=== PATIENT | female | born 1945 | race Caucasian/White ===

== ENCOUNTER → 2017-12-25 | Outpatient (CLI) | payer OTHER ==
[2017-12-25 17:26] LABS: BASO # 0.1 10^3/uL (0.0-0.2); BASO % 0.5 % (0.0-1.0); EOS # 0.2 10^3/uL (0.0-0.50); EOS % 1.9 % (0.0-3.0); HEMATOCRIT 44.6 % (36.0-47.0); HEMOGLOBIN 14.7 g/dl (12.0-15.5); IMMATURE GRANULOCYTE % 0.4 % (0-3.0); LYMPH # 2.7 10^3/uL (1.5-4.5); LYMPH % 24.9 % (24.0-44.0); MEAN CORPUSCULAR HEMOGLOBIN 30.4 pg (27.0-33.0); MEAN CORPUSCULAR VOLUME 92.1 fl (80.0-96.0); MONO # 0.5 10^3/uL (0.0-0.8); MONO % 4.6 % (0.0-5.0); NEUTROPHILS # 7.2 10^3/uL (1.8-7.7); NEUTROPHILS % 67.7 % (36.0-66.0); PLATELET COUNT, AUTOMATED 272 10^3/uL (150-450); RED BLOOD COUNT 4.84 10^6/uL (4.00-5.40); RED CELL DISTRIBUTION WIDTH 13.8 % (11.5-14.5); WHITE BLOOD COUNT 10.6 10^3/uL (4.0-10.0)
[2017-12-25 17:51] LABS: ESTIMATED AVERAGE GLUCOSE 203 MG/DL (60-110); HEMOGLOBIN A1c 8.7 %
[2017-12-25 18:04] LABS: ALBUMIN 3.4 GM/DL (3.2-5.2); ALBUMIN/GLOBULIN RATIO 0.87 (1.00-1.93); ALKALINE PHOSPHATASE 130 U/L (45-117); ALT/SGPT 35 U/L (12-78); ANION GAP 8 MEQ/L (8-16); AST/SGOT 18 U/L (7-37); BILIRUBIN,TOTAL 0.4 MG/DL (0.2-1.0); BLOOD UREA NITROGEN 11 MG/DL (7-18); CALCIUM LEVEL 9.4 MG/DL (8.8-10.2); CARBON DIOXIDE LEVEL 30 MEQ/L (21-32); CHLORIDE LEVEL 103 MEQ/L (98-107); CHOLESTEROL LEVEL 156 MG/DL (<200); CHOLESTEROL RISK RATIO 4.457 (<5); CREATININE FOR GFR 0.85 MG/DL (0.55-1.30); FREE T4 1.08 NG/DL (0.76-1.46); GLOMERULAR FILTRATION RATE > 60.0 (>39); GLUCOSE, FASTING 207 MG/DL (70-100); HDL CHOLESTEROL 35 MG/DL (>40); LDL CHOLESTEROL 81.6 MG/DL (<100); NON-HDL-C 121 MG/DL; SODIUM LEVEL 141 MEQ/L (136-145); THYROID STIMULATING HORMONE 0.975 uIU/ML (0.358-3.740); TOTAL PROTEIN 7.3 GM/DL (6.4-8.2); TRIGLYCERIDES LEVEL 197 MG/DL (<150)
== END ==
LOC: M SMT 13:50
DX: E11.9 Type 2 diabetes mellitus without complications (principal)

== ENCOUNTER 2019-12-28 17:35 | Inpatient (IN) | payer OTHER ==
[~2019-12-28 17:35] MED LIST: ACET65TA OR; ADVIL; ADVIL PO; AMLO10TAB OR; ASPI325T OR; BISO5TAB5 PO; BUPROPION PO; CATA0.1T OR; CEPALOZ2 PO; CLON-412 OR; COUM1TAB17 OR; COUM1TAB18 PO; COZA100T OR; FURO40TA2 OR; GLIM2TAB PO; IRBE300T10 PO; MS C15TA5 OR; MULTIVIT PO; MULTTAB33 PO; PERC7.5T12 PO; PERC7.5T8 OR; RITA10TA OR; SENNSYP PO; TYLENOL PO; WELL100T OR; WELL100T PO; [UNRECOGNIZED DRUG - CODE] OR; [UNRECOGNIZED DRUG - CODE] PO; [UNRECOGNIZED DRUG - CODE] XX; [UNRECOGNIZED DRUG - OTHER] PO; advil OR; aleve OR; excedrin
[2019-12-28] MEDS ORDERED: MORPHINE 2 MG/ML 1ML VIAL (J2270) ONE (19:22)
[2019-12-28] MEDS ORDERED: ZOSYN 3.375GM VIAL (J2543) ONE (19:22)
[2019-12-28] MEDS ORDERED: ISOVUE-370 76% 100ML VIAL ONE (20:17)
[2019-12-28] MEDS ORDERED: ENOXAPARIN 100MG/1ML SYRINGE (J1650 PER 10MG) ONE (22:55)
[2019-12-28] MEDS ORDERED: FUROSEMIDE 40MG/4ML VIAL (J1940) ONE (22:55)
[2019-12-28] MEDS ORDERED: NITROGLYCERIN IN D5W 25MG/250ML (100MCG/ML) ONE (22:55)
[2019-12-28] MEDS ORDERED: LISINOPRIL *2.5 MG* TAB ONE (22:55)
[2019-12-28] MEDS ORDERED: MORPHINE 4 MG/ML 1ML VIAL/SYRINGE (J2270) ONE (22:55)
[2019-12-28] MEDS ORDERED: ENOXAPARIN 30MG/0.3ML SYRINGE (J1650 PER 10MG) ONE (22:55)
[2019-12-29] MEDS ORDERED: ASPIRIN 81 MG CHEW TABLET As Ordered ONE ×2 (00:54→19:47)
[2019-12-29] MEDS ORDERED: RAMELTEON 8 MG TAB (ROZEREM) As Ordered ONE (00:54)
[2019-12-29] MEDS ORDERED: KETOROLAC 30 MG/ML 1ML VIAL As Ordered ONE (00:54)
[2019-12-29] MEDS ORDERED: HumaLOG INSULIN (NovoLOG) PER UNIT As Ordered ONE ×4 (00:57→16:47)
[2019-12-29] MEDS ORDERED: ONDANSETRON 4 MG TAB As Ordered ONE (06:17)
[2019-12-29] MEDS ORDERED: IPRATROPIUM 0.5MG/ALBUTEROL 2.5MG INH SOL UD 3ML (DUONEB) ONE (10:00)
[2019-12-29] MEDS ORDERED: METOPROLOL TART 12.5 MG PER 1/2 TAB As Ordered ONE (10:34)
[2019-12-29] MEDS ORDERED: lisinopriL 10 MG TAB As Ordered ONE ×2 (10:34→19:47)
[2019-12-29] MEDS ORDERED: LACTOBACILLUS ACIDOPHILUS CAP (BACID) As Ordered ONE ×2 (10:35→19:47)
[2019-12-29] MEDS ORDERED: CLINDAMYCIN 600 MG/50 ML PREMIX BAG As Ordered ONE ×2 (12:16→19:46)
[2019-12-29] MEDS ORDERED: FUROSEMIDE 40MG/4ML VIAL (J1940) As Ordered ONE (12:17)
[2019-12-29] MEDS ORDERED: ENOXAPARIN 150MG/ML SYRINGE (J1650 PER 10MG) ONE (13:00)
[2019-12-29] MEDS ORDERED: LISINOPRIL *2.5 MG* TAB ONE (13:00)
[2019-12-29] MEDS ORDERED: CLINDAMYCIN 150MG CAPSULE ONE ×2 (13:00→21:00)
[2019-12-29] MEDS ORDERED: TORSEMIDE 20 MG TAB As Ordered ONE (19:47)
[2019-12-29] MEDS ORDERED: SENNA 8.6 MG TAB (SENOKOT) As Ordered ONE (19:47)
[2019-12-29] MEDS ORDERED: CARVedilol 12.5 MG TAB As Ordered ONE (19:50)
[2019-12-30] MEDS ORDERED: TORSEMIDE 20 MG TAB As Ordered ONE (08:02)
[2019-12-30] MEDS ORDERED: lisinopriL 10 MG TAB As Ordered ONE (08:02)
[2019-12-30] MEDS ORDERED: SENOKOT S TAB As Ordered ONE (08:02)
[2019-12-30] MEDS ORDERED: LACTOBACILLUS ACIDOPHILUS CAP (BACID) As Ordered ONE (08:02)
[2019-12-30] MEDS ORDERED: CARVedilol 12.5 MG TAB As Ordered ONE (08:02)
[2019-12-30] MEDS ORDERED: HumaLOG INSULIN (NovoLOG) PER UNIT As Ordered ONE ×3 (08:04→17:04)
[2019-12-30] MEDS ORDERED: IPRATROPIUM 0.5MG/ALBUTEROL 2.5MG INH SOL UD 3ML (DUONEB) ONE (10:00)
[2019-12-30] MEDS ORDERED: MAGNESIUM SULFATE 1GM/100ML D5W BAG (10MG/ML) As Ordered ONE ×2 (10:49→12:43)
[2019-12-30] MEDS ORDERED: CLINDAMYCIN 600 MG/50 ML PREMIX BAG As Ordered ONE (12:00)
[2019-12-30] MEDS: TORSEMIDE 10 MG TABLET PO SCH (17:00)
[2019-12-30] MEDS ORDERED: ONDANSETRON 4 MG TAB PO PRN (18:15)
[2019-12-30] MEDS ORDERED: ALBUTEROL SULFATE 2.5 MG/0.5 ML INH NEB SOLN INH PRN (18:15)
[2019-12-30] MEDS ORDERED: BISACODYL 5 MG TAB PO PRN (18:15)
[2019-12-30] MEDS ORDERED: ACETAMINOPHEN TAB 650MG DOSE (2X325MG) PO PRN (18:15)
[2019-12-30] MEDS ORDERED: PERCOCET 5MG/325MG TAB PO PRN (18:15)
[2019-12-30] MEDS ORDERED: DEXTROSE 50% 50 ML SYRINGE IV PRN (18:15)
[2019-12-30] MEDS ORDERED: GLUCOSE 4GM CHEW TABLET PO PRN (18:15)
[2019-12-30] MEDS ORDERED: GLUCAGON INJ 1MG VIAL SC PRN (18:15)
[2019-12-30] MEDS ORDERED: NITROGLYCERIN 0.4 MG SUBL TABLET SL PRN (18:15)
[2019-12-30 20:00] VITALS: BP 146/74
[2019-12-30] MEDS: IPRATROPIUM 0.5MG/ALBUTEROL 2.5MG INH SOL UD 3ML (DUONEB) INH SCH (20:00)
[2019-12-30] MEDS: APIXABAN 5 MG TAB (ELIQUIS) PO SCH (20:02)
[2019-12-30] MEDS: CLINDAMYCIN 600 MG in IV 1 EA IV SCH (20:02)
[2019-12-30] MEDS: CARVedilol 12.5 MG TAB PO SCH (20:03)
[2019-12-30] MEDS: LACTOBACILLUS ACIDOPHILUS CAP (BACID) PO SCH (20:03)
[2019-12-30] MEDS: SENOKOT S TAB PO SCH (20:04)
[2019-12-30] MEDS: lisinopriL 10 MG TAB PO SCH (20:04)
[2019-12-30] MEDS ORDERED: ENOXAPARIN 150MG/ML SYRINGE (J1650 PER 10MG) SC SCH (21:00)
[2019-12-30] MEDS ORDERED: HumaLOG INSULIN (NovoLOG) PER UNIT SC SCH (21:00)
[2019-12-30] MEDS ORDERED: ASPIRIN 81 MG CHEW TABLET PO SCH (21:00)
[2019-12-30 21:36] LABS: BASO # 0.1 10^3/uL (0.0-0.2); BASO % 0.7 % (0.0-1.0); EOS # 0.3 10^3/uL (0.0-0.5); EOS % 3.1 % (0.0-3.0); HEMATOCRIT 40.4 % (36.0-47.0); HEMOGLOBIN 12.9 g/dl (12.0-15.5); LYMPH % 31.9 % (24.0-44.0); MEAN CORPUSCULAR HEMOGLOBIN 29.9 pg (27.0-33.0); MEAN CORPUSCULAR HGB CONC 31.9 g/dl (32.0-36.5); MEAN CORPUSCULAR VOLUME 93.5 fl (80.0-96.0); MONO # 0.7 10^3/uL (0.0-0.8); MONO % 7.4 % (0.0-5.0); NEUTROPHILS # 5.3 10^3/uL (1.5-8.5); NEUTROPHILS % 56.6 % (36.0-66.0); PLATELET COUNT, AUTOMATED 227 10^3/uL (150-450); RED BLOOD COUNT 4.32 10^6/uL (4.00-5.40); WHITE BLOOD COUNT 9.4 10^3/uL (4.0-10.0)
[2019-12-31] VITALS: BP 121/65
[2019-12-31 04:00] VITALS: BP 154/85
[2019-12-31] MEDS: CLINDAMYCIN 600 MG in IV 1 EA IV SCH ×2 (04:00→11:53)
[2019-12-31 05:52] LABS: BASO # 0.1 10^3/uL (0.0-0.2); BASO % 0.7 % (0.0-1.0); EOS # 0.4 10^3/uL (0.0-0.5); EOS % 4.1 % (0.0-3.0); HEMATOCRIT 39.5 % (36.0-47.0); HEMOGLOBIN 12.5 g/dl (12.0-15.5); LYMPH # 2.9 10^3/uL (1.5-5.0); MEAN CORPUSCULAR HGB CONC 31.6 g/dl (32.0-36.5); MEAN CORPUSCULAR VOLUME 94.7 fl (80.0-96.0); MONO # 0.7 10^3/uL (0.0-0.8); MONO % 7.8 % (0.0-5.0); NEUTROPHILS # 4.6 10^3/uL (1.5-8.5); NEUTROPHILS % 53.3 % (36.0-66.0); PLATELET COUNT, AUTOMATED 196 10^3/uL (150-450); RED BLOOD COUNT 4.17 10^6/uL (4.00-5.40); WHITE BLOOD COUNT 8.6 10^3/uL (4.0-10.0)
[2019-12-31 06:02] LABS: INR 1.33; PROTHROMBIN TIME 16.8 SECONDS (11.8-14.0)
[2019-12-31 06:49] LABS: ALBUMIN 2.9 GM/DL (3.2-5.2); BILIRUBIN,TOTAL 0.6 MG/DL (0.2-1.0); CALCIUM LEVEL 8.3 MG/DL (8.8-10.2); CREATININE FOR GFR 1.05 MG/DL (0.55-1.30); GLOMERULAR FILTRATION RATE 54.5 (>39); MAGNESIUM LEVEL 2.1 MG/DL (1.8-2.4); PHOSPHORUS LEVEL 3.8 MG/DL (2.5-4.9); POTASSIUM SERUM 3.6 MEQ/L (3.5-5.1); TOTAL PROTEIN 5.9 GM/DL (6.4-8.2)
[2019-12-31] MEDS: HumaLOG INSULIN (NovoLOG) PER UNIT SC SCH ×2 (07:25→11:53)
[2019-12-31 07:58] VITALS: BP 148/71
[2019-12-31] MEDS: LACTOBACILLUS ACIDOPHILUS CAP (BACID) PO SCH (07:58)
[2019-12-31] MEDS: SENOKOT S TAB PO SCH (07:58)
[2019-12-31] MEDS: CARVedilol 12.5 MG TAB PO SCH (07:58)
[2019-12-31] MEDS: lisinopriL 10 MG TAB PO SCH (07:59)
[2019-12-31] MEDS: APIXABAN 5 MG TAB (ELIQUIS) PO SCH (07:59)
[2019-12-31 08:00] VITALS: BP 148/71
[2019-12-31] MEDS: TORSEMIDE 10 MG TABLET PO SCH (08:05)
[2019-12-31] MEDS: IPRATROPIUM 0.5MG/ALBUTEROL 2.5MG INH SOL UD 3ML (DUONEB) INH SCH ×3 (08:33→16:14)
[2019-12-31] MEDS ORDERED: ELIQ5TAB PO (10:01)
[2019-12-31] MEDS ORDERED: TORS10TA3 PO (10:05)
[2019-12-31] MEDS ORDERED: CARV12.5 PO (10:05)
[2019-12-31] MEDS ORDERED: LISI10TA4 PO (10:05)
[2019-12-31] MEDS ORDERED: METF-817 PO (10:29)
--- NOTE | 2019-12-31 11:02 | IPNPDOC ---
Date Seen The patient was seen on 12/31/19. Progress Note SUBJECTIVE: doing well, no acute events overnight. No CP, subjective fevers. No n/v/d. SOB resolved. OBJECTIVE PHYSICAL EXAMINATION: VITAL SIGNS: Please see below. GENERAL: NAD, comfortable in bed HEENT: PERRLA, EOMI CARDIOVASCULAR: RRR, normal S1, S2. RESPIRATORY: lungs CTAB, bilateral basal air entry improved, no crackles. ABDOMINAL: non tender, obese EXTREMITIES: 1+ edema, improved. Cellulitis improving, erythema diminies. Stage 1 ulcers dressed, clean NEUROLOGICAL: no focal neuro deficits PSYCHOLOGICAL: wnl LABORATORY DATA, IMAGING STUDIES, MICROBIOLOGY: Please see below. Echocardiogram ( 12/1819): - mild LV dysfunction - EF ~50%, Grade 2 diastolic dysfunction - mild AV scleroris - no pericardial effusion DVT prophylaxis ordered?: Eliquis. ASSESSMENT AND PLAN: This is a 74 yo F with hx of uncontrolled HTN, CHF, uncontrolled DM2. Presented to [facility] ED with dyspnea, worse on activity and PND. Admitted to PCU for hypertensive emergency and acute on chronic CHS exacerbation. CTA/PE cannot r/o PE. PROBLEMS: 1. Hypertensive Emergency: BP normalized. Cardio consulted. Off nitro ggt. Lisinopril 10 mg daily. Carvedilol 12.5 mg BID. Torsemide 10 mg BID. 2D echo showing LV dysfunction, EF ~50%. Cleared for DC by Dr. Davis, to f/u 3-4 weeks. Low salt diet. 2. Acute CHF Exacerbation: diuresed w torsemide 10 mg bid. Coreg 12.5 mg bid. 2L fluid restriction. CXR (12/30/19) improved pleural effusion size. Cardio f/u 3-[address] Davis. 3. Elevated Trop: trended down. Likely from demand. No CP. 4. BL LE cellulitis: superimposed on stage 1 ulcers. Completed 2 days IV clindamycin. DC on PO Bactrim DS BID for 7 days. Improving. Outpatient wound care. 5. DM2 (uncontrolled): takes no meds. A1c 8.7. ISS, accuchecks. BGs 180s. Needs PCP, diabetic education. 6. Possible PE on CTA: cannot rule out. Negative BLE duplex. Switched lovenox to eliquis. Completed VQ scan. Low probability of PE. Given lack of strong indication for PE based on imaging, decision to DC anticoagulation on discharge. Eliquis stopped. 7. 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 8. L breast mass: incidental, seen on CTA chest. 2.2 cm, small calcification. Needs bilateral diagnostic mammogram with US. Has not had mammogram in 20 years. Needs PCP coordination. Patient informed and verbalized understanding. 9. DVT ppx: eliquis. DC on discharge. Dispo: DC home with PCP follow up. VS, I&O, 24H, Fishbone Vital Signs/I&O Vital Signs Date Time Temp Pulse Resp B/P (MAP) Pulse Ox O2 Delivery O2 Flow Rate FiO2 12/31/19 08:34 73 12/31/19 07:58 148/71 12/31/19 04:00 98.3 20 95 Room Air l I&O- Last 24 Hours up to 6 AM 12/31/19 06:00 Intake Total 430 ml Output Total 350 ml Balance 80 ml Laboratory Data 24H LABS Laboratory Tests 2 12/31/19 05:33: Immature Granulocyte % (Auto) 0.1, Neutrophils (%) (Auto) 53.3, Lymphocytes (%) (Auto) 34.0, Monocytes (%) (Auto) 7.8H, Eosinophils (%) (Auto) 4.1H, Basophils (%) (Auto) 0.7, Neutrophils # (Auto) 4.6, Lymphocytes # (Auto) 2.9, Monocytes # (Auto) 0.7, Eosinophils # (Auto) 0.4, Basophils # (Auto) 0.1, Nucleated Red Blood Cells % (auto) 0.0, Prothrombin Time 16.8H, Prothromb Time International Ratio 1.33, Anion Gap 5L, Glomerular Filtration Rate 54.5, Calcium Level 8.3L, Phosphorus Level 3.8, Magnesium Level 2.1, Total Bilirubin 0.6, Aspartate Amino Transf (AST/SGOT) 43H, Alanine Aminotransferase (ALT/SGPT) 64, Alkaline Phosphatase 130H, Total Protein 5.9L, Albumin 2.9L, Albumin/Globulin Ratio 1.0L CBC/BMP Laboratory Tests 12/31/19 05:33 FELIPE CHUNG MD Dec 31, 2019 10:33
[2019-12-31] MEDS ORDERED: BACT800T5 PO (11:04)
[2019-12-31 12:00] VITALS: BP 135/70
--- NOTE | 2019-12-31 20:17 | DS.PDOC ---
Discharge Summary General Date of Admission Dec 28, 2019 at 23:48 Date of Discharge 12/31/19 Primary Care Physician: A Attending Physician: FELIPE CHUNG MD Specialist/Consultants Involve: Gilbert Davis Discharge Summary PROCEDURES PERFORMED DURING STAY: [None]. ADMITTING DIAGNOSES: 1. Hypertensive emergency 2. CHF exacerbation 3. BLE cellulitis 4. elevated troponin 5. morbid obesity 6. DM2 DISCHARGE DIAGNOSES: 1. Hypertensive emergency 2. CHF exacerbation 3. BLE cellulitis 4. elevated troponin 5. morbid obesity 6. DM2 7. L breast mass COMPLICATIONS/CHIEF COMPLAINT: Dyspnea. HISTORY OF PRESENT ILLNESS: 74 yo F with a hx of CHF, HTN, uncontrolled DM2, obesity, presented to [facility] ED with worsening dyspnea on exertion. Improved at rest. C/o PND. Takes no medications at home. Was not established with PCP. Noted tachypnea, on exam, 3+ BLE edema. CXR noted to have bilateral pulmonary effusions. CTA/PE could not r/o PE. Negative BLE venous dupplex of note. (Note: L breast calcified mass, 2.2 cm incidental finding). BNP elevated > 5000. Trop mildly elevated. SBP > 220 mmHG. Admitted to PCU for management of HTN emergency and acute CHF exacerbation. HOSPITAL COURSE: Patient was started on nitro GGT for BP control. Cardiology service was consulted. Nitro ggt drip stopped, transition to PO meds once BP normalized. Continued on lisinopril 10 mg daily. Carvedilol 12.5 mg BID. Torsemide 10 mg BID. PO fluid intake was restricted to 2L per day. Patient was started on AC with lovenox for suspicious CTA/PE findings for PE, transitioned to eliquis. VQ scan performed to further attempt to characterize defect. Low risk of PE noted on VQ scan. Decision to DC AC on discharge. For DM2 (a1c 8.7) management, patient was started on Metformin 500 mg ER. Will require close follow up with PCP given several chronic issues. Dr. Davis would like to f/u as outpatient in 3-4 weeks. L breast mass requires bilateral diagnostic mammogram with ultrasound. Discussed with radiology, suspicion for malignancy. DISCHARGE MEDICATIONS: Please see below. ALLERGIES: Please see below. PHYSICAL EXAMINATION ON DISCHARGE: GENERAL: NAD, comfortable in bed HEENT: PERRLA, EOMI CARDIOVASCULAR: RRR, normal S1, S2. RESPIRATORY: lungs CTAB, bilateral basal air entry improved, no crackles. ABDOMINAL: non tender, obese EXTREMITIES: 1+ edema, improved. Cellulitis improving, erythema diminies. Stage 1 ulcers dressed, clean NEUROLOGICAL: no focal neuro deficits PSYCHOLOGICAL: wnl LABORATORY DATA: Please see below. IMAGING: most of records were recorded on paper chart. Pertinent information listed in the Hospital Course. ACTIVITY: [As tolerated]. DIET: low salt DISCHARGE PLAN: DC home DISPOSITION: HOme DISCHARGE INSTRUCTIONS: 1. mantain low salt diet, vegetarian 2. continue medication regimen for HTN as listed above 3. establish PCP 4. F/u with cardiology Dr. Davis 3-4 weeks ITEMS TO FOLLOWUP ON ON OUTPATIENT: 1. L breast mass (2.2 cm with small calcification) 2. Diabetes management (started on metformin) 3. BP measurement 4. Suspicion of ALANIS DISCHARGE CONDITION: [Stable]. TIME SPENT ON DISCHARGE: Greater than 30 minutes. Vital Signs/I&Os Vital Signs Date Time Temp Pulse Resp B/P (MAP) Pulse Ox O2 Delivery O2 Flow Rate FiO2 12/31/19 08:34 73 12/31/19 07:58 148/71 12/31/19 04:00 98.3 20 95 Room Air I&O- Last 24 Hours up to 6 AM 12/31/19 06:00 Intake Total 430 ml Output Total 350 ml Balance 80 ml Laboratory Data Labs 24H Laboratory Tests 2 12/31/19 05:33: Immature Granulocyte % (Auto) 0.1, Neutrophils (%) (Auto) 53.3, Lymphocytes (%) (Auto) 34.0, Monocytes (%) (Auto) 7.8H, Eosinophils (%) (Auto) 4.1H, Basophils (%) (Auto) 0.7, Neutrophils # (Auto) 4.6, Lymphocytes # (Auto) 2.9, Monocytes # (Auto) 0.7, Eosinophils # (Auto) 0.4, Basophils # (Auto) 0.1, Nucleated Red Blood Cells % (auto) 0.0, Prothrombin Time 16.8H, Prothromb Time International Ratio 1.33, Anion Gap 5L, Glomerular Filtration Rate 54.5, Calcium Level 8.3L, Phosphorus Level 3.8, Magnesium Level 2.1, Total Bilirubin 0.6, Aspartate Amino Transf (AST/SGOT) 43H, Alanine Aminotransferase (ALT/SGPT) 64, Alkaline Phosphatase 130H, Total Protein 5.9L, Albumin 2.9L, Albumin/Globulin Ratio 1.0L CBC/BMP Laboratory Tests 12/31/19 05:33 Discharge Medications Scheduled Carvedilol (Carvedilol) 12.5 Mg Tablet, 12.5 MG PO BID Lisinopril (Lisinopril) 10 Mg Tablet, 10 MG PO BID Metformin HCl (Metformin ER Gastric) 500 Mg [id number], 500 MG PO DAILY for diab etes Sulfamethoxazole/Trimethoprim (Bactrim Ds Tablet) 1 Each Tablet, 1 TAB PO BID Torsemide (Torsemide) 10 Mg Tablet, 10 MG PO BID@,17 Allergies Coded Allergies: atorvastatin (Verified Allergy, Unknown, AFFECTED LEGS, BONES, URINE BROWN, 12/30/19) clonidine (Verified Allergy, Unknown, 12/30/19) codeine (Verified Allergy, Unknown, 12/30/19) FELIPE CHUNG MD Dec 31, 2019 10:33
[2020-01-01 11:49] LABS: BASO % 0.4 % (0.0-1.0); EOS # 0.2 10^3/uL (0.0-0.5); EOS % 1.3 % (0.0-3.0); HEMOGLOBIN 13.2 g/dl (12.0-15.5); LYMPH # 2.4 10^3/uL (1.5-5.0); LYMPH % 21.3 % (24.0-44.0); MEAN CORPUSCULAR HEMOGLOBIN 30.3 pg (27.0-33.0); MONO # 0.8 10^3/uL (0.0-0.8); MONO % 7.1 % (0.0-5.0); NEUTROPHILS # 7.9 10^3/uL (1.5-8.5); NEUTROPHILS % 69.6 % (36.0-66.0); PLATELET COUNT, AUTOMATED 242 10^3/uL (150-450); RED BLOOD COUNT 4.35 10^6/uL (4.00-5.40); WHITE BLOOD COUNT 11.3 10^3/uL (4.0-10.0)
[2020-01-01 12:00] LABS: INR 1.16; PARTIAL THROMBOPLASTIN TIME 33.1 SECONDS (25.0-38.4); PROTHROMBIN TIME 15.1 SECONDS (11.8-14.0)
[2020-01-01 12:28] LABS: D-DIMER QUANT 1630.12 ng/ml (<500); INR 1.05; PARTIAL THROMBOPLASTIN TIME 28.2 SECONDS (25.0-38.4); PROTHROMBIN TIME 13.9 SECONDS (11.8-14.0)
[2020-01-03 23:18] LABS: BILIRUBIN,TOTAL 0.7 MG/DL (0.2-1.0); CALCIUM LEVEL 8.3 MG/DL (8.8-10.2); CHOLESTEROL RISK RATIO 3.414 (<5); CREATININE FOR GFR 1.13 MG/DL (0.55-1.30); GLOMERULAR FILTRATION RATE 50.1 (>39); MAGNESIUM LEVEL 1.8 MG/DL (1.8-2.4); POTASSIUM SERUM 3.8 MEQ/L (3.5-5.1); TOTAL PROTEIN 5.9 GM/DL (6.4-8.2); TROPONIN I 0.03 NG/ML (< 0.10)
[2020-01-06] MEDS ORDERED: APIXABAN 5 MG TAB (ELIQUIS) PO SCH (21:00)
--- NOTE | 2020-01-14 11:58 | CR ---
DATE: 12/29/2019 REFERRING PHYSICIAN: Dr. Chaparrita Mckoy REASON FOR CONSULTATION: Heart failure, unspecified, hypertensive emergency, systemic hypertension, elevated troponin I. HISTORY OF PRESENT ILLNESS: Reji Pendleton is a pleasant morbidly obese woman who is presently 72 years old who reports she has had systemic hypertension dating back to when she was in her 30s. She has not been seen by a physician for many years up until recently. She has obstructive sleep apnea for which she is on CPAP. She was recently diagnosed with Type 2 diabetes. She was hospitalized to [facility] 12/28/2019 with hypertensive emergency and new diagnosis of heart failure. She was noted to have an elevated NT pro-BNP level and also elevated troponin I. She was placed on Nitroglycerin IV and placed in the ICU. So far she has been responding well to medical therapy. The patient reports chronic exertional dyspnea for many years which has worsened in the two weeks prior to admission to a point with dyspnea with any activity. She was having orthopnea during the two weeks prior to admission. No dyspnea at rest and no PND. She reports chronic bilateral edema in both legs for many years and has not noted any real changes recently. No chest pain, pressure, tightness, or heaviness with or without exertion. No palpitations. She reports she passed out about three or four months ago on one occasion. No embolic events. No claudication. ALLERGIES: The patient reports intolerances to Losartan and statins. CURRENT MEDICATIONS IN HOSPITAL: Nitroglycerin IV, DuoNeb q.i.d., Albuterol 2.5 mg nebulizer q. 2 h p.r.n., Metoprolol Tartrate 12.5 mg b.i.d., Clindamycin 600 mg IV q. 8 h, probiotic b.i.d., Tylenol 650 mg q. 6 h p.r.n., Percocet 5-325 mg q. 8 h p.r.n., Lisinopril 10 mg daily, Nitroglycerin 0.4 mg sublingual q. 5 minutes p.r.n., aspirin 81 mg p.o. h.s., Lovenox 130 mg sub q. q. 12 h. SOCIAL HISTORY: Resident of [place], [place]. . Mother of three. No alcohol. No illicit drugs. Nonsmoker. FAMILY HISTORY: One son with systemic hypertension. REVIEW OF SYSTEMS: As per HPI above. No anxiety, panic attacks or depression. All other 10 point review of systems negative. PHYSICAL EXAMINATION: Pleasant morbidly obese woman who appears her chronologic age who is not in any respiratory or psychological distress. BP 139/62, pulse 89 (regular). Respiratory rate 18. Afebrile. No conjunctival pallor or scleral icterus or xanthelasmas. Teeth were in fair condition. Oral mucosa is moist without pallor or cyanosis. Jugular venous pulsations were at 6 cm. Trachea midline. No palpable thyroid. No clubbing of the nail beds, cyanosis, or splinter hemorrhages. No skin lesions, skin pallor, or icterus. Oriented to person, place, and time. Mood and affect normal. Curvature of the spine normal. Gait not appropriate to test at this time as she is on bed rest and has decompensated heart failure. Gross motor strength and tone were normal. Respiratory expansion and effort were good. A few bibasilar crackles were present. No wheezes. No palpable apex beat. No parasternal lifts, heaves, thrills, or palpable heart sounds. First and second heart sounds were normal. No S3 or S4. No murmurs appreciated. Carotids were normal in volume and contour without bruits. No palpable abdominal aorta. No abdominal bruits. Femoral pulses difficult to palpate due to severe obesity. Pedal pulses normal. 5 mm of pitting edema at mid tibial level bilaterally. No varicose veins. Abdomen was obese, soft, nontender with normal bowel sounds. Liver span difficult to assess due to abdominal obesity. Difficult to asses for hepatomegaly, splenomegaly or other organomegaly due to severe abdominal obesity. Stool for occult blood not presently indicated. INVESTIGATIONS: Echocardiogram Doppler has been reported under separate cover. The echocardiogram Doppler 12/29/2019 showed mild dilatation of the left ventricle with normal LV wall thickness and mild reduction of LV systolic function, LVEF 50% by facial estimate. Grade 2 LV diastolic dysfunction (sooner than normal LV filling pattern). Mild left atrial dilatation by left atrial volume index. Normal right ventricle size and systolic function. Suggestive of mild dilatation of estimated right ventricular systolic pressure. No pericardial effusion. Electrocardiogram 12/29/2019 at 0032 hours shows sinus rhythm, 94 BPM, left atrial abnormality, possible left atrial enlargement, moderate nonspecific QRS widening, nonspecific T-wave abnormalities. Duplex ultrasound of the lower extremity veins bilateral on 12/28/2019 reported no evidence of deep vein thrombosis. Chest CTA 12/28/2019 reported suboptimal CTA examination with significant misregistration artifact and inadequate opacification of the pulmonary artery branches. Findings suggestive of possibility of chronic veno-occlusive disease. Focal defect third generation match of the right pulmonary artery serving the right lower lobe may be acute or chronic. Cardiomegaly. Moderate right sided pleural effusion and small left pleural effusion. Subpleural atelectasis at both lung bases, right greater than left. Mass in the left upper breast medial to the nipple, correlate with patients mammogram. Laboratory work on 12/29/2019 showed cardiac troponin I 0.04. Sodium 139, potassium 4.0, chloride 107, CO2 27, glucose 122, BUN 13, creatinine 1.17. Calcium 9.0. Cardiac troponin I < 0.02. Cardiac troponin I on 12/29/2019 at 1915 hours was 0.05. Laboratory work on 12/29/2019 showed WBC 11.34, hemoglobin 13.2, hematocrit 40.0, platelets 242,000. Cardiac troponin I 12/29/2019 at 0109 hours was 0.06. In the patients current paper chart the BNP level 12/28/2019 was 3233. ASSESSMENT AND PLAN: 1. Diastolic heart failure, acute on chronic. Currently, NYHA Functional Class III. She is decompensated on examination and her blood pressure has been uncontrolled but improving. At this point I think we can switch her from furosemide IV to torsemide p.o. I will switch her from metoprolol tartrate to Carvedilol. I will increase Lisinopril to 10 mg b.i.d. 2. Hypertensive emergency. At this point, I think the patient can come off the IV Nitroglycerin. I have placed her oral antihypertensive regimen as follows: Lisinopril 10 mg b.i.d., torsemide 10 mg p.o. b.i.d., Carvedilol 12.5 mg b.i.d. Will follow with you. 3. Systemic hypertension. This patients obstructive sleep apnea and severe obesity contributes to this patients systemic hypertension. Evaluation management of systemic hypertension as per hypertensive emergency category above. 4. Elevated troponin I. The very slight elevation of the troponin I is in the indeterminate range. She is not having any anginal symptoms. ECG does not show any pathologic Q-waves or ischemic T-wave abnormalities. I believe the patients heart failure and severely uncontrolled hypertension account for the indeterminate value of the troponin I. 5. Cardiomegaly. Mild left ventricular dilatation and mild left atrial dilatation as commented on the echocardiogram Doppler. Thank you kindly for asking me to participate in the cardiac care of Reji Pendleton. MAGGIE
--- NOTE | 2020-01-23 12:25 | ECGEPIP ---
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
--- NOTE | 2020-02-03 10:10 | ECGEPIP ---
[facility] Test Date: 2019-12-29 Pat Name: TEODORA RUSSELL Department: Room: [place] [address] Gender: Female Pouncer Machine: JERALD : 1945 Requested By: Chaparrita Rudolph Order Number: [id number] Reading MD: Raudel Joseph Measurements Intervals [place] Rate: 95 P: 47 UT: 181 QRS: 50 QRSD: 122 T: -13 QT: 406 QTc: 512 Interpretive Statements SINUS RHYTHM MODERATE INTRAVENTRICULAR CONDUCTION DELAY NONSPECIFIC T-WAVE ABNORMALITY ABNORMAL ECG NO PRIOR TRACING SEE SCANNED DOWNTIME REPORT
--- NOTE | 2020-02-06 11:45 | REP ---
VENTILATION PERFUSION LUNG SCAN HISTORY: Dyspnea, rule out pulmonary embolus. TECHNIQUE: 1.0 mCi of Technetium-99m DTPA aerosol is utilized for the ventilation study and is followed by a 5.5 mCi intravenous dose of Technetium- 99m MAA for the perfusion exam. A sequence of eight plantar images are acquired for each portion of the study. SCINTIGRAPHIC FINDINGS: There is fairly heavy central bronchial and tracheal deposition of inspired ventilatory tracer. Perfusion study shows homogeneous parenchymal distribution of MAA tracer. There is a matched subsegmental defect in the right parahilar region posteriorly. No mismatch defect is seen. IMPRESSION: Low probability scan for pulmonary embolism. MTDD
[2020-02-09 11:21] LABS: D-DIMER QUANT 1630.12 ng/ml (<500); INR 1.05; PROTHROMBIN TIME 13.9 SECONDS (12.5-14.3)
[2020-02-11 19:52] LABS: BASO # 0.1 10^3/uL (0.0-0.2); BASO % 0.6 % (0.0-1.0); EOS # 0.1 10^3/uL (0.0-0.5); EOS % 1.3 % (0.0-3.0); HEMATOCRIT 44.3 % (36.0-47.0); HEMOGLOBIN 14.5 g/dl (12.0-15.5); LYMPH # 2.1 10^3/uL (1.5-5.0); LYMPH % 19.1 % (24.0-44.0); MEAN CORPUSCULAR HEMOGLOBIN 30.1 pg (27.0-33.0); MEAN CORPUSCULAR HGB CONC 32.7 g/dl (32.0-36.5); MEAN CORPUSCULAR VOLUME 92.1 fl (80.0-96.0); MONO # 0.6 10^3/uL (0.0-0.8); MONO % 5.8 % (0.0-5.0); NEUTROPHILS # 7.8 10^3/uL (1.5-8.5); NEUTROPHILS % 72.9 % (36.0-66.0); PLATELET COUNT, AUTOMATED 251 10^3/uL (150-450); RED BLOOD COUNT 4.81 10^6/uL (4.00-5.40); WHITE BLOOD COUNT 10.7 10^3/uL (4.0-10.0)
[2020-02-11 19:53] LABS: ERYTHROCYTE SEDIMENTATION RATE 18 mm/hr (0-30)
--- NOTE | 2020-02-19 15:41 | ECHO ---
DATE OF PROCEDURE: 12/29/2019 Height: 65 inches. Weight: 294 pounds. REFERRING PHYSICIAN: Dr. Jesi Benavides INDICATION: Dyspnea. MEASUREMENTS: 2D Measurements: Left ventricle diastole 6.0 cm Interventricular septum 1.18 cm Posterior wall 1.02 cm Aortic root 2.9 cm Left atrium 3.3 cm. Left atrium volume index 31 Inferior vena cava 2.2 cm Doppler Measurements: No aortic stenosis No aortic regurgitation Very mild mitral regurgitation No mitral stenosis Very mild tricuspid regurgitation No pulmonic regurgitation Aortic valve velocity 138 cm/s Mitral E velocity 120 cm/s Mitral A velocity 94.8 cm/s Mitral deceleration time 148 cm/s Estimated right ventricular systolic pressure 33-38 mmHg Estimated right atrial pressure 5-10 mmHg MITRAL ANNULAR TISSUE DOPPLER E prime lateral 7.5, E prime septal 4.4 cm/s DESCRIPTION: Rhythm was sinus. This was a moderately technically difficult echocardiogram. No pericardial effusion. This was a 2D, M-mode, color flow Doppler, and pulsed wave Doppler examination including mitral annular tissue Doppler. CONCLUSIONS: Mildly dilated left ventricle at end diastole (6.0 cm). Normal LV wall thickness. Mild global LV hypokinesis. LVEF of 50% by visual estimate. Grade 2 LV diastolic dysfunction (pseudonormal LV diastolic filling pattern). Mild left atrial dilatation by left atrial filing index. Suggestive of mild elevation of estimated right ventricle systolic pressure. Normal right ventricle size and systolic function. Trace tricuspid regurgitation. Mild aortic valve sclerosis of a 3-cuspid aortic valve. No aortic regurgitation or stenosis. Mild mitral annular calcification. Very mild mitral regurgitation. No pericardial effusion. Moderately technically difficult echocardiogram. MTDD
--- NOTE | 2020-02-20 15:13 | IPN ---
DATE: 12/30/2019 AT 0320 PM SUBJECTIVE: Patient reports mild exertional dyspnea with all levels of activity around her room. No orthopnea or paroxysmal nocturnal dyspnea (PND). She is aware she still has leg edema in both legs. No chest pain or chest discomfort. No palpitations. OBJECTIVE: On physical examination, morbidly obese woman who was not in any respiratory or Psychologic distress. BP 123/56, pulse 72 (sinus rhythm), respiratory rate 18. Jugular venous pulsations were at 8 cm. First and second heart sounds were normal. Respiratory expansion was good. No crackles or wheezes. Normal S1, S2. No S3, S4. No murmurs appreciated. Abdomen was soft and nontender with normal bowel sounds. Four mm of pitting edema was tested at mid tibia level bilaterally. LABORATORY DATA: December 30, 2019 at 0641 am showed sodium 140, potassium 3.8, chloride 105, CO2 of 28, glucose 176, creatinine 1.13, BUN 22, calcium 8.3, albumin 3.0, magnesium 1.8. Total cholesterol 140, triglycerides 114, HDL 41, LDL 76. ASSESSMENT AND RECOMMENDATIONS: * Acute on chronic diastolic heart failure. Patient appears to be decompensated on examination. She has been generating good negative urine output. Blood pressure has come under control. We will continue with lisinopril 10 mg twice a day, torsemide 10 mg twice a day, carvedilol 12.5 mg twice a day. * Hypertensive emergency, resolved. See systemic hypertension category below. * Systemic hypertension. Blood pressure controlled. Will continue the present antihypertensive therapy consisting of lisinopril 10 mg b.i.d., carvedilol 12.5 b.i.d., and torsemide 10 mg b.i.d. * Elevated troponin I. Indeterminate range in the setting of heart failure. Most likely secondary to decompensated heart failure. Since she has diabetes, she would be considered for outpatient cardiac nuclear stress testing as an outpatient. For now, continue aspirin. * Cardiomegaly as per echocardiogram Doppler findings. Her lipid values are rather well-controlled even without lipid-lowering medication. At this point, I would not start statin therapy. She apparently has had intolerance to statin in the past. MTDD
[2020-03-14 11:20] LABS: ALBUMIN 3.6 GM/DL (3.2-5.2); ALT/SGPT 78 U/L (12-78); BILIRUBIN,DIRECT 0.2 MG/DL (0.0-0.2); BILIRUBIN,TOTAL 0.5 MG/DL (0.2-1.0); BLOOD UREA NITROGEN 18 MG/DL (7-18); C REACTIVE PROTEIN QUANTITATIV 2.72 MG/DL (0.00-0.30); CALCIUM LEVEL 8.9 MG/DL (8.8-10.2); CARBON DIOXIDE LEVEL 27 MEQ/L (21-32); CHLORIDE LEVEL 104 MEQ/L (98-107); CK-MB VALUE MASS 2.6 NG/ML (<3.6); CPK CREATINE PHOSPHOKINASE 59 U/L (26-192); CREATININE FOR GFR 0.85 MG/DL (0.55-1.30); FREE T4 1.36 NG/DL (0.76-1.46); GLOMERULAR FILTRATION RATE > 60.0 (>39); GLUCOSE, FASTING 256 MG/DL (70-100); HEMOGLOBIN A1c 8.7 %; MAGNESIUM LEVEL 1.8 MG/DL (1.8-2.4); MB/CK RELATIVE INDEX 4.41 (< OR =4); NT-PRO BNP 3233 PG/ML (<125); POTASSIUM SERUM 3.7 MEQ/L (3.5-5.1); SODIUM LEVEL 139 MEQ/L (136-145); TOTAL PROTEIN 6.9 GM/DL (6.4-8.2); TROPONIN I 0.06 NG/ML (< 0.10)
[2020-03-21 12:36] LABS: MAGNESIUM LEVEL 1.9 MG/DL (1.8-2.4); PHOSPHORUS LEVEL 4.2 MG/DL (2.5-4.9); TROPONIN I 0.04 NG/ML (< 0.10)
[2020-03-21 13:02] LABS: BLOOD UREA NITROGEN 18 MG/DL (7-18); CARBON DIOXIDE LEVEL 28 MEQ/L (21-32); CHLORIDE LEVEL 107 MEQ/L (98-107); CREATININE FOR GFR 0.94 MG/DL (0.55-1.30); GLOMERULAR FILTRATION RATE > 60.0 (>39); GLUCOSE, FASTING 210 MG/DL (70-100); POTASSIUM SERUM 3.5 MEQ/L (3.5-5.1); SODIUM LEVEL 141 MEQ/L (136-145); TROPONIN I 0.05 NG/ML (< 0.10)
== END 2019-12-31 16:42 | disposition home health service (06) | DRG 199 ==
LOC: M ED 17:35 → M ICU 23:48
PROVIDERS: ADMIT Internal Medicine; ATTEND Family Medicine
DX: I16.0 Hypertensive urgency (principal); I50.33 Acute on chronic diastolic (congestive) heart failure; L03.116 Cellulitis of left lower limb; E66.01 Morbid (severe) obesity due to excess calories; E11.9 Type 2 diabetes mellitus without complications; N63.0 Unspecified lump in unspecified breast; Z79.899 Other long term (current) drug therapy; Z88.5 Allergy status to narcotic agent; Z88.8 Allergy status to other drugs, medicaments and biological substances; I11.0 Hypertensive heart disease with heart failure

== ENCOUNTER 2020-02-04 18:27 | Inpatient (IN) | payer MEDICARE, OTHER ==
[~2020-02-04] VITALS: Ht 165.1 cm; Wt 122.9 kg
[~2020-02-04 18:27] MED LIST changes: -ALEV220T22 PO; -AMIL5TAB4 PO; -AMLO1TAB25 PO; -CARV3.12 PO; -CLIN150C14 PO; -LEVO750T13 PO; -LISI-542 PO; -NEUR100C PO
[2020-02-04] MEDS ORDERED: AMIL5TAB4 PO (18:37)
[2020-02-04] MEDS ORDERED: LEVO750T13 PO (18:37)
[2020-02-04] MEDS ORDERED: NEUR100C PO (18:37)
[2020-02-04 19:44] LABS: VENOUS BASE EXCESS -3.9 (-2.0-2.0); VENOUS HCO3 22.4 MEQ/L (23.0-27.0); VENOUS O2 SATURATION 56.2 % (60.0-80.0); VENOUS PARTIAL PRESSURE CO2 44.8 mmHg (38.0-50.0); VENOUS PARTIAL PRESSURE O2 31.9 mmHg (30.0-50.0); VENOUS PH 7.316 UNITS (7.330-7.430); VENOUS STANDARD HCO3 20.3 MEQ/L; VENOUS TOTAL CO2 23.7 MEQ/L (24.0-28.0)
[2020-02-04 19:59] LABS: BASO % 0.4 % (0.0-1.0); EOS # 0.2 10^3/uL (0.0-0.5); EOS % 2.2 % (0.0-3.0); HEMATOCRIT 44.9 % (36.0-47.0); HEMOGLOBIN 14.4 g/dl (12.0-15.5); LYMPH # 2.6 10^3/uL (1.5-5.0); LYMPH % 23.7 % (24.0-44.0); MEAN CORPUSCULAR HEMOGLOBIN 29.3 pg (27.0-33.0); MEAN CORPUSCULAR HGB CONC 32.1 g/dl (32.0-36.5); MEAN CORPUSCULAR VOLUME 91.4 fl (80.0-96.0); MONO # 0.8 10^3/uL (0.0-0.8); MONO % 7.4 % (0.0-5.0); NEUTROPHILS # 7.1 10^3/uL (1.5-8.5); PLATELET COUNT, AUTOMATED 229 10^3/uL (150-450); RED BLOOD COUNT 4.91 10^6/uL (4.00-5.40); WHITE BLOOD COUNT 10.8 10^3/uL (4.0-10.0)
[2020-02-04 20:08] LABS: CALCIUM LEVEL 9.2 MG/DL (8.8-10.2); CREATININE FOR GFR 2.22 MG/DL (0.55-1.30); POTASSIUM SERUM 5.6 MEQ/L (3.5-5.1)
[2020-02-04 20:09] LABS: MAGNESIUM LEVEL 2.4 MG/DL (1.8-2.4); PHOSPHORUS LEVEL 4.6 MG/DL (2.5-4.9)
--- NOTE | 2020-02-04 20:40 | REPVR ---
PROCEDURE INFORMATION: Exam: XR Chest, 1 View Exam date and time: 02/04/2020 8:08 PM Age: 74 years old Clinical indication: Other: Arf; Additional info: Acute renal failure TECHNIQUE: Imaging protocol: XR of the chest Views: 1 view. COMPARISON: No relevant prior studies available. FINDINGS: Lungs: Lungs are hyperinflated and clear. Pleural space: No pleural effusions. Heart/Mediastinum: Mild cardiomegaly and atherosclerotic calcification. Bones/joints: Probable scoliosis. IMPRESSION: No acute findings. Electronically signed by: Merlyn Valenzuela On 02/04/2020 20:39:41 PM
[2020-02-04] MEDS: NS 1,000 ML IV SCH (20:43)
[2020-02-04] MEDS ORDERED: MOM 30ML SUSPENSION UDC PO PRN (20:45)
[2020-02-04] MEDS ORDERED: GLUCAGON INJ 1MG VIAL SC PRN (20:45)
[2020-02-04] MEDS ORDERED: DEXTROSE 50% 50 ML SYRINGE IV PRN (20:45)
[2020-02-04] MEDS ORDERED: METF-817 PO (20:45)
[2020-02-04] MEDS ORDERED: ALEV220T22 PO (20:45)
[2020-02-04] MEDS ORDERED: ACETAMINOPHEN TAB 650MG DOSE (2X325MG) PO PRN (20:45)
[2020-02-04] MEDS ORDERED: GLUCOSE 4GM CHEW TABLET PO PRN (20:45)
[2020-02-04] MEDS ORDERED: CARV12.5 PO (20:45)
[2020-02-04] MEDS ORDERED: MAALOX 30 ML SUSP *UDC PO PRN (20:45)
[2020-02-04] MEDS ORDERED: LISI10TA4 PO (20:45)
[2020-02-04] MEDS ORDERED: TORS10TA3 PO (20:45)
[2020-02-04] MEDS: HumaLOG INSULIN (NovoLOG) PER UNIT SC SCH (21:00)
[2020-02-04 21:25] LABS: POTASSIUM RANDOM URINE 72.1 MEQ/L
--- NOTE | 2020-02-04 23:36 | HPEPDOC ---
[facility] Medical History & Physical Date of Admission Feb 04, 2020 Date of Service: Feb 04, 2020 Other Provider Krissy PAREKH History and Physical TIME OF SERVICE: 9:56 PM CHIEF COMPLAINT: Sent by PCP because of abnormal labs HISTORY OF PRESENT ILLNESS: This 74-year-old female was sent from her PCPs office for evaluation because of an elevated potassium as high as 6.2. Per discussion with Dr. Wood the patient was recently started on metformin and Levaquin. Her repeat potassium was 5.6 despite not receiving any medications to lower the potassium, while her Cr was 2.22 and her BUN was 63. Upon review of systems the patient admitted to having a poor appetite, not drinking very much Li, feeling weak, and having difficulties walking/coordinating her feet. She denied having fevers, chills, vomiting, diarrhea, or itchy skin. She was last admitted on Dec 27 for HTN urgency and was found to have a left breast mass that is suspicious for a malignancy; unfortunately her out patient diagnostic mamogram and US are scheduled for tomorrow. 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 HOME MEDICATIONS: Please see below. PHYSICAL EXAMINATION: Vital Signs Date Time Temp Pulse Resp B/P (MAP) Pulse Ox O2 Delivery O2 Flow Rate FiO2 02/04/20 18:28 99.0 68 24 154/70 (98) 98 Room Air GEN: obese/ NAD INTEGUMENT: not flushed/ not jaundice / she both lower legs are red, warm and swollen with open lesions that are wrapped in dressings HEENT: NCAT / lips acyanotic /mucus membranes moist and pink CVS: RRR/NMRG/ radial pedis pulses intact / + BLE edema LUNGS: able to speak full sentences without stopping to take a breath / breath sounds are diminished bilaterally ABDOMEN: Contour ( obese) MSK/EXTREMITIES: NCAT / range of motion intact in all 4 extremities / RLE is more swollen than LLE NEURO: CN 2-12 are grossly intact / speech is not dysarthric PSYCH: alert and oriented to person place and time/ able to understand and follow all commands LABORATORY DATA: 02/04/20 19:37 02/04/20 19:37: Immature Granulocyte % (Auto) 0.3, Neutrophils (%) (Auto) 66.0, Lymphocytes (%) (Auto) 23.7L, Monocytes (%) (Auto) 7.4H, Eosinophils (%) (Auto) 2.2, Basophils (%) (Auto) 0.4, Neutrophils # (Auto) 7.1, Lymphocytes # (Auto) 2.6, Monocytes # (Auto) 0.8, Eosinophils # (Auto) 0.2, Basophils # (Auto) 0.0, Nucleated Red Blood Cells % (auto) 0.0, Blood Gas Bicarbonate Standard 20.3, Venous Blood pH 7.316L, Venous Blood Partial Pressure CO2 44.8, Venous Blood Partial Pressure O2 31.9, Venous Blood Total Carbon Dioxide 23.7L, Venous Blood HCO3 22.4L, Venous Blood Oxygen Saturation 56.2L, Venous Blood Base Excess -3.9L, Anion Gap 7L, Glomerular Filtration Rate 23.0L, Lactic Acid Level 1.1, Calcium Level 9.2, Phosphorus Level 4.6, Magnesium Level 2.4 02/04/20 19:57: Estimated Mean Plasma Glucose 183H, Hemoglobin A1c 8.0 02/04/20 20:01: Urine Random Creatinine 135.0, Urine Random Total Protein 42.0H, Urine Random Sodium 24, Urine Random Potassium 72.1, Urine Random Urea Nitrogen 960 02/04/20 20:02: Urine Color YELLOW, Urine Appearance CLOUDYH, Urine pH 8.0, Urine Specific [place] 1.017, Urine Protein 1+H, Urine Glucose (UA) NEGATIVE, Urine Ketones NEGATIVE, Urine Blood NEGATIVE, Urine Nitrite NEGATIVE, Urine Bilirubin NEGATIVE, Urine Urobilinogen 0.2, Urine Leukocyte Esterase 3+H, Urine WBC (Auto) 59H, Urine RBC (Auto) 0, Urine Hyaline Casts (Auto) 0, Urine Bacteria (Auto) 1+H, Urine Squamous Epithelial Cells 4, Urine Transitional Epithelial Cells <1, Urine Triple Phosphate Cryst (Auto) LARGE, Urine Sperm (Auto) 02/04/20 21:52: Bedside Glucose (Misc Panel) 167H MICROBIOLOGY: 02/04/20 Urine Culture, Received Pending ASSESSMENT: Ms. Pendleton is a 74-year-old with a history of chronic HTN, NIDDM, chronic systolic and diastolic CHF, ALANIS, and obesity who will be admitted for management of CANDICE and hyperkalemia. PLAN: 1 Mulitfactorial CANDICE on CKD 3 CANDICE likely due to a combination of reduced fluid intake and metformin, lisinopril, amiloride, naproxen & torsemide use Her Cr increased from 1.05 on Jan 30 to 2.44 today Her GFR is 23 & her BUN is 63 Her main risk factors for CKD include DM & HTN Plan: admit to med surg w telemetry bc of electrolyte abnormalities / f/u CK, PTH, phosphorus, UA, UPro:Cr, Vitamin D, Ulytes for FEUrea, renal US / will only give IVF overnight bc of hx of CHF / hold metformin, lisinopril, amiloride, naproxen & torsemide / if her work-up confirms she has pre-existing CKD that is likely due to diabetic nephropathy (with albuminuria of >300mg/day) once her GFR increases above 30 ml/min, the day time team may start canagliflozin to help reduce the risk of progression to ESKD, doubling of serum Cr, CV and hospitalization for heart failure 2 Hyperkalemia Likely 2/2 reduced renal clearance, ACEI use and amiloride use EKG showed NSR w a rate of 67 and mild T wave elevations in V3 and V4 Plan: f/u repeat K / hold lisinopril and amiloride 3 BLE cellulitis The RLE is more swollen than left but US was neg for DVT She has mild leukocytosis Factors that predispose her to cellulitis include edema, obesity and venous insufficiency ALT-70 Score to diagnose LE Cellulitis = 4 points = dermatology or ID consult recommended to r/o pseudocellulitis bc of symetrical nature of swelling Plan: elevate legs / IV clindamycin / the day time team may consider ID or Derm consult / will ask RNs to change her dressings 4 NIDDM A1C is 8.0% Plan: diabetic diet / f/u accuchecks / hypoglycemia protocol / sliding scale insulin / hold metformin bc of CANDICE / when she is ready for discharge the day time team may resuming her metformin at a lower dose and start canagliflozin 5 Chronic hypertension Plan: start amlodipine while lisinopril, torsemide, and amiloride are on hold / c/w coreg 6 Chronic systolic /diastolic CHF (EF 50% & G2 DD) Plan: f/u Is and Os, daily weights, salt restriction to <2G/ will not restrict fluids bc of CANDICE / c/w Coreg / once her CANDICE has improved the day time team may consider resuming lisinopril or switching to hydralazine w isosorbide combo and starting canagliflozin to reduce the risk of hospitalization for CHF 7 ALANIS Plan: CPAP 8 Debility /Deconditioning Likely due to reduced mobility due to recent hospitalization Plan: PT consult 9 Morbid Obesity w BMI of 45.5 Complicates care DVT PROPHYLAXIS: Heparin bc of GFR <30 DISPOSITION: likely home after more than 2 midnight's stay / PFS consult has been placed for dc planning Home Medications Scheduled Amiloride HCl (Amiloride HCl) 5 Mg Tablet, 5 MG PO DAILY Carvedilol (Carvedilol) 12.5 Mg Tablet, 12.5 MG PO BID Gabapentin (Neurontin) 100 Mg Capsule, 200 MG PO TID Levofloxacin (Levofloxacin) 750 Mg Tablet, 750 MG PO Q2D STARTED 02/04/20 FOR 14 DAYS Lisinopril (Lisinopril) 10 Mg Tablet, 10 MG PO BID Metformin HCl (Metformin ER Gastric) 500 Mg [id number], 500 MG PO QID Torsemide (Torsemide) 10 Mg Tablet, 10 MG PO BID AM/1700 Scheduled PRN Naproxen Sodium (Aleve) 220 Mg Tablet, 220 MG PO BID PRN for PAIN Allergies Coded Allergies: atorvastatin (Verified Allergy, Unknown, AFFECTED LEGS, BONES, URINE BROWN, 12/30/19) clonidine (Verified Allergy, Unknown, UNKNOWN REACTION, 02/04/20) codeine (Verified Allergy, Unknown, UNKNOWN REACTION, 02/04/20) morphine (Verified Adverse Reaction, Unknown, N/V, 02/04/20) A-FIB/CHADSVASC A-FIB History Current/History of A-Fib/PAF?: No Current PO Anticoag Therapy: No OTIS RAMIREZ MD Feb 04, 2020 23:36
[2020-02-04 23:55] VITALS: BP 148/62
[2020-02-05] MEDS: NS 1,000 ML IV SCH (00:47)
[2020-02-05] MEDS: CARVedilol 12.5 MG TAB PO SCH ×3 (00:48→21:32)
[2020-02-05] MEDS: GABAPENTIN 100 MG CAP PO SCH ×4 (00:49→21:32)
--- NOTE | 2020-02-05 00:56 | REPVR ---
PROCEDURE INFORMATION: Exam: US Duplex Right Lower Extremity Veins, Limited Exam date and time: 02/05/2020 12:30 AM Age: 74 years old Clinical indication: Swelling (edema) of limb; Lower extremity, right; Additional info: Right leg swelling / reduced mobility R/O dvt TECHNIQUE: Imaging protocol: Real-time Duplex ultrasound of the Right Lower Extremity with 2-D lay scale, color Doppler flow and spectral waveform analysis with image documentation. Limited exam was focused on the right lower extremity veins. COMPARISON: No relevant prior studies available. FINDINGS: Right deep veins: Unremarkable. The common femoral, femoral, proximal profunda femoral and popliteal veins are patent without thrombus. Normal Doppler waveforms. Normal compressibility and/or augmentation response. Right superficial veins: Unremarkable. Saphenofemoral junction is patent without thrombus. Soft tissues: Unremarkable. IMPRESSION: No evidence of deep vein thrombosis. Electronically signed by: Monica Galeano On 02/05/2020 00:55:36 AM
[2020-02-05] MEDS: CLINDAMYCIN 600 MG in IV 1 EA IV SCH ×5 (02:49→23:46)
[2020-02-05 06:00] VITALS: BP 112/55
[2020-02-05 06:15] LABS: HEMATOCRIT 38.9 % (36.0-47.0); HEMOGLOBIN 12.3 g/dl (12.0-15.5); MEAN CORPUSCULAR HEMOGLOBIN 29.4 pg (27.0-33.0); MEAN CORPUSCULAR HGB CONC 31.6 g/dl (32.0-36.5); MEAN CORPUSCULAR VOLUME 93.1 fl (80.0-96.0); PLATELET COUNT, AUTOMATED 182 10^3/uL (150-450); RED BLOOD COUNT 4.18 10^6/uL (4.00-5.40); WHITE BLOOD COUNT 8.7 10^3/uL (4.0-10.0)
[2020-02-05] MEDS: HEPARIN SOD (PORCINE) 5000UNITS/ML 1ML VIAL/SYRINGE SQ SCH ×3 (06:24→21:32)
[2020-02-05 06:35] LABS: CALCIUM LEVEL 8.7 MG/DL (8.8-10.2); CREATININE FOR GFR 2.48 MG/DL (0.55-1.30); GLOMERULAR FILTRATION RATE 20.2 (>39); MAGNESIUM LEVEL 2.3 MG/DL (1.8-2.4)
[2020-02-05 06:38] LABS: PHOSPHORUS LEVEL 4.9 MG/DL (2.5-4.9)
[2020-02-05] MEDS: HumaLOG INSULIN (NovoLOG) PER UNIT SC SCH ×4 (07:52→21:00)
[2020-02-05] MEDS: amLODIPine 5 MG TAB PO SCH (07:53)
--- NOTE | 2020-02-05 08:42 | REPVR ---
PROCEDURE INFORMATION: Exam: US Retroperitoneal; Complete; Kidneys and Bladder Exam date and time: 02/05/2020 8:17 AM Age: 74 years old Clinical indication: Condition or disease; Kidney or ureter condition; Chronic kidney disease or failure; Not specified; Additional info: James TECHNIQUE: Imaging protocol: Real-time ultrasound of the retroperitoneum with image documentation. Complete exam focused on the kidneys and bladder. COMPARISON: No relevant prior studies available. FINDINGS: Liver: Circumscribed hypoechoic lesion in the right hepatic lobe measuring 8.4 x 7.2 x 8.5 cm. No vascularity within the lesion. There is increased through transmission. Right kidney: Right kidney measures 11.9 cm in length. No right hydronephrosis. Simple cyst in the upper pole right kidney measuring 20 mm. Left kidney: Left kidney measures 10.9 cm in length. Simple cyst in the midpole of the left kidney measuring 2.4 x 1.9 cm. Cyst with thin septation in the lower pole of the left kidney measuring 2.4 cm in diameter. No left hydronephrosis. Bladder: Bladder is unremarkable. IMPRESSION: 1. No hydronephrosis bilaterally. 2. Benign-appearing bilateral renal cysts. No follow-up is necessary. 3. Circumscribed hypoechoic lesion in the right hepatic lobe. Suspect complicated cyst. Recommend routine follow-up CT without with IV contrast with liver mass protocol. COMMENTS: Consistent with the [employer]'s Incidental Findings Committee white paper (J Am Shireen Radiol 2018): Any incidental renal lesion less than 1 cm or classified as too small to characterize, or any incidental cystic renal lesion characterized as simple-appearing, is likely benign. No follow-up imaging is recommended for these lesions per consensus recommendations based on imaging criteria. Electronically signed by: Monica Galeano On 02/05/2020 08:42:33 AM
[2020-02-05] MEDS ORDERED: ENOXAPARIN 40MG/0.4ML SYRINGE (J1650 PER 10MG) SC SCH (09:00)
[2020-02-05 09:44] LABS: PTH INTACT 88.4 PG/ML (18.5-88.0); TOTAL 25(OH) VITAMIN D 27.9 NG/ML (30.0-100.0)
--- NOTE | 2020-02-05 11:53 | IPNPDOC ---
Text Note Date of Service The patient was seen on 02/05/20. NOTE Patient was seen and examined this morning. She states that she slept well and is not complaining of any shortness of breath. States that she has not urinated since last night, but does not feel the urge to. Is stating that she has good appetite. PHYSICAL EXAMINATION: General: The patient is awake, alert, oriented x3, sitting up in the bed in no apparent distress. Head and Neck Exam: Extraocular muscles intact. Pupils equally round and reactive to light. Mucous membranes are moist. Neck is supple. There is no jugular venous distention (JVD). Cardiovascular: S1 and S2, regular rate. Trace edema of the bilateral lower extremities. Respiratory: No rhonchi, no rales. Abdomen: Soft. Positive bowel sounds. Nontender. No organomegaly. Genitourinary: Deferred, but no suprapubic fullness or tenderness Musculoskeletal: Clubbing of the fingernails, no cyanosis was noted.. There is 1+ pedal edema and some chronic lymphedema leading to mild redness and mild erythema Central Nervous System (CATALYST RECOVERY OPERATOR): No focal deficit. Power is 5/5 in all extremities. Assessment and plan Ms. Pendleton is a 74-year-old with a history of chronic HTN, NIDDM, chronic systolic and diastolic CHF, ALANIS, and obesity who will be admitted for management of CANDICE and hyperkalemia. 1. CANDICE on CKD 3. Her baseline creatinine is around 1.0, and currently she has a creatinine of 2.4. She has been on lisinopril and amiloride and torsemide at home because of her diastolic heart failure and that could be a reason for her AK I. She also stated that she has not been having good oral intake over the last couple of days. We will avoid any nephrotoxic drugs at this time. Input output monitoring. UA with cost analysis has been ordered. Fluids 2 L were given, and currently, I'll give 1 more liter at 100 mL/h and then maintenance fluid at 60 mL. Renal sonogram was reviewed, which shows no acute abnormality. We will continue to follow. PTH will give a assessment of whether the CK has worsened and is currently pending. Continue holding torsemide amiloride as well as dyspnea. 2 Hyperkalemia Likely 2/2 reduced renal clearance, ACEI use and amiloride use. Repeat potassium is 5. We will repeat one more BMP at 4 PM 3 BLE cellulitis. Currently the patient has been on clindamycin and in my open ing and a short course of clindamycin will be beneficial. Looks superficial involvement only as no deep seated fluctuation or abscess appreciated. The RLE is more swollen than left but US was neg for DVT 4 NIDDM:. A1C is 8.0% , continue diabetic diet, Accu-Cheks and hypoglycemia protocol along with sliding scale insulin. Metformin has been on hold. 5 Chronic hypertension : Currently lisinopril, torsemide, and amiloride are on hold. Continue with Coreg. 6 Chronic systolic /diastolic CHF (EF 50% & G2 DD). . Currently, she is not looking volume overloaded and in fact she might be a little intravascularly depleted. Continue fluids and will keep an eye on her fluid status. 7 ALANIS: CPAP 8 Morbid Obesity w BMI of 45.5 DVT and GI prophylaxis Disposition unknown at this time VS,Fishbone, I+O VS, Fishbone, I+O Laboratory Tests 02/04/20 19:37 02/04/20 23:01 02/05/20 05:35 Vital Signs Date Time Temp Pulse Resp B/P (MAP) Pulse Ox O2 Delivery O2 Flow Rate FiO2 02/05/20 07:52 85 147/68 02/05/20 06:00 98.5 19 96 Room Air I&O- Last 24 Hours up to 6 AM 02/05/20 06:00 Intake Total 250 ml Output Total 0 ml Balance 250 ml PANTERA TORRES MD Feb 05, 2020 11:53
[2020-02-05] MEDS ORDERED: NS 1,000 ML IV ONE (12:00)
[2020-02-05 14:00] VITALS: BP 118/64
[2020-02-05 14:54] LABS: CALCIUM LEVEL 8.8 MG/DL (8.8-10.2); CREATININE FOR GFR 2.26 MG/DL (0.55-1.30); GLOMERULAR FILTRATION RATE 22.5 (>39); POTASSIUM SERUM 5.1 MEQ/L (3.5-5.1)
[2020-02-05 20:16] LABS: TOTAL PROTEIN,RANDOM URINE 19.4 MG/DL (0.0-12.0)
--- NOTE | 2020-02-05 20:51 | ECGEPIP ---
[facility] - ED Test Date: 2020-02-04 Pat Name: TEODORA RUSSELL Department: Room: E7509-01 Gender: Female Supervisor Facepiece Line: caty : 1945 Requested By: Rudy Stover Order Number: [id number] Reading MD: Shaylee Tracy Measurements Intervals [place] Rate: 67 P: 40 WV: 175 QRS: 72 QRSD: 118 T: 70 QT: 396 QTc: 420 Interpretive Statements SINUS RHYTHM MODERATE INTRAVENTRICULAR CONDUCTION DELAY DECREASED RATE 12/29/19 Electronically Signed on 02-05-2020 20:51:28 EDT by Shaylee Tracy
[2020-02-05 22:00] VITALS: BP 140/70
[2020-02-05] MEDS ORDERED: NS 1,000 ML IV SCH (22:00)
[2020-02-06] MEDS: CLINDAMYCIN 600 MG in IV 1 EA IV SCH ×3 (05:56→17:49)
[2020-02-06] MEDS: HEPARIN SOD (PORCINE) 5000UNITS/ML 1ML VIAL/SYRINGE SQ SCH ×3 (05:56→21:29)
[2020-02-06 06:00] VITALS: BP_SYST 121; BP_DIAS 43; BP_DIAS 53
[2020-02-06 07:11] LABS: ALBUMIN 2.8 GM/DL (3.2-5.2); BILIRUBIN,TOTAL 0.3 MG/DL (0.2-1.0); CALCIUM LEVEL 8.6 MG/DL (8.8-10.2); CREATININE FOR GFR 1.91 MG/DL (0.55-1.30); GLOMERULAR FILTRATION RATE 27.3 (>39); TOTAL PROTEIN 6.1 GM/DL (6.4-8.2)
[2020-02-06] MEDS: HumaLOG INSULIN (NovoLOG) PER UNIT SC SCH ×4 (09:14→21:00)
[2020-02-06] MEDS: GABAPENTIN 100 MG CAP PO SCH ×3 (09:14→21:29)
[2020-02-06] MEDS: amLODIPine 5 MG TAB PO SCH (09:15)
[2020-02-06] MEDS: CARVedilol 12.5 MG TAB PO SCH ×2 (09:15→21:29)
--- NOTE | 2020-02-06 11:44 | IPNPDOC ---
Text Note Date of Service The patient was seen on 02/06/20. NOTE Patient was seen and examined this morning. States that she has been feeling much better. Her urine output has increased. She still feels a little dizzy while getting up PHYSICAL EXAMINATION: General: The patient is awake, alert, oriented x3, sitting up in the bed in no apparent distress. Head and Neck Exam: Extraocular muscles intact. Pupils equally round and reactive to light. Mucous membranes are moist. Neck is supple. There is no jugular venous distention (JVD). Cardiovascular: S1 and S2, regular rate. Trace edema of the bilateral lower extremities. Respiratory: No rhonchi, no rales. Abdomen: Soft. Positive bowel sounds. Nontender. No organomegaly. Genitourinary: Deferred, but no suprapubic fullness or tenderness Musculoskeletal: Clubbing of the fingernails, no cyanosis was noted.. There is 1+ pedal edema and some chronic lymphedema leading to mild redness and mild erythema Central Nervous System (BOSS DYER): No focal deficit. Power is 5/5 in all ext remities. Assessment and plan Ms. Pendleton is a 74-year-old with a history of chronic HTN, NIDDM, chronic systolic and diastolic CHF, ALANIS, and obesity who will be admitted for management of CANDICE and hyperkalemia. The patient has been on lisinopril, amiloride as well as torsemide at home because of diastolic heart failure. The patient started feeling weak and continued to take her medications, which led to the precarinal AK I. We have held her medications and IV fluids and total of 3 L of normal saline and 50 mL of mentioned in his fluid has led to a drastic improvement in her kidney function. Renal ultrasound does not show any acute abnormality. She is medically improving and hopefully within the next 24 hours, can be discharged home with a reevaluation of her medications. In my opinion, her amiloride need to be discontinued and torsemide decreased. Her lisinopril can be started at a lower dose. She would have to continue the fluid restriction as well as salt restrictions. For her chronic lymphedema with possible cellulitis doxycycline can be discontinued on discharge. 1. CANDICE on CKD 3. Improving. Her baseline creatinine is around 1.0, and currently she has a creatinine of 1.9 down from 2.4. She has been on lisinopril and amiloride and torsemide at home because of her diastolic heart failure and that could be a reason for her AK I. We have held her medications and IV fluids and total of 3 L of normal saline and 50 mL of mentioned in his fluid has led to a drastic improvement in her kidney function. Renal ultrasound does not show any acute abnormality. She is medically improving and hopefully within the next 24 hours, can be discharged home with a reevaluation of her medications. In my opinion, her amiloride need to be discontinued and torsemide decreased. Her lisinopril can be started at a lower dose. She would have to continue the fluid restriction as well as salt restrictions. For her chronic lymphedema with possible cellulitis doxycycline can be discontinued on discharge. 2 Hyperkalemia : Resolved. Management as per 1 3 BLE cellulitis. Currently the patient has been on clindamycin and in my opinion a short course of clindamycin will be beneficial. Looks superficial involvement only as no deep seated fluctuation or abscess appreciated. The RLE is more swollen than left but US was neg for DVT 4 NIDDM:. A1C is 8.0% , continue diabetic diet, Accu-Cheks and hypoglycemia protocol along with sliding scale insulin. Metformin has been on hold. 5 Chronic hypertension : Currently lisinopril, torsemide, and amiloride are on hold. Continue with Coreg. 6 Chronic systolic /diastolic CHF (EF 50% & G2 DD). . Currently, she is not looking volume overloaded fluids discontinued and she has been encouraged for an oral intake and will keep an eye on her fluid status. 7 ALANIS: CPAP 8 Morbid Obesity w BMI of 45.5 DVT and GI prophylaxis Disposition : Likely home tomorrow VS,Sanna, I+O VS, Sanna, I+O Laboratory Tests 02/05/20 14:18 02/06/20 06:15 Vital Signs Date Time Temp Pulse Resp B/P (MAP) Pulse Ox O2 Delivery O2 Flow Rate FiO2 02/06/20 09:15 69 134/58 02/06/20 06:00 96.9 18 93 Room Air I&O- Last 24 Hours up to 6 AM 02/06/20 06:00 Intake Total 1625 ml Output Total 300 ml Balance 1325 ml PANTERA TORRES MD Feb 06, 2020 11:44
[2020-02-06 14:00] VITALS: BP 133/92
[2020-02-06 22:00] VITALS: BP 156/58
[2020-02-07] MEDS: CLINDAMYCIN 600 MG in IV 1 EA IV SCH ×5 (00:31→23:16)
[2020-02-07] MEDS: HEPARIN SOD (PORCINE) 5000UNITS/ML 1ML VIAL/SYRINGE SQ SCH ×3 (05:05→20:56)
[2020-02-07 06:00] VITALS: BP 132/54
[2020-02-07 06:21] LABS: HEMATOCRIT 37.7 % (36.0-47.0); HEMOGLOBIN 12.1 g/dl (12.0-15.5); MEAN CORPUSCULAR HEMOGLOBIN 29.9 pg (27.0-33.0); MEAN CORPUSCULAR HGB CONC 32.1 g/dl (32.0-36.5); MEAN CORPUSCULAR VOLUME 93.1 fl (80.0-96.0); PLATELET COUNT, AUTOMATED 169 10^3/uL (150-450); RED BLOOD COUNT 4.05 10^6/uL (4.00-5.40); WHITE BLOOD COUNT 8.1 10^3/uL (4.0-10.0)
[2020-02-07 06:46] LABS: ALBUMIN 2.7 GM/DL (3.2-5.2); BILIRUBIN,TOTAL 0.3 MG/DL (0.2-1.0); CALCIUM LEVEL 8.8 MG/DL (8.8-10.2); CREATININE FOR GFR 1.45 MG/DL (0.55-1.30); GLOMERULAR FILTRATION RATE 37.6 (>39); POTASSIUM SERUM 4.7 MEQ/L (3.5-5.1); TOTAL PROTEIN 6.3 GM/DL (6.4-8.2)
[2020-02-07] MEDS: HumaLOG INSULIN (NovoLOG) PER UNIT SC SCH ×4 (08:56→20:55)
[2020-02-07] MEDS: GABAPENTIN 100 MG CAP PO SCH ×3 (09:00→20:55)
[2020-02-07] MEDS: CARVedilol 12.5 MG TAB PO SCH ×2 (09:02→20:55)
[2020-02-07] MEDS: amLODIPine 5 MG TAB PO SCH (09:02)
[2020-02-07] MEDS: NS 1,000 ML IV SCH ×2 (10:01→23:16)
[2020-02-07] MEDS ORDERED: FUROSEMIDE 20MG/2ML VIAL (J1940) IV ONE (13:00)
[2020-02-07 14:00] VITALS: BP 130/70
[2020-02-07 16:42] LABS: CALCIUM LEVEL 8.9 MG/DL (8.8-10.2); CREATININE FOR GFR 1.5 MG/DL (0.55-1.30); GLOMERULAR FILTRATION RATE 36.1 (>39); POTASSIUM SERUM 4.4 MEQ/L (3.5-5.1)
--- NOTE | 2020-02-07 18:08 | IPNPDOC ---
Text Note Date of Service The patient was seen on 02/07/20. NOTE Subjective Patient was seen and examined this morning. Patient has some increased lower extremity swelling. Otherwise reports she is doing well. Objective Constitutional: Awake and alert, in no apparent distress ENT: Sclera are clear. Mucosa is moist. Respiratory: Lungs CTA bilaterally. No respiratory distress. No use of accessory muscles. Cardiovascular: RRR S1 and S2 are normal, no murmur Gastrointestinal: Abdomen is soft, non distended, non tender, BS present. Musculoskeletal: +1 pitting edema of the lower extremities. Neurologic: No focal neurological deficit. Mental Status: A&O x3, normal affect Skin: Warm, dry Assessment/plan Ms. Pendleton is a 74-year-old with a history of chronic HTN, NIDDM, chronic systolic and diastolic CHF, ALANIS, and obesity who will be admitted for management of CANDICE and hyperkalemia. The patient has been on lisinopril, amiloride as well as torsemide at home because of diastolic heart failure. The patient started feeling weak and continued to take her medications, which led to the prerenal AK I. patient also has lower extremity cellulitis which will be treated with clindamycin during inpatient stay and upon discharge to complete a course. Patient's AK I has improved significant injury during the hospital stay. The Cipro will be decreased to 5 mg daily upon discharge and amlodipine 5 mg has been added. Torsemide will be resumed upon discharge. Hyperkalemia resolved. Lower extremity cellulitis improved. # CANDICE on CKD 3. Improving. Encourage oral hydration. Gentle IVF's. Monitor fluid status given CHF. Monitor. Avoid nephrotoxins. Decrease lisinopril home dose to 5 mg daily. # Hyperkalemia : Resolved. Monitor. Discontinue amiloride on discharge. # BLE cellulitis. Ultrasound lower extremities negative. Continue course of clindamycin upon discharge. Appears improved compared to previous notes # NIDDM:. A1C is 8.0% , diabetic diet. hypoglycemia protocol. ISS. Metformin resume on discharge. # HTN : Amiloride stopped. Continue with Coreg. Continue torsemide 10 mg twice a day. Continue lisinopril 5 mg. Add amlodipine. # Chronic systolic /diastolic CHF (EF 50% & G2 DD). Mild fluid overload. Continu e torsemide 10 mg twice daily. One push of IV Lasix. # ALANIS: CPAP # Morbid Obesity w BMI of 45.5 # DVT prophylaxis: Heparin A Karen Hospitalist Sanna HELLER, I+O VSSanna I+O Laboratory Tests 02/07/20 05:49 02/07/20 15:50 Vital Signs Date Time Temp Pulse Resp B/P (MAP) Pulse Ox O2 Delivery O2 Flow Rate FiO2 02/07/20 14:00 98.3 64 16 130/70 (90) 95 Room Air I&O- Last 24 Hours up to 6 AM 02/07/20 06:00 Intake Total 1610 ml Output Total 300 ml Balance 1310 ml LEWIS LEMUS MD Feb 07, 2020 18:08
[2020-02-07] MEDS: TORSEMIDE 10 MG TABLET PO SCH (18:10)
[2020-02-07 22:00] VITALS: BP 166/82
[2020-02-08] MEDS: CLINDAMYCIN 600 MG in IV 1 EA IV SCH ×3 (05:27→18:07)
[2020-02-08] MEDS: HEPARIN SOD (PORCINE) 5000UNITS/ML 1ML VIAL/SYRINGE SQ SCH ×3 (05:28→21:49)
[2020-02-08 05:46] VITALS: BP 152/64
[2020-02-08 07:05] LABS: ALBUMIN 2.7 GM/DL (3.2-5.2); BILIRUBIN,TOTAL 0.3 MG/DL (0.2-1.0); CALCIUM LEVEL 8.2 MG/DL (8.8-10.2); CREATININE FOR GFR 1.54 MG/DL (0.55-1.30); GLOMERULAR FILTRATION RATE 35.1 (>39); POTASSIUM SERUM 4.2 MEQ/L (3.5-5.1); TOTAL PROTEIN 5.9 GM/DL (6.4-8.2)
[2020-02-08] MEDS: HumaLOG INSULIN (NovoLOG) PER UNIT SC SCH ×4 (08:08→21:00)
[2020-02-08] MEDS: GABAPENTIN 100 MG CAP PO SCH ×3 (08:15→21:47)
[2020-02-08] MEDS: TORSEMIDE 10 MG TABLET PO SCH ×2 (08:15→18:07)
[2020-02-08] MEDS: amLODIPine 5 MG TAB PO SCH (08:29)
[2020-02-08] MEDS: CARVedilol 12.5 MG TAB PO SCH (08:29)
[2020-02-08] MEDS: CARVedilol 3.125 MG TAB PO SCH ×2 (09:00→21:48)
[2020-02-08] MEDS ORDERED: lisinopriL 5 MG TAB PO SCH (09:00)
[2020-02-08] MEDS: lisinopriL 5 MG TAB PO SCH (09:00)
[2020-02-08] MEDS ORDERED: CARV3.12 PO (13:24)
[2020-02-08] MEDS ORDERED: AMLO1TAB25 PO (13:24)
[2020-02-08] MEDS ORDERED: LISI-542 PO (13:24)
[2020-02-08] MEDS ORDERED: TORS10TA3 PO (13:24)
[2020-02-08 14:00] VITALS: BP 163/70
--- NOTE | 2020-02-08 17:59 | DS.PDOC ---
Discharge Summary General Date of Admission Feb 04, 2020 at 22:14 Date of Discharge 02/09/2020 Discharge Summary PROCEDURES PERFORMED DURING STAY: [None]. ADMITTING DIAGNOSES: 1. CANDICE 2. Hyperkalemia DISCHARGE DIAGNOSES: 1. . COMPLICATIONS/CHIEF COMPLAINT: ARF. HISTORY OF PRESENT ILLNESS: . HOSPITAL COURSE: Ms. Pendleton is a 74-year-old with a history of chronic HTN, NIDDM, chronic systolic and diastolic CHF, ALANIS, and obesity who will be admitted for management of CANDICE and hyperkalemia. The patient has been on lisinopril, amiloride as well as torsemide at home because of diastolic heart failure. The patient started feeling weak and continued to take her medications, which led to the prerenal AK I. patient also has lower extremity cellulitis which will be treated with clindamycin during inpatient stay and upon discharge to complete a course. Patient's AK I has improved significant injury during the hospital stay. The lisinopril will be decreased to 5 mg daily upon discharge and added amlodipine 10 mg, although it can sometimes cause increased lower extreme swelling. And hydrochlorothiazide on discharge. Torsemide will be resumed upon discharge. Hyperkalemia resolved. Lower extremity cellulitis improved. # CANDICE on CKD 3. Improving. Encourage oral hydration. Gentle IVF's. Monitor fluid status given CHF. Monitor. Avoid nephrotoxins. Decrease lisinopril home dose to 5 mg daily. # Hyperkalemia : Resolved. Monitor. Discontinue amiloride on discharge. # BLE cellulitis. Ultrasound lower extremities negative. Continue course of clindamycin upon discharge. Appears improved compared to previous notes # NIDDM:. A1C is 8.0% , diabetic diet. hypoglycemia protocol. ISS. Metformin resume on discharge. # HTN : Amiloride stopped. Continue with Coreg low-dose due to episode of sinus bradycardia. Continue torsemide 10 mg twice a day. Continue lisinopril 5 mg. Add amlodipine and hydrochlorothiazide. Blood pressure 121/68 discharge # Chronic systolic /diastolic CHF (EF 50% & G2 DD). Euvolemic on discharge. Continue torsemide 10 mg twice daily. # ALANIS: CPAP # Morbid Obesity w BMI of 45.5 recommend that she follow-up with her PCP to help with weight loss. # dispo: Unable to go home today. To go home tomorrow. Has supportive home and assistance with dressing changes. Family friend was in room today and educated on how to change her dressing for her lower extremity cellulitis. A [facility] Hospitalist DISCHARGE MEDICATIONS: Please see below. ALLERGIES: Please see below. PHYSICAL EXAMINATION ON DISCHARGE: VITAL SIGNS: Please see below. Constitutional: Awake and alert, in no apparent distress ENT: Sclera are clear. Mucosa is moist. Respiratory: Lungs CTA bilaterally. No respiratory distress. No use of accessory muscles. Cardiovascular: RRR S1 and S2 are normal, no murmur Gastrointestinal: Abdomen is soft, non distended, non tender, BS present. Musculoskeletal: +1 pitting edema of the lower extremities improved from yesterday. Wounds look well and healing erythema is minimal in no discharge. Neurologic: No focal neurological deficit. Mental Status: A&O x3, normal affect Skin: Warm, dry LABORATORY DATA: Please see below. PROGNOSIS: Fair ACTIVITY: [As tolerated]. DIET: Diabetic diet DISPOSITION: Home DISCHARGE INSTRUCTIONS: Please follow up with your primary care physician within 1 week from discharge. If you do not have one, please follow up with us to schedule an appointment. Please keep all of your follow up appointments. Please call central to book your appointments with hospital specialists. Please take all your medications as prescribed. Please call/come to Clinic or go to the Emergency Department if - Temp >101, intractable Nausea/Vomiting, Diarrhea, Mouth sores, Headaches, Altered mental status, Seizures, sudden onset of swelling, bleeding, shortness of breath or chest pain. ITEMS TO FOLLOWUP ON ON OUTPATIENT: 1. Follow-up with your primary care doctor within 5 days of discharge. 2. Take antibiotics as prescribed for your leg infection. #3. Follow-up with cardiology DISCHARGE CONDITION: [Stable]. TIME SPENT ON DISCHARGE: 40 minutes. Vital Signs/I&Os Vital Signs Date Time Temp Pulse Resp B/P (MAP) Pulse Ox O2 Delivery O2 Flow Rate FiO2 02/08/20 09:00 55 02/08/20 08:29 167/67 02/08/20 05:46 97.9 18 93 Room Air I&O- Last 24 Hours up to 6 AM 02/08/20 06:00 Intake Total 2380 ml Output Total 1750 ml Balance 630 ml Laboratory Data Labs 24H Laboratory Tests 2 02/07/20 15:50: Anion Gap 4L, Glomerular Filtration Rate 36.1L, Calcium Level 8.9 02/07/20 16:54: Bedside Glucose (Misc Panel) 119H 02/07/20 20:55: Bedside Glucose (Misc Panel) 141H 02/08/20 06:19: Anion Gap 7L, Glomerular Filtration Rate 35.1L, Calcium Level 8.2L, Total Bilirubin 0.3, Aspartate Amino Transf (AST/SGOT) 11, Alanine Aminotransferase (ALT/SGPT) 14, Alkaline Phosphatase 82, Total Protein 5.9L, Albumin 2.7L, Albumin/Globulin Ratio 0.8L 02/08/20 11:56: Bedside Glucose (Misc Panel) 170H 02/08/20 12:50: Magnesium Level 2.0 CBC/BMP Laboratory Tests 02/07/20 15:50 02/08/20 06:19 FSBS Laboratory Tests Test 02/07/20 16:54 02/07/20 20:55 02/08/20 11:56 Range/Units Bedside Glucose (Misc Panel) 119 141 170 83-110 MG/DL Microbiology Microbiology 02/04/20 Urine Culture - Final, Complete Discharge Medications Scheduled Amiloride HCl (Amiloride HCl) 5 Mg Tablet, 5 MG PO DAILY, (Reported) Amlodipine Besylate (Amlodipine Besylate) 10 Mg Tablet, 10 MG PO DAILY Carvedilol (Carvedilol) 12.5 Mg Tablet, 12.5 MG PO BID, (Reported) Carvedilol (Carvedilol) 3.125 Mg Tablet, 3.125 MG PO BID Gabapentin (Neurontin) 100 Mg Capsule, 200 MG PO TID, (Reported) Levofloxacin (Levofloxacin) 750 Mg Tablet, 750 MG PO Q2D, (Reported) STARTED 02/04/20 FOR 14 DAYS Lisinopril (Lisinopril) 10 Mg Tablet, 10 MG PO BID, (Reported) Lisinopril (Lisinopril) 5 Mg Tablet, 2.5 MG PO DAILY Metformin HCl (Metformin ER Gastric) 500 Mg [id number], 500 MG PO QID, (Reported) Torsemide (Torsemide) 10 Mg Tablet, 10 MG PO BID AM/1700 Scheduled PRN Naproxen Sodium (Aleve) 220 Mg Tablet, 220 MG PO BID PRN for PAIN, (Reported) Allergies Coded Allergies: atorvastatin (Verified Allergy, Unknown, AFFECTED LEGS, BONES, URINE BROWN, 12/30/19) clonidine (Verified Allergy, Unknown, UNKNOWN REACTION, 02/04/20) codeine (Verified Allergy, Unknown, UNKNOWN REACTION, 02/04/20) morphine (Verified Adverse Reaction, Unknown, N/V, 02/04/20) LEWIS LEMUS MD Feb 08, 2020 13:27
--- NOTE | 2020-02-08 18:13 | IPNPDOC ---
Text Note Date of Service The patient was seen on 02/08/20. NOTE Subjective Patient was seen and examined this morning. Patient's lower extreme swelling is about the same as yesterday. Otherwise reports she is doing well. No overnight events reported to me. Objective Constitutional: Awake and alert, in no apparent distress ENT: Sclera are clear. Mucosa is moist. Respiratory: Lungs CTA bilaterally. No respiratory distress. No use of accessory muscles. Cardiovascular: RRR S1 and S2 are normal, no murmur Gastrointestinal: Abdomen is soft, non distended, non tender, BS present. Musculoskeletal: +1 pitting edema of the lower extremities. I observed her nurse change her dressings. Wounds look well and healing erythema is minimal in no discharge. Family friend at bedside who will be taking care of her home was educated on how to do the dressing changes. Neurologic: No focal neurological deficit. Mental Status: A&O x3, normal affect Skin: Warm, dry Assessment/plan Ms. Pendleton is a 74-year-old with a history of chronic HTN, NIDDM, chronic systolic and diastolic CHF, ALANIS, and obesity who will be admitted for management of CANDICE and hyperkalemia. The patient has been on lisinopril, amiloride as well as torsemide at home because of diastolic heart failure. The patient started feeling weak and continued to take her medications, which led to the prerenal AK I. patient also has lower extremity cellulitis which will be treated with clindamycin during inpatient stay and upon discharge to complete a course. Patie nt's AK I has improved significant injury during the hospital stay. The lisinopril will be decreased to 5 mg daily upon discharge and added amlodipine 10 mg, although it can sometimes cause increased lower extreme swelling. And hydrochlorothiazide on discharge. Torsemide will be resumed upon discharge. Hyperkalemia resolved. Lower extremity cellulitis improved. # CANDICE on CKD 3. Improving. Encourage oral hydration. Gentle IVF's. Monitor fluid status given CHF. Monitor. Avoid nephrotoxins. Decrease lisinopril home dose to 5 mg daily. # Hyperkalemia : Resolved. Monitor. Discontinue amiloride on discharge. # BLE cellulitis. Ultrasound lower extremities negative. Continue course of clindamycin upon discharge. Appears improved compared to previous notes # NIDDM:. A1C is 8.0% , diabetic diet. hypoglycemia protocol. ISS. Metformin resume on discharge. # HTN : Amiloride stopped. Continue with Coreg. Continue torsemide 10 mg twice a day. Continue lisinopril 5 mg. Add amlodipine and hydrochlorothiazide # Chronic systolic /diastolic CHF (EF 50% & G2 DD). Mild fluid overload. Continue torsemide 10 mg twice daily. One push of IV Lasix. # ALANIS: CPAP # Morbid Obesity w BMI of 45.5 # DVT prophylaxis: Heparin # dispo: Unable to go home today. To go home tomorrow. Has supportive home and assistance with dressing changes. Family friend was in room today and educated on how to change her dressing for her lower extremity cellulitis. A Karen Hospitalist Sanna HELLER, I+O VSSanna I+O Laboratory Tests 02/08/20 06:19 Vital Signs Date Time Temp Pulse Resp B/P (MAP) Pulse Ox O2 Delivery O2 Flow Rate FiO2 02/08/20 14:00 96.8 67 18 163/70 (101) 96 Room Air I&O- Last 24 Hours up to 6 AM 02/08/20 06:00 Intake Total 2380 ml Output Total 1750 ml Balance 630 ml LEWIS LEMUS MD Feb 08, 2020 18:13
[2020-02-08] MEDS ORDERED: FUROSEMIDE 20MG/2ML VIAL (J1940) IV ONE (18:15)
--- NOTE | 2020-02-08 19:54 | ECGEPIP ---
[facility] Test Date: 2020-02-08 Pat Name: TEODORA RUSSELL Department: Room: F0962-22 Gender: Female Manager Law: EDGAR : 1945 Requested By: LEWIS Zeng Order Number: [id number] Reading MD: Chau Carpenter Measurements Intervals [place] Rate: 53 P: 13 ID: [id number] QRS: 32 QRSD: 126 T: 54 QT: 445 QTc: 421 Interpretive Statements Sinus bradycardia Intraventricula conduction delay Compared to prior tracing of 02/04/2020, heart rate is slower Electronically Signed on 02-08-2020 19:54:56 EDT by Chau Carpenter
--- NOTE | 2020-02-08 19:57 | ECGEPIP ---
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
[2020-02-08 22:00] VITALS: BP 171/71
[2020-02-09 00:30] VITALS: BP 143/56
[2020-02-09] MEDS: CLINDAMYCIN 600 MG in IV 1 EA IV SCH ×2 (01:04→05:30)
[2020-02-09] MEDS: HEPARIN SOD (PORCINE) 5000UNITS/ML 1ML VIAL/SYRINGE SQ SCH ×2 (05:30→13:48)
[2020-02-09 06:00] VITALS: BP 160/74
[2020-02-09 06:36] LABS: ALBUMIN 2.8 GM/DL (3.2-5.2); BILIRUBIN,TOTAL 0.4 MG/DL (0.2-1.0); CALCIUM LEVEL 8.3 MG/DL (8.8-10.2); CREATININE FOR GFR 1.5 MG/DL (0.55-1.30); GLOMERULAR FILTRATION RATE 36.1 (>39); TOTAL PROTEIN 6.4 GM/DL (6.4-8.2)
[2020-02-09] MEDS ORDERED: amLODIPine 10 MG TAB PO SCH (09:00)
[2020-02-09] MEDS ORDERED: hydroCHLOROthiazide 12.5 MG CAPSULE PO SCH ×2 (09:00)
[2020-02-09] MEDS: TORSEMIDE 10 MG TABLET PO SCH (09:43)
[2020-02-09] MEDS: HumaLOG INSULIN (NovoLOG) PER UNIT SC SCH ×2 (09:43→13:49)
[2020-02-09 09:44] VITALS: BP 121/68
[2020-02-09] MEDS: GABAPENTIN 100 MG CAP PO SCH (09:44)
[2020-02-09] MEDS: CARVedilol 3.125 MG TAB PO SCH (09:46)
[2020-02-09] MEDS: lisinopriL 5 MG TAB PO SCH (09:46)
[2020-02-09] MEDS ORDERED: CLIN150C14 PO (11:23)
[2020-02-09] MEDS ORDERED: CLINDAMYCIN 150MG CAPSULE PO SCH (13:00)
[2020-02-09 13:58] VITALS: BP 153/80
== END 2020-02-09 15:03 | disposition home health service (06) | DRG 683 ==
LOC: M ED 18:27 → M ED INP 22:14 → ENRESERV 22:48 → M MSPAV 23:52
PROVIDERS: ADMIT Internal Medicine; ATTEND Family Medicine
DX: N17.9 Acute kidney failure, unspecified (principal); I13.0 Hypertensive heart and chronic kidney disease with heart failure and stage 1 through stage 4 chronic kidney disease, or unspecified chronic kidney disease; I50.42 Chronic combined systolic (congestive) and diastolic (congestive) heart failure; L03.115 Cellulitis of right lower limb; L03.116 Cellulitis of left lower limb; Z68.42 Body mass index [BMI] 45.0-49.9, adult; E87.5 Hyperkalemia; E11.22 Type 2 diabetes mellitus with diabetic chronic kidney disease; F32.9 Major depressive disorder, single episode, unspecified; F41.1 Generalized anxiety disorder; E66.01 Morbid (severe) obesity due to excess calories; M17.0 Bilateral primary osteoarthritis of knee; N18.3 Chronic kidney disease, stage 3 (moderate); Z79.84 Long term (current) use of oral hypoglycemic drugs; Z79.899 Other long term (current) drug therapy; Z88.5 Allergy status to narcotic agent; Z96.653 Presence of artificial knee joint, bilateral; Z88.8 Allergy status to other drugs, medicaments and biological substances

== ENCOUNTER → 2020-02-04 | Outpatient (CLI) | payer OTHER ==
[~2020-02-04] MED LIST changes: +ALEV220T22 PO; +AMIL5TAB4 PO; +AMLO1TAB25 PO; +BACT800T5 PO; +CARV12.5 PO; +CARV3.12 PO; +CLIN150C14 PO; +ELIQ5TAB PO; +LEVO750T13 PO; +LISI-542 PO; +LISI10TA4 PO; +METF-817 PO; +NEUR100C PO; +TORS10TA3 PO
[2020-02-04 17:03] LABS: CALCIUM LEVEL 10.2 MG/DL (8.8-10.2); CREATININE FOR GFR 2.44 MG/DL (0.55-1.30); GLOMERULAR FILTRATION RATE 20.6 (>39); POTASSIUM SERUM 6.2 MEQ/L (3.5-5.1)
== END ==
LOC: M PLALAB 12:05
PROVIDERS: ATTEND Family Medicine
DX: Z79.899 Other long term (current) drug therapy (principal); Z79.84 Long term (current) use of oral hypoglycemic drugs

== ENCOUNTER → 2020-02-17 | Outpatient (REF) | payer OTHER ==
[~2020-02-17] MED LIST changes: +ALEV220T22 PO; +AMIL5TAB4 PO; +AMLO1TAB25 PO; +CARV3.12 PO; +CLIN150C14 PO; +LEVO750T13 PO; +LISI-542 PO; +NEUR100C PO
[2020-02-17 17:47] LABS: CALCIUM LEVEL 9.2 MG/DL (8.8-10.2); CREATININE FOR GFR 1.69 MG/DL (0.55-1.30); GLOMERULAR FILTRATION RATE 31.5 (>39); POTASSIUM SERUM 5.6 MEQ/L (3.5-5.1)
== END ==
LOC: M SFHCPLAZ 15:30
PROVIDERS: ATTEND Family Medicine
DX: N17.9 Acute kidney failure, unspecified (principal)

== ENCOUNTER → 2020-02-23 | Outpatient (REF) | payer OTHER ==
[2020-02-23 15:59] LABS: CALCIUM LEVEL 9.6 MG/DL (8.8-10.2); CREATININE FOR GFR 1.52 MG/DL (0.55-1.30); GLOMERULAR FILTRATION RATE 35.6 (>39); POTASSIUM SERUM 4.8 MEQ/L (3.5-5.1)
== END ==
LOC: M SFHCPLAZ 14:53
DX: I50.32 Chronic diastolic (congestive) heart failure (principal)

== ENCOUNTER → 2020-03-01 | Outpatient (CLI) | payer OTHER ==
--- NOTE | 2020-03-01 16:35 | REP ---
INDICATION: N63.20 LT BREAST MASS. COMPARISON: CT chest 12/28/2019. TECHNIQUE: Bilateral mammography performed in the MLO and CC projections with tomosynthesis. Spot compression views and ultrasound left breast performed. FINDINGS: There is mild scattered fibroglandular tissue bilaterally. No mass or clustered microcalcifications are seen in the right breast. There is a spiculated mass centrally in the left breast approximately 8 cm behind the nipple. This measures approximately 2.5 cm in diameter. Real-time sonographic evaluation of left breast performed. At about the 12 o'clock position of the left breast, approximately 5 cm from the nipple there is an irregular solid mass with distal acoustic shadowing measuring 1.8 x 1.1 x 1.4 cm. The Volpara volumetric breast density pattern is B. IMPRESSION: BIRADS/ACR 5, findings compatible with breast cancer. Spiculated mass left breast 12 o'clock seen both mammographically and sonographically. Recommend ultrasound-guided sampling and postprocedure mammogram. This patient's Tyrer-Cuzick lifetime breast cancer risk assessment score is 7.1%. This mammogram was interpreted with the aid of an FDA-approved computer-aided detection system. The patient states she had a clinical breast exam in over 1 year. The patient letter being requested is M4. RECOMMENDATION: Ultrasound-guided biopsy of mass left breast 12 o'clock, with postprocedure mammogram left breast. <Electronically signed by Bull Wahl > 03/01/20 [id number]
== END ==
LOC: M WHC 14:27
PROVIDERS: ATTEND Family Medicine
DX: N63.20 Unspecified lump in the left breast, unspecified quadrant (principal)
CPT/HCPCS: 76642; 77066; G0279

== ENCOUNTER → 2020-03-04 | Outpatient (REF) | payer OTHER ==
[2020-03-04 16:45] LABS: CALCIUM LEVEL 8.9 MG/DL (8.8-10.2); CREATININE FOR GFR 1.22 MG/DL (0.55-1.30); GLOMERULAR FILTRATION RATE 45.9 (>39); POTASSIUM SERUM 4.3 MEQ/L (3.5-5.1)
== END ==
LOC: M SFHCPLAZ 11:37
PROVIDERS: ATTEND Family Medicine
DX: I50.32 Chronic diastolic (congestive) heart failure (principal)

== ENCOUNTER → 2020-03-16 | Outpatient (CLI) | payer OTHER ==
[2020-03-16 15:09] LABS: ALBUMIN 3.8 GM/DL (3.2-5.2); BILIRUBIN,TOTAL 0.4 MG/DL (0.2-1.0); CALCIUM LEVEL 9.8 MG/DL (8.8-10.2); CREATININE FOR GFR 1.35 MG/DL (0.55-1.30); GLOMERULAR FILTRATION RATE 40.8 (>39); POTASSIUM SERUM 4.8 MEQ/L (3.5-5.1)
== END ==
LOC: M PLALAB 11:06
PROVIDERS: ATTEND Internal Medicine Cardiovascular Disease
DX: I50.32 Chronic diastolic (congestive) heart failure (principal)

== ENCOUNTER → 2020-03-17 | Outpatient (CLI) | payer OTHER | LOC: M PLALAB 09:31 | PROVIDERS: ATTEND Surgery | DX: Z80.3 Family history of malignant neoplasm of breast (principal) ==

== ENCOUNTER → 2020-03-17 | Outpatient (CLI) | payer OTHER ==
[2020-03-17 09:02] VITALS: BP 142/80
--- NOTE | 2020-03-17 11:50 | REP ---
INDICATION: R92.8 ABN MAMMO LT BREAST,US GUIDED BIOPSY. COMPARISON: 03/01/2020. TECHNIQUE: Real-time sonographic evaluation of left breast performed. FINDINGS: Ultrasound guidance was provided for Dr. Hernandez who performed ultrasound-guided biopsy of a solid mass at the 12 o'clock position of the left breast. The biopsy needle is seen in the mass. A final image labeled "clip" demonstrates a linear echogenic focus at the peripheral margin of the mass. IMPRESSION: Ultrasound guidance provided for ultrasound-guided biopsy of left breast mass at 12 o'clock. RECOMMENDATION: Clinical follow-up. <Electronically signed by Bull Wahl > 03/17/20 114
--- NOTE | 2020-03-17 11:52 | REP ---
INDICATION: R92.8 ABN MAMMO LT BREASTS,US GUIDED BIOPSY,POST BX. COMPARISON: 03/01/2020. TECHNIQUE: ML and CC views left breast performed. FINDINGS: A biopsy clip is seen in the spiculated mass at 12 o'clock left breast, following ultrasound-guided biopsy of the mass. IMPRESSION: Successful ultrasound-guided biopsy of mass 12 o'clock left breast. RECOMMENDATION: Clinical follow-up. <Electronically signed by Bull Wahl > 03/17/20 114
--- NOTE | 2020-03-17 11:58 | REP ---
INDICATION: R59.9 PALPABLE LT AXILLARY LYMPH NODE. COMPARISON: None. TECHNIQUE: Real-time sonographic evaluation of left axilla performed. FINDINGS: Two dominant lymph nodes are seen in the left axilla. A lymph node measures 2.6 x 1.7 x 0.6 cm with a fatty hilum. There is slight cortical thickening at least 3 mm and metastatic involvement cannot be excluded. Another lymph node measures 2.6 x 1.5 x 0.5 cm and demonstrates a fatty hilum. There is mild cortical thickening up to 4 mm. Again metastatic involvement cannot be excluded. IMPRESSION: Two left axillary lymph nodes demonstrate mild cortical thickening. Metastatic involvement is not excluded. Consider ultrasound-guided biopsy. <Electronically signed by Bull Wahl > 03/17/20 [id number]
--- NOTE | 2020-03-25 22:00 | ROOPDOC ---
[facility] Report Of Operation Report of Operation DATE OF PROCEDURE: 03/17/20 DIAGNOSIS: Left breast mass PROCEDURE: Left breast US guided biopsy with clip placement SURGEON: Yelitza Gomez BLOOD LOSS: minimal COMPLICATIONS: none Lidocaine 1% LOT [id number] Expiration 11/03 Sodium Bicarbonate 8.4% LOT [id number] Expiration 11/01 Hydromark clip LOT [id number] Expiration 01/03 SHAPE 3 Bx device: BARD [id number] x10 cm LOT [id number] Expiration 12/03 Informed consent was obtained. The most common risk and possible complications including bleeding, hematoma, bruising, infection, injury to surrounding structures were explained to the patient and the patient expressed understanding. Patient was placed on the bed in the supine position. Appropriate time out was done stating patients name, date of , and the procedure to be performed. T he left breast was prepped and draped in the usual fashion. The ultrasound was used to confirm the location of the lesion in the left breast at 12:00. Plain Lidocaine 1% and 8.4% sodium bicarbonate 10:1 mix was used to anesthetize the skin, the biopsy site and tissues along the anticipated biopsy tract. Small skin incision was made with blade number 11. BARD Marquee 14G cannula with introducer ([id number]) was inserted through the incision and advanced under the ultrasound guidance to position immediately adjacent to the lesion. Next, the introducer was removed and BARD Marquee 14G biopsy device was places in the cannula. Pre-biopsy imaging, and post-biopsy imaging were captured. Five good core biopsies were taken at various levels of the lesion. Specimen was placed in formaldehyde, labeled with appropriate biopsy site and patients name, and sent to pathology for evaluation. Next, the biopsy device was withdrawn and a clip introducer was inserted into the biopsy site via the cannula. The SHAPE 3 Hydromark clip was deployed under sonographic guidance. Post-clip placement image was captured. Manual pressure over the biopsy cavity and tract was held after the clip introducer was withdrawn. No bleeding was noted upon removal of the pressure. Post-biopsy mammogram of the left breast was obtained and showed clip in expected position. Postprocedural dressing was placed. Patient tolerated procedure well. Discharge instructions were discussed with the patient and the patient expressed understanding. YELITZA GOMEZ DO Mar 25, 2020 22:00
== END ==
LOC: M WHCPRO 07:53
PROVIDERS: ATTEND Surgery
DX: C50.912 Malignant neoplasm of unspecified site of left female breast (principal); R59.9 Enlarged lymph nodes, unspecified

== ENCOUNTER → 2020-03-30 | Outpatient (REF) | payer OTHER ==
[2020-03-31 11:04] LABS: APPEARANCE, URINE CLOUDY (CLEAR); BACTERIA, URINE AUTO 2+ (NEGATIVE); BILIRUBIN, URINE AUTO NEGATIVE (NEGATIVE); BLOOD, URINE BLOOD 1+ (NEGATIVE); COLOR, URINE YELLOW (YELLOW); GLUCOSE, URINE (UA) AUTO NEGATIVE (NEGATIVE); KETONE, URINE AUTO NEGATIVE (NEGATIVE); LEUKOCYTE ESTERASE, URINE AUTO 3+ (NEGATIVE); MUCUS, URINE SMALL (NEGATIVE); NITRITE, URINE AUTO NEGATIVE (NEGATIVE); PROTEIN, URINE AUTO NEGATIVE (NEGATIVE); RBC, URINE AUTO 10 /HPF (0-3); SPECIFIC GRAVITY URINE AUTO 1.009 (1.002-1.035); SQUAMOUS EPITHELIAL CELL UR AU 1 /HPF (0-6); UROBILINOGEN, URINE AUTO 0.2 mg/dL (0.0-2.0); WBC, URINE AUTO TNTC /HPF (0-3)
== END ==
LOC: M SFHCPLAZ 09:51
PROVIDERS: ATTEND Family Medicine
DX: R30.0 Dysuria (principal)

== ENCOUNTER → 2020-03-31 | Outpatient (CLI) | payer OTHER ==
[2020-03-31 16:32] VITALS: BP 138/77
--- NOTE | 2020-03-31 16:53 | REP ---
INDICATION: R59.9 LT AXILLARY PALPABLE NODE. COMPARISON: 03/17/2020. TECHNIQUE: Real-time sonographic evaluation of left axillary region performed. FINDINGS: Ultrasound guidance was provided for Dr. Hernandez who performed ultrasound-guided biopsy of left axillary lymph node. IMPRESSION: Ultrasound guidance provided for Dr. Hernandez performed ultrasound-guided biopsy of left axillary lymph node. RECOMMENDATION: Clinical follow-up. <Electronically signed by Bull Wahl > 03/31/20 [id number]
--- NOTE | 2020-04-03 21:09 | ROOPDOC ---
[facility] Report Of Operation Report of Operation DATE OF PROCEDURE: 03/31/20 DIAGNOSIS: Left axillary suspicious lymph node PROCEDURE: Ultrasound guided biopsy of left axillary suspicious lymph node with clip placement SURGEON: Yelitza Gomez BLOOD LOSS: minimal COMPLICATIONS: none Lidocaine 1% LOT [id number] Expiration 12/2022 Sodium Bicarbonate 8.4% LOT [id number] Expiration 02/2021 Hydromark clip LOT [id number] Expiration 09/2022 SHAPE 4 Bx device: TEMNO 18G x 20 cm LOT [id number] Expiration 02/2023 Informed consent was obtained. The most common risk and possible complications including bleeding, hematoma, bruising, infection, injury to surrounding structures were explained to the patient and the patient expressed understanding. Patient was placed on the bed in the supine position. Appropriate time out was done stating patients name, date of , and the procedure to be performed. The left axilla was prepped and draped in the usual fashion. The ultrasound was used to confirm the location of enlarged lymph node with cortex measuring 4.8 mm. Plain Lidocaine 1% and 8.4% sodium bicarbonate 10:1 mix was used to anesthetize the skin, the biopsy site and tissues along the anticipated biopsy tract. Small skin incision was made with blade number 11. Temno 18G cannula with introducer was inserted through the incision and advanced under the ultrasound guidance to position immediately adjacent to the enlarged lymph node with 4.8 mm cortex. Next, the introducer was removed and Temno 18G biopsy device was places in the cannula. Pre-biopsy imaging, and post-biopsy imaging were captured. Five good core biopsies were taken at various levels of the lesion. Specimen was placed in formaldehyde, labeled with appropriate biopsy site and patients name, and sent to pathology for evaluation. Next, the biopsy device and cannula were withdrawn and a clip introducer was inserted into the position immediately adjacent to the biopsied lymph node. The SHAPE 4 Hydromark clip was deployed under sonographic guidance. Post-clip placement image was captured. Manual pressure over the biopsy cavity and tract was held after the clip introducer was withdrawn. No bleeding was noted upon removal of the pressure. No post biopsy mammogram was done since clip was visualized well on sonography. Postprocedural dressing was placed. Patient tolerated procedure well. Discharge instructions were discussed with the patient and the patient expressed understanding. YELITZA GOMEZ DO Apr 03, 2020:09
== END ==
LOC: M WHCPRO 14:48
PROVIDERS: ATTEND Surgery
DX: D36.0 Benign neoplasm of lymph nodes (principal)

== ENCOUNTER → 2020-04-21 | Outpatient (CLI) | payer OTHER ==
--- NOTE | 2020-04-21 13:48 | REP ---
INDICATION: INVASIVE LOBULAR CARCINOMA LEFT BREAST, PLEURAL EF. COMPARISON: Comparison chest CT study December 28, 2019.. TECHNIQUE: Noncontrast helical scanning is acquired and 3 mm axial images re-formatted. Coronal and sagittal MPR and coronal MIP images are included. FINDINGS: Preliminary digital plate finisher radiograph is unremarkable. 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 This is unchanged from December 28, [address] pulmonary angiogram. There is no evidence of pleural effusion on either side today on today's CT study. Normal adrenal glands are seen. The visualized upper abdominal structures are unremarkable. No pericardial effusion is seen. No hilar or mediastinal mass or adenopathy is observed. There is an asymmetric soft tissue density in the superior aspect of the left breast. This has irregular contours and on sagittal multiplanar reformations image its greatest diameter is 18 mm. It appears somewhat spiculated. There is a metallic density adjacent consistent with a needle biopsy marker clip. These findings correspond with mammographic findings from March 31, 2020. No abnormality is noted in the visualized right breast soft tissues. There is no CT evidence of axillary lymphadenopathy. Bone window settings show no bony destructive lesion. No pulmonary nodule or other abnormal pulmonary opacity is seen. IMPRESSION: No active cardiopulmonary disease. The previously identified pleural effusions have resolved. 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 A left superior spiculated breast mass is seen 1.8 cm in greatest diameter. <Electronically signed by Saulo Montelongo > 04/21/20 1220
== END ==
LOC: M RAD 08:54
PROVIDERS: ATTEND Surgery
DX: C50.912 Malignant neoplasm of unspecified site of left female breast (principal); I50.9 Heart failure, unspecified

== ENCOUNTER → 2020-04-21 | Outpatient (CLI) | payer OTHER | LOC: M LAB 09:01 | PROVIDERS: ATTEND Family Medicine | DX: E87.5 Hyperkalemia (principal) ==

== ENCOUNTER → 2020-04-22 | Outpatient (CLI) | payer OTHER ==
[~2020-04-22] MED LIST changes: +AMIL25TA PO; +AMIT25TA PO; +TORS20TA2 PO
== END ==
LOC: M LABSMTC 12:57
PROVIDERS: ATTEND Anesthesiology
DX: Z01.812 Encounter for preprocedural laboratory examination (principal); Z20.828 Contact with and (suspected) exposure to other viral communicable diseases

== ENCOUNTER 2020-04-27 06:40 | Inpatient (IN) | payer MEDICARE, OTHER ==
[~2020-04-27] VITALS: Ht 165.1 cm; Wt 77.1 kg
[~2020-04-27 06:40] MED LIST changes: -AMIL25TA PO; -AMIT25TA PO; -CLIN150C14 PO; +CLIN150C15 PO; -LISI-542 PO; +LISI-898 PO; +LISI10TA22 PO; -LISI10TA4 PO; -TORS20TA2 PO
[2020-04-27] MEDS ORDERED: LR 1,000 ML IV ONE (07:00)
[2020-04-27] MEDS ORDERED: ceFAZolin SOD 2 GM in IV 1 EA IV ONE (07:00)
[2020-04-27] MEDS ORDERED: HEPARIN SOD (PORCINE) 5000UNITS/ML 1ML VIAL/SYRINGE SQ ONE (07:00)
[2020-04-27] MEDS ORDERED: propofoL 200 MG/20 ML VIAL As Ordered ONE (09:52)
[2020-04-27] MEDS ORDERED: ONDANSETRON 4MG/2ML VIAL As Ordered ONE (09:52)
[2020-04-27] MEDS ORDERED: dexameTHASONE 4 MG/ML 1ML VIAL (J1100 PER 1MG) As Ordered ONE (09:52)
[2020-04-27] MEDS ORDERED: LIDOCAINE 2% 100MG/5ML SDV (FOR ANES.) As Ordered ONE (09:52)
[2020-04-27] MEDS ORDERED: ROCURONIUM BROMIDE 50 MG/5 ML VIAL As Ordered ONE (09:52)
[2020-04-27] MEDS ORDERED: fentaNYL 250 MCG/5 ML INJECTION (J3010) As Ordered ONE (09:53)
[2020-04-27] MEDS ORDERED: MIDAZOLAM INJ 2MG/2ML VIAL (J2250 PER 1MG) As Ordered ONE (09:53)
[2020-04-27] MEDS ORDERED: BUPIVACAINE LIPOSOME/PF 1.3% 20ML VIAL (13.3MG/ML)(EXPAREL)(C9290 PER1MG) As Ordered ONE (10:18)
--- NOTE | 2020-04-27 10:31 | REP ---
INDICATION: LEFT BIOSPY. COMPARISON: None. TECHNIQUE/RADIOTRACER AND DOSE: This procedure was performed by Denise Mathew [facility], under the direct supervision of Dr. Montelongo. Images were reviewed with Dr. Montelongo prior to dictation. The risks and benefits of the procedure were explained to the patient and informed consent was obtained both orally and written. Directly prior to the start of the procedure, a formal timeout was done in the exam room. Using topical anesthetic and sterile technique 1.015 mCi of filtered Technetium-99m sulfur colloid was injected subdermally in 8 fractionated periareolar injections. FINDINGS: Images obtained 1 hour after injection show show jewell uptake in the left axilla. IMPRESSION: There is jewell uptake in the left axilla. <Electronically signed by Denise Mathew > 04/27/20 1000 <Electronically signed by Saulo Montelongo > 04/27/20 1027
[2020-04-27] MEDS ORDERED: PHENYLephrine 500MCG 5ML (100MCG/ML) SYRINGE As Ordered ONE ×2 (11:30→12:26)
[2020-04-27] MEDS ORDERED: REMIFENTANIL 1MG 3ML VIAL As Ordered ONE (12:06)
[2020-04-27] MEDS ORDERED: ePHEDrine SULFATE 25 MG/5 ML(5MG/ML) SYRINGE As Ordered ONE ×2 (12:36→13:07)
[2020-04-27] MEDS ORDERED: PHENYLEPHRINE 10MG/ML 1ML VIAL (J2370 PER 1) As Ordered ONE (12:41)
[2020-04-27] MEDS ORDERED: GLYCOPYRROLATE INJ 0.2 MG/ML 2 ML VIAL As Ordered ONE (13:12)
[2020-04-27] MEDS ORDERED: SUGAMMADEX SODIUM 500 MG/5 ML VIAL (BRIDION) As Ordered ONE (13:19)
[2020-04-27] MEDS ORDERED: METOCLOPRAMIDE INJ 10MG/2ML VIAL (J2765 PER 1) As Ordered ONE (13:34)
[2020-04-27] MEDS ORDERED: fentaNYL 100 MCG/2 ML INJECTION (J3010) As Ordered ONE ×2 (13:39→14:59)
[2020-04-27] MEDS ORDERED: ESMOLOL INJ 100MG/10ML VIAL As Ordered ONE (13:54)
[2020-04-27] MEDS ORDERED: LACRILUBE (AKWA TEARS) OPHTH OINT 3.5 GM As Ordered ONE (14:19)
[2020-04-27] MEDS ORDERED: LABETALOL 100MG/20ML VIAL As Ordered ONE (14:24)
[2020-04-27] MEDS ORDERED: NS 1,000 ML IV SCH (14:50)
[2020-04-27] MEDS ORDERED: MORPHINE 2 MG/ML 1ML VIAL (J2270) IV PRN (15:00)
[2020-04-27] MEDS ORDERED: ACETAMINOPHEN TAB 650MG DOSE (2X325MG) PO PRN (15:00)
[2020-04-27] MEDS ORDERED: ONDANSETRON 4MG/2ML VIAL IV PRN ×2 (15:00→15:15)
[2020-04-27] MEDS: fentaNYL 100 MCG/2 ML INJECTION (J3010) IV PRN ×4 (15:01→15:20)
[2020-04-27] MEDS ORDERED: METOCLOPRAMIDE INJ 10MG/2ML VIAL (J2765 PER 1) IV PRN (15:15)
[2020-04-27] MEDS ORDERED: oxyCODONE 5MG TAB PO PRN (15:15)
[2020-04-27] MEDS ORDERED: MEPERIDINE INJ 25 MG/ML VIAL (J2175) IV PRN (15:15)
[2020-04-27] MEDS ORDERED: LR 1,000 ML IV SCH (15:15)
[2020-04-27] MEDS ORDERED: DEXTROSE 50% 50 ML SYRINGE IV PRN (15:45)
[2020-04-27] MEDS ORDERED: GLUCOSE 4GM CHEW TABLET PO PRN (15:45)
[2020-04-27] MEDS ORDERED: GLUCAGON INJ 1MG VIAL SC PRN (15:45)
[2020-04-27 16:30] VITALS: BP 158/91
--- NOTE | 2020-04-27 16:30 | HPEPDOC ---
[facility] Medical History & Physical Date of Admission Apr 27, 2020 Date of Service: Apr 27, 2020 History and Physical Chief complaint: Presented to [facility] for an elective mastectomy History of present illness: Patient is a 74-year-old female who presented to [facility] for an elective left mastectomy and lymph node biopsy after she had a biopsy completed on 03/2020 that was positive for invasive lobular carcinoma grade 2-3. Patient has received outpatient medical clearance from her primary care provider and was scheduled for a left mastectomy and lymph node biopsy today with Dr. Boothe, breast surgery. Hospitalist service was called for evaluation and admission to their service. She is seen postoperatively. She denies any headache, nausea, vomiting, chest pain, shortness breath, palpitations, abdominal pain, constipation, diarrhea, or urinary discomfort. They deny any recent fevers or chills. 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 Review of Systems: 10 point review of systems complete, all negative otherwise stated in HPI Physical exam: - Vitals: BP [151/65], HR [89], RR [17], Sat [97%NC2L], Temp [96.9F] - General: Lying in bed, No acute distress, Speaking in full sentences, AAOx3 - HEENT: NC, AT, PERRLA - CVS: RRR, +S1S2, - Murmurs / rubs / gallops - Lungs: Fair air entry bilaterally, No appreciable wheezing / rales / rhonchi - Chest: Left sided FANI drain x 2; dressing in place - Abdomen: Soft, Non-distended, Non-tender - Extremities: 2+ pitting edema at ankles, No calf tenderness - Neuro: No focal motor or sensory deficit - Skin: No visible rashes Labs: See below Imaging: See below EKG: See below Assessment and Plan: Left mastectomy and LN biopsy - Patient presented for an elective mastectomy with breast surgery after she had an abnormal biopsy on 03/2020 - Pain control as per surgical team - Dr. Hernandez on consultation NIDDM2 - Will start insulin sliding scale Chronic Systolic and Diastolic CHF (EF: 50%, Grade 2 Dysfunction) - Patient appears to have lower sternal edema. However, she reports that this is better than what it is at baseline - Will hold torsemide at this time, but plan to resume in a.m. once labs are available HTN - BP well controlled - Will c/w Amlodipine / Carvedilol - Will resume Torsemide in AM (Awaiting AM lab work) DLP - Currently not on medications ALANIS - Not compliant with CPAP Anxiety / Depression - Currently not on medications Morbid obesity - complicating medical care DVT prophylaxis - Will start Heparin Vital Signs Vital Signs Date Time Temp Pulse Resp B/P (MAP) Pulse Ox O2 Delivery O2 Flow Rate FiO2 04/27/20 15:25 89 17 151/65 (93) 97 Nasal Cannula 2 04/27/20 15:24 96.9 Laboratory Data Labs 24H Laboratory Tests 2 04/27/20 07:41: Bedside Glucose (Misc Panel) 198H Home Medications Scheduled Amlodipine Besylate (Amlodipine Besylate) 10 Mg Tablet, 10 MG PO DAILY Carvedilol (Carvedilol) 3.125 Mg Tablet, 3.125 MG PO BID Torsemide (Torsemide) 10 Mg Tablet, 10 MG PO BID AM/1700 Allergies Coded Allergies: atorvastatin (Verified Allergy, Unknown, AFFECTED LEGS, BONES, URINE BROW N, 12/30/19) clonidine (Verified Allergy, Unknown, UNKNOWN REACTION, 02/04/20) codeine (Verified Allergy, Unknown, UNKNOWN REACTION, 02/04/20) morphine (Verified Adverse Reaction, Unknown, N/V, 02/04/20) NICOLE CONNORS MD Apr 27, 2020 16:30
[2020-04-27] MEDS: traMADol 50 MG TAB PO PRN (16:55)
[2020-04-27] MEDS ORDERED: TORS20TA2 PO (17:22)
[2020-04-27] MEDS ORDERED: AMIL25TA PO (17:22)
[2020-04-27] MEDS ORDERED: CARV3.12 PO (17:22)
[2020-04-27] MEDS ORDERED: AMIT25TA17 PO (17:22)
--- NOTE | 2020-04-27 17:22 | REP ---
INDICATION: LT AXILLARY LYMPH NODE WIRE LOCAL. COMPARISON: None. TECHNIQUE: Sonographic guidance. FINDINGS: Sonographic guidance is provided to Dr. Jef murray who performed Kopans wire needle localization of a left axillary lymph node previously biopsied with HydroMARK clip placement. IMPRESSION: Sonographic guidance. <Electronically signed by Saulo Montelongo > 04/27/20 7825
[2020-04-27 17:30] VITALS: BP 153/85
[2020-04-27 18:30] VITALS: BP 155/81
[2020-04-27] MEDS: HumaLOG INSULIN (NovoLOG) PER UNIT SC SCH (18:39)
[2020-04-27 19:30] VITALS: BP 151/84
[2020-04-27] MEDS ORDERED: AMITRIPTYLINE 25MG TABLET PO SCH (21:00)
[2020-04-27] MEDS ORDERED: HumaLOG INSULIN (NovoLOG) PER UNIT SC SCH (21:00)
[2020-04-27 22:00] VITALS: BP 133/82
[2020-04-27] MEDS: HEPARIN SOD (PORCINE) 5000UNITS/ML 1ML VIAL/SYRINGE SC SCH (22:08)
[2020-04-27] MEDS: CARVedilol 3.125 MG TAB PO SCH (22:09)
[2020-04-28 02:00] VITALS: BP 100/51
[2020-04-28 06:00] VITALS: BP 102/51
[2020-04-28] MEDS: HEPARIN SOD (PORCINE) 5000UNITS/ML 1ML VIAL/SYRINGE SC SCH (06:08)
[2020-04-28 06:20] LABS: BASO % 0.1 % (0.0-1.0); EOS % 0.1 % (0.0-3.0); HEMATOCRIT 29.2 % (36.0-47.0); HEMOGLOBIN 9.2 g/dl (12.0-15.5); LYMPH # 1.3 10^3/uL (1.5-5.0); LYMPH % 9.4 % (24.0-44.0); MEAN CORPUSCULAR HEMOGLOBIN 29.8 pg (27.0-33.0); MEAN CORPUSCULAR HGB CONC 31.5 g/dl (32.0-36.5); MEAN CORPUSCULAR VOLUME 94.5 fl (80.0-96.0); MONO # 1.1 10^3/uL (0.0-0.8); MONO % 7.8 % (0.0-5.0); NEUTROPHILS # 11.1 10^3/uL (1.5-8.5); NEUTROPHILS % 82.2 % (36.0-66.0); PLATELET COUNT, AUTOMATED 221 10^3/uL (150-450); RED BLOOD COUNT 3.09 10^6/uL (4.00-5.40); WHITE BLOOD COUNT 13.5 10^3/uL (4.0-10.0)
[2020-04-28 06:50] LABS: CALCIUM LEVEL 8.2 MG/DL (8.8-10.2); CREATININE FOR GFR 1.61 MG/DL (0.55-1.30); GLOMERULAR FILTRATION RATE 33.3 (>39); POTASSIUM SERUM 4.5 MEQ/L (3.5-5.1)
[2020-04-28 08:25] VITALS: BP 102/44
[2020-04-28] MEDS: CARVedilol 3.125 MG TAB PO SCH (08:25)
[2020-04-28] MEDS: HumaLOG INSULIN (NovoLOG) PER UNIT SC SCH ×2 (08:27→13:04)
[2020-04-28] MEDS: PNEUMOCOCCAL VACCINE 0.5ML SYRINGE (PNEUMOVAX 23) IM ONE ×2 (08:31→08:37)
[2020-04-28] MEDS ORDERED: TORSEMIDE 20 MG TAB PO SCH (09:00)
[2020-04-28] MEDS ORDERED: FLUBLOK(EGG FREE)(QUAD)INFLUENZA VACC 0.5ML SYRINGE 18YRS & OLDER IM ONE (09:00)
[2020-04-28 09:48] VITALS: BP 105/66
--- NOTE | 2020-04-28 10:26 | REP ---
INDICATION: Evaluate for effusions. COMPARISON: Comparison chest x-ray February 04, 2020. TECHNIQUE: Portable upright AP chest radiograph. FINDINGS: The lungs are well inflated and free of infiltrate. Pleural angles are sharp. Heart size is normal. Pulmonary vasculature is not increased. A surgical drain is seen in soft tissues of the left chest and left axillary region. There is no evidence of pleural effusion. Minimal platelike atelectasis is present in the left base. Heart size is unchanged. The thoracic aorta is somewhat tortuous. Pulmonary vasculature is not increased. IMPRESSION: Mild linear platelike atelectasis left base. Surgical drainage catheters overlie the left chest. Otherwise no acute disease.. <Electronically signed by Saulo Montelongo > 04/28/20 [id number]
[2020-04-28] MEDS ORDERED: TRAM50TA2 PO (12:06)
--- NOTE | 2020-04-28 12:28 | DS.PDOC ---
Discharge Summary General Date of Admission Apr 27, 2020 at 15:32 Date of Discharge 04/28/2020 Discharge Summary PROCEDURES PERFORMED DURING STAY: Left mastectomy and lymph node resection on 04/[address] Boothe ADMITTING DIAGNOSES / DISCHARGE DIAGNOSES: Left mastectomy and LN biopsy NIDDM2 Chronic Systolic and Diastolic CHF (EF: 50%, Grade 2 Dysfunction) HTN DLP ALANIS Anxiety / Depression Obesity DVT prophylaxis COMPLICATIONS/CHIEF COMPLAINT: Left Breast Cancer. HISTORY OF PRESENT ILLNESS: Patient is a 74-year-old female who presented to [facility] for an elective left mastectomy and lymph node biopsy after she had a biopsy completed on 03/2020 that was positive for invasive lobular carcinoma grade 2-3. Patient has received outpatient medical clearance from her primary care provider and was scheduled for a left mastectomy and lymph node biopsy on 04/[address] Boothe, breast surgery. HOSPITAL COURSE: Left mastectomy and LN biopsy - Patient presented for an elective mastectomy with breast surgery after she had an abnormal biopsy on 03/2020 - Pain control as per surgical team - Dr. Hernandez on consultation; has been cleared for MA home NIDDM2 - c/w insulin sliding scale while inpatient - Will resume home regimen on discharge Chronic Systolic and Diastolic CHF (EF: 50%, Grade 2 Dysfunction) - Patient appears to have lower sternal edema. However, she reports that this is better than what it is at baseline - Will resume torsemide / amiloride HTN - BP well controlled - Will c/w Carvedilol - c/w Amiloride / Torsemide on discharge DLP - Currently not on medications ALANIS - Not compliant with CPAP - Patient had required oxygen overnight; however, was not on the CPAP device - currently she is saturating well on room air - CXR 04/28: Mild linear platelike atelectasis left base. Surgical drainage catheters overlie the left chest. Otherwise no acute disease.. - c/w Incentive spirometry - Patient has been advised to follow-up with her primary care provider for titration of her CPAP device Anxiety / Depression - Currently not on medications Obesity - Complicating medical care DVT prophylaxis - c/w Heparin DISCHARGE MEDICATIONS: Please see below. ALLERGIES: Please see below. PHYSICAL EXAMINATION ON DISCHARGE: - Vitals: See below - General: Lying in bed, Does not appear to be in any distress Speaking in full sentences, AAOx3 - HEENT: NC, AT - CVS: RRR, +S1S2 - Lungs: Fair air entry bilaterally, No auscultated rhonchi / wheezing / rales - Chest: Left sided FANI drain x 2 with serosanginous drainage noted; dressing in place - Abdomen: Soft, Non-distended, Non-tender - Extremities: LE reveals 1+ pitting edema (patient reports improved from baseline), No calf tenderness - Neuro: No focal motor or sensory deficit - Skin: No visible rashes LABORATORY DATA: Please see below. ACTIVITY: [As tolerated]. DISCHARGE PLAN: Follow up with PCP and Dr. Hernandez within 7 days Remain compliant with treatment plan and medications Return to the ER if you experience any problems DISPOSITION: Home with services DISCHARGE CONDITION: [Stable]. TIME SPENT ON DISCHARGE: 35 minutes Vital Signs/I&Os Vital Signs Date Time Temp Pulse Resp B/P (MAP) Pulse Ox O2 Delivery O2 Flow Rate FiO2 04/28/20 09:48 98.4 105 18 105/66 (79) 95 Room Air 04/28/20 06:00 3.0 I&O- Last 24 Hours up to 6 AM 04/28/20 05:59 Intake Total 3510 ml Output Total 1700 ml Balance 1810 ml Laboratory Data Labs 24H Laboratory Tests 2 04/27/20 16:55: Bedside Glucose (Misc Panel) 162H 04/27/20 21:54: Bedside Glucose (Misc Panel) 204H 04/28/20 06:02: Immature Granulocyte % (Auto) 0.4, Neutrophils (%) (Auto) 82.2H, Lymphocytes (%) (Auto) 9.4L, Monocytes (%) (Auto) 7.8H, Eosinophils (%) (Auto) 0.1, Basophils (%) (Auto) 0.1, Neutrophils # (Auto) 11.1H, Lymphocytes # (Auto) 1.3L, Monocytes # (Auto) 1.1H, Eosinophils # (Auto) 0.0, Basophils # (Auto) 0.0, Nucleated Red Blood Cells % (auto) 0.0, Anion Gap 5L, Glomerular Filtration Rate 33.3L, Ca lcium Level 8.2L, Magnesium Level 2.0 CBC/BMP Laboratory Tests 04/28/20 06:02 FSBS Laboratory Tests Test 04/27/20 16:55 04/27/20 21:54 Range/Units Bedside Glucose (Misc Panel) 162 204 83-110 MG/DL Discharge Medications Scheduled Amiloride HCl (Amiloride HCl) 5 Mg Tablet, 5 MG PO QPM, (Reported) Amitriptyline HCl (Amitriptyline HCl) 25 Mg Tablet, 25 MG PO QHS, (Reported) Carvedilol (Carvedilol) 3.125 Mg Tablet, 3.125 MG PO BID, (Reported) Torsemide (Torsemide) 20 Mg Tablet, 20 MG PO BID, (Reported) INCREASING TO 60MG BID, NEW RX, NOT PICKED UP YET Scheduled PRN Tramadol HCl (Tramadol HCl) 50 Mg Tablet, 50 MG PO Q6HP PRN for MODERATE PAIN (PS 5-7) Allergies Coded Allergies: atorvastatin (Verified Allergy, Unknown, AFFECTED LEGS, BONES, URINE BROWN, 12/30/19) clonidine (Verified Allergy, Unknown, UNKNOWN REACTION, 02/04/20) codeine (Verified Allergy, Unknown, UNKNOWN REACTION, 02/04/20) morphine (Verified Adverse Reaction, Unknown, N/V, 02/04/20) NICOLE CONNORS MD Apr 28, 2020 12:28
[2020-04-28] MEDS: traMADol 50 MG TAB PO PRN (13:53)
--- NOTE | 2020-04-28 14:09 | IPNPDOC ---
Subjective General Date Seen: Apr 28, 2020 (7 am) Subject Chief Complaint/History The patient is a 74-year-old lady with numerous comorbidities including diabetes, CHF, ALANIS, cardiomegaly, chronic leg swelling with wounds and hx of b/l pleural effusions (December), who was recently diagnosed with left invasive lobular carcinoma. She opted for left simple mastectomy and sentinel lymph node biopsy which was done yesterday. She was admitted postop for obs. She recovered well since surgery, however she is currently on 3 L of Oxygen and has some desaturations postop yesterday. She was able to void postop without issues. Pain is well controlled. Drain output is 120 cc combined since midnight although in is becoming more serosanguinous. Current Medications Current Medications Current Medications Medications (Trade) Dose Ordered Sig/Javier Route PRN Reason Start Time Stop Time Status Last Admin Dose Admin Acetaminophen (Tylenol Tab) 650 mg Q6H PRN PO MILD PAIN (PS 1-4) 04/27/20 15:00 Amiloride HCl (Midamor) 5 mg QPM PO 04/28/20 21:00 Amitriptyline HCl (Elavil) 25 mg QHS PO 04/27/20 21:00 04/27/20 22:09 Amlodipine Besylate (Norvasc) 10 mg DAILY PO 04/28/20 09:00 04/27/20 17:37 DC Carvedilol (COReg) 3.125 mg BID PO 04/27/20 21:00 04/27/20 22:09 Dextrose (Dextrose 50%) 25 ml ASDIRECTED PRN IV SEE LABEL COMMENTS 04/27/20 15:45 Fentanyl Citrate (Sublimaze) 25 mcg Q5MP PRN IV PAIN LEVEL 5-10 04/27/20 15:15 04/27/20 16:24 DC 04/27/20 15:20 Glucagon (Glucagon) 1 mg ASDIRECTED PRN SC SEE LABEL COMMENTS 04/27/20 15:45 Glucose (Glucose) 16 GM ASDIRECTED PRN PO SEE LABEL COMMENTS 04/27/20 15:45 Heparin Sodium (Porcine) (Heparin) 5,000 units Q8H SC 04/27/20 22:00 04/28/20 06:08 Home Med (Med Rec Complete!) ASDIRECTED XX 04/27/20 17:30 04/27/20 17:25 DC Insulin Human Lispro (HumaLOG INSULIN) SEE PROTOCOL TABLE AC SC 04/27/20 17:30 04/28/20 13:04 Insulin Human Lispro (HumaLOG INSULIN) SEE PROTOCOL TABLE QHS SC 04/27/20 21:00 Lactated Ringer's 1,000 ml @ 100 mls/hr Q10H IV 04/27/20 15:15 04/27/20 16:24 DC Meperidine HCl (Demerol) 12.5 mg Q5MP PRN IV SHIVERING 04/27/20 15:15 04/27/20 16:24 DC Metoclopramide HCl (REGLAN INJection) 10 mg Q6HP PRN IV NAUSEA OR VOMITING 04/27/20 15:15 04/27/20 16:24 DC Morphine Sulfate (Morphine Sulfate Inj) 2 mg Q3H PRN IV SEVERE PAIN (PS 8-10) 04/27/20 15:00 Ondansetron HCl (ZOFRAN INJection) 4 mg Q4H PRN IV NAUSEA OR VOMITING 04/27/20 15:00 Ondansetron HCl (ZOFRAN INJection) 4 mg Q4HP PRN IV NAUSEA OR VOMITING 04/27/20 15:15 04/27/20 16:24 DC Oxycodone HCl (Roxicodone, Oxyir) 5 mg ASDIRECTED PRN PO PAIN LEVEL 1-4 04/27/20 15:15 04/27/20 16:24 DC 04/27/20 15:24 Sodium Chloride 1,000 ml @ 40 mls/hr Q24H IV 04/27/20 14:50 04/28/20 07:56 DC 04/27/20 16:56 Torsemide (Demadex) 20 mg BID@0900,1700 PO 04/28/20 09:00 Tramadol HCl (Ultram) 50 mg Q6HP PRN PO MODERATE PAIN (PS 5-7) 04/27/20 15:00 04/27/20 16:55 Allergies Coded Allergies: atorvastatin (Verified Allergy, Unknown, AFFECTED LEGS, BONES, URINE BROWN, 12/30/19) clonidine (Verified Allergy, Unknown, UNKNOWN REACTION, 02/04/20) codeine (Verified Allergy, Unknown, UNKNOWN REACTION, 02/04/20) morphine (Verified Adverse Reaction, Unknown, N/V, 02/04/20) Objective Physical Examination Examination GENERAL APPEARANCE:Patient seen, laying in bed, awake, alert, and oriented. Comfortable, in no acute distress SKIN: Warm BREAST: Right breast is unremarkable- exam deferred, Left breast is surgically absent. Mastectomy flaps are viable. No palpable hematoma is present. Incision is well approximated. No drainage from the wound. There are 2 drains in the la teral left chest with serosanguinous drainage - stripped. HEENT: Normocephalic, atraumatic. NECK: Supple LUNGS: on 3 L oxygen ABDOMEN: Abdomen is soft EXTREMITIES: b/l LE edema with some blisters and chronic wounds - currently dressed with xeroform and Kerlix. dependent rubor improved Vital Signs Vital Signs Date Time Temp Pulse Resp B/P (MAP) Pulse Ox O2 Delivery O2 Flow Rate FiO2 04/28/20 09:48 98.4 105 18 105/66 (79) 95 Room Air 04/28/20 06:00 3.0 I&Os I&O- Last 24 Hours up to 6 AM 04/28/20 06:00 Intake Total 3510 ml Output Total 1700 ml Balance 1810 ml Laboratory Data Labs 24H Laboratory Tests 2 04/27/20 16:55: Bedside Glucose (Misc Panel) 162H 04/27/20 21:54: Bedside Glucose (Misc Panel) 204H 04/28/20 06:02: Immature Granulocyte % (Auto) 0.4, Neutrophils (%) (Auto) 82.2H, Lymphocytes (%) (Auto) 9.4L, Monocytes (%) (Auto) 7.8H, Eosinophils (%) (Auto) 0.1, Basophils (%) (Auto) 0.1, Neutrophils # (Auto) 11.1H, Lymphocytes # (Auto) 1.3L, Monocytes # (Auto) 1.1H, Eosinophils # (Auto) 0.0, Basophils # (Auto) 0.0, Nucleated Red Blood Cells % (auto) 0.0, Anion Gap 5L, Glomerular Filtration Rate 33.3L, Calcium Level 8.2L, Magnesium Level 2.0 04/28/20 12:11: Bedside Glucose (Misc Panel) 165H CBC/BMP Laboratory Tests 04/28/20 06:02 Impression 74 y o lady with numerous comorbidities (DM, ALANIS, cardiomegaly, CHF, b.l. LE swelling with wounds) with recently diagnosed left breast cancer. Status post left breast simple mastectomy with left sentinel lymph node biopsy and excision of previously biopsied lymph node with Intra-Op wire placement and excision of right chest wall mole POD1. - stable for discharge from surgical point however on 3 L oxygen now - med management pre Medical team, I greatly appreciate the assistance. Planning for CXR - wean off 02 per medicine - PT/OT for mobilization and for safety assessment prior to d/c home - monitor drain output, drain teaching per Nursing staff - pain control - DVD Ppx: sq hep, no SCDs due to chronic leg wounds - Local wound care of wounds on the legs per nursing staff- xeroform to open sores. pls wrap loosely with Kerlix. Change every other day at home. pls send home with some supplies. - ok to d/c home when cleared by Medical Team - follow up with me in the clinic on Thursday 05/03 at 1 pm - follow up with PCP on 05/04 Plan / VTE VTE Prophylaxis Ordered?: Yes YELITZA GOMEZ DO Apr 28, 2020 14:09
[2020-04-28] MEDS ORDERED: aMILoride 5 MG TAB PO SCH (21:00)
--- NOTE | 2020-04-29 15:56 | ROOPDOC ---
[facility] Report Of Operation Report of Operation DATE OF PROCEDURE: 04/27/20 PREPROCEDURE DIAGNOSES: Left breast cancer and left chest suspicious mole POSTPROCEDURE DIAGNOSES: same PROCEDURE: Left simple mastectomy, left sentinel lymph node biopsy, left axillary intraop wire placement, left axillary targeted excision of clipped lymph node with intraop specimen radiography, Left pectoralis and serratus muscle nerve block, excision of left chest wall suspicious mole SURGEON: Dr Miranda Hernandez IMPROVEMENT DIRECTOR: Dr Susana Claros ANESTHESIA: general ESTIMATED BLOOD LOSS: Approximately 100 mL. COMPLICATIONS: none REMARKS: previously biopsied LN was identified intraop and excised. DESCRIPTION OF PROCEDURE: INDICATIONS: Ms. Pendleton is a 74 year old lady with numerous comorbidities including CHF, DM, ALANIS, cardiomegaly, Hx of b/l pleural effusions and chronic lower extremity swelling and wounds, who was found to have left breast mass. This was biopsied and came back as Invasive lobular carcinoma. She was found to have a suspicious left axillary lymph node as well which was biopsied and clipped. Pathology of the lymph node was benign. We discussed surgical options and patient opted for left simple mastectomy wit hout reconstruction. I explained to the patient that because she has invasive breast cancer we also need to evaluate her lymph nodes with left sentinel lymph node biopsy. I also recommended targeted excision of the left axillary previously biopsied lymph node with intraop wire placement into the node. Patient was also worried about a melanotic mole on her chest which she thinks is growing. I also offered her the excision of the mole at the time of surgery. 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 Risks and possible complications of surgical procedure including bleeding, infection and injury to surrounding structures were explained to the patient and she wished to proceed. Consent was signed. Subcutaneous heparin 5000 units was given to patient in the preop area. Lymphoscintigraphy was reviewed preoperatively and the tracer was found in the left axilla. Patient was marked preoperatively by me. DETAILS: Patient was taken to the operating room and placed supine on the operating room table. Pillow was placed under her knees. Foam was placed under her heels. A sign in was called stating patients name, date of and the procedure to be done. Preoperative antibiotics were infused. Smooth induction of general anesthesia was done. Patients hands were extended on arm rests. Care was taken not to over extend patients arms. Noel catheter was placed. Sequential compression devices were not placed due to the chronic leg swelling and active lower extremity wounds and blisters. Procedure was started with left axillary intraop wire localization. Appropriate time out was done and patients name, date of , and the procedure to be done were confirmed. Left breast and axilla were cleaned by me. Intraoperative ultrasound was used to confirm location of the Hydromark clip and previously biopsied lymph node. Location of the clip was marked on the skin as well. 21 G [place] Breast Lesion Localization Needle was used to place 25 cm wire. The wire was placed next to the clip and through the previously biopsied lymph node. The end of the wire was passed slightly distal to the lymph node. The images were captured confirming adequate placement of the localizing wire. A/C Technician assisted with the wire placement. At this time, patients left breast and axilla were prepped again and draped in the usual fashion. Neoprobe was used to jayme the site of maximal signal in the axilla. The left breast palpable mass confirmed to be the cancer was marked on the skin. Appropriate time out was done again prior to start of the second part of the procedure. Patients name, date of , and the procedure to be done were confirmed. Transverse elliptical incision incorporating skin over the palpable mass and nipple areolar complex was made with scalpel number 15. Subcutaneous flaps were developed using electrocautery dissection. Dissection was carried toward the inframammary fold inferiorly, toward sternum medially, toward inferior aspect of clavicle superiorly and toward the axilla laterally. Doctor Janet assistance was critical in allowing fast progression of the case and decreasing anesthesia time. Breast tissue was dissected from the muscle posteriorly and pectoralis fascia was taken with the specimen. The dissection was carried all the way to the [facility] making sure that axilla is not entered prematurely. Breast specimen was marked for orientation with short, single stitch marking superior edge of mastectomy, long, single stitch marking lateral edge of mastectomy and double stitch marking site of cancer. The specimen was weighted and weight of 1309.4 grams was reported. The specimen was then placed in formaldehyde, and passed to pathology. Mastectomy cavity was irrigated and hemostasis was achieved. Doctor Janet assistance was critical in achieving adequate hemostasis and progressing the case safely. Next, our attention was turned toward the left axilla which was accessed from the mastectomy site. The previously placed intraop wire marking clipped lymph node was pulled into the mastectomy cavity while making sure that the proximal end of the wire is not displaced from its target. Clavipectoral fascia was opened over the site of maximum Neoprobe signal. Area of high signal was identified deep in the mid upper axilla at the lateral border of the pectoralis major muscle. [place] lymph node #1 was identified and 10 second ex-vivo count was [id number]. Upon dissection of this node it become apparent that this is also the previously biopsied node as it had a wire going through it. Intraop radiography of the node was done and showed the clip present in the lymph node. Second sentinel lymph node was identified more superior and posterior to the previous one. The 10 second ex-vivo count [place] [id number]. Specimens were labeled appropriately and sent to pathology. Axilla was explored for presence of any additional lymph nodes and none were identified. 10 second count of the background was 2. Doctor Gonzales assistance with identification of sentinel lymph nodes was again critical to avoid injury to surrounding nerves. The axilla was irrigated and hemostasis was achieved. Next, clavipectoral fascia was loosely approximated with interrupted 3-0 Vicryl Stitches. At this point, two 19 [place] drains were placed into the mastectomy cavity and into the left axilla respectively. This was done through separate stab incisions. Drains were secured at the skin with stitches. Next, pectoral and serratus plane blocks on the left side were also done with Exparel. Next, doctor Claros performed lateral chest wall contouring with removal of excessive lateral skin. Deep dermal sutures were placed with 2-0 Vicryl to approximate mastectomy site edges. Dermis was closed with 3-0 Vicryl. Skin was closed with 4-0 Monocryl. Surgical glue was applied to the top of the incision. Prineo skin closing system dressing was applied next to the incision. Surgical gauze was placed over the incision and the surgical bra was placed. Our attention was now turned toward the melanotic mole in the left upper inner chest. Small elliptical incision was made with the knife #15. The incision was carried through the dermis into the upper limits of subcutaneous tissue. The excised mole was marked with appropriate patients identifiers and it was called excision of left chest wall mole. The specimen was then placed in formaldehyde and sent to pathology. Final instruments and sponge count were correct. Patient emerged from general anesthesia without any problems. Patient tolerated procedure well and was taken to recovery unit in stable condition. MIRANDA HERNANDEZ DO Apr 29, 2020 15:56
--- NOTE | 2020-04-30 12:47 | REP ---
INDICATION: LEFT SENTINEL LYMPH NODE BIOPSY. COMPARISON: Mammography March 17, 2020.. TECHNIQUE: Single-view specimen radiograph. FINDINGS: A single specimen radiograph demonstrates a needle biopsy marker clip centrally located in the specimen along a nodular component. There is a surgical clip also present along the edge of the specimen. IMPRESSION: A needle biopsy marker clip is noted within the excised specimen. <Electronically signed by Saulo Montelongo > 04/30/20 [id number]
== END 2020-04-28 15:00 | disposition home health service (06) | DRG 580 ==
LOC: M SDC 06:40 → M ED INP 15:32 → M MS5PR 16:25
PROVIDERS: ADMIT Internal Medicine; ATTEND Internal Medicine
PROC: 0WB80ZX Excision of Chest Wall, Open Approach, Diagnostic (ICD-10-PCS; 2020-04-27)
PROC: 07B60ZX Excision of Left Axillary Lymphatic, Open Approach, Diagnostic (ICD-10-PCS; 2020-04-27)
PROC: 0HTU0ZZ Resection of Left Breast, Open Approach (ICD-10-PCS; principal; 2020-04-27 11:00)
DX: C50.912 Malignant neoplasm of unspecified site of left female breast (principal); I50.42 Chronic combined systolic (congestive) and diastolic (congestive) heart failure; I11.0 Hypertensive heart disease with heart failure; E11.9 Type 2 diabetes mellitus without complications; E78.5 Hyperlipidemia, unspecified; G47.33 Obstructive sleep apnea (adult) (pediatric); F41.9 Anxiety disorder, unspecified; D22.5 Melanocytic nevi of trunk; F32.9 Major depressive disorder, single episode, unspecified; Z91.19 Patient's noncompliance with other medical treatment and regimen; Z98.41 Cataract extraction status, right eye; Z98.42 Cataract extraction status, left eye; Z96.653 Presence of artificial knee joint, bilateral; Z79.899 Other long term (current) drug therapy; Z88.5 Allergy status to narcotic agent; Z88.8 Allergy status to other drugs, medicaments and biological substances

== ENCOUNTER 2020-05-18 23:45 | Inpatient (IN) | payer MEDICARE, OTHER ==
[~2020-05-18] VITALS: Ht 165.1 cm; Wt 117.5 kg
[~2020-05-18 23:45] MED LIST changes: +AMIL25TA PO; +AMIT25TA17 PO; +LISI-542 PO; -LISI-898 PO; -LISI10TA22 PO; +LISI10TA4 PO; +TORS20TA2 PO; +TRAM50TA2 PO
--- NOTE | 2020-05-19 01:06 | REPVR ---
PROCEDURE INFORMATION: Exam: XR Chest, 1 View Exam date and time: 05/19/2020 12:42 AM Age: 74 years old Clinical indication: Other: Dysp, cough; Additional info: Dyspnea/cough TECHNIQUE: Imaging protocol: XR of the chest Views: 1 view. COMPARISON: [facility] PORT[facility] CHEST [facility] 04/28/2020 9:53 AM FINDINGS: Lungs: Degree of lung inflation is normal. No evidence of pulmonary edema. No focal consolidation or parenchymal lung mass. Pleural space: No pleural effusion or pneumothorax. Heart/Mediastinum: Cardiac silhouette appears normal. No adenopathy or hilar mass. Bones/joints: Osseous structures show no concerning abnormality. IMPRESSION: No acute or focal cardiopulmonary process. Electronically signed by: Jabier Abdul On 05/19/2020 01:06:21 AM
[2020-05-19 02:00] LABS: BASO # 0.1 10^3/uL (0.0-0.2); BASO % 0.3 % (0.0-1.0); EOS # 0.2 10^3/uL (0.0-0.5); EOS % 0.9 % (0.0-3.0); HEMATOCRIT 36.7 % (36.0-47.0); HEMOGLOBIN 11.6 g/dl (12.0-15.5); LYMPH # 1.5 10^3/uL (1.5-5.0); LYMPH % 8.2 % (24.0-44.0); MEAN CORPUSCULAR HEMOGLOBIN 30.5 pg (27.0-33.0); MEAN CORPUSCULAR HGB CONC 31.6 g/dl (32.0-36.5); MEAN CORPUSCULAR VOLUME 96.6 fl (80.0-96.0); MONO # 1.2 10^3/uL (0.0-0.8); MONO % 6.8 % (0.0-5.0); NEUTROPHILS # 14.9 10^3/uL (1.5-8.5); NEUTROPHILS % 83.2 % (36.0-66.0); PLATELET COUNT, AUTOMATED 256 10^3/uL (150-450); WHITE BLOOD COUNT 17.9 10^3/uL (4.0-10.0)
[2020-05-19] MEDS ORDERED: ESCI10TA16 PO (02:11)
[2020-05-19] MEDS ORDERED: JANU25TA PO (02:11)
[2020-05-19 02:14] LABS: INR 1.09; PROTHROMBIN TIME 14.3 SECONDS (12.5-14.3)
[2020-05-19 02:17] LABS: ERYTHROCYTE SEDIMENTATION RATE 66 mm/hr (0-30)
[2020-05-19 03:06] LABS: ALBUMIN 3.2 GM/DL (3.2-5.2); ALT/SGPT 16 U/L (12-78); BILIRUBIN,DIRECT 0.2 MG/DL (0.0-0.2); BILIRUBIN,TOTAL 0.7 MG/DL (0.2-1.0); BLOOD UREA NITROGEN 33 MG/DL (7-18); C REACTIVE PROTEIN QUANTITATIV 9.41 MG/DL (0.00-0.30); CALCIUM LEVEL 8.9 MG/DL (8.8-10.2); CARBON DIOXIDE LEVEL 30 MEQ/L (21-32); CHLORIDE LEVEL 98 MEQ/L (98-107); CK-MB VALUE MASS < 1.0 NG/ML (<3.6); CPK CREATINE PHOSPHOKINASE 32 U/L (26-192); CREATININE FOR GFR 1.98 MG/DL (0.55-1.30); GLOMERULAR FILTRATION RATE 26.2 (>39); GLUCOSE, FASTING 174 MG/DL (70-100); MB/CK RELATIVE INDEX 3.12 (< OR =4); NT-PRO BNP 312 PG/ML (<125); POTASSIUM SERUM 3.8 MEQ/L (3.5-5.1); SODIUM LEVEL 133 MEQ/L (136-145); THYROID STIMULATING HORMONE 0.608 uIU/ML (0.358-3.740); TOTAL PROTEIN 7.3 GM/DL (6.4-8.2); TROPONIN I < 0.02 NG/ML (< 0.10)
[2020-05-19] MEDS ORDERED: cefTRIAXone SOD 1 GM in D5W MINI-BAG PLUS 50 ML IV ONE (05:00)
[2020-05-19] MEDS ORDERED: TRAM50TA2 PO (05:19)
[2020-05-19] MEDS ORDERED: PATIENT COMMENT (05:21)
--- NOTE | 2020-05-19 05:22 | REPVR ---
PROCEDURE INFORMATION: Exam: CT Chest Without Contrast; Diagnostic Exam date and time: 05/19/2020 4:24 AM Age: 74 years old Clinical indication: Other: Weak; Additional info: Leukocytosis TECHNIQUE: Imaging protocol: Diagnostic computed tomography of the chest without contrast. Radiation optimization: All CT scans at this facility use at least one of these dose optimization techniques: automated exposure control; mA and/or kV adjustment per patient size (includes targeted exams where dose is matched to clinical indication); or iterative reconstruction. COMPARISON: CT Chest without contrast 04/21/2020 9:36 AM FINDINGS: Lungs: Minor pleuroparenchymal scarring right lung apex. Pleural space: Unremarkable. No pneumothorax. No pleural effusion. Heart: Unremarkable. No cardiomegaly. No pericardial effusion. 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 Aorta: Calcified tortuous thoracic aorta. Lymph nodes: Small mediastinal lymph nodes. Diaphragm: Elevation of the right hemidiaphragm. Bones/joints: Degenerative change of the spine. Soft tissues: Superficial skin edema or cellulitis of the left chest wall. There is an elongated prominent area of subcutaneous soft tissue infiltration and partial fluid attenuating collection of the left chest wall. Presumably underlying surgical changes with soft tissue volume loss of the left breast. Expansion and edema or inflammation of the left pectoral musculature superficially. IMPRESSION: 1. Likely postsurgical volume loss of left breast tissue left chest. 2. Prominent skin and subcutaneous area of soft tissue stranding edema/inflammation/cellulitis and partial fluid collection with pectoral muscular expansion. The findings are nonspecific and the underlying differential diagnostic consideration could include infectious changes of cellulitis, post radiation affect, underlying abscess would not be excluded and would require contrast administration. Other differential consideration could include component of underlying residual or recurrent neoplasm. 3. Atherosclerosis thoracic aorta. Electronically signed by: Inga Mas On 05/19/2020 05:23:29 AM
--- NOTE | 2020-05-19 05:22 | REPVR ---
PROCEDURE INFORMATION: Exam: CT Head Without Contrast Exam date and time: 05/19/2020 4:24 AM Age: 74 years old Clinical indication: Other: Weak; Additional info: Unsteady gait TECHNIQUE: Imaging protocol: Computed tomography of the head without contrast. Radiation optimization: All CT scans at this facility use at least one of these dose optimization techniques: automated exposure control; mA and/or kV adjustment per patient size (includes targeted exams where dose is matched to clinical indication); or iterative reconstruction. COMPARISON: No relevant prior studies available. FINDINGS: Brain: There is mild patchy low attenuation of deep white matter. There is an old lacunar infarct in the posterior horn of the left internal capsule. Cerebral ventricles: There is moderate prominence of the central ventricular system. Bones/joints: Unremarkable. No acute fracture. Paranasal sinuses: Visualized sinuses are unremarkable. No fluid levels. Mastoid air cells: Visualized mastoid air cells are well aerated. Soft tissues: Unremarkable. IMPRESSION: 1. 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 2. Mild atrophic change. There is discordant prominence of the central ventricular system compared to peripheral sulci and some degree of normal pressure hydrocephalus is not excluded. 3. Otherwise negative noncontrast head CT. Electronically signed by: Eder Schafer On 05/19/2020 05:23:06 AM
--- NOTE | 2020-05-19 05:36 | REPVR ---
PROCEDURE INFORMATION: Exam: CT Abdomen And Pelvis Without Contrast Exam date and time: 05/19/2020 4:24 AM Age: 74 years old Clinical indication: Other: Weak; Additional info: Leukocytosis TECHNIQUE: Imaging protocol: Computed tomography of the abdomen and pelvis without contrast. Radiation optimization: All CT scans at this facility use at least one of these dose optimization techniques: automated exposure control; mA and/or kV adjustment per patient size (includes targeted exams where dose is matched to clinical indication); or iterative reconstruction. COMPARISON: No relevant prior studies available. FINDINGS: Mediastinal space: Small hiatal hernia. Liver: Cyst suspected along the lower right liver margin measures 8.2 cm. Hepatomegaly longitudinal liver diameter measures 20 point 1 cm. Gallbladder and bile ducts: Normal. No calcified stones. No ductal dilation. Pancreas: Normal. No ductal dilation. Spleen: Normal. No splenomegaly. Adrenal glands: Mild thickening of the left adrenal gland. Kidneys and ureters: Cyst arises from the upper right kidney measuring 2.4 cm. Cyst arises from the posterior left kidney measuring 1.8 cm. Stomach and bowel: Colonic diverticulosis. Appendix: No evidence of appendicitis. Intraperitoneal space: Unremarkable. No free air. No significant fluid collection. Vasculature: Calcified abdominal aorta. Lymph nodes: Unremarkable. No enlarged lymph nodes. Urinary bladder: Unremarkable as visualized. Reproductive: Postoperative changes of hysterectomy. Bones/joints: Degenerative change of the spine. Multilevel degenerative vacuum disc and facet arthritis. Posterior disc osteophyte extension posteriorly at T12-L1. Anterior subluxation L3 on L4. Soft tissues: Significant limitation secondary to patient body habitus and the lack of contrast media. IMPRESSION: 1. Hepatomegaly. 2. Most probable large cyst extending from the inferior right hepatic lobe. No further follow-up is recommended. 3. Left adrenal gland thickening similar in configuration compared to the prior CT chest of 04/21/2020. 4. Cyst right kidney.No further workup recommended. 5. Degenerative change of the spine. 6. Colonic diverticulosis. COMMENTS: Consistent with the [employer]'s Incidental Findings Committee white paper (J Am Shireen Radiol 2018): Any incidental renal lesion less than 1 cm or classified as too small to characterize, or any incidental cystic renal lesion characterized as simple-appearing, is likely benign. No follow-up imaging is recommended for these lesions per consensus recommendations based on imaging criteria. Electronically signed by: Inga Mas On 05/19/2020 05:36:05 AM
[2020-05-19] MEDS ORDERED: GLUCOSE 4GM CHEW TABLET PO PRN (06:15)
[2020-05-19] MEDS ORDERED: VANCOMYCIN 1000MG/20ML VIAL IP ONE (06:15)
[2020-05-19] MEDS ORDERED: MAALOX 30 ML SUSP *UDC PO PRN (06:15)
[2020-05-19] MEDS ORDERED: DEXTROSE 50% 50 ML SYRINGE IV PRN (06:15)
[2020-05-19] MEDS ORDERED: GLUCAGON INJ 1MG VIAL SC PRN (06:15)
[2020-05-19] MEDS ORDERED: MOM 30ML SUSPENSION UDC PO PRN (06:15)
--- NOTE | 2020-05-19 07:09 | HPEPDOC ---
General Date of Admission Date of Service: May 19, 2020 Attending Physician: RIK RIVERO MD Chief Complaint The patient is a 74-year-old female admitted with a reason for visit of General Weakness. History of Present Illness History of present illness: Mrs. Mendoza is a 74-year-old female with tve-adqdoox-tnknadchd diabetes mellitus type 2, chronic systolic and diastolic CHF, hypertension, ALANIS not compliant with CPAP, morbid obesity, dyslipidemia who was brought to the emergency department after a 911 call as she couldn't get up, move. In the ED she reports to have dry cough since couple of weeks, increased fatigue since couple of months which gradually got worse, now unable to walk. She also reports having falls which gradually got worse since 3 months and reports having 1-2 falls per week recently. She reports during this fall she is aware of the fall and that her legs giving away denies having any symptoms like dizziness, vertigo, nausea, vomiting or loss of consciousness during the fall or after the fall. She also reports having shortness of breath on walking or Even carrying groceries. She reports sleeping a lot than usual, and not waking up fresh after the sleep. 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 Padgett. He denies having any postoperative complications. Denies having any fever, chills, chest pain. He reports having recurrent UTIs since 3 months which she was treated for earlier. Also reports having incontinence of urine due to the UTI. Denies nausea, vomiting, chest pain, abdominal pain, diarrhea. 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 Eyes: Conjunctiva clear, pupils equal round and reactive to light and accommodation. EOM full, Fundus: not visualized. ENT: Hearing Bilateral normal. No nasal deviation, oropharynx clear with no lesions/erythema. Cardiovascular: S1, S2, normal rhythm, no murmur. Respiratory: Chest is clear to auscultation bilaterally, No rhonchi, wheezes or rubs. Abdomen: Soft, bowel sounds positive, no bruits. Nontender on palpation. Extremities: No clubbing or cyanosis. 2+ pitting edema in the ankles, no calf tenderness, redness noted in her skin about the ankle to mid calf region. Central nervous system (TEMPORARY STAFF ACCOUNTANT): Awake, alert and fully oriented. Cranial nerves III-XII grossly intact. Motor: Strength normal, patient moves all extremities. S Imaging: CT head without contrast reported as1. 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 2. Mild atrophic change. There is discordant prominence of the central ventricular system compared to peripheral sulci and some degree of normal pressure hydrocephalus is not excluded. 3. Otherwise negative noncontrast head CT. CT chest without contrast reported as 1. Likely postsurgical volume loss of left breast tissue left chest. 2. Prominent skin and subcutaneous area of soft tissue stranding edema/inf lammation/cellulitis and partial fluid collection with pectoral muscular expansion. The findings are nonspecific and the underlying differential diagnostic consideration could include infectious changes of cellulitis, post radiation affect, underlying abscess would not be excluded and would require contrast administration. Other differential consideration could include component of underlying residual or recurrent neoplasm. 3. Atherosclerosis thoracic aorta. CT abdomen and pelvis without contrast reported as: 1. Hepatomegaly. 2. Most probable large cyst extending from the inferior right hepatic lobe. No further follow-up is recommended. 3. Left adrenal gland thickening similar in configuration compared to the prior CT chest of 04/21/2020. 4. Cyst right kidney.No further workup recommended. 5. Degenerative change of the spine. 6. Colonic diverticulosis Impression: 74-year-old female with extensive past medical history who recently had left mastectomy for carcinoma of breast, reports to have increased fatigue and frequent falls, increased sleepiness. She also has recurrent UTI and incontinence. He also reports having multiple herniated disks in the thoracic and lumbar region and having back pain. In the ED WBC is 17.9, Hgb 11.6, ESR 66, sodium 133, potassium 3.8, BUN 33, c reatinine 1.98, GFR 26.2, CRP 9.41, UA with leukocyte esterase 3+, urine WBC positive, urine bacteria positive. Patient was offered rectal examination to rule out spinal stenosis, cauda equina but she refused. She denies having any bowel incontinence, numbness in the inner things or buttocks. Likely her urinary incontinence is due to UTI. Hospitalist team was contacted for further management of this patient. Plan: UTI complicated with incontinence: - Start patient on antibiotics. - Will titrate the antibiotics based on the culture results. - She was given a dose of Rocephin in the ED. Chest wall abscess: - Patient has no tenderness on palpation of the wound over the chest. - CT report of the chest as above. - Was started on broad-spectrum antibiotics vancomycin, cefepime - MRSA screen in place if negative will DC vancomycin - In the morning please contact Dr. Bullard breast surgeon for further recommendations. B/l lower extremity swelling: - Duplex ultrasound in place to look for DVT. - Patient has chronic swelling in her legs and redness and ulcers, which as per patient were better looking and improved than earlier. NIDDM 2: - Will Start insulin sliding scale Chronic CHF [systolic and diastolic EF 50% grade 2]: -Patient has bilateral lower extremity edema, patient she reports her swelling has improved. - He does have redness extending from ankle to mid calf and pain. - Hold torsemide at this time. AK I: - BUN 33, creatinine 1.98 increased from earlier. - Will hold off torsemide for now. - Cautious in starting nephrotoxic agents Hypertension: - Well-controlled home medication - Continue home medication amlodipine, carvedilol Anxiety/depression: -Continue home medication escitalopram and amitriptyline Chronic pain: - Patient doesn't take much of pain medication given her kidney condition. - Avoid nephrotoxic drugs ALANIS: -Patient is noncompliant on her CPAP Morbid obesity: - Complicating medical care DVT prophylaxis: - Heparin 5000 every 8 hours Home Medications Scheduled Amiloride HCl (Amiloride HCl) 5 Mg Tablet, 5 MG PO QPM, (Reported) TAKES AT 1700 Amitriptyline HCl (Amitriptyline HCl) 25 Mg Tablet, 25 MG PO QHS, (Reported) Carvedilol (Carvedilol) 3.125 Mg Tablet, 3.125 MG PO BID, (Reported) Escitalopram Oxalate (Escitalopram Oxalate) 10 Mg Tablet, 10 MG PO DAILY, (Reported) Sitagliptin Phosphate (Januvia) 25 Mg Tablet, 25 MG PO DAILY, (Reported) Torsemide (Torsemide) 20 Mg Tablet, 60 MG PO BID, (Reported) Scheduled PRN Tramadol HCl (Tramadol HCl) 50 Mg Tablet, 50 MG PO Q6H PRN for MODERATE PAIN (PS 5-7), (Reported) Miscellaneous Medications [Patient Comment] , (Reported) MED REC COMPLETE VIA EXTERNAL MED HISTORY, PREVIOUS DISCHARGE (04/28/2020), AND PREVIOUS CLINIC VISIT (05/04/2020) Allergies Coded Allergies: atorvastatin (Verified Allergy, Unknown, AFFECTED LEGS, BONES, URINE BROWN, 12/30/19) clonidine (Verified Allergy, Unknown, UNKNOWN REACTION, 02/04/20) codeine (Verified Allergy, Unknown, UNKNOWN REACTION, 02/04/20) morphine (Verified Adverse Reaction, Unknown, N/V, 02/04/20) GME ATTESTATION My faculty preceptor for this patient encounter was physically present during the encounter and was fully available. All aspects of the patient interview, examination, medical decision making process, and medical care plan development were reviewed and approved by the faculty preceptor. The faculty preceptor is aware and concurs with the plan as stated in the body of this note and will attest to such by his/her cosignature. ATTENDING NOTE I, Rik Rivero MD, have independently examined this patient and performed my own physical exam, as well as reviewed the documentation and edited where necessary. I have discussed in detail with the resident / student the findings and plan of treatment as documented by the resident / student and edited their note. I agree with their findings and treatment plan and have edited their documentation. I will continue to follow the patient during this hospital stay. A-FIB/CHADSVASC A-FIB History Current/History of A-Fib/PAF?: No Vital Signs Vital Signs Date Time Temp Pulse Resp B/P (MAP) Pulse Ox O2 Delivery O2 Flow Rate FiO2 05/19/20 05:41 92 94 05/19/20 05:01 173/78 (109) 05/19/20 00:59 99.1 16 Room Air Laboratory Data Labs 24H Laboratory Tests 2 05/19/20 01:50: Immature Granulocyte % (Auto) 0.6, Neutrophils (%) (Auto) 83.2H, Lymphocytes (%) (Auto) 8.2L, Monocytes (%) (Auto) 6.8H, Eosinophils (%) (Auto) 0.9, Basophils (%) (Auto) 0.3, Neutrophils # (Auto) 14.9H, Lymphocytes # (Auto) 1.5, Monocytes # (Auto) 1.2H, Eosinophils # (Auto) 0.2, Basophils # (Auto) 0.1, Nucleated Red Blood Cells % (auto) 0.0, Erythrocyte Sedimentation Rate 66H, Prothrombin Time 14.3H, Prothromb Time International Ratio 1.09, Anion Gap 5L, Glomerular Filtration Rate 26.2L, Lactic Acid Level 1.6, Calcium Level 8.9, Total Bilirubin 0.7, Direct Bilirubin 0.2, Aspartate Amino Transf (AST/SGOT) 7, Alanine Aminotransferase (ALT/SGPT) 16, Alkaline Phosphatase 125H, Total Creatine Kinase 32, Creatine Kinase MB < 1.0, Creatine Kinase MB Relative Index 3.12, Troponin I < 0.02, C-Reactive Protein, Quantitative 9.41H, PU-Ebd-J-Type Natriuretic Peptide 312H, Total Protein 7.3, Albumin 3.2, Albumin/Globulin Ratio 0.8L, Thyroid Stimulating Hormone (TSH) 0.608 05/19/20 04:29: Urine Color YELLOW, Urine Appearance CLOUDYH, Urine pH 5.0, Urine Specific Stuart 1.011, Urine Protein NEGATIVE, Urine Glucose (UA) NEGATIVE, Urine Ketones NEGATIVE, Urine Blood NEGATIVE, Urine Nitrite NEGATIVE, Urine Bilirubin NEGATIVE, Urine Urobilinogen 0.2, Urine Leukocyte Esterase 3+H, Urine WBC (Auto) 106H, Urine RBC (Auto) 3, Urine Hyaline Casts (Auto) 0, Urine Bacteria (Auto) 2+H, Urine Squamous Epithelial Cells 3, Urine Transitional Epithelial Cells <1, Urine Sperm (Auto) CBC/BMP Laboratory Tests 05/19/20 01:50 Microbiology Microbiology 05/19/20 Urine Culture, Received Pending 05/19/20 Blood Culture, Received Pending 05/19/20 Respiratory Virus Panel (PCR) (SKYE) - Final, Complete 05/19/20 Blood Culture, Received Pending Plan / VTE VTE Prophylaxis Ordered?: Yes Riccardo Trotter MD May 19, 2020 07:09 RIK RIVERO MD May 19, 2020 21:15
--- NOTE | 2020-05-19 07:35 | ECGEPIP ---
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
--- NOTE | 2020-05-19 07:41 | REPVR ---
PROCEDURE INFORMATION: Exam: US Duplex Lower Extremity Veins, Bilateral Exam date and time: 05/19/2020 7:33 AM Age: 74 years old Clinical indication: Edema, localized; Lower extremity, bilateral; Additional info: Swollen legs b/l and redness. TECHNIQUE: Imaging protocol: Real-time duplex ultrasound of the extremities with 2-D lay scale, color Doppler flow and spectral waveform analysis with image documentation. Complete exam focused on the bilateral lower extremity veins. COMPARISON: US Duplex, Ext,LOWER veins,unilat 02/05/2020 12:28 AM FINDINGS: Right deep veins: Unremarkable. The common femoral, femoral, proximal profunda femoral and popliteal veins are patent without thrombus. Normal Doppler waveforms. Normal compressibility and/or augmentation response. Right superficial veins: Saphenofemoral junction is patent without thrombus. Left deep veins: Unremarkable. The common femoral, femoral, proximal profunda femoral and popliteal veins are patent without thrombus. Normal Doppler waveforms. Normal compressibility and/or augmentation response. Variant or duplication of the mid left femoral vein. Left superficial veins: Saphenofemoral junction is patent without thrombus. Soft tissues: Unremarkable. IMPRESSION: No evidence of deep vein thrombosis. Electronically signed by: Inga Mas On 05/19/2020 07:41:48 AM
[2020-05-19] MEDS ORDERED: CEFTAROLINE FOSAMIL 600 MG in D5W MINI-BAG PLUS 50 ML IV SCH (08:45)
[2020-05-19] MEDS: HumaLOG INSULIN (NovoLOG) PER UNIT SC SCH ×4 (09:00→21:00)
[2020-05-19] MEDS ORDERED: CEFEPIME HCL 1 GM in D5W MINI-BAG PLUS 50 ML IV SCH (09:00)
[2020-05-19] MEDS ORDERED: LevoFLOXacin IV 500 MG in IV 1 EA IV ONE (09:00)
[2020-05-19] MEDS: SITagliptin 50 MG TAB (JANUVIA) PO SCH (10:20)
[2020-05-19] MEDS: CARVedilol 3.125 MG TAB PO SCH ×2 (10:22→21:35)
[2020-05-19] MEDS: DOCUSATE SODIUM 100MG CAPSULE PO SCH ×2 (10:22→21:34)
[2020-05-19] MEDS: ESCITALOPRAM OXALATE 10 MG TAB (LEXAPRO) PO SCH (10:23)
[2020-05-19] MEDS: CEFTAROLINE FOSAMIL 300 MG in D5W 50 ML IV SCH ×2 (12:09→22:45)
[2020-05-19 12:35] VITALS: BP 166/76
[2020-05-19] MEDS: HEPARIN SOD (PORCINE) 5000UNITS/ML 1ML VIAL/SYRINGE SQ SCH ×2 (13:13→21:34)
[2020-05-19 14:00] VITALS: BP 163/76
[2020-05-19] MEDS: aMILoride 5 MG TAB PO SCH (17:37)
[2020-05-19 18:00] VITALS: BP 128/76
[2020-05-19] MEDS: AMITRIPTYLINE 25MG TABLET PO SCH (21:35)
[2020-05-19 22:00] VITALS: BP 162/81
[2020-05-20 02:00] VITALS: BP 159/78
[2020-05-20] MEDS: traMADol 50 MG TAB PO PRN ×2 (05:37→21:19)
[2020-05-20] MEDS: HEPARIN SOD (PORCINE) 5000UNITS/ML 1ML VIAL/SYRINGE SQ SCH ×3 (05:38→21:08)
[2020-05-20 06:00] VITALS: BP 154/80
[2020-05-20 07:08] LABS: HEMOGLOBIN 9.9 g/dl (12.0-15.5); MEAN CORPUSCULAR HEMOGLOBIN 30.8 pg (27.0-33.0); MEAN CORPUSCULAR HGB CONC 31.9 g/dl (32.0-36.5); MEAN CORPUSCULAR VOLUME 96.6 fl (80.0-96.0); PLATELET COUNT, AUTOMATED 202 10^3/uL (150-450); RED BLOOD COUNT 3.21 10^6/uL (4.00-5.40); WHITE BLOOD COUNT 17.1 10^3/uL (4.0-10.0)
[2020-05-20 07:34] LABS: CALCIUM LEVEL 8.5 MG/DL (8.8-10.2); CREATININE FOR GFR 1.58 MG/DL (0.55-1.30); POTASSIUM SERUM 3.8 MEQ/L (3.5-5.1)
--- NOTE | 2020-05-20 08:54 | IPNPDOC ---
Date Seen The patient was seen on 05/20/20. Progress Note SUBJECTIVE: c/o 7/10 pain scale in the left armpit across incision site w/o fever/chills/drainage. no n/v/abd pain/diarrhea/sob/cough no dysuria/urgency/frequency/flank pain despite uncontrolled htn, no h/a, cp, pressure, tightness OBJECTIVE PHYSICAL EXAMINATION: VITAL SIGNS: Please see below. GENERAL: [id number] no distress no pallor HEENT: thick neck dry mm face symmetric no cervical LAD no jvd CARDIOVASCULAR: S1S2 RRR RESPIRATORY: CTAB no adventitious breath sounds ABDOMINAL: soft nt nd +bs x 4quadrants EXTREMITIES: chronic venous stasis changes b/l le edema 1+ SKIN: anterior chest incision clean dry nonerythematous w/o drainage. slight tenderness on deep palpation no induration or crepitus LABORATORY DATA, IMAGING STUDIES, MICROBIOLOGY: Please see below. CT CHEST 05/19/20 Bones/joints: Degenerative change of the spine. Soft tissues: Superficial skin edema or cellulitis of the left chest wall. There is an elongated prominent area of subcutaneous soft tissue infiltration and partial fluid attenuating collection of the left chest wall. Presumably underlying surgical changes with soft tissue volume loss of the left breast. Expansion and edema or inflammation of the left pectoral musculature superficially. IMPRESSION: 1. Likely postsurgical volume loss of left breast tissue left chest. 2. Prominent skin and subcutaneous area of soft tissue stranding edema/inflammation/cellulitis and partial fluid collection with pectoral muscular expansion. The findings are nonspecific and the underlying differential diagnostic consideration could include infectious changes of cellulitis, post radiation affect, underlying abscess would not be excluded and would require contrast administration. Other differential consideration could include component of underlying residual or recurrent neoplasm. 3. Atherosclerosis thoracic aorta. Electronically signed by: Inga Mas On 05/19/2020 05:23:29 AM 05/19/20 LE DOPPLERS No evidence of deep vein thrombosis. Electronically signed by: Inga Mas On 05/19/2020 07:41:48 AM 05/19/20 CT ABD PELVIS Kidneys and ureters: Cyst arises from the upper right kidney measuring 2.4 cm. Cyst arises from the posterior left kidney measuring 1.8 cm. Stomach and bowel: Colonic diverticulosis. Appendix: No evidence of appendicitis. Intraperitoneal space: Unremarkable. No free air. No significant fluid collection. Vasculature: Calcified abdominal aorta. Lymph nodes: Unremarkable. No enlarged lymph nodes. Urinary bladder: Unremarkable as visualized. Reproductive: Postoperative changes of hysterectomy. Bones/joints: Degenerative change of the spine. Multilevel degenerative vacuum disc and facet arthritis. Posterior disc osteophyte extension posteriorly at T12-L1. Anterior subluxation L3 on L4. Soft tissues: Significant limitation secondary to patient body habitus and the lack of contrast media. IMPRESSION: 1. Hepatomegaly. 2. Most probable large cyst extending from the inferior right hepatic lobe. No further follow-up is recommended. 3. Left adrenal gland thickening similar in configuration compared to the prior CT chest of 04/21/2020. 4. Cyst right kidney.No further workup recommended. 5. Degenerative change of the spine. 6. Colonic diverticulosis. 05/19/20 CT HEAD 1. 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 2. Mild atrophic change. There is discordant prominence of the central ventricular system compared to peripheral sulci and some degree of normal pressure hydrocephalus is not excluded. 3. Otherwise negative noncontrast head CT. ASSESSMENT AND PLAN: 74-year-old female with eie-ilzzzds-vprhlumoe diabetes mellitus type 2, chronic systolic and diastolic CHF, hypertension, ALANIS not compliant with CPAP, morbid obesity, dyslipidemia, surgery done for invasive lobular cancer grade 2-3 of for left breast in April [address] Padgett called EMS due to inability to ambulate, fall, and dry cough. In the ER, pt was found to have a UTI. CT chest: Left chest wall fluid collection -no erythematous changes -Breast surgeon consulted -no obvious abscess -on iv ceftaroline pending culture results -mrsa screen ordered UTI present on admission -on levaquin and ceftaroline -awaiting urine culture sensitivities to de-escalate abx -still w high wbc. B/L LE weakness s/p fall -CT head negative -MRI spine -PT/OT/ARU screen Left breast ca -breast surgeon consulted CKD3 -at baseline creatinine NIDDM2 -needs tighter glycemic control -will adjust meds Chronic Systolic and Diastolic CHF (EF: 50%, Grade 2 Dysfunction) -compensated HTN,uncontrolled -added norvasc -increased coreg to 6.125 mg bid DLP -chronic ALANIS (not compliant with CPAP) -chronic Anxiety / Depression -asymptomatic Morbid obesity bmi 43 -complicating care DISPOSITION: pending clinical improvement 2-3days. awaiting urine culture results and normal wbc. VS, I&O, 24H, Fishbone Vital Signs/I&O Vital Signs Date Time Temp Pulse Resp B/P (MAP) Pulse Ox O2 Delivery O2 Flow Rate FiO2 05/20/20 06:07 16 05/20/20 06:00 98.2 99 154/80 (104) 98 Room Air I&O- Last 24 Hours up to 6 AM 05/20/20 06:00 Intake Total 1451 ml Balance 1451 ml Laboratory Data 24H LABS Laboratory Tests 2 05/19/20 09:05: Bedside Glucose (Misc Panel) 202H 05/19/20 12:52: Bedside Glucose (Misc Panel) 134H 05/19/20 16:58: Bedside Glucose (Misc Panel) 169H 05/19/20 20:15: Bedside Glucose (Misc Panel) 173H 05/20/20 06:48: Nucleated Red Blood Cells % (auto) 0.0, Anion Gap 5L, Glomerular Filtration Rate 34.0L, Calcium Level 8.5L, Magnesium Level 2.0 CBC/BMP Laboratory Tests 05/20/20 06:48 Microbiology Microbiology 05/19/20 Urine Culture, Received Pending 05/19/20 Blood Culture - Preliminary, Resulted No growth after 24 hours . All specim... 05/19/20 Respiratory Virus Panel (PCR) (SKYE) - Final, Complete 05/19/20 Blood Culture - Preliminary, Resulted No growth after 24 hours . All specim... ELVIN GALLEGOS MD May 20, 2020 08:42
[2020-05-20] MEDS ORDERED: LevoFLOXacin IV 250 MG in IV 1 EA IV SCH (09:00)
[2020-05-20] MEDS ORDERED: PERCOCET 5MG/325MG TAB PO ONE (09:00)
[2020-05-20] MEDS: SITagliptin 50 MG TAB (JANUVIA) PO SCH (09:16)
[2020-05-20] MEDS: HumaLOG INSULIN (NovoLOG) PER UNIT SC SCH ×4 (09:16→20:41)
[2020-05-20] MEDS: amLODIPine 5 MG TAB PO SCH ×2 (09:17→21:13)
[2020-05-20] MEDS: DOCUSATE SODIUM 100MG CAPSULE PO SCH ×2 (09:17→21:07)
[2020-05-20] MEDS: ESCITALOPRAM OXALATE 10 MG TAB (LEXAPRO) PO SCH (09:18)
[2020-05-20] MEDS: CARVedilol 6.25 MG TAB PO SCH ×2 (09:18→21:13)
[2020-05-20 10:00] VITALS: BP 123/68
[2020-05-20] MEDS: CEFTAROLINE FOSAMIL 300 MG in D5W 50 ML IV SCH ×2 (11:51→23:02)
[2020-05-20 14:00] VITALS: BP 125/61
[2020-05-20] MEDS: aMILoride 5 MG TAB PO SCH (17:56)
[2020-05-20 18:00] VITALS: BP 123/65
[2020-05-20 20:04] VITALS: BP 116/59
[2020-05-20] MEDS: AMITRIPTYLINE 25MG TABLET PO SCH (21:07)
[2020-05-21 05:39] VITALS: BP 150/59
[2020-05-21] MEDS: HEPARIN SOD (PORCINE) 5000UNITS/ML 1ML VIAL/SYRINGE SQ SCH ×3 (06:10→20:54)
[2020-05-21] MEDS: amLODIPine 5 MG TAB PO SCH ×2 (08:05→20:53)
[2020-05-21] MEDS: HumaLOG INSULIN (NovoLOG) PER UNIT SC SCH ×4 (08:05→20:54)
[2020-05-21] MEDS: DOCUSATE SODIUM 100MG CAPSULE PO SCH ×2 (08:06→21:00)
[2020-05-21] MEDS: traMADol 50 MG TAB PO PRN (08:06)
[2020-05-21] MEDS: SITagliptin 50 MG TAB (JANUVIA) PO SCH (08:06)
[2020-05-21] MEDS: ESCITALOPRAM OXALATE 10 MG TAB (LEXAPRO) PO SCH (08:06)
[2020-05-21] MEDS: CARVedilol 6.25 MG TAB PO SCH ×2 (08:07→20:53)
[2020-05-21 10:09] LABS: BASO # 0.1 10^3/uL (0.0-0.2); BASO % 0.3 % (0.0-1.0); EOS # 0.9 10^3/uL (0.0-0.5); EOS % 5.2 % (0.0-3.0); HEMOGLOBIN 9.6 g/dl (12.0-15.5); LYMPH # 1.4 10^3/uL (1.5-5.0); LYMPH % 8.4 % (24.0-44.0); MEAN CORPUSCULAR HEMOGLOBIN 31.6 pg (27.0-33.0); MEAN CORPUSCULAR VOLUME 98.7 fl (80.0-96.0); MONO % 6.1 % (0.0-5.0); NEUTROPHILS # 13.7 10^3/uL (1.5-8.5); NEUTROPHILS % 79.4 % (36.0-66.0); PLATELET COUNT, AUTOMATED 188 10^3/uL (150-450); RED BLOOD COUNT 3.04 10^6/uL (4.00-5.40); WHITE BLOOD COUNT 17.2 10^3/uL (4.0-10.0)
--- NOTE | 2020-05-21 10:25 | IPNPDOC ---
Date Seen The patient was seen on 05/21/20. Progress Note SUBJECTIVE: , No fever, chills overnight. White count is still elevated at 17,000 on IV cefepime for pseudomonas in urine culture. No complaints of chest pain, pressure, tightness, shortness of breath or cough. No diarrhea OBJECTIVE PHYSICAL EXAMINATION: VITAL SIGNS: Please see below. GENERAL: [id number] no distress no pallor HEENT: thick neck dry mm face symmetric no cervical LAD no jvd CARDIOVASCULAR: S1S2 RRR RESPIRATORY: CTAB no adventitious breath sounds ABDOMINAL: soft nt nd +bs x 4quadrants EXTREMITIES: chronic venous stasis changes b/l le edema 1+ SKIN: anterior chest incision clean dry nonerythematous w/o drainage. no induration or crepitus LABORATORY DATA, IMAGING STUDIES, MICROBIOLOGY: Please see below. CT CHEST 05/19/20 Bones/joints: Degenerative change of the spine. Soft tissues: Superficial skin edema or cellulitis of the left chest wall. There is an elongated prominent area of subcutaneous soft tissue infiltration and partial fluid attenuating collection of the left chest wall. Presumably underlying surgical changes with soft tissue volume loss of the left breast. Expansion and edema or inflammation of the left pectoral musculature superficially. IMPRESSION: 1. Likely postsurgical volume loss of left breast tissue left chest. 2. Prominent skin and subcutaneous area of soft tissue stranding edema/inflammation/cellulitis and partial fluid collection with pectoral muscular expansion. The findings are nonspecific and the underlying differential diagnostic consideration could include infectious changes of cellulitis, post radiation affect, underlying abscess would not be excluded and would require contrast administration. Other differential consideration could include component of underlying residual or recurrent neoplasm. 3. Atherosclerosis thoracic aorta. Electronically signed by: Inga Mas On 05/19/2020 05:23:29 AM 05/19/20 LE DOPPLERS No evidence of deep vein thrombosis. Electronically signed by: Inga Mas On 05/19/2020 07:41:48 AM 05/19/20 CT ABD PELVIS Kidneys and ureters: Cyst arises from the upper right kidney measuring 2.4 cm. Cyst arises from the posterior left kidney measuring 1.8 cm. Stomach and bowel: Colonic diverticulosis. Appendix: No evidence of appendicitis. Intraperitoneal space: Unremarkable. No free air. No significant fluid collection. Vasculature: Calcified abdominal aorta. Lymph nodes: Unremarkable. No enlarged lymph nodes. Urinary bladder: Unremarkable as visualized. Reproductive: Postoperative changes of hysterectomy. Bones/joints: Degenerative change of the spine. Multilevel degenerative vacuum disc and facet arthritis. Posterior disc osteophyte extension posteriorly at T12-L1. Anterior subluxation L3 on L4. Soft tissues: Significant limitation secondary to patient body habitus and the lack of contrast media. IMPRESSION: 1. Hepatomegaly. 2. Most probable large cyst extending from the inferior right hepatic lobe. No further follow-up is recommended. 3. Left adrenal gland thickening similar in configuration compared to the prior CT chest of 04/21/2020. 4. Cyst right kidney.No further workup recommended. 5. Degenerative change of the spine. 6. Colonic diverticulosis. 05/19/20 CT HEAD 1. 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 2. Mild atrophic change. There is discordant prominence of the central ventricular system compared to peripheral sulci and some degree of normal pressure hydrocephalus is not excluded. 3. Otherwise negative noncontrast head CT. ASSESSMENT AND PLAN: 74-year-old female with [id number] diabetes mellitus type 2, chronic systolic and diastolic CHF, hypertension, ALANIS not compliant with CPAP, morbid obesity, dyslipidemia, surgery done for invasive lobular cancer grade 2-3 of for left breast in April [address] Padgett called EMS due to inability to ambulate, fall, and dry cough. In the ER, pt was found to have a UTI. CT chest: Left chest wall fluid collection -no erythematous changes -no obvious abscess or cellulitic changes -Changed to IV ceftazidime for UTI -mrsa screen ordered UTI present on admission -Discontinued the Levaquin and cytarabine. Currently, and IV ceftazidime for pseudomonas -still w high wbc. B/L LE weakness s/p fall -CT head negative -MRI spine -PT/OT/ARU screen Left breast ca -breast surgeon consulted CKD3 -at baseline creatinine NIDDM2 -needs tighter glycemic control -will adjust meds Chronic Systolic and Diastolic CHF (EF: 50%, Grade 2 Dysfunction) -compensated HTN,uncontrolled -added norvasc -increased coreg to 6.125 mg bid DLP -chronic ALANIS (not compliant with CPAP) -chronic Anxiety / Depression -asymptomatic Morbid obesity bmi 43 -complicating care Disposition complete 7 full days of antibiotics. Await normalization of the leukocytosis VS, I&O, 24H, Fishbone Vital Signs/I&O Vital Signs Date Time Temp Pulse Resp B/P (MAP) Pulse Ox O2 Delivery O2 Flow Rate FiO2 05/21/20 08:36 18 05/21/20 08:07 85 150/59 05/21/20 05:39 99.0 96 Room Air I&O- Last 24 Hours up to 6 AM 05/21/20 06:00 Intake Total 2060 ml Balance 2060 ml Laboratory Data 24H LABS Laboratory Tests 2 05/20/20 11:54: Bedside Glucose (Misc Panel) 287H 05/20/20 16:50: Bedside Glucose (Misc Panel) 145H 05/20/20 20:06: Bedside Glucose (Misc Panel) 239H 05/21/20 07:59: Bedside Glucose (Misc Panel) 148H 05/21/20 10:01: Immature Granulocyte % (Auto) 0.6, Neutrophils (%) (Auto) 79.4H, Lymphocytes (%) (Auto) 8.4L, Monocytes (%) (Auto) 6.1H, Eosinophils (%) (Auto) 5.2H, Basophils (%) (Auto) 0.3, Neutrophils # (Auto) 13.7H, Lymphocytes # (Auto) 1.4L, Monocytes # (Auto) 1.0H, Eosinophils # (Auto) 0.9H, Basophils # (Auto) 0.1, Nucleated Red Blood Cells % (auto) 0.0 CBC/BMP Laboratory Tests 05/21/20 10:01 Microbiology Microbiology 05/20/20 Respiratory Virus Panel (PCR) ([facility]) - Final, Complete 05/19/20 Urine Culture - Final, Complete Pseudomonas Aeruginosa 05/19/20 Blood Culture - Preliminary, Resulted No Growth after 48 hours. All Specime... 05/19/20 Respiratory Virus Panel (PCR) ([facility]) - Final, Complete 05/19/20 Blood Culture - Preliminary, Resulted No Growth after 48 hours. All Specime... ELVIN GALLEGOS MD May 21, 2020 10:25
[2020-05-21 10:32] LABS: ERYTHROCYTE SEDIMENTATION RATE 106 mm/hr (0-30)
[2020-05-21 10:54] LABS: C REACTIVE PROTEIN QUANTITATIV 25.4 MG/DL (0.00-0.30); CALCIUM LEVEL 8.1 MG/DL (8.8-10.2); CREATININE FOR GFR 1.71 MG/DL (0.55-1.30); GLOMERULAR FILTRATION RATE 31.1 (>39); POTASSIUM SERUM 4.1 MEQ/L (3.5-5.1)
[2020-05-21] MEDS: CEFEPIME HCL 2 GM in D5W MINI-BAG PLUS 50 ML IV SCH ×2 (11:47→23:17)
[2020-05-21 14:00] VITALS: BP 145/61
[2020-05-21] MEDS: aMILoride 5 MG TAB PO SCH (17:35)
[2020-05-21 18:00] VITALS: BP 122/65
[2020-05-21 20:38] VITALS: BP 142/59
[2020-05-21] MEDS: AMITRIPTYLINE 25MG TABLET PO SCH (20:52)
[2020-05-22 05:42] VITALS: BP 136/64
[2020-05-22] MEDS: HEPARIN SOD (PORCINE) 5000UNITS/ML 1ML VIAL/SYRINGE SQ SCH ×3 (05:51→21:09)
[2020-05-22] MEDS: HumaLOG INSULIN (NovoLOG) PER UNIT SC SCH ×4 (07:30→21:00)
[2020-05-22 08:05] LABS: BASO % 0.2 % (0.0-1.0); EOS # 1.1 10^3/uL (0.0-0.5); EOS % 10.9 % (0.0-3.0); HEMATOCRIT 29.9 % (36.0-47.0); HEMOGLOBIN 9.5 g/dl (12.0-15.5); LYMPH # 1.6 10^3/uL (1.5-5.0); MEAN CORPUSCULAR HEMOGLOBIN 31.4 pg (27.0-33.0); MEAN CORPUSCULAR HGB CONC 31.8 g/dl (32.0-36.5); MEAN CORPUSCULAR VOLUME 98.7 fl (80.0-96.0); MONO # 0.8 10^3/uL (0.0-0.8); MONO % 7.6 % (0.0-5.0); NEUTROPHILS # 6.6 10^3/uL (1.5-8.5); NEUTROPHILS % 64.8 % (36.0-66.0); PLATELET COUNT, AUTOMATED 205 10^3/uL (150-450); RED BLOOD COUNT 3.03 10^6/uL (4.00-5.40); WHITE BLOOD COUNT 10.2 10^3/uL (4.0-10.0)
[2020-05-22 08:38] LABS: C REACTIVE PROTEIN QUANTITATIV 18.6 MG/DL (0.00-0.30); CALCIUM LEVEL 8.1 MG/DL (8.8-10.2); CREATININE FOR GFR 1.44 MG/DL (0.55-1.30); GLOMERULAR FILTRATION RATE 37.9 (>39); POTASSIUM SERUM 4.2 MEQ/L (3.5-5.1)
[2020-05-22 08:48] LABS: ERYTHROCYTE SEDIMENTATION RATE 126 mm/hr (0-30)
[2020-05-22] MEDS: DOCUSATE SODIUM 100MG CAPSULE PO SCH ×2 (08:58→21:07)
[2020-05-22] MEDS: CARVedilol 6.25 MG TAB PO SCH ×2 (08:58→21:00)
[2020-05-22] MEDS: amLODIPine 5 MG TAB PO SCH ×2 (08:58→21:00)
[2020-05-22] MEDS: SITagliptin 50 MG TAB (JANUVIA) PO SCH (08:58)
[2020-05-22] MEDS: ESCITALOPRAM OXALATE 10 MG TAB (LEXAPRO) PO SCH (08:58)
[2020-05-22] MEDS ORDERED: diphenhydrAMINE 25MG CAP PO ONE (09:00)
[2020-05-22] MEDS: CEFEPIME HCL 2 GM in D5W MINI-BAG PLUS 50 ML IV SCH ×2 (12:04→22:35)
[2020-05-22] MEDS: diphenhydrAMINE CREAM 30GM TOP SCH ×2 (12:05→21:08)
--- NOTE | 2020-05-22 12:08 | IPNPDOC ---
Date Seen The patient was seen on 05/22/20. Progress Note SUBJECTIVE: Patient developed an erythematous pruritic rash across the anterior chest without fever, chills. Patient has been on IV cefepime for pseudomonas uti OBJECTIVE PHYSICAL EXAMINATION: VITAL SIGNS: Please see below. GENERAL: aa0x3 no distress no pallor HEENT: thick neck dry mm face symmetric no cervical LAD no jvd CARDIOVASCULAR: S1S2 RRR RESPIRATORY: CTAB no adventitious breath sounds ABDOMINAL: soft nt nd +bs x 4quadrants EXTREMITIES: chronic venous stasis changes b/l le edema 1+ SKIN: anterior chest incision nonraised erythematous w/o drainage. no induration or crepitus LABORATORY DATA, IMAGING STUDIES, MICROBIOLOGY: Please see below. CT CHEST 05/19/20 Bones/joints: Degenerative change of the spine. Soft tissues: Superficial skin edema or cellulitis of the left chest wall. There is an elongated prominent area of subcutaneous soft tissue infiltration and partial fluid attenuating collection of the left chest wall. Presumably underlying surgical changes with soft tissue volume loss of the left breast. Expansion and edema or inflammation of the left pectoral musculature superficially. IMPRESSION: 1. Likely postsurgical volume loss of left breast tissue left chest. 2. Prominent skin and subcutaneous area of soft tissue stranding edema/inflammation/cellulitis and partial fluid collection with pectoral muscular expansion. The findings are nonspecific and the underlying differential diagnostic consideration could include infectious changes of cellulitis, post radiation affect, underlying abscess would not be excluded and would require contrast administration. Other differential consideration could include component of underlying residual or recurrent neoplasm. 3. Atherosclerosis thoracic aorta. Electronically signed by: Inga Mas On 05/19/2020 05:23:29 AM 05/19/20 LE DOPPLERS No evidence of deep vein thrombosis. Electronically signed by: Inga Mas On 05/19/2020 07:41:48 AM 05/19/20 CT ABD PELVIS Kidneys and ureters: Cyst arises from the upper right kidney measuring 2.4 cm. Cyst arises from the posterior left kidney measuring 1.8 cm. Stomach and bowel: Colonic diverticulosis. Appendix: No evidence of appendicitis. Intraperitoneal space: Unremarkable. No free air. No significant fluid collection. Vasculature: Calcified abdominal aorta. Lymph nodes: Unremarkable. No enlarged lymph nodes. Urinary bladder: Unremarkable as visualized. Reproductive: Postoperative changes of hysterectomy. Bones/joints: Degenerative change of the spine. Multilevel degenerative vacuum disc and facet arthritis. Posterior disc osteophyte extension posteriorly at T12-L1. Anterior subluxation L3 on L4. Soft tissues: Significant limitation secondary to patient body habitus and the lack of contrast media. IMPRESSION: 1. Hepatomegaly. 2. Most probable large cyst extending from the inferior right hepatic lobe. No further follow-up is recommended. 3. Left adrenal gland thickening similar in configuration compared to the prior CT chest of 04/21/2020. 4. Cyst right kidney.No further workup recommended. 5. Degenerative change of the spine. 6. Colonic diverticulosis. 05/19/20 CT HEAD 1. 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 2. Mild atrophic change. There is discordant prominence of the central ventricular system compared to peripheral sulci and some degree of normal pressure hydrocephalus is not excluded. 3. Otherwise negative noncontrast head CT. ASSESSMENT AND PLAN: 74-year-old female with [id number] diabetes mellitus type 2, chronic systolic and diastolic CHF, hypertension, ALANIS not compliant with CPAP, morbid obesity, dyslipidemia, surgery done for invasive lobular cancer grade 2-3 of for left breast in April [address] Padgett called EMS due to inability to ambulate, fall, and dry cough. In the ER, pt was found to have a UTI. CT chest: Left chest wall fluid collection -no erythematous changes -no obvious abscess or cellulitic changes -Changed to IV ceftazidime for UTI -mrsa screen ordered Rash -When necessary Benadryl topical Benadryl. Monitor for the next 24 hours UTI present on admission -Discontinued the Levaquin and cytarabine. Currently, and IV ceftazidime for pseudomonas -still w high wbc. B/L LE weakness s/p fall -CT head negative -MRI spine -PT/OT/ARU screen Left breast ca -breast surgeon consulted CKD3 -at baseline creatinine NIDDM2 -needs tighter glycemic control -will adjust meds Chronic Systolic and Diastolic CHF (EF: 50%, Grade 2 Dysfunction) -compensated HTN,uncontrolled -added norvasc -increased coreg to 6.125 mg bid DLP -chronic ALANIS (not compliant with CPAP) -chronic Anxiety / Depression -asymptomatic Morbid obesity bmi 43 -complicating care VS, I&O, 24H, Fishbone Vital Signs/I&O Vital Signs Date Time Temp Pulse Resp B/P (MAP) Pulse Ox O2 Delivery O2 Flow Rate FiO2 05/22/20 05:42 97.9 77 18 136/64 (88) 97 Room Air I&O- Last 24 Hours up to 6 AM 05/22/20 06:00 Intake Total 1490 ml Balance 1490 ml Laboratory Data 24H LABS Laboratory Tests 2 05/21/20 07:59: Bedside Glucose (Misc Panel) 148H 05/21/20 10:01: Immature Granulocyte % (Auto) 0.6, Neutrophils (%) (Auto) 79.4H, Lymphocytes (%) (Auto) 8.4L, Monocytes (%) (Auto) 6.1H, Eosinophils (%) (Auto) 5.2H, Basophils (%) (Auto) 0.3, Neutrophils # (Auto) 13.7H, Lymphocytes # (Auto) 1.4L, Monocytes # (Auto) 1.0H, Eosinophils # (Auto) 0.9H, Basophils # (Auto) 0.1, Nucleated Red Blood Cells % (auto) 0.0, Erythrocyte Sedimentation Rate 106H, Anion Gap 6L, Glomerular Filtration Rate 31.1L, Calcium Level 8.1L, C-Reactive Protein, Quantitative 25.40H, Procalcitonin 0.25 05/21/20 11:13: Bedside Glucose (Misc Panel) 232H 05/21/20 16:39: Bedside Glucose (Misc Panel) 291H 05/21/20 20:43: Bedside Glucose (Misc Panel) 140H CBC/BMP Laboratory Tests 05/21/20 10:01 Microbiology Microbiology 05/20/20 Respiratory Virus Panel (PCR) ([facility]) - Final, Complete 05/19/20 Urine Culture - Final, Complete Pseudomonas Aeruginosa 05/19/20 Blood Culture - Preliminary, Resulted No Growth after 72 hours. All specime... 05/19/20 Respiratory Virus Panel (PCR) ([facility]) - Final, Complete 05/19/20 Blood Culture - Preliminary, Resulted No Growth after 72 hours. All specime... ELVIN GALLEGOS MD May 22, 2020 07:16
[2020-05-22 14:00] VITALS: BP 135/64
[2020-05-22] MEDS: aMILoride 5 MG TAB PO SCH (17:33)
[2020-05-22 19:25] VITALS: BP 104/72
[2020-05-22] MEDS: AMITRIPTYLINE 25MG TABLET PO SCH (21:08)
[2020-05-22] MEDS: traMADol 50 MG TAB PO PRN (22:36)
[2020-05-23] MEDS: ACETAMINOPHEN TAB 650MG DOSE (2X325MG) PO ONE ×2 (04:00→05:32)
[2020-05-23 05:22] VITALS: BP 102/68
[2020-05-23] MEDS: HEPARIN SOD (PORCINE) 5000UNITS/ML 1ML VIAL/SYRINGE SQ SCH ×3 (05:32→22:02)
[2020-05-23] MEDS: traMADol 50 MG TAB PO PRN (05:37)
[2020-05-23 06:19] LABS: BASO % 0.4 % (0.0-1.0); EOS # 0.9 10^3/uL (0.0-0.5); EOS % 11.1 % (0.0-3.0); HEMATOCRIT 31.6 % (36.0-47.0); HEMOGLOBIN 10.1 g/dl (12.0-15.5); LYMPH # 1.6 10^3/uL (1.5-5.0); LYMPH % 20.3 % (24.0-44.0); MEAN CORPUSCULAR HEMOGLOBIN 31.8 pg (27.0-33.0); MEAN CORPUSCULAR VOLUME 99.4 fl (80.0-96.0); MONO # 0.8 10^3/uL (0.0-0.8); MONO % 10.4 % (0.0-5.0); NEUTROPHILS # 4.4 10^3/uL (1.5-8.5); NEUTROPHILS % 57.3 % (36.0-66.0); PLATELET COUNT, AUTOMATED 232 10^3/uL (150-450); RED BLOOD COUNT 3.18 10^6/uL (4.00-5.40); WHITE BLOOD COUNT 7.6 10^3/uL (4.0-10.0)
[2020-05-23 06:47] LABS: CALCIUM LEVEL 8.5 MG/DL (8.8-10.2); CREATININE FOR GFR 1.41 MG/DL (0.55-1.30); GLOMERULAR FILTRATION RATE 38.8 (>39); POTASSIUM SERUM 4.5 MEQ/L (3.5-5.1)
[2020-05-23] MEDS: HumaLOG INSULIN (NovoLOG) PER UNIT SC SCH ×4 (07:30→21:00)
[2020-05-23] MEDS: amLODIPine 5 MG TAB PO SCH ×2 (08:42→22:05)
[2020-05-23] MEDS: CARVedilol 6.25 MG TAB PO SCH ×2 (08:43→22:06)
[2020-05-23] MEDS: SITagliptin 50 MG TAB (JANUVIA) PO SCH (08:49)
[2020-05-23] MEDS: ESCITALOPRAM OXALATE 10 MG TAB (LEXAPRO) PO SCH (08:49)
[2020-05-23] MEDS: diphenhydrAMINE CREAM 30GM TOP SCH ×2 (08:50→22:07)
[2020-05-23] MEDS: DOCUSATE SODIUM 100MG CAPSULE PO SCH ×2 (08:50→22:05)
[2020-05-23] MEDS: CEFEPIME HCL 2 GM in D5W MINI-BAG PLUS 50 ML IV SCH ×2 (10:47→23:48)
--- NOTE | 2020-05-23 12:32 | IPNPDOC ---
Date Seen The patient was seen on 05/23/20. Progress Note SUBJECTIVE: anterior chest erythematous rash subsided with topical and po benadry. no other rash overnight. wbc normal . no fever or chills. denies dysuria, flank pain, chills OBJECTIVE PHYSICAL EXAMINATION: VITAL SIGNS: Please see below. GENERAL: aa0x3 no distress no pallor no cyanosis no conversational dyspnate HEENT: thick neck dry mm face symmetric no cervical LAD no jvd CARDIOVASCULAR: S1S2 RRR RESPIRATORY: CTAB no adventitious breath sounds ABDOMINAL: soft nt nd +bs x 4quadrants EXTREMITIES: chronic venous stasis changes b/l le edema 1+ SKIN: anterior chest incision well healed scar without erythema, induration, drainage, or crepitus LABORATORY DATA, IMAGING STUDIES, MICROBIOLOGY: Please see below. CT CHEST 05/19/20 Bones/joints: Degenerative change of the spine. Soft tissues: Superficial skin edema or cellulitis of the left chest wall. There is an elongated prominent area of subcutaneous soft tissue infiltration and partial fluid attenuating collection of the left chest wall. Presumably underlying surgical changes with soft tissue volume loss of the left breast. Expansion and edema or inflammation of the left pectoral musculature superficially. IMPRESSION: 1. Likely postsurgical volume loss of left breast tissue left chest. 2. Prominent skin and subcutaneous area of soft tissue stranding edema/inflammation/cellulitis and partial fluid collection with pectoral muscular expansion. The findings are nonspecific and the underlying differential diagnostic consideration could include infectious changes of cellulitis, post radiation affect, underlying abscess would not be excluded and would require contrast administration. Other differential consideration could include component of underlying residual or recurrent neoplasm. 3. Atherosclerosis thoracic aorta. Electronically signed by: Inga Mas On 05/19/2020 05:23:29 AM 05/19/20 LE DOPPLERS No evidence of deep vein thrombosis. Electronically signed by: Inga Mas On 05/19/2020 07:41:48 AM 05/19/20 CT ABD PELVIS Kidneys and ureters: Cyst arises from the upper right kidney measuring 2.4 cm. Cyst arises from the posterior left kidney measuring 1.8 cm. Stomach and bowel: Colonic diverticulosis. Appendix: No evidence of appendicitis. Intraperitoneal space: Unremarkable. No free air. No significant fluid collection. Vasculature: Calcified abdominal aorta. Lymph nodes: Unremarkable. No enlarged lymph nodes. Urinary bladder: Unremarkable as visualized. Reproductive: Postoperative changes of hysterectomy. Bones/joints: Degenerative change of the spine. Multilevel degenerative vacuum disc and facet arthritis. Posterior disc osteophyte extension posteriorly at T12-L1. Anterior subluxation L3 on L4. Soft tissues: Significant limitation secondary to patient body habitus and the lack of contrast media. IMPRESSION: 1. Hepatomegaly. 2. Most probable large cyst extending from the inferior right hepatic lobe. No further follow-up is recommended. 3. Left adrenal gland thickening similar in configuration compared to the prior CT chest of 04/21/2020. 4. Cyst right kidney.No further workup recommended. 5. Degenerative change of the spine. 6. Colonic diverticulosis. 05/19/20 CT HEAD 1. 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 2. Mild atrophic change. There is discordant prominence of the central ventricular system compared to peripheral sulci and some degree of normal pressure hydrocephalus is not excluded. 3. Otherwise negative noncontrast head CT. ASSESSMENT AND PLAN: 74-year-old female with [id number] diabetes mellitus type 2, chronic systolic and diastolic CHF, hypertension, ALANIS not compliant with CPAP, morbid obesity, dyslipidemia, surgery done for invasive lobular cancer grade 2-3 of for left breast in April [address] Padgett called EMS due to inability to ambulate, fall, and dry cough. In the ER, pt was found to have a UTI. CT chest: Left chest wall fluid collection -most likely postop changes -no erythematous changes -no obvious abscess or cellulitic changes -Changed to IV ceftazidime for UTI -mrsa screen ordered Rash, resolved -When necessary Benadryl topical Benadryl. Monitor for the next 24 hours UTI present on admission -normal wbc and afebrile -to completed 5 days iv abx with last dose 05/25/20 B/L LE weakness s/p fall -CT head negative -MRI spine -PT/OT/ARU screen Left breast ca -breast surgeon post op mgt and fu as recommended. CKD3 -at baseline creatinine NIDDM2 -controlled hypoglycemic protocol Chronic Systolic and Diastolic CHF (EF: 50%, Grade 2 Dysfunction) -compensated HTN -better controlled. holding parameters on meds to prevent low blood pressure and bradycardia. DLP -chronic ALANIS (not compliant with CPAP) -chronic Anxiety / Depression -asymptomatic Morbid obesity bmi 43 -complicating care disposition: last dose abx 05/25/20 and may be dc home at that time if cleared by physical therapy. VS, I&O, 24H, Fishbone Vital Signs/I&O Vital Signs Date Time Temp Pulse Resp B/P (MAP) Pulse Ox O2 Delivery O2 Flow Rate FiO2 05/23/20 08:43 82 102/68 05/23/20 06:07 18 Room Air 05/23/20 05:22 96.6 97 I&O- Last 24 Hours up to 6 AM 05/23/20 06:00 Intake Total 1560 ml Balance 1560 ml Laboratory Data 24H LABS Laboratory Tests 2 05/22/20 16:28: Bedside Glucose (Misc Panel) 157H 05/22/20 19:26: Bedside Glucose (Misc Panel) 138H 05/23/20 05:35: Immature Granulocyte % (Auto) 0.5, Neutrophils (%) (Auto) 57.3, Lymphocytes (%) (Auto) 20.3L, Monocytes (%) (Auto) 10.4H, Eosinophils (%) (Auto) 11.1H, Basophils (%) (Auto) 0.4, Neutrophils # (Auto) 4.4, Lymphocytes # (Auto) 1.6, Monocytes # (Auto) 0.8, Eosinophils # (Auto) 0.9H, Basophils # (Auto) 0.0, Nucleated Red Blood Cells % (auto) 0.0, Anion Gap 4L, Glomerular Filtration Rate 38.8L, Calcium Level 8.5L 05/23/20 11:24: Bedside Glucose (Misc Panel) 191H CBC/BMP Laboratory Tests 05/23/20 05:35 Microbiology Microbiology 05/20/20 Respiratory Virus Panel (PCR) ([facility]) - Final, Complete 05/19/20 Urine Culture - Final, Complete Pseudomonas Aeruginosa 05/19/20 Blood Culture - Preliminary, Resulted No Growth after 72 hours. All specime... 05/19/20 Respiratory Virus Panel (PCR) ([facility]) - Final, Complete 05/19/20 Blood Culture - Preliminary, Resulted No Growth after 72 hours. All specime... ELVIN GALLEGOS MD May 23, 2020 12:27
[2020-05-23 14:00] VITALS: BP 104/71
[2020-05-23] MEDS: aMILoride 5 MG TAB PO SCH (17:37)
[2020-05-23 22:00] VITALS: BP 154/75
[2020-05-23] MEDS: AMITRIPTYLINE 25MG TABLET PO SCH (22:06)
[2020-05-24] MEDS: HEPARIN SOD (PORCINE) 5000UNITS/ML 1ML VIAL/SYRINGE SQ SCH ×3 (05:58→21:27)
[2020-05-24 06:00] VITALS: BP 151/84
--- NOTE | 2020-05-24 07:16 | IPNPDOC ---
Date Seen The patient was seen on 05/24/20. Progress Note SUBJECTIVE: no fever or chills. denies dysuria, flank pain, chills ready to go home in am after 5days of antibiotics c/o pruritic rash on back no sob/stridor OBJECTIVE PHYSICAL EXAMINATION: VITAL SIGNS: Please see below. GENERAL: [id number] no distress HEENT: thick neck moist mm face symmetric no cervical LAD no jvd CARDIOVASCULAR: S1S2 RRR RESPIRATORY: CTAB no adventitious breath sounds ABDOMINAL: soft nt nd +bs x 4quadrants EXTREMITIES: chronic venous stasis changes b/l le edema 1+ SKIN: anterior chest incision well healed scar without erythema, induration, drainage, or crepitus. erythematous nonraised patches on back LABORATORY DATA, IMAGING STUDIES, MICROBIOLOGY: Please see below. CT CHEST 05/19/20 Bones/joints: Degenerative change of the spine. Soft tissues: Superficial skin edema or cellulitis of the left chest wall. There is an elongated prominent area of subcutaneous soft tissue infiltration and partial fluid attenuating collection of the left chest wall. Presumably underlying surgical changes with soft tissue volume loss of the left breast. Expansion and edema or inflammation of the left pectoral musculature superficially. IMPRESSION: 1. Likely postsurgical volume loss of left breast tissue left chest. 2. Prominent skin and subcutaneous area of soft tissue stranding edema/inflammation/cellulitis and partial fluid collection with pectoral muscular expansion. The findings are nonspecific and the underlying differential diagnostic consideration could include infectious changes of cellulitis, post radiation affect, underlying abscess would not be excluded and would require contrast administration. Other differential consideration could include component of underlying residual or recurrent neoplasm. 3. Atherosclerosis thoracic aorta. Electronically signed by: Inga Mas On 05/19/2020 05:23:29 AM 05/19/20 LE DOPPLERS No evidence of deep vein thrombosis. Electronically signed by: Inga Mas On 05/19/2020 07:41:48 AM 05/19/20 CT ABD PELVIS Kidneys and ureters: Cyst arises from the upper right kidney measuring 2.4 cm. Cyst arises from the posterior left kidney measuring 1.8 cm. Stomach and bowel: Colonic diverticulosis. Appendix: No evidence of appendicitis. Intraperitoneal space: Unremarkable. No free air. No significant fluid collection. Vasculature: Calcified abdominal aorta. Lymph nodes: Unremarkable. No enlarged lymph nodes. Urinary bladder: Unremarkable as visualized. Reproductive: Postoperative changes of hysterectomy. Bones/joints: Degenerative change of the spine. Multilevel degenerative vacuum disc and facet arthritis. Posterior disc osteophyte extension posteriorly at T12-L1. Anterior subluxation L3 on L4. Soft tissues: Significant limitation secondary to patient body habitus and the lack of contrast media. IMPRESSION: 1. Hepatomegaly. 2. Most probable large cyst extending from the inferior right hepatic lobe. No further follow-up is recommended. 3. Left adrenal gland thickening similar in configuration compared to the prior CT chest of 04/21/2020. 4. Cyst right kidney.No further workup recommended. 5. Degenerative change of the spine. 6. Colonic diverticulosis. 05/19/20 CT HEAD 1. 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 2. Mild atrophic change. There is discordant prominence of the central ventricular system compared to peripheral sulci and some degree of normal pressure hydrocephalus is not excluded. 3. Otherwise negative noncontrast head CT. ASSESSMENT AND PLAN: 74-year-old female with [id number] diabetes mellitus type 2, chronic systolic and diastolic CHF, hypertension, ALANIS not compliant with CPAP, morbid obesity, dyslipidemia, surgery done for invasive lobular cancer grade 2-3 of for left breast in April [address] Padgett called EMS due to inability to ambulate, fall, and dry cough. In the ER, pt was found to have a UTI. CT chest: Left chest wall fluid collection -most likely postop changes -no erythematous changes -no obvious abscess or cellulitic changes -Changed to IV ceftazidime for UTI -mrsa screen ordered Rash -short course of prednisone, atarax, topical steroids UTI present on admission -normal wbc and afebrile -to completed 5 days iv abx with last dose 05/25/20 B/L LE weakness s/p fall -CT head negative -MRI spine -PT/OT/ARU screen Left breast ca -breast surgeon post op mgt and fu as recommended. CKD3 -at baseline creatinine NIDDM2 -controlled hypoglycemic protocol Chronic Systolic and Diastolic CHF (EF: 50%, Grade 2 Dysfunction) -compensated HTN -better controlled. holding parameters on meds to prevent low blood pressure and bradycardia. DLP -chronic ALANIS (not compliant with CPAP) -chronic Anxiety / Depression -asymptomatic Morbid obesity bmi 43 -complicating care disposition:dc in am after completion of 5days iv abx for pseudomonas uti. VS, I&O, 24H, Fishbone Vital Signs/I&O Vital Signs Date Time Temp Pulse Resp B/P (MAP) Pulse Ox O2 Delivery O2 Flow Rate FiO2 05/24/20 06:00 97.9 76 18 151/84 (106) 97 Room Air I&O- Last 24 Hours up to 6 AM 05/24/20 06:00 Intake Total 1370 ml Output Total 0 ml Balance 1370 ml Laboratory Data 24H LABS Laboratory Tests 2 05/23/20 11:24: Bedside Glucose (Misc Panel) 191H 05/23/20 16:37: Bedside Glucose (Misc Panel) 157H 05/23/20 20:26: Bedside Glucose (Misc Panel) 109 Microbiology Microbiology 05/20/20 Respiratory Virus Panel (PCR) (SKYE) - Final, Complete 05/19/20 Urine Culture - Final, Complete Pseudomonas Aeruginosa 05/19/20 Blood Culture - Final, Complete NO GROWTH AFTER 5 DAYS 05/19/20 Respiratory Virus Panel (PCR) (SKYE) - Final, Complete 05/19/20 Blood Culture - Final, Complete NO GROWTH AFTER 5 DAYS ELVIN GALLEGOS MD May 24, 2020 07:16
[2020-05-24] MEDS ORDERED: hydrOXYzine 50 MG TAB PO ONE (07:30)
[2020-05-24] MEDS ORDERED: predniSONE 20 MG TAB PO ONE (07:30)
[2020-05-24 07:49] LABS: BASO % 0.5 % (0.0-1.0); EOS # 0.8 10^3/uL (0.0-0.5); EOS % 10.7 % (0.0-3.0); HEMATOCRIT 33.2 % (36.0-47.0); HEMOGLOBIN 10.4 g/dl (12.0-15.5); LYMPH # 1.6 10^3/uL (1.5-5.0); LYMPH % 21.2 % (24.0-44.0); MEAN CORPUSCULAR HEMOGLOBIN 31.3 pg (27.0-33.0); MEAN CORPUSCULAR HGB CONC 31.3 g/dl (32.0-36.5); MONO % 12.5 % (0.0-5.0); NEUTROPHILS # 4.1 10^3/uL (1.5-8.5); NEUTROPHILS % 53.9 % (36.0-66.0); PLATELET COUNT, AUTOMATED 237 10^3/uL (150-450); RED BLOOD COUNT 3.32 10^6/uL (4.00-5.40); WHITE BLOOD COUNT 7.6 10^3/uL (4.0-10.0)
[2020-05-24] MEDS: SITagliptin 50 MG TAB (JANUVIA) PO SCH (08:11)
[2020-05-24] MEDS: ESCITALOPRAM OXALATE 10 MG TAB (LEXAPRO) PO SCH (08:12)
[2020-05-24] MEDS: DOCUSATE SODIUM 100MG CAPSULE PO SCH ×2 (08:12→21:28)
[2020-05-24] MEDS: CARVedilol 6.25 MG TAB PO SCH ×2 (08:15→21:28)
[2020-05-24] MEDS: amLODIPine 5 MG TAB PO SCH ×2 (08:15→21:29)
[2020-05-24] MEDS: HumaLOG INSULIN (NovoLOG) PER UNIT SC SCH ×4 (08:16→21:00)
[2020-05-24 08:17] LABS: CALCIUM LEVEL 8.7 MG/DL (8.8-10.2); CREATININE FOR GFR 1.39 MG/DL (0.55-1.30); GLOMERULAR FILTRATION RATE 39.5 (>39); POTASSIUM SERUM 4.8 MEQ/L (3.5-5.1)
[2020-05-24] MEDS: diphenhydrAMINE CREAM 30GM TOP SCH ×2 (08:17→21:27)
[2020-05-24] MEDS: CEFEPIME HCL 2 GM in D5W MINI-BAG PLUS 50 ML IV SCH ×2 (10:04→23:00)
[2020-05-24] MEDS: TRIAMCINOLONE ACET 0.1% CREAM 80 GM TOP SCH ×2 (10:05→21:27)
[2020-05-24 14:00] VITALS: BP 138/62
[2020-05-24] MEDS: hydrOXYzine 25 MG TAB PO SCH ×2 (17:36→21:28)
[2020-05-24] MEDS: aMILoride 5 MG TAB PO SCH (17:36)
[2020-05-24] MEDS: AMITRIPTYLINE 25MG TABLET PO SCH (21:28)
[2020-05-24 22:00] VITALS: BP 130/60
[2020-05-25 06:00] VITALS: BP 154/60
[2020-05-25] MEDS: HEPARIN SOD (PORCINE) 5000UNITS/ML 1ML VIAL/SYRINGE SQ SCH ×2 (06:35→13:51)
[2020-05-25 06:41] LABS: BASO % 0.5 % (0.0-1.0); EOS # 0.8 10^3/uL (0.0-0.5); EOS % 9.4 % (0.0-3.0); HEMATOCRIT 33.8 % (36.0-47.0); HEMOGLOBIN 10.6 g/dl (12.0-15.5); LYMPH # 2.7 10^3/uL (1.5-5.0); LYMPH % 33.3 % (24.0-44.0); MEAN CORPUSCULAR HEMOGLOBIN 31.6 pg (27.0-33.0); MEAN CORPUSCULAR HGB CONC 31.4 g/dl (32.0-36.5); MEAN CORPUSCULAR VOLUME 100.9 fl (80.0-96.0); MONO # 0.9 10^3/uL (0.0-0.8); MONO % 10.4 % (0.0-5.0); NEUTROPHILS # 3.6 10^3/uL (1.5-8.5); NEUTROPHILS % 44.4 % (36.0-66.0); PLATELET COUNT, AUTOMATED 252 10^3/uL (150-450); RED BLOOD COUNT 3.35 10^6/uL (4.00-5.40); WHITE BLOOD COUNT 8.2 10^3/uL (4.0-10.0)
[2020-05-25 07:06] LABS: CALCIUM LEVEL 8.4 MG/DL (8.8-10.2); CREATININE FOR GFR 1.4 MG/DL (0.55-1.30); GLOMERULAR FILTRATION RATE 39.1 (>39); POTASSIUM SERUM 5.3 MEQ/L (3.5-5.1)
[2020-05-25] MEDS: HumaLOG INSULIN (NovoLOG) PER UNIT SC SCH ×2 (07:30→13:51)
[2020-05-25] MEDS: hydrOXYzine 25 MG TAB PO SCH ×2 (09:00→09:15)
[2020-05-25] MEDS ORDERED: predniSONE 20 MG TAB PO SCH (09:00)
[2020-05-25] MEDS: DOCUSATE SODIUM 100MG CAPSULE PO SCH (09:15)
[2020-05-25] MEDS: ESCITALOPRAM OXALATE 10 MG TAB (LEXAPRO) PO SCH (09:15)
[2020-05-25] MEDS: amLODIPine 5 MG TAB PO SCH (09:15)
[2020-05-25] MEDS: SITagliptin 50 MG TAB (JANUVIA) PO SCH (09:15)
[2020-05-25 09:16] VITALS: BP 154/60
[2020-05-25] MEDS: diphenhydrAMINE CREAM 30GM TOP SCH (09:16)
[2020-05-25] MEDS: CARVedilol 6.25 MG TAB PO SCH (09:16)
[2020-05-25] MEDS: TRIAMCINOLONE ACET 0.1% CREAM 80 GM TOP SCH (09:17)
[2020-05-25] MEDS: CEFEPIME HCL 2 GM in D5W MINI-BAG PLUS 50 ML IV SCH (09:17)
[2020-05-25] MEDS ORDERED: TRIA1CR80 TOP (10:27)
[2020-05-25] MEDS ORDERED: AMLO1TAB24 PO (10:27)
[2020-05-25 14:00] VITALS: BP 108/74
--- NOTE | 2020-05-26 23:48 | DS.PDOC ---
Discharge Summary General Date of Admission May 19, 2020 at 08:44 Discharge Summary PROCEDURES PERFORMED DURING STAY: [None]. ADMITTING DIAGNOSES: 1. . DISCHARGE DIAGNOSES: 1. . COMPLICATIONS/CHIEF COMPLAINT: Chest Wall Abcsess. HISTORY OF PRESENT ILLNESS: . HOSPITAL COURSE: . DISCHARGE MEDICATIONS: Please see below. ALLERGIES: Please see below. PHYSICAL EXAMINATION ON DISCHARGE: VITAL SIGNS: Please see below. GENERAL: HEENT: NECK: CARDIOVASCULAR EXAMINATION: RESPIRATORY EXAMINATION: ABDOMINAL EXAMINATION: EXTREMITIES: SKIN: NEUROLOGICAL EXAMINATION: PSYCHIATRIC EXAMINATION: LABORATORY DATA: Please see below. IMAGING: PROGNOSIS: ACTIVITY: [As tolerated]. DIET: DISCHARGE PLAN: DISPOSITION: Home, Self-Care. DISCHARGE INSTRUCTIONS: 1. . ITEMS TO FOLLOWUP ON ON OUTPATIENT: 1. . DISCHARGE CONDITION: [Stable]. TIME SPENT ON DISCHARGE: Greater than minutes. Vital Signs/I&Os Vital Signs Date Time Temp Pulse Resp B/P (MAP) Pulse Ox O2 Delivery O2 Flow Rate FiO2 05/25/20 14:00 98.3 77 18 108/74 (85) 96 Room Air I&O- Last 24 Hours up to 6 AM 05/26/20 06:00 Intake Total 800 ml Output Total 0 ml Balance 800 ml Microbiology Microbiology 05/20/20 Respiratory Virus Panel (PCR) (SKYE) - Final, Complete 05/19/20 Urine Culture - Final, Complete Pseudomonas Aeruginosa 05/19/20 Blood Culture - Final, Complete NO GROWTH AFTER 5 DAYS 05/19/20 Respiratory Virus Panel (PCR) (SKYE) - Final, Complete 05/19/20 Blood Culture - Final, Complete NO GROWTH AFTER 5 DAYS Discharge Medications Scheduled Amiloride HCl (Amiloride HCl) 5 Mg Tablet, 5 MG PO QPM, (Reported) TAKES AT 1700 Amitriptyline HCl (Amitriptyline HCl) 25 Mg Tablet, 25 MG PO QHS, (Reported) Amlodipine Besylate (Amlodipine Besylate) 5 Mg Tablet, 5 MG PO DAILY Carvedilol (Carvedilol) 3.125 Mg Tablet, 3.125 MG PO BID, (Reported) Escitalopram Oxalate (Escitalopram Oxalate) 10 Mg Tablet, 10 MG PO DAILY, (Reported) Sitagliptin Phosphate (Januvia) 25 Mg Tablet, 25 MG PO DAILY, (Reported) Torsemide (Torsemide) 20 Mg Tablet, 60 MG PO BID, (Reported) Triamcinolone Acet (Triamcinolone Acetonide 0.1% Crm) 80 Gm Cream..g., 1 DOSE TOP BID Apply thin layer to rash on back, chest (do not put on incision site on chest) Scheduled PRN Tramadol HCl (Tramadol HCl) 50 Mg Tablet, 50 MG PO Q6H PRN for MODERATE PAIN (PS 5-7), (Reported) Miscellaneous Medications [Patient Comment] , (Reported) MED REC COMPLETE VIA EXTERNAL MED HISTORY, PREVIOUS DISCHARGE (04/28/2020), AND PREVIOUS CLINIC VISIT (05/04/2020) Allergies Coded Allergies: atorvastatin (Verified Allergy, Unknown, AFFECTED LEGS, BONES, URINE BROWN, 12/30/19) clonidine (Verified Allergy, Unknown, UNKNOWN REACTION, 02/04/20) codeine (Verified Allergy, Unknown, UNKNOWN REACTION, 02/04/20) morphine (Verified Adverse Reaction, Unknown, N/V, 02/04/20) TAYLER AMATO DO May 26, 2020 23:48
== END 2020-05-25 16:40 | disposition home health service (06) | DRG 690 ==
LOC: M ED 23:45 → M ED INP 05-19 08:44 → M MS5PR 05-19 12:25
PROVIDERS: ADMIT General Practice; ATTEND Internal Medicine
DX: N39.0 Urinary tract infection, site not specified (principal); I50.42 Chronic combined systolic (congestive) and diastolic (congestive) heart failure; L02.213 Cutaneous abscess of chest wall; I13.0 Hypertensive heart and chronic kidney disease with heart failure and stage 1 through stage 4 chronic kidney disease, or unspecified chronic kidney disease; Z68.43 Body mass index [BMI] 50.0-59.9, adult; E11.22 Type 2 diabetes mellitus with diabetic chronic kidney disease; G47.33 Obstructive sleep apnea (adult) (pediatric); E66.01 Morbid (severe) obesity due to excess calories; E78.5 Hyperlipidemia, unspecified; Z91.19 Patient's noncompliance with other medical treatment and regimen; Z90.12 Acquired absence of left breast and nipple; M51.26 Other intervertebral disc displacement, lumbar region; M51.24 Other intervertebral disc displacement, thoracic region; R32 Unspecified urinary incontinence; G89.29 Other chronic pain; Z79.899 Other long term (current) drug therapy; Z88.5 Allergy status to narcotic agent; Z88.8 Allergy status to other drugs, medicaments and biological substances; N18.30 Chronic kidney disease, stage 3 unspecified; B96.5 Pseudomonas (aeruginosa) (mallei) (pseudomallei) as the cause of diseases classified elsewhere; C50.912 Malignant neoplasm of unspecified site of left female breast; I87.2 Venous insufficiency (chronic) (peripheral); Z20.822 Contact with and (suspected) exposure to COVID-19

== ENCOUNTER → 2020-05-27 | Outpatient (REF) | payer MEDICARE, OTHER ==
[~2020-05-27] MED LIST changes: +AMLO1TAB24 PO; +ESCI10TA16 PO; +JANU25TA PO; +PATIENT COMMENT; +TRIA1CR80 TOP
== END ==
LOC: M LAB REF 17:14
PROVIDERS: ATTEND Internal Medicine Nephrology
DX: I50.32 Chronic diastolic (congestive) heart failure (principal)

== ENCOUNTER → 2020-05-28 | Outpatient (REF) | payer OTHER, MEDICARE ==
[~2020-05-28] MED LIST changes: +AMLO10TA PO; +ANAS1TAB2 PO; +K2 P1TAB PO; +LEXA1TAB PO; -LISI-542 PO; +LISI-898 PO; +LISI10TA22 PO; -LISI10TA4 PO; +MAGN400C2 PO
== END ==
LOC: M SFHCPLAZ 18:10
PROVIDERS: ATTEND Surgery
DX: N64.89 Other specified disorders of breast (principal)

== ENCOUNTER → 2020-07-06 | Outpatient (CLI) | payer OTHER ==
--- NOTE | 2020-07-06 15:28 | DEXAMM ---
INDICATION: BREAST CA STARTED ON AROMATASE INHIBITORS. COMPARISON: None. TECHNIQUE: Bone density was measured using dual-energy x-ray absorptiometry (DEXA). FINDINGS: AP SPINE L1-L4 BMD 1.492 g/cm2 Young Adult T-Score 2.4 Age Matched Z-Score 4.1. LT FEMUR, TOTAL BMD 0.945 g/cm2 Young Adult T-Score -0.5 Age Matched Z-Score 1.2. LT NECK BMD 0.796 g/cm2 Young Adult T-Score -1.7 Age Matched Z-Score 0.2. RT FEMUR, TOTAL BMD 0.957 g/cm2 Young Adult T-Score -0.4 Age Matched Z-Score 1.3. RT NECK BMD 0.893 g/cm2 Young Adult T-Score -1.0 Age Matched Z-Score 0.9. IMPRESSION: There is normal bone density of the spine. There is low bone density of the left hip. There is low bone density of the right hip. FOLLOW-UP: Recommendation for the next bone density exam: 2 years. <Electronically signed by Bull Wahl > 07/06/20 3088
== END ==
LOC: M WHC 11:07
PROVIDERS: ATTEND Specialist
DX: C50.919 Malignant neoplasm of unspecified site of unspecified female breast (principal); Z79.811 Long term (current) use of aromatase inhibitors

== ENCOUNTER → 2020-08-30 | Outpatient (REF) | payer OTHER | LOC: M LAB REF 16:48 | PROVIDERS: ATTEND Internal Medicine Nephrology | DX: I50.32 Chronic diastolic (congestive) heart failure (principal) ==

== ENCOUNTER → 2020-10-08 | Outpatient (REF) | payer OTHER ==
[2020-10-08 15:54] LABS: FOLATE 8.9 NG/ML (>5.4); HEMOGLOBIN A1c 8.7 %; TOTAL PROTEIN 7.4 GM/DL (6.4-8.2); VITAMIN B12 LEVEL 1047 PG/ML (247-911)
[2020-10-12 13:19] LABS: ANTI DS-DNA AB Negative (Negative); ANTINUCLEAR ANTIBODIES DIRECT Negative (Negative)
[2020-10-13 13:38] LABS: ALBUMIN 3.75 GM/DL (3.29-5.55); ALBUMIN % 50.7 % (55.8-66.1); ALPHA-1-GLOBULIN % 4.8 % (2.9-4.9); ALPHA-1-GLOBULINS 0.36 GM/DL (0.17-0.41); ALPHA-2-GLOBULINS % 13.9 % (7.1-11.8); BETA-1-GLOBULINS % 5.9 % (4.7-7.2); GAMMA GLOBULIN % 17.7 % (11.1-18.8)
[2020-10-13 13:39] LABS: ALPHA-2-GLOBULINS 1.03 GM/DL (0.42-0.99); BETA-1-GLOBULINS 0.44 GM/DL (0.28-0.60); BETA-2-GLOBULINS 0.52 GM/DL (0.19-0.55); GAMMA GLOBULINS 1.31 GM/DL (0.65-1.58)
== END ==
LOC: M SFHCPLAZ 12:26
PROVIDERS: ATTEND Family Medicine
DX: G62.9 Polyneuropathy, unspecified (principal)

== ENCOUNTER → 2020-12-07 | Outpatient (REF) | payer OTHER | LOC: M SFHCPLAZ 13:45 | PROVIDERS: ATTEND Family Medicine | DX: Z53.29 Procedure and treatment not carried out because of patient's decision for other reasons (principal) ==

== ENCOUNTER → 2020-12-13 | Outpatient (REF) | payer OTHER ==
[2020-12-13 14:16] LABS: MAGNESIUM LEVEL 2.4 MG/DL (1.8-2.4)
== END ==
LOC: M LAB REF 13:10
PROVIDERS: ATTEND Internal Medicine Nephrology
DX: I50.32 Chronic diastolic (congestive) heart failure (principal); E83.42 Hypomagnesemia

== ENCOUNTER → 2021-02-04 | Outpatient (CLI) | payer OTHER ==
[~2021-02-04] MED LIST changes: -CLIN150C15 PO; +CLIN150C17 PO
[2021-02-04 18:34] LABS: PERCENT SATURATION 22.9 % (13.2-45.0)
== END ==
LOC: M PLALAB 15:18
PROVIDERS: ATTEND Family Medicine
DX: D64.9 Anemia, unspecified (principal)

== ENCOUNTER → 2021-02-04 | Outpatient (REF) | payer OTHER | LOC: M SFHCPLAZ 15:08 | DX: Z53.21 Procedure and treatment not carried out due to patient leaving prior to being seen by health care provider (principal) ==

== ENCOUNTER → 2021-02-10 | Outpatient (CLI) | payer OTHER ==
--- NOTE | 2021-02-11 07:37 | REP ---
INDICATION: ABN LAB RESULTS COMPARISON: 05/19/2020 TECHNIQUE: Axial noncontrast images from the lung bases to the pubic symphysis with coronal and sagittal reformations. This CT examination was performed using the following dose reduction techniques: Automated exposure control, adjustment of mA and/or kv according to the patient's size, and use of iterative reconstruction technique. FINDINGS: Lung bases are clear. Visualized heart and pericardium normal. Liver demonstrates diffuse fatty infiltration along with stable 8 cm rounded water density lesion along the inferior pole of the right lobe suggesting cyst. The spleen, pancreas, gallbladder, and bilateral adrenal glands are stable/normal. Kidneys again demonstrate bilateral rounded hypodensities likely representing simple/complex cysts. The enteric system is unremarkable and without obstruction or acute inflammatory process. Normal terminal ileum and appendix identified in the right lower quadrant. Few scattered colonic diverticula noted without acute diverticulitis. Pelvis demonstrates normal bladder and evidence for prior hysterectomy. No ascites. No free air. No adenopathy. No focal inflammatory stranding. Abdominal aorta without aneurysm. Musculoskeletal structures demonstrate stable degenerative changes without acute osseous abnormality. IMPRESSION: 1. 8 cm hepatic hypodensity likely representing cyst may be confirmed by ultrasound if necessary. Underlying hepatosteatosis. 2. Bilateral renal hypodensities suggesting cysts may be confirmed by ultrasound. 3. No acute abdominopelvic pathology appreciated. <Electronically signed by Minesh Alfred > 02/11/21 0735
== END ==
LOC: M RAD 15:11
PROVIDERS: ATTEND Specialist
DX: R79.9 Abnormal finding of blood chemistry, unspecified (principal)

== ENCOUNTER → 2021-03-17 | Outpatient (CLI) | payer MEDICARE, OTHER ==
[~2021-03-17] MED LIST changes: +CALC1CAP31 PO; +CYMB1CAP5 PO; +D3 S20002 PO; +HYDR25TA PO; +INSUDET SC; +INSUHUMDS SC; +LEXA5TAB13 PO; -LISI-898 PO; +LISI5TAB11 PO; +MAGN400T2 PO; +QUET1TAB17 PO
== END ==
LOC: M WHC 10:47
PROVIDERS: ATTEND Surgery
DX: Z08 Encounter for follow-up examination after completed treatment for malignant neoplasm (principal); Z85.3 Personal history of malignant neoplasm of breast; Z90.12 Acquired absence of left breast and nipple; Z80.3 Family history of malignant neoplasm of breast; Z80.0 Family history of malignant neoplasm of digestive organs
CPT/HCPCS: 77065; G0279

== ENCOUNTER → 2021-03-18 | Outpatient (CLI) | payer MEDICARE, OTHER ==
[2021-03-18 17:43] LABS: TOTAL PROTEIN 7.8 GM/DL (6.4-8.2)
[2021-03-18 17:56] LABS: FOLATE > 24.0 NG/ML; VITAMIN B12 LEVEL 1085 PG/ML
[2021-03-18 19:50] LABS: HEMOGLOBIN A1c 10.7 %
[2021-03-21 11:08] LABS: ALBUMIN 3.82 GM/DL (3.29-5.55); ALPHA-1-GLOBULINS 0.39 GM/DL (0.17-0.41); ALPHA-2-GLOBULINS 1.05 GM/DL (0.42-0.99); ALPHA-2-GLOBULINS % 13.5 % (7.1-11.8); BETA-1-GLOBULINS 0.45 GM/DL (0.28-0.60); BETA-1-GLOBULINS % 5.8 % (4.7-7.2); BETA-2-GLOBULINS 0.53 GM/DL (0.19-0.55); BETA-2-GLOBULINS % 6.8 % (3.2-6.5); GAMMA GLOBULIN % 19.9 % (11.1-18.8); GAMMA GLOBULINS 1.55 GM/DL (0.65-1.58)
[2021-03-26 01:07] LABS: VITAMIN B1 LEVEL WHOLE BLOOD 188.8 nmol/L (66.5-200.0); VITAMIN B6,PYRIDOXAL PHOSPHATE 12.7 ug/L (2.0-32.8); VITAMIN E(ALPHA TOCOPHEROL) 14.4 mg/L (9.0-29.0); VITAMIN E(GAMMA TOCOPHEROL) 0.8 mg/L (0.5-4.9)
== END ==
LOC: M PLALAB 15:14
PROVIDERS: ATTEND Psychiatry & Neurology Neurology
DX: E11.40 Type 2 diabetes mellitus with diabetic neuropathy, unspecified (principal); E53.8 Deficiency of other specified B group vitamins; E51.9 Thiamine deficiency, unspecified

== ENCOUNTER 2021-04-04 16:05 | Inpatient (IN) | payer MEDICARE, OTHER ==
[~2021-04-04] VITALS: Ht 167.6 cm; Wt 117.6 kg
[2021-04-04] MEDS: AMITRIPTYLINE 50 MG TAB PO SCH (03:31)
[~2021-04-04 16:05] MED LIST changes: -CALC1CAP31 PO; -CYMB1CAP5 PO; -D3 S20002 PO; -HYDR25TA PO; -INSUDET SC; -INSUHUMDS SC; -LEXA5TAB13 PO; +LISI-898 PO; -LISI5TAB11 PO; -MAGN400T2 PO; -QUET1TAB17 PO
[2021-04-04 17:36] LABS: BASO % 0.3 % (0.0-1.0); EOS # 0.3 10^3/uL (0.0-0.5); EOS % 3.9 % (0.0-3.0); HEMATOCRIT 35.1 % (36.0-47.0); HEMOGLOBIN 11.7 g/dl (12.0-15.5); LYMPH # 2.4 10^3/uL (1.5-5.0); LYMPH % 27.1 % (24.0-44.0); MEAN CORPUSCULAR HEMOGLOBIN 30.4 pg (27.0-33.0); MEAN CORPUSCULAR HGB CONC 33.3 g/dl (32.0-36.5); MEAN CORPUSCULAR VOLUME 91.2 fl (80.0-96.0); MONO # 0.4 10^3/uL (0.0-0.8); NEUTROPHILS # 5.6 10^3/uL (1.5-8.5); NEUTROPHILS % 63.5 % (36.0-66.0); PLATELET COUNT, AUTOMATED 282 10^3/uL (150-450); RED BLOOD COUNT 3.85 10^6/uL (4.00-5.40); WHITE BLOOD COUNT 8.8 10^3/uL (4.0-10.0)
--- NOTE | 2021-04-04 17:38 | REP ---
INDICATION: weakness COMPARISON: 05/19/2020 TECHNIQUE: Portable AP view of the chest FINDINGS: The mediastinum and cardiac silhouette are stable and within normal limits for portable technique. The lung weinstein demonstrate chronic changes without acute consolidation, effusion, or pneumothorax. Skeletal structures are intact. IMPRESSION: No acute cardiopulmonary process appreciated. <Electronically signed by Minesh Alfred > 04/04/21 1216
[2021-04-04 17:55] LABS: CREATININE FOR GFR 1.19 MG/DL (0.55-1.30); GLOMERULAR FILTRATION RATE 47.1 (>39); POTASSIUM SERUM 3.4 MEQ/L (3.5-5.1)
--- OUTSIDE RECORDS SUMMARY | 2021-04-04 17:56 | CCD ---
Author Author [facility] Organization [facility] Address Unknown Phone Unavailable Care Team Providers Care Safety Scientist Name Role Phone Yefri Cotton Unavailable PROBLEMS Type Condition ICD9-CM Code [id number] Code Onset Dates Condition S tatus W/U Status Risk SNOMED Code Notes Problem Chronic diastolic congestive heart failure I50.32 Active confirmed 635129438 Problem Type 2 diabetes mellitus wit hout complication, without long-term current use of insulin E11.9 Active confirmed 480898480 Problem ALANIS (obstructive sleep apnea) G47.33 Active confirm ed 40369681 Problem Neuropathy G62.9 Active confirmed 283128938 Problem Attention deficit hyperactiv ity disorder (ADHD), predominantly inattentive type F90.0 Active confirmed 63683450 Problem Generalized anxiety disorder F41.1 Active confirme d 29837847 Problem Type 2 diabetes mellitus wit h diabetic neuropathy, without long-term current use of insulin E11.40 Active confirmed 1618975 6 Problem Congestive heart failure, unspecified I50.9 Ac tive confirmed 55076520 Problem Memory difficulties R41.3 Active confirmed 488800424 Problem Moderately severe depression F32.2 Active confirme d 448440614 Problem Malignant neoplasm of unspecified site of left female breast C50.912 Active confirmed 963655459 Problem Seroma of breast N64.89 Active confirmed 297 099737 Problem 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 Active confirmed 79644459 Problem Venous stasis dermatitis of both lower extremities I87.2 Active confirmed 79536636 Problem Cardiomegaly I51.7 Active confirmed 7161369 Problem Invasive lobular carcinoma of left breast in female C50.912 Active confirmed 8531883889749778 Problem Overflow incontinence N39.490 Active confirmed 495195428 Problem Recurrent falls R29.6 Active confirmed 2799 51312 Problem Chronic venous hypertension (idiopathic) with ulcer of left lower extremity I87.312 Active confirmed 710763116699250 Problem Bipolar 1 disorder, depressed, partial remission F 31.75 Active confirmed 79863774 Problem Wheelchair bound Z99.3 Active confirmed 225 451647 Problem 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 L97.819 Active confirmed Problem Congestive heart failure, un specified HF chronicity, unspecified heart failure type I50.9 Active confirmed 20125136 Problem Invasive lobular carcinoma of breast in female C50 .919 Active confirmed 117514575 Problem 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 Active confirmed 52093513 Problem Elevated CA 19-9 level R97.8 Active confirmed 18806223242584145 Problem Difficulty sleeping G47.9 Active confirmed 173509206 Problem Slow transit constipation K59.01 Active confirmed 94936584 ALLERGIES Allergen (clinical drug ingredient) Drug/Non Drug Allergy do cumented on EMR Reaction Allergy Type Onset Date Status gabapentin Gabapentin Unknown Drug Allergy Active atorvastatin Atorvastatin Calcium(ND Code:[address]-84) Unknown Drug Allergy Active clonidine Clonidine HCl(ND Code:[address]-14) Unknown Drug Chris rgy Active ENCOUNTERS from 1945 to 2021-02-18 Encounter Location Date Provider Diagnosis [place] [id number] [facility] [phone] [place] [address] Feb, Yefri Cotton IMMUNIZATIONS Vaccine Route Administration Date Status Influenza 18 yrs & older Flublok Unknown Apr 28, 2020 Administered Pneumococcal Adult 0.5mL Pneumovax 23 Unknown Apr 28 Administered SOCIAL HISTORY Tobacco Use: Social History Observation Description Date Details (start date - stop date) Never Smoker Sex Assigned At : Social History Observation Description Sex Assigned At Unknown Education: Question Answer Notes Level of Education: Finished High School Language: Question Answer Notes Languages spoken: Japanese Catholic: Question Answer Notes Catholic No faith beliefs that would impact health care. Sexual Hx: Question Answer Notes Had sex in the last 12 months (vaginal, oral, or anal)? No Have you ever had an STD? No Alcohol Screening: Question Answer Notes Did you have a drink containing alcohol in the past year? No Points 0 Interpretation Negative Tobacco Use: Question Answer Notes Are you a: never smoker REASON FOR REFERRAL No Information VITAL SIGNS No information MEDICATIONS Medication SIG (Take, Route, Frequency, Duration) Notes Start Da te End Date Status amLODIPine Besylate 5 MG 1 tablet Orally Once a day Active Januvia 25 MG as directed Orally Once a day Active Carvedilol 3.125 MG TAKE ONE TABLET BY MOUTH @8A M and TAKE ONE TABLET BY MOUTH @8PM for 28 Active Magnesium Oxide 400 240 MG as directed Orally Active Januvia 25 MG TAKE ONE TABLET BY MOUTH @8AM for 28 Active FreeStyle Genoveva [place] - as directed _ tid for 999 days Active aMILoride HCl 5 MG 1 tablet with food Orally Once a day Active Coreg 3.125 MG 1 tablet with food Orally Twice a day Active Melatonin 5 MG 1 tablet in the evening Orally Once a day for 30 day(s ) Active Torsemide 20 MG 2 tabs Orally BID Ac tive Amitriptyline HCl 25 mg 1/2 tablet at bedtime Orally Once a day Active Amitriptyline HCl 50 MG 1 tablet at bedtime Orally Once a day Active FreeStyle Genoveva Sensor System - as directed intraderma lly for 2 weeks for 28 days Active Digest Enzymes-Anticholinergic Active Escitalopram Oxalate 10 MG 1 tablet Orally Once a day Active PROCEDURES No Information RESULTS No Results REASON FOR VISIT Home Health Aid MEDICAL (GENERAL) HISTORY Type Description Date Medical History T2DM Medical History Morbid Obesity Medical History elevated troponin Medical History BLE cellulitis Medical History CHF exacerbation Medical History HTN Medical History COPD Medical History invasive lobular carcinoma L breast s/p mastectomy Surgical History Breast BX 03/2020 Surgical History Left breast mastectomy 04/2020 Hospitalization History Kidney issues 01/2020 Hospitalization History L-Breast Mastectomy 04/2020 Hospitalization History breathing issues 12/2019 Hospitalization History breast abscess 05/18/20-05/25/20 Goals Section No Information Health Concerns No Information MEDICAL EQUIPMENT No Information MENTAL STATUS No Information FUNCTIONAL STATUS No Information ASSESSMENTS No Information PLAN OF TREATMENT Next Appt Details Provider Name:Kirill Tovar, 2021-02-25 03:0 0:00 PM, [address] [place] [address], [place], [address] Provider Name:Arabella Hendrickson, 2021-05-27 02:00:00 PM, [address] [place] [address], , [place], [address], Insurance Providers Payer Name Payer Address Payer Phone Insured Name Patient Relati onship to Insured Coverage Start Date Coverage End Date [employer] [address] [facility] [phone] TEOD[employer] RUSSELL self
--- OUTSIDE RECORDS SUMMARY | 2021-04-04 17:56 | CCD ---
Author Author [facility] Organization [facility] Address Unknown Phone Unavailable Care Team Providers Care Physical Therapy Manager Name Role Phone Monica Bateman Unavailable PROBLEMS Type Condition ICD9-CM Code [id number] Code Onset Dates Condition S tatus W/U Status Risk SNOMED Code Notes Problem Chronic diastolic congestive heart failure I50.32 Active confirmed 290583458 Problem Type 2 diabetes mellitus wit hout complication, without long-term current use of insulin E11.9 Active confirmed 139591030 Problem ALANIS (obstructive sleep apnea) G47.33 Active confirm ed 97365911 Problem Neuropathy G62.9 Active confirmed 228750930 Problem Attention deficit hyperactiv ity disorder (ADHD), predominantly inattentive type F90.0 Active confirmed 26018731 Problem Generalized anxiety disorder F41.1 Active confirme d 28337204 Problem Type 2 diabetes mellitus wit h diabetic neuropathy, without long-term current use of insulin E11.40 Active confirmed 2181923 6 Problem Congestive heart failure, unspecified I50.9 Ac tive confirmed 24661723 Problem Memory difficulties R41.3 Active confirmed 781882867 Problem Moderately severe depression F32.2 Active confirme d 228683305 Problem Malignant neoplasm of unspecified site of left female breast C50.912 Active confirmed 969818901 Problem Seroma of breast N64.89 Active confirmed 297 202537 Problem 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 Active confirmed 34018465 Problem Venous stasis dermatitis of both lower extremities I87.2 Active confirmed 96431518 Problem Cardiomegaly I51.7 Active confirmed 2444601 Problem Invasive lobular carcinoma of left breast in female C50.912 Active confirmed 0589484317436658 Problem Overflow incontinence N39.490 Active confirmed 073793355 Problem Recurrent falls R29.6 Active confirmed 2799 77371 Problem Chronic venous hypertension (idiopathic) with ulcer of left lower extremity I87.312 Active confirmed 909614697303303 Problem Bipolar 1 disorder, depressed, partial remission F 31.75 Active confirmed 43778981 Problem Wheelchair bound Z99.3 Active confirmed 225 564557 Problem 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 L97.819 Active confirmed Problem Congestive heart failure, un specified HF chronicity, unspecified heart failure type I50.9 Active confirmed 26578742 Problem Invasive lobular carcinoma of breast in female C50 .919 Active confirmed 467603672 Problem 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 Active confirmed 38796456 Problem Elevated CA 19-9 level R97.8 Active confirmed 93086630343712027 Problem Difficulty sleeping G47.9 Active confirmed 287546407 Problem Slow transit constipation K59.01 Active confirmed 01019440 ALLERGIES Allergen (clinical drug ingredient) Drug/Non Drug Allergy do cumented on EMR Reaction Allergy Type Onset Date Status atorvastatin Atorvastatin Calcium(ND Code:[address]-20) Unknown Drug Allergy Active gabapentin Gabapentin(ND Code:[address]-85) Unknown Drug Allergy Active clonidine Clonidine HCl(ND Code:[address]-51) Unknown Drug Chris rgy Active ENCOUNTERS from 1945 to 2021-03-04 Encounter Location Date Provider Diagnosis [facility] [address] [facility] [phone] [place] [address] Feb, Monica Bateman IMMUNIZATIONS Vaccine Route Administration Date Status Influenza [...] School Language: Question Answer Notes Languages spoken: Kazakh Latter-Day: Question Answer Notes Latter-Day No taoism beliefs that would impact health care. Sexual [...] Notes Start Da te End Date Status aMILoride HCl 5 MG 1 tablet with food Orally Once a day Active Melatonin 5 MG 1 tablet in the evening Orally Once a day for 30 day(s ) Active FreeStyle Genoveva [place] - as directed _ tid for 999 days Active Magnesium Oxide 400 240 MG as directed Orally Active Carvedilol 3.125 MG TAKE ONE TABLET BY MOUTH @8A M and TAKE ONE TABLET @8PM for 28 Active Torsemide 20 MG 2 tabs Orally BID Ac tive Amitriptyline HCl 50 MG 1 tablet at bedtime Orally Once a day Active Digest Enzymes-Anticholinergic Active amLODIPine Besylate 5 MG 1 tablet Orally Once a day Active Coreg 3.125 MG 1 tablet with food Orally Twice a day Active Escitalopram Oxalate 10 MG 1 tablet Orally Once a day Active FreeStyle Genoveva Sensor System - as directed intraderma lly for 2 weeks for 28 days Active Amitriptyline HCl 25 mg 1/2 tablet at bedtime Orally Once a day Active Januvia 25 MG TAKE ONE TABLET BY MOUTH @8AM for 28 Active PROCEDURES No Information RESULTS No Results REASON FOR VISIT home health aide MEDICAL (GENERAL) HISTORY Type Description Date Medical [...] Information ASSESSMENTS No Information PLAN OF TREATMENT Medication Medication Name Sig Start Date Stop Date Januvia 25 MG TAKE ONE TABLET BY MOUTH @8AM for 28 Carvedilol 3.125 MG TAKE ONE TABLET BY MOUTH @8A M and TAKE ONE TABLET @8PM for 28 Next Appt Details Provider Name:Kirill Tovar, 2021-03-15 03:0 0:00 PM, [address] [place] [address], , [place], [address] Provider Name:Arabella Hendrickson, 2021-05-27 02:00:00 PM, [address] [place] [address], , [place], [address], Insurance Providers Payer Name Payer Address Payer Phone Insured Name Patient Relati onship to Insured Coverage Start Date Coverage End Date [employer] [id number] [facility] [phone] TEODOR[employer] RUSSELL self
--- OUTSIDE RECORDS SUMMARY | 2021-04-04 17:56 | CCD | Continuity of Care Document ---
Author Author Reji MENDOZA M.D. Organization Unknown Address [address] [place] [address] Phone [phone] Care Team Providers Care Emission Technician Name Role Phone Yefri Cotton DO AUTM [phone] Problems Active Problems Provider Date Obstructive sleep apnea syndrome Reinaldo Mendoza M.D. Onset: 09/13/2016 Neck pain Reinaldo Mendoza M.D. Onset: 09/13/2016 Spondylolysis Reinaldo Mendoza M.D. Onset: 09/13/2016 Spondylolysis of cervical spine Reinaldo Mendoza M.D. Onset: 0 09/13/2016 Low back pain Reinaldo Mendoza M.D. Onset: 09/13/2016 Malaise and fatigue Reinaldo Mendoza M.D. Onset: 09/13/2016 Bilateral carpal tunnel syndrome Reinaldo Mendoza M.D. Onset: 12/08/2020 Mixed sensory-motor polyneuropathy Reinaldo Mendoza M.D. Onset : 12/08/2020 Lesion of ulnar nerve Reinaldo Mendoza M.D. Onset: 02/17/2021 Social History Type Date Description Comments Sex Unknown Tobacco Use Start: Unknown Patient has never smoked Allergies and adverse reactions Description No Known Drug Allergies Medications Active Medications SIG Qnty Indications Ordering Provide r Date Amitriptyline HCL 25mg Tablets 2 by mouth qhs. 60tabs Reinaldo Mendoza M.D. 12/08/2020 Immunizations Description No Information Available Vital Signs Date Vital Result Comment 09/13/2016 10:04am BP Systolic 130 mmHg BP Diastolic 75 mmHg Heart Rate 74 /min Respiratory Rate 16 /min Height 66 inches 5'6" Weight 294.00 lb BMI (Body Mass Index) 47.4 kg/m2 [place] Body Weight 130 lb Results Description No Information Available Procedures Date Code Description Status 02/17/2021 22117 Office/Outpatient Established Mo d MDM 30-39 Min Completed 01/18/2021 76815 Nerve Conduction 9-10 Studies Co mpleted 01/18/2021 37528 Needle Electromyography Complete , Five Or More Muscles Studied Completed 01/18/2021 98892 Needle Electromyography Complete , Five Or More Muscles Studied Completed 12/20/2020 87569 Nerve Conduction 9-10 Studies Co mpleted 12/20/2020 99544 Needle Electromyography Complete , Five Or More Muscles Studied Completed 12/20/2020 77343 Needle Electromyography Complete , Five Or More Muscles Studied Completed 12/08/2020 59849 Office/Outpatient New Moderate M DM 45-59 Minutes Completed Medical Devices Description No Information Available Encounters Type Date Location Provider Dx Diagnosis Office Visit 02/17/2021 11:30a Main office - [facility] [place] G56.03 Carpal tunnel syndrome, bilateral upper limbs G56.23 Lesion of ulnar nerve, bilat eral upper limbs 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 02/17/2021 G56.23 Lesion of ulnar nerve, bilateral upper limbs Reinaldo Mendoza M.D. 02/17/2021 E11.42 Type 2 diabetes mellitus with di abetic polyneuropathy Reinaldo Mendoza M.D. 02/17/2021 M54.2 Cervicalgia Reinaldo Mendoza M.D. 02/17/2021 M43.02 Spondylolysis, cervical region M henry Mendoza M.D. 02/17/2021 M54.59 Other low back pain Reinaldo Mendoza M.D. 02/17/2021 M43.06 Spondylolysis, lumbar region Kassie Mendoza M.D. 01/18/2021 R20.2 Paresthesia of skin Reinaldo Mendoza M.D. 01/18/2021 G60.9 Hereditary and idiopathic neurop athy, unspecified Reinaldo Mendoza M.D. 01/18/2021 M62.9 Disorder of muscle, unspecified Reinaldo Mendoza M.D. 12/20/2020 G56.01 Carpal tunnel syndrome, right up per limb Reinaldo Mendoza M.D. 12/20/2020 G56.03 Carpal tunnel syndrome, bilatera l upper limbs Reinaldo Mendoza M.D. 12/20/2020 G60.9 Hereditary and idiopathic neurop athy, unspecified Reinaldo Mendoza M.D. 12/20/2020 G56.21 Lesion of ulnar nerve, right upp er limb Reinaldo Mendoza M.D. 12/20/2020 G56.23 Lesion of ulnar nerve, bilateral upper limbs Reinaldo Mendoza M.D. 12/20/2020 G56.02 Carpal tunnel syndrome, left upp er limb Reinaldo Mendoza M.D. 12/20/2020 G56.22 Lesion of ulnar nerve, left uppe r limb Reinaldo Mendoza M.D. 12/08/2020 E11.42 Type 2 diabetes mellitus with di abetic polyneuropathy Reinaldo Mendoza M.D. 12/08/2020 G56.03 Carpal tunnel syndrome, bilatera l upper limbs Reinaldo Mendoza M.D. 12/08/2020 M54.2 Cervicalgia Reinaldo Mendoza M.D. 12/08/2020 M43.02 Spondylolysis, cervical region M henry Mendoza M.D. 12/08/2020 M54.5 Low back pain Reinaldo Mendoza M.D. 12/08/2020 M43.06 Spondylolysis, lumbar region Kassie Mendoza M.D. Plan of Treatment Future Appointment(s):* 08/11/2021 11:00 am - Reinaldo Mendoza M.D. at Main office - [place] Functional Status Description No Information Available Mental Status Description No Information Available Referrals Description No Information Available
--- OUTSIDE RECORDS SUMMARY | 2021-04-04 17:56 | CCD ---
Author Author [facility] Organization [facility] Address Unknown Phone Unavailable Care Team Providers Care Marketing Rotation Associate Name Role Phone Monica Bateman Unavailable PROBLEMS Type Condition ICD9-CM Code VAT94-NB Code Onset Dates Condition S tatus W/U Status Risk SNOMED Code Notes Problem Chronic diastolic congestive heart failure I50.32 Active confirmed 956350431 Problem Type 2 diabetes mellitus wit hout complication, without long-term current use of insulin E11.9 Active confirmed 213858841 Problem ALANIS (obstructive sleep apnea) G47.33 Active confirm ed 51230292 Problem Neuropathy G62.9 Active confirmed 307639270 Problem Attention deficit hyperactiv ity disorder (ADHD), predominantly inattentive type F90.0 Active confirmed 10058848 Problem Generalized anxiety disorder F41.1 Active confirme d 13134129 Problem Type 2 diabetes mellitus wit h diabetic neuropathy, without long-term current use of insulin E11.40 Active confirmed 6632765 6 Problem Congestive heart failure, unspecified I50.9 Ac tive confirmed 36215908 Problem Memory difficulties R41.3 Active confirmed 597552640 Problem Moderately severe depression F32.2 Active confirme d 679110109 Problem Malignant neoplasm of unspecified site of left female breast C50.912 Active confirmed 719477614 Problem Seroma of breast N64.89 Active confirmed 297 504591 Problem 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 Active confirmed 03394507 Problem Venous stasis dermatitis of both lower extremities I87.2 Active confirmed 92420556 Problem Cardiomegaly I51.7 Active confirmed 0193787 Problem Invasive lobular carcinoma of left breast in female C50.912 Active confirmed 7422631033276511 Problem Overflow incontinence N39.490 Active confirmed 042343503 Problem Recurrent falls R29.6 Active confirmed 2799 97652 Problem Chronic venous hypertension (idiopathic) with ulcer of left lower extremity I87.312 Active confirmed 047895389806402 Problem Bipolar 1 disorder, depressed, partial remission F 31.75 Active confirmed 73804748 Problem Wheelchair bound Z99.3 Active confirmed 225 136536 Problem 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 L97.819 Active confirmed Problem Congestive heart failure, un specified HF chronicity, unspecified heart failure type I50.9 Active confirmed 17394413 Problem Invasive lobular carcinoma of breast in female C50 .919 Active confirmed 997202704 Problem 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 Active confirmed 07385145 Problem Elevated CA 19-9 level R97.8 Active confirmed 00980824880634536 Problem Difficulty sleeping G47.9 Active confirmed 477507450 Problem Slow transit constipation K59.01 Active confirmed 37997166 ALLERGIES Allergen (clinical drug ingredient) Drug/Non Drug Allergy do cumented on EMR Reaction Allergy Type Onset Date Status gabapentin Gabapentin Unknown Drug Allergy Active atorvastatin Atorvastatin Calcium([facility] Code:[address]-58) Unknown Drug Allergy Active clonidine Clonidine HCl(ND Code:[address]-38) Unknown Drug Chris rgy Active ENCOUNTERS from 1945 to 2021-02-15 Encounter Location Date Provider Diagnosis [facility] [address] [facility] [phone] [place] [address] Feb, Monica Bateman Chronic venous hypertension (idiopathic) with ulcer of left lower extremity I87.312 ; Non-pressure chronic ulcer of other part of left lower leg with fat layer exposed L97.822 and Non-pressure chronic ulcer of other part of right lower leg with unspecified severity L97.819 IMMUNIZATIONS Vaccine Route Administration Date Status Influenza [...] School Language: Question Answer Notes Languages spoken: Kittitian Buddhism: Question Answer Notes Buddhism No mandaeism beliefs that would impact health care. Sexual [...] REASON FOR REFERRAL No Information VITAL SIGNS Weight 261 lbs Feb, Weight-kg 118.39 kg Feb, Height 65 in Feb, BMI 43.43 kg/m2 Feb, Heart Rate 78 /min Feb, Respiratory Rate 20 /min Feb, Temperature 97.1 degrees Fahrenheit Feb, Oximetry 95 Feb, Blood pressure systolic 178 mm Hg Feb, Blood pressure diastolic 83 mm Hg Feb, MEDICATIONS Medication SIG (Take, Route, Frequency, Duration) [...] MOUTH @8AM for 28 Active FreeStyle Genoveva [place] - as directed _ tid for 999 [...] tablet Orally Once a day Active PROCEDURES from 1945 to 2021-02-15 Procedure Date Ordered Result Body Site Medication: 4% Lidocaine topical cream (Anecream) 5gm 2021-02-14 N/A RESULTS No Results REASON FOR VISIT Bilateral Lower Legs MEDICAL (GENERAL) HISTORY Type Description Date Medical [...] No Information FUNCTIONAL STATUS No Information ASSESSMENTS Encounter Date Diagnosis Assessment Notes Treatment Notes Treatm ent Clinical Notes Feb, Chronic venous hypertension (idiopathic) with ulcer of left lower extremity (ICD-10 - I87.312) Dressing changes 3x a week. The dressing should follow those documented in the procedure note Feb, 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 layer exposed (ICD-10 - L97.822) Feb, 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 (ICD-10 - L97.819) PLAN OF TREATMENT Treatment Notes Assessment Notes Clinical Notes Chronic venous hypertension (idiopathic) with ulcer of left lower extremity Dressing changes 3x a week. The dressing should follow those documented in the procedure note Next Appt Details prn Reason: Provider Name:Kirill Tovar, 2021-02-17 03:0 0:00 PM, [address] [place] [address] , [place], [address] Provider Name:Arabella Hendrickson, 2021-05-27 02:00:00 PM, [address] [place] [address] , [place], [place], [facility] [phone] Insurance Providers Payer Name Payer Address Payer Phone Insured Name Patient Relati onship to Insured Coverage Start Date Coverage End Date [employer] [id number] [facility] [id number] TEODORA RUSSELL self
--- OUTSIDE RECORDS SUMMARY | 2021-04-04 17:56 | CCD ---
Author Author [facility] Organization [facility] Address Unknown Phone Unavailable Care Team Providers Care Jewelry Store Manager Name Role Phone Kirill Tovar Unavailable PROBLEMS Type Condition ICD9-CM Code [id number] Code Onset Dates Condition S tatus W/U Status Risk SNOMED Code Notes Problem Chronic diastolic congestive heart failure I50.32 Active confirmed 235816763 Problem Type 2 diabetes mellitus wit hout complication, without long-term current use of insulin E11.9 Active confirmed 936081649 Problem ALANIS (obstructive sleep apnea) G47.33 Active confirm ed 12602417 Problem Neuropathy G62.9 Active confirmed 220796328 Problem Attention deficit hyperactiv ity disorder (ADHD), predominantly inattentive type F90.0 Active confirmed 87650870 Problem Generalized anxiety disorder F41.1 Active confirme d 97692980 Problem Type 2 diabetes mellitus wit h diabetic neuropathy, without long-term current use of insulin E11.40 Active confirmed 3204731 6 Problem Congestive heart failure, unspecified I50.9 Ac tive confirmed 09540947 Problem Memory difficulties R41.3 Active confirmed 117760454 Problem Moderately severe depression F32.2 Active confirme d 409983241 Problem Malignant neoplasm of unspecified site of left female breast C50.912 Active confirmed 312196861 Problem Seroma of breast N64.89 Active confirmed 297 480004 Problem 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 Active confirmed 98157302 Problem Venous stasis dermatitis of both lower extremities I87.2 Active confirmed 72308415 Problem Cardiomegaly I51.7 Active confirmed 5111063 Problem Invasive lobular carcinoma of left breast in female C50.912 Active confirmed 2050222872189895 Problem Overflow incontinence N39.490 Active confirmed 519687579 Problem Recurrent falls R29.6 Active confirmed 2799 23645 Problem Chronic venous hypertension (idiopathic) with ulcer of left lower extremity I87.312 Active confirmed 427229109123873 Problem Bipolar 1 disorder, depressed, partial remission F 31.75 Active confirmed 02124777 Problem Wheelchair bound Z99.3 Active confirmed 225 908828 Problem 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 L97.819 Active confirmed Problem Congestive heart failure, un specified HF chronicity, unspecified heart failure type I50.9 Active confirmed 43596371 Problem Invasive lobular carcinoma of breast in female C50 .919 Active confirmed 085637165 Problem 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 Active confirmed 90608136 Problem Elevated CA 19-9 level R97.8 Active confirmed 36419656940654044 Problem Difficulty sleeping G47.9 Active confirmed 744370204 Problem Slow transit constipation K59.01 Active confirmed 82469877 ALLERGIES Allergen (clinical drug ingredient) Drug/Non Drug Allergy do cumented on EMR Reaction Allergy Type Onset Date Status atorvastatin Atorvastatin Calcium(NDC Code:[address]-87) Unknown Drug Allergy Active gabapentin Gabapentin(NDC Code:[address]-18) Unknown Drug Allergy Active clonidine Clonidine HCl(NDC Code:[address]-68) Unknown Drug Chris rgy Active ENCOUNTERS from 1945 to 2021-03-01 Encounter Location Date Provider Diagnosis [address] [phone] [place] [address] Feb, Kirill Tovar Bipolar 1 disorder, depresse d, partial remission F31.75 ; Attention deficit hyperactivity disorder (ADHD), predominantly inattentive type F90.0 and Generalized anxiety disorder F41.1 IMMUNIZATIONS Vaccine Route Administration Date Status Influenza [...] School Language: Question Answer Notes Languages spoken: Arabic Alevism: Question Answer Notes Alevism No restoration beliefs that would impact health care. Sexual [...] for 30 day(s ) Active FreeStyle Genoveva [place] - as directed _ tid for 999 [...] Information RESULTS No Results REASON FOR VISIT TS FOLLOW UP MEDICAL (GENERAL) HISTORY Type Description Date Medical [...] Treatment Notes Treatm ent Clinical Notes Feb, Bipolar 1 disorder, depressed, partial r emission (ICD-10 - F31.75) Feb, Attention deficit hyperactiv ity disorder (ADHD), predominantly inattentive type (ICD-10 - F90.0) Feb, Generalized anxiety disorder (ICD-10 - F41.1) Utilized CBT to review a challenging irrational thoughts technique for decreasing her symptoms of anxiety. Reji arrived on time for her appointment and actively engaged throughout her session. Reji was responsive to the CBT challenging irrational thoughts for decreasing her symptoms of anxiety. Reji reports that she has been feeling anxious because she has come to the realization that she needs to live in an assisted living facility. Reji agreed to utilize the technique that we discussed and will return for psychotherapy 03/15/2021. Reji is aware to call for a sooner appointment if needed and to utilize the ED for MH emergencies. PLAN OF TREATMENT Medication Medication Name Sig Start Date Stop Date Januvia 25 MG TAKE ONE TABLET BY MOUTH @8AM for 28 Carvedilol 3.125 MG TAKE ONE TABLET BY MOUTH @8A M and TAKE ONE TABLET @8PM for 28 Treatment Notes Assessment Notes Clinical Notes Generalized anxiety disorder Utilized CB T to review a challenging irrational thoughts technique for decreasing her symptoms of anxiety. Reji arrived on time for her appointment and actively engaged throughout her session. Reji was responsive to the CBT challenging irrational thoughts for decreasing her symptoms of anxiety. Reji reports that she has been feeling anxious because she has come to the realization that she needs to live in an assisted living facility. Reji agreed to utilize the technique that we discussed and will return for psychotherapy 03/15/2021. Rjei is aware to call for a sooner appointment if needed and to utilize the ED for MH emergencies. Next Appt Details Provider Name:Kirill Tovar, 2021-03-15 03:0 0:00 PM, [address] [place] [address], , [place], [address] Provider Name:Arabella Hendrickson, 2021-05-27 02:00:00 PM, [address] [place] [address], , [place], [address], Insurance Providers Payer Name Payer Address Payer Phone Insured Name Patient Relati onship to Insured Coverage Start Date Coverage End Date [employer] [address] [facility] [phone] REJI RUSSELL self
--- OUTSIDE RECORDS SUMMARY | 2021-04-04 17:56 | CCD ---
Author Author [facility] Organization [facility] Address Unknown Phone Unavailable Care Team Providers Care Metal Casting Trades Worker Name Role Phone Monica Bateman Unavailable PROBLEMS Type Condition ICD9-CM Code [id number] Code Onset Dates Condition S tatus W/U Status Risk SNOMED Code Notes Problem Chronic diastolic congestive heart failure I50.32 Active confirmed 974590957 Problem Type 2 diabetes mellitus wit hout complication, without long-term current use of insulin E11.9 Active confirmed 669092302 Problem ALANIS (obstructive sleep apnea) G47.33 Active confirm ed 96919156 Problem Neuropathy G62.9 Active confirmed 039247313 Problem Attention deficit hyperactiv ity disorder (ADHD), predominantly inattentive type F90.0 Active confirmed 46335062 Problem Generalized anxiety disorder F41.1 Active confirme d 18696879 Problem Type 2 diabetes mellitus wit h diabetic neuropathy, without long-term current use of insulin E11.40 Active confirmed 0588233 6 Problem Congestive heart failure, unspecified I50.9 Ac tive confirmed 06299300 Problem Memory difficulties R41.3 Active confirmed 835097972 Problem Moderately severe depression F32.2 Active confirme d 991439970 Problem Malignant neoplasm of unspecified site of left female breast C50.912 Active confirmed 282555618 Problem Seroma of breast N64.89 Active confirmed 297 331828 Problem 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 Active confirmed 49936886 Problem Venous stasis dermatitis of both lower extremities I87.2 Active confirmed 87454621 Problem Cardiomegaly I51.7 Active confirmed 9820049 Problem Invasive lobular carcinoma of left breast in female C50.912 Active confirmed 6319163563754639 Problem Overflow incontinence N39.490 Active confirmed 621016762 Problem Recurrent falls R29.6 Active confirmed 2799 20144 Problem Chronic venous hypertension (idiopathic) with ulcer of left lower extremity I87.312 Active confirmed 643914298646306 Problem Bipolar 1 disorder, depressed, partial remission F 31.75 Active confirmed 58364976 Problem Wheelchair bound Z99.3 Active confirmed 225 987558 Problem 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 L97.819 Active confirmed Problem Congestive heart failure, un specified HF chronicity, unspecified heart failure type I50.9 Active confirmed 37427987 Problem Invasive lobular carcinoma of breast in female C50 .919 Active confirmed 799049976 Problem 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 Active confirmed 89422872 Problem Elevated CA 19-9 level R97.8 Active confirmed 59266363303640023 Problem Difficulty sleeping G47.9 Active confirmed 802795898 Problem Slow transit constipation K59.01 Active confirmed 22096355 ALLERGIES Allergen (clinical drug ingredient) Drug/Non Drug Allergy do cumented on EMR Reaction Allergy Type Onset Date Status atorvastatin Atorvastatin Calcium(ND Code:[address]-16) Unknown Drug Allergy Active gabapentin Gabapentin(ND Code:[address]-49) Unknown Drug Allergy Active clonidine Clonidine HCl(ND Code:[address]-11) Unknown Drug Chris rgy Active ENCOUNTERS from 1945 to 2021-03-04 Encounter Location Date Provider Diagnosis [facility] [address] [facility] [phone] [place] [address] Feb, Monica Bateman IMMUNIZATIONS Vaccine Route Administration [...] School Language: Question Answer Notes Languages spoken: Setswana Sabianist: Question Answer Notes Sabianist No catholic beliefs that would impact health care. Sexual [...] for 30 day(s ) Active FreeStyle Genoveva [place] - as directed _ tid for 999 [...] Information RESULTS No Results REASON FOR VISIT Needs call back from office MEDICAL (GENERAL) HISTORY Type Description Date Medical [...] Provider Name:Kirill Tovar, 2021-03-15 03:0 0:00 PM, [address] [place] [address], , [place], [address] Provider Name:Arabella Hendrickson, 2021-05-27 02:00:00 PM, [address] [place] [address], , [place], [address], Insurance Providers Payer Name Payer Address Payer Phone Insured Name Patient Relati onship to Insured Coverage Start Date Coverage End Date [employer] [facility] [address] [facility] [phone] TEODORA RUSSELL self
--- OUTSIDE RECORDS SUMMARY | 2021-04-04 17:56 | CCD ---
Author Author [facility] Organization [facility] Address Unknown Phone Unavailable Care Team Providers Care Movie Critic Name Role Phone Yefri Cotton Unavailable PROBLEMS Type Condition ICD9-CM Code SBT77-NS Code Onset Dates Condition S tatus W/U Status Risk SNOMED Code Notes Problem Chronic diastolic congestive heart failure I50.32 Active confirmed 031950016 Problem Type 2 diabetes mellitus wit hout complication, without long-term current use of insulin E11.9 Active confirmed 494864064 Problem ALANIS (obstructive sleep apnea) G47.33 Active confirm ed 07707714 Problem Neuropathy G62.9 Active confirmed 481874580 Problem Attention deficit hyperactiv ity disorder (ADHD), predominantly inattentive type F90.0 Active confirmed 89991850 Problem Generalized anxiety disorder F41.1 Active confirme d 20026786 Problem Type 2 diabetes mellitus wit h diabetic neuropathy, without long-term current use of insulin E11.40 Active confirmed 3697157 6 Problem Congestive heart failure, unspecified I50.9 Ac tive confirmed 20111443 Problem Memory difficulties R41.3 Active confirmed 239186137 Problem Moderately severe depression F32.2 Active confirme d 025215297 Problem Malignant neoplasm of unspecified site of left female breast C50.912 Active confirmed 740314952 Problem Seroma of breast N64.89 Active confirmed 297 758353 Problem 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 Active confirmed 95965298 Problem Venous stasis dermatitis of both lower extremities I87.2 Active confirmed 67248841 Problem Cardiomegaly I51.7 Active confirmed 5568422 Problem Invasive lobular carcinoma of left breast in female C50.912 Active confirmed 6539578773656894 Problem Overflow incontinence N39.490 Active confirmed 866068082 Problem Recurrent falls R29.6 Active confirmed 2799 94164 Problem Chronic venous hypertension (idiopathic) with ulcer of left lower extremity I87.312 Active confirmed 132486465391210 Problem Bipolar 1 disorder, depressed, partial remission F 31.75 Active confirmed 65670549 Problem Wheelchair bound Z99.3 Active confirmed 225 079231 Problem 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 L97.819 Active confirmed Problem Congestive heart failure, un specified HF chronicity, unspecified heart failure type I50.9 Active confirmed 38542464 Problem Invasive lobular carcinoma of breast in female C50 .919 Active confirmed 282796621 Problem 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 Active confirmed 64394841 Problem Elevated CA 19-9 level R97.8 Active confirmed 54385341694103316 Problem Difficulty sleeping G47.9 Active confirmed 057544770 Problem Slow transit constipation K59.01 Active confirmed 84499244 ALLERGIES Allergen (clinical drug ingredient) Drug/Non Drug Allergy do cumented on EMR Reaction Allergy Type Onset Date Status gabapentin Gabapentin Unknown Drug Allergy Active atorvastatin Atorvastatin Calcium(ND Code:[address]-41) Unknown Drug Allergy Active clonidine Clonidine HCl(NDC Code:[address]-24) Unknown Drug Chris rgy Active ENCOUNTERS from 1945 to 2021-02-15 Encounter Location Date Provider Diagnosis [facility] [place] [address] [facility] [phone] [place] [address] 24 Jan, 2021 Yefri Barkin Neuropathy G62.9 ; R ecurrent falls R29.6 ; Type 2 diabetes mellitus with diabetic neuropathy, without long-term current use of insulin E11.40 ; Chronic diastolic congestive heart failure I50.32 ; Normocytic anemia D64.9 ; Slow transit constipation K59.01 ; Difficulty sleeping G47.9 ; Elevated CA 19-9 level R97.8 ; Invasive lobular carcinoma of breast in female C50.919 and Encounter for preventive care Z00.00 IMMUNIZATIONS Vaccine Route Administration Date Status Influenza [...] School Language: Question Answer Notes Languages spoken: Latvian Yazdanism: Question Answer Notes Yazdanism No pentecostal beliefs that would impact health care. Sexual [...] you a: never smoker REASON FOR REFERRAL from 1945 to 2021-02-15 Reason sleep difficulties w/ concer n for ALANIS, abnormal noc ox 2011 Diagnosis 1 Difficulty sleeping (G47.9) Referral Organization [facility] GME Resident Referring Provider First Name Yefri Referring Provider Last Name Lula Referring Provider Specialty Family Medicine Referred Provider Specialty Pulmonary Diseases Referral Priority Routine VITAL SIGNS Weight 261 lbs Jan, Weight-kg 118.39 kg Jan, Height 65 in Jan, BMI 43.43 kg/m2 Jan, Heart Rate 96 /min Jan, Respiratory Rate 16 /min Jan, Temperature 98.9 degrees Fahrenheit Jan, Oximetry 98% Jan, Blood pressure systolic 138 mm Hg Jan, Blood pressure diastolic 70 mm Hg Jan, MEDICATIONS Medication SIG (Take, Route, Frequency, Duration) [...] MOUTH @8AM for 28 Active FreeStyle Genoveva Dewitt - as directed _ tid for 999 [...] at bedtime Orally Once a day Active Vital InsightStyle Genoveva Sensor System - as directed intraderma lly for 2 weeks for 28 days Active Digest Enzymes-Anticholinergic Active Escitalopram Oxalate 10 MG 1 tablet Orally Once a day Active PROCEDURES No Information RESULTS Component Value Reference Range FERRITIN Reviewed date:02/07/2021 13:18:57 Interpretation:WNL Performing Lab:[facility], [facility] [address] [facility] [address] , ,[place] [address] FERRITIN 225 8-252 TOTAL IRON BINDING CAPACIT Reviewed date:02/07/2021 13:19:32 Interpretation: Performing Lab:[facility], [facility] [address] [facility] [address] , ,[id number] IRON (FE) 55 50-170 TOTAL IRON BINDING CAPACITY 240 250-450 PERCENT SATURATION 22.9 13.2-45.0 REASON FOR VISIT f/u falls MEDICAL (GENERAL) HISTORY Type Description Date Medical [...] Notes Treatment Notes Treatm ent Clinical Notes Jan, Neuropathy (ICD-10 - G62.9) Follows with neurology, Dr. 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 She is scheduled to follow up with them soon, outside of symptomatic care and getting her diabetes under better control she may also benefit from orthopedic surgical intervention given her ulnar nerve compression as it seems to be affecting her dexterity with using her finger tips. Patient would like to hold off on anything further for the time being. Jan, Recurrent falls (ICD-10 - R29.6) Reduced since moving bed, [facility] home health referral has been sent out. Patient in agreement with plan moving forward. She is continued on amitryptiline. Neurology advised that given her LE edema not to start her on lyrica/neurontin. Patient has been doing well since moving her bed downstairs to the main floor. Patient in agreement with plan moving forward. Jan, Type 2 diabetes mellitus wit h diabetic neuropathy, without long- term current use of insulin (ICD-10 - E11.40) Unless I change her Januvia to a GLP1 their are few options I can prescribe that will meaningfully help her diabetes if she will not do fingersticks. She needs to be on insulin, will send again for Proven genoveva device and call pharmacy to inform them she plans to pay out of pocket for this, once I know she has this device will start her on insulin to achieve better glycemic control. Goal A1C of 8% given her age and comorbid conditions. Patient in agreement with plan moving forward. Unable to tolerate statin therapy due to myalgias She is UTD with her foot exams Will need ophtho referral UTD with A1C (10.2), microalbumin (she follows with Dr. Hernandez) Jan, Chronic diastolic congestive heart failure (ICD- 10 - I50.32) No changes to her medications at most recent cardiology visit. Lab work from 02/02/2021 showing Na of 135 improved from October with normal K and Cr of 1.6 which is baseline for her. We discussed low sodium diet and to continue trying to get the татьяна fram so she could wear compression stockings to help with her LE edeam. Patient in agreement with plan moving forward. Jan, Normocytic anemia (ICD-10 - D64.9) CBC demonstrating normocytic anemia, patient denies any episodes of bleeding, I suspect it will likely show an anemia of chronic disease picture. Patient in agreement with plan moving forward. Jan, Slow transit constipation (ICD-10 - K59.01) Constipation-She states she has been more constipated recently. She currently is taking docusate sodium over the counter TID and dulcolax once daily. Jan, Difficulty sleeping (ICD-10 - G47.9) Will resend referral for pulmonary so they can evaluate for ALANIS, hx of abnormal noc ox in 2011. Patient in agreement with plan moving forward. Jan, Elevated CA 19-9 level (ICD-10 - R97.8) Lab work ordered revealing elevated level, findings discussed with patient and what we would be looking for on CT scan scheduled for 02/10, patient comfortable with plan moving forward and will follow up with Dr. Washington's office for same. Jan, Invasive lobular carcinoma of breast in female (ICD-10 - C50.919) Continues with chemotherapy under Dr. Washington's guidance s/p resection. Jan, Encounter for preventive care (ICD-10 - Z00.00) We did not spend any meaningful time discussing this and have had scant time to do so in the past as a result of her having many episodes of acute on chronic medical conditions, next visit she needs to be brought up to date with her preventive care screenings Breast cancer screenings-Follows with Dr. Hernandez for her breast cancer Colon cancer screening-Declines CRC screening. Risks explained. She verbalized understanding and agreement. Cervical cancer screening- Aged out. Lung cancer screening Non smoker Needs flu vaccine this year, shingles, TDaP, COVID vaccine Wheelchair bound currently due to neuropathy but has never had osteoporosis screening. PLAN OF TREATMENT Treatment Notes Assessment Notes Clinical Notes Neuropathy Follows with neurolo alee, Dr. 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 She is scheduled to follow up with them soon, outside of symptomatic care and getting her diabetes under better control she may also benefit from orthopedic surgical intervention given her ulnar nerve compression as it seems to be affecting her dexterity with using her finger tips . Patient would like to hold off on anything further for the time being. Recurrent falls Reduced since moving bed, [facility] home health referral has been sent out. Patient in agreement with plan moving forward. She is continued on amitryptiline. Neurology advised that given her LE edema not to start her on lyrica/neurontin. Patient has been doing well since moving her bed downstairs to the main floor. Patient in agreement with plan moving forward. Type 2 diabetes mellitus with diabetic n europathy, without long-term current use of insulin Unless I change her Januvia to a GLP1 their are few options I can prescribe that will meaningfully help her diabetes if she will not do fingersticks. She needs to be on insulin, will send again for freestyle genoveva device and call pharmacy to inform them she plans to pay out of pocket for this, once I know she has this device will start her on insulin to achieve better glycemic control. Goal A1C of 8% given her age and comorbid conditions. Patient in agreement with plan moving forward.Unable to tolerate statin therapy due to myalgiasShe is UTD with her foot examsWill need ophtho referralUTD with A1C (10.2), microalbumin (she follows with Dr. Hernandez) Chronic diastolic congestive heart failure No changes to her medications at most recent cardiology visit. Lab work from 02/02/2021 showing Na of 135 improved from October with normal K and Cr of 1.6 which is baseline for her. We discussed low sodium diet and to continue trying to get the [employer] fram so she could wear compression stockings to help with her LE edeam. Patient in agreement with plan moving forward. Normocytic anemia CBC demonstrating no rmocytic anemia, patient denies any episodes of bleeding, I suspect it will likely show an anemia of chronic disease picture. Patient in agreement with plan moving forward. Slow transit constipation Constipation-S he states she has been more constipated recently. She currently is taking docusate sodium over the counter TID and dulcolax once daily. Difficulty sleeping Will resend referral for pulmonary so they can evaluate for ALANIS, hx of abnormal noc ox in 2011. Patient in agreement with plan moving forward. Elevated CA 19-9 level Lab work ordered revealing elevated level, findings discussed with patient and what we would be looking for on CT scan scheduled for 02/10, patient comfortable with plan moving forward and will follow up with Dr. Washington's office for same. Invasive lobular carcinoma of breast in female Continues with chemotherapy under Dr. Washington's guidance s/p resection. Encounter for preventive care We did not spend any meaningful time discussing this and have had scant time to do so in the past as a result of her having many episodes of acute on chronic medical conditions, next visit she needs to be brought up to date with her preventive care screeningsBreast cancer screenings- Follows with Dr. Hernandez for her breast cancerColon cancer screening-Declines CRC screening. Risks explained. She verbalized understanding and agreement.Cervical cancer screening- Aged out.Lung cancer screeningNon smokerNeeds flu vaccine this year, shingles, TDaP, COVID vaccineWheelchair bound currently due to neuropathy but has never had osteoporosis screening. Treatment Notes Test Name Order Date IRON (FE) 2021-02-04 Referrals Referral Date Details sleep difficulties w/ concer n for ALANIS, abnormal noc ox 2011 Next Appt Details 3 Months Reason:f/u Provider Name:Kirill Tovar, 2021-02-17 03:0 0:00 PM, [address] [place] [address], , [place], [address] Provider Name:Arabella Hendrickson, 2021-05-27 02:00:00 PM, [address] [place] [address], , [place], [address], Follow Up:3 Monthsf/u Insurance Providers Payer Name Payer Address Payer Phone Insured Name Patient Relati onship to Insured Coverage Start Date Coverage End Date [employer] [address] [facility] [phone] [phone] TEODORA RUSSELL self
--- OUTSIDE RECORDS SUMMARY | 2021-04-04 17:56 | CCD | Continuity of Care Document ---
Author Author Reji PEACE DPM Organization Unknown Address [address] [place] [address], [address] [place] [id number] Phone [phone] Care Team Providers Care Community Engagement Representative Name Role Phone Job Alexander DO AUTM [phone] Problems Active Problems Provider Date Edema Yonathan Peace DPM Onset: 06/22/2020 Pronation Yonathan Peace DPM Onset: 06/22/2020 Abnormal gait Yonathan Peace DPM Onset: 06/22/2020 Type 2 diabetes mellitus Yonathan Peace DPM Onset: 021 Onychomycosis Yonathan Peace DPM Onset: 09/08/2020 Social History Type Date Description Comments Sex Unknown ETOH Use Denies alcohol use Tobacco Use Start: Unknown Patient has never smoked Grew up near smoker Allergies and adverse reactions Active Allergies Criticality Reaction | Severity Comments Date Atorvastatin Calcium Unable to assess criticality 06/22/2020 Gabapentin Unable to assess criticality 06/22/2020 Clonidine Unable to assess criticality 06/22/2020 Demerol Unable to assess criticality 06/22/2020 Medications Active Medications SIG Qnty Indications Ordering Provide r Date Sulfamethoxazole/Trimethoprim DS 800-160mg Tablets Unknown Prodigy Autocode Blood Glucose Monitorin g System w/Device Kit Use as Directed Once Daily Unkno wn Embrace Lancets Ultra Thin 30G Thin 30G Misc Use as Directed Once Daily as Directed Un known Tramadol HCL 50mg Tablets MD Saritha Poole Ciprofloxacin HCL 500mg Tablets Take One Tablet By Mouth Once Daily Unknown Lidocaine-Prilocaine 2.5-2.5% Crea m Apply Entire Tube To Left Nipple And Surrounding BREASt Two Hours Before Coming To Hospital Then Cover With Plastic Cone Unknown Nitrofurantoin Monohyd Macro 100mg Capsules Unknown Metformin HCL ER 500mg Tablets ER 24HR Unknown Ondansetron 4mg Tablets Dispers Unknown Prodigy No Coding Blood Glucose Test Str ips Strips Use as Directed Once Daily as Directed Un known Lisinopril 2.5mg Tablets Take One Tablet By Mouth @8Am Unknown Gabapentin 100mg Capsules Take Two Capsules By Mouth Three Times Daily as Needed For Pain Unknown Torsemide 10mg Tablets Take One Tablet By Mouth @8Am and Take One Tablet @8PM Unknown Lisinopril 5mg Tablets Take 1/2 Tablet By Mouth Once Daily Unknown Amlodipine Besylate 10mg Tablets Take One Tablet By Mouth Once Daily Unknown Levofloxacin 750mg Tablets Unknown Carvedilol 12.5mg Tablets Take One Tablet By Mouth Twice Daily Unknown Lisinopril 10mg Tablets Gilbert Epps MD Januvia 25mg Tablets Take One Tablet By Mouth @8Am Unknown Amitriptyline HCL 25mg Tablets Unknown Carvedilol 3.125mg Tablets Unknown Escitalopram Oxalate 10mg Tablets Unknown Januvia 25mg Tablets Unknown Torsemide 20mg Tablets Miguel Hernandez DO Clindamycin HCL 150mg Capsules Unknown Torsemide 20mg Tablets Take Two Tablets By Mouth @8Am and Take Two Tablets By Mouth @8PM Un known Cephalexin 500mg Capsules Take One Capsule By Mouth Every 6 Hours For 5 Days Unknown Amiloride HCL 5mg Tablets Gilbert Epps MD Magnesium Oxide 400mg Tablets Take One Tablet By Mouth Every Other Day @8Am Unknown Escitalopram Oxalate 10mg Tablets Take One Tablet By Mouth @8Am Unknown Carvedilol 3.125mg Tablets Take One Tablet By Mouth @8Am and Take One Tablet @8PM Unknown Amiloride HCL 5mg Tablets Take One Tablet By Mouth @5PM Unknown D-2000 Maximum Strength 50mcg (2000 Ut) Tablets Take One Capsule By Mouth @5PM Unknown Amitriptyline HCL 25mg Tablets Take One Tablet By Mouth @8PM Unknown Amlodipine Besylate 5mg Tablets Jorge Perez MD Triamcinolone Acetonide 0.1% Cream Jorge Perez MD Immunizations Description No Information Available Vital Signs Date Vital Result Comment 06/22/2020 10:15am Height 65 inches 5'5" Weight 259.00 lb BP Systolic 132 mmHg BP Diastolic 74 mmHg Heart Rate 89 /min BMI (Body Mass Index) 43.1 kg/m2 Results Description No Information Available Procedures Date Code Description Status 02/01/2021 60566 Debridement 6-10 Nails Electric Completed 11/23/2020 20715 Office/Outpatient Established SF MDM 10-19 Min Completed 10/29/2020 91235 Office/Outpatient Established SF MDM 10-19 Min Completed 08/27/2020 51574 Office/Outpatient Established SF MDM 10-19 Min Completed Medical Devices Description No Information Available Encounters Type Date Location Provider Dx Diagnosis Office Visit 11/23/2020 2:15p [facility] Yonathan Peace DPM R60.0 Localized edema M79.673 Pain in unspecified foot E11.9 Type 2 diabetes mellitus wit hout complications Office Visit 10/29/2020 11:00a [facility] Yonathan Peace DPM B35.1 Tinea unguium R60.0 Localized edema E11.9 Type 2 diabetes mellitus wit hout complications Office Visit 08/27/2020 11:00a [facility] Yonathan Peace DPM B35.1 Tinea unguium R60.0 Localized edema E11.9 Type 2 diabetes mellitus wit hout complications Assessments Date Code Description Provider 02/01/2021 B35.1 Tinea unguium Yonathan Peace DPM 02/01/2021 L60.0 Ingrowing nail Yonathan Peace DPM 02/01/2021 M79.676 Pain in unspecified toe(s) Mendel Peace, DPM 02/01/2021 E11.9 Type 2 diabetes mellitus without complications Yonathan Peace, LUDWIGM 11/23/2020 R60.0 Localized edema Yonathan Peace, DPM 11/23/2020 M79.673 Pain in unspecified foot Yonathan Paece, LUDWIGM 11/23/2020 E11.9 Type 2 diabetes mellitus without complications Yonathan Peace, LUDWIGM 10/29/2020 B35.1 Tinea unguium Yonathan Peace, DPM 10/29/2020 R60.0 Localized edema Yonathan Peace, DPM 10/29/2020 E11.9 Type 2 diabetes mellitus without complications Yonathan Peace, LUDWIGM 08/27/2020 B35.1 Tinea unguium Yonathan Peace, DPM 08/27/2020 R60.0 Localized edema Yonathan Peace, DPM 08/27/2020 E11.9 Type 2 diabetes mellitus without complications Yonathan Peace DPM Plan of Treatment Future Appointment(s):* 04/15/2021 2:00 pm - Yonathan Peace DPM at [facility] Functional Status Description No Information Available Mental Status Description No Information Available Referrals Description No Information Available
--- OUTSIDE RECORDS SUMMARY | 2021-04-04 17:56 | CCD | Continuity of Care Document ---
Author Author Reji MENDOZA M.D. Organization Unknown Address [address] [place] [address] Phone [phone] Care Team Providers Care Building Insulation Installer Name Role Phone Yefri Cotton DO AUTM [phone] Problems Active Problems Provider Date Obstructive sleep [...] lb BMI (Body Mass Index) 47.4 kg/m2 [place] Body Weight 130 lb Results Description No Information Available Procedures Date Code Description Status 02/17/2021 67201 Office/Outpatient Established Mo d MDM 30-39 Min Completed 01/18/2021 09010 Nerve Conduction 9-10 Studies Co mpleted 01/18/2021 62340 Needle Electromyography Complete , Five Or More Muscles Studied Completed 01/18/2021 62612 Needle Electromyography Complete , Five Or More Muscles Studied Completed 12/20/2020 29588 Nerve Conduction 9-10 Studies Co mpleted 12/20/2020 42801 Needle Electromyography Complete , Five Or More Muscles Studied Completed 12/20/2020 66841 Needle Electromyography Complete , Five Or More Muscles Studied Completed 12/08/2020 97338 Office/Outpatient New Moderate M DM 45-59 Minutes Completed Medical Devices Description No Information Available Encounters Type Date Location Provider Dx Diagnosis Office Visit 02/17/2021 11:30a Main office - [place] Cirilo Hull G56.03 Carpal tunnel syndrome, bilateral upper limbs G56.23 Lesion of ulnar nerve, bilat eral upper limbs E11.42 Type 2 diabetes mellitus wit h diabetic polyneuropathy M54.2 Cervicalgia M43.02 Spondylolysis, 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 at Main office - [place] Functional Status Description No Information Available Mental Status Description No Information Available Referrals Description No Information Available
--- OUTSIDE RECORDS SUMMARY | 2021-04-04 17:57 | CCD ---
Author Author [facility] Organization [facility] Address Unknown Phone Unavailable Care Team Providers Care Hot Dimpling Machine Operator Name Role Phone Yefri Cotton Unavailable PROBLEMS Type Condition ICD9-CM Code [id number] Code Onset Dates Condition S tatus W/U Status Risk SNOMED Code Notes Problem Generalized anxiety disorder F41.1 Active confirme d 78931992 Problem Attention deficit hyperactiv ity disorder (ADHD), predominantly inattentive type F90.0 Active confirmed 82437463 Problem Wheelchair bound Z99.3 Active confirmed 225 412949 Problem Congestive heart failure, un specified HF chronicity, unspecified heart failure type I50.9 Active confirmed 89915805 Problem Memory difficulties R41.3 Active confirmed 693925410 Problem Invasive lobular carcinoma of breast in female C50 .919 Active confirmed 845895297 Problem Seroma of breast N64.89 Active confirmed 297 371022 Problem Type 2 diabetes mellitus wit hout complication, without long-term current use of insulin E11.9 Active confirmed 185677975 Problem Moderately severe depression F32.2 Active confirme d 442649460 Problem 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 Active confirmed 24753555 Problem Invasive lobular carcinoma of left breast in female C50.912 Active confirmed 9471360117408839 Problem Cardiomegaly I51.7 Active confirmed 1717407 Problem 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 Active confirmed 98792275 Problem Venous stasis dermatitis of both lower extremities I87.2 Active confirmed 47150689 Problem Neuropathy G62.9 Active confirmed 003643594 Problem Chronic venous hypertension (idiopathic) with ulcer of left lower extremity I87.312 Active confirmed 851768393673053 Problem Malignant neoplasm of unspecified site of left female breast C50.912 Active confirmed 502929722 Problem Chronic diastolic congestive heart failure I50.32 Active confirmed 424408922 Problem ALANIS (obstructive sleep apnea) G47.33 Active confirm ed 97012859 Problem Congestive heart failure, unspecified I50.9 Ac tive confirmed 98980755 Problem Overflow incontinence N39.490 Active confirmed 751745755 Problem Type 2 diabetes mellitus wit h diabetic neuropathy, without long-term current use of insulin E11.40 Active confirmed 0807125 6 Problem Recurrent falls R29.6 Active confirmed 2799 81415 ALLERGIES Allergen (clinical drug ingredient) Drug/Non Drug Allergy do cumented on EMR Reaction Allergy Type Onset Date Status gabapentin gabapentin Unknown Non Drug Allergy Active atorvastatin Atorvastatin Calcium([facility] Code:[address]-88) Unknown Drug Allergy Active clonidine Clonidine HCl(ND Code:[address]-06) Unknown Drug Chris rgy Active ENCOUNTERS from 1945 to 2021-01-28 Encounter Location Date Provider Diagnosis [facility] [address] [facility] [phone] [place] [address] Dec, Yefri Lula IMMUNIZATIONS No Information SOCIAL HISTORY Tobacco Use: Social History Observation Description Date Details (start date - stop date) Never Smoker Sex Assigned At : Social History Observation Description Sex Assigned At Unknown Language: Question Answer Notes Languages spoken: Burmese Advent: Question Answer Notes Advent No protestant beliefs that would impact health care. Alcohol Screening: Question Answer Notes Did you have a drink containing alcohol in the past year? No Points 0 Interpretation Negative Tobacco Use: Question Answer Notes Are you a: never smoker REASON FOR REFERRAL No Information VITAL SIGNS No information MEDICATIONS Medication SIG (Take, Route, Frequency, Duration) Notes Start Da te End Date Status Januvia 25 MG TAKE ONE TABLET BY MOUTH @8AM for 28 Active Magnesium Oxide 400 240 MG as directed Orally Active Amitriptyline HCl 25 mg 1/2 tablet at bedtime Orally Once a day Not-Taking Torsemide 20 MG 2 tabs Orally BID Ac tive Coreg 3.125 MG 1 tablet with food Orally Twice a day Active Escitalopram Oxalate 10 MG 1 tablet Orally Once a day Active Carvedilol 3.125 MG TAKE ONE TABLET BY MOUTH @8A M and TAKE ONE TABLET BY MOUTH @8PM for 28 Active Amitriptyline HCl 50 MG 1 tablet at bedtime Orally Once a day Active amLODIPine Besylate 5 MG 1 tablet Orally Once a day Active PROCEDURES No Information RESULTS No Results REASON FOR VISIT referral MEDICAL (GENERAL) HISTORY Type Description Date Medical [...] TREATMENT Next Appt Details Provider Name:Kirill Tovar, 2021-02-02 03:0 0:00 PM, [address] [place] [address], , [place], [address] Provider Name:Yefri Cotton, 2021-02-04 02 :00:00 PM, [address] [place] [address], , [place], [address], Provider Name:Franky Osorio, 01:15:00 PM, [address], , [place], [address], Provider Name:Arabella Hendrickson, 2021-05-27 02:00:00 PM, [address] [place] [address], , [place], [address], Insurance Providers Payer Name Payer Address Payer Phone Insured Name Patient Relati onship to Insured Coverage Start Date Coverage End Date [employer] [address] [facility] [id number] TEODORA RUSSELL self
--- OUTSIDE RECORDS SUMMARY | 2021-04-04 17:57 | CCD | Continuity of Care Document ---
Author Author Reji MENDOZA M.D. Organization Unknown Address [address] [place] [address] Phone [phone] Care Team Providers Care Ampoule Washing Machine Operator Name Role Phone Yefri Cotton DO AUTM [phone] Problems Active Problems Provider Date Obstructive sleep apnea syndrome Reinaldo Mendoza M.D. Onset: 09/13/2016 Neck pain Reinaldo Mendoza M.D. Onset: 09/13/2016 Spondylolysis Reinaldo Mendoza M.D. Onset: 09/13/2016 Spondylolysis of cervical spine Reinaldo Mendoza M.D. Onset: 0 09/13/2016 Low back pain Reinaldo Mendoza M.D. Onset: 09/13/2016 Malaise and fatigue Reinaldo Mendoza M.D. Onset: 09/13/2016 Mixed sensory-motor polyneuropathy Reinaldo Mendoza M.D. Onset : 12/08/2020 Bilateral carpal tunnel syndrome Reinaldo Mendoza M.D. Onset: 12/08/2020 Social History Type Date Description Comments Sex Unknown Tobacco Use Start: Unknown Patient has never smoked Allergies, Adverse Reactions, Alerts Description No Known Drug Allergies Medications Active [...] lb BMI (Body Mass Index) 47.4 kg/m2 [place] Body Weight 130 lb Results Description No Information Available Procedures Date Code Description Status 12/20/2020 33705 Nerve Conduction 9-10 Studies Co mpleted 12/20/2020 81382 Needle Electromyography Complete , Five Or More Muscles Studied Completed 12/20/2020 30471 Needle Electromyography Complete , Five Or More Muscles Studied Completed 12/08/2020 20939 Office/Outpatient New Moderate M DM 45-59 Minutes Completed Medical Devices Description No Information Available Encounters Type Date Location Provider Dx Diagnosis Office Visit 12/08/2020 9:30a Main office - [place] E11.42 Type 2 diabetes mellitus with diabetic polyneuropathy G56.03 Carpal tunnel syndrome, bila teral upper limbs M54.2 Cervicalgia M43.02 Spondylolysis, cervical shawnee on M54.5 Low back pain M43.06 Spondylolysis, lumbar region Assessments Date Code Description Provider 12/20/2020 G56.01 Carpal tunnel syndrome, right up [...] Mendoza M.D. Plan of Treatment Future Appointment(s):* 02/17/2021 11:30 am - Reinaldo Mendoza M.D. at Main office - [place] Functional Status Description No Information Available Mental Status Description No Information Available Referrals Description No Information Available
--- OUTSIDE RECORDS SUMMARY | 2021-04-04 17:57 | CCD ---
Author Author [facility] Organization [facility] Address Unknown Phone Unavailable Care Team Providers Care Wraparound Facilitator Name Role Phone Franky Osorio Unavailable PROBLEMS Type Condition ICD9-CM Code [id number] Code Onset Dates Condition S tatus W/U Status Risk SNOMED Code Notes Problem Type 2 diabetes mellitus wit hout complication, without long-term current use of insulin E11.9 Active confirmed 751496264 Problem Neuropathy G62.9 Active confirmed 209479213 Problem Chronic diastolic congestive heart failure I50.32 Active confirmed 300478786 Problem Invasive lobular carcinoma of left breast in female C50.912 Active confirmed 5205434612723142 Problem 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 Active confirmed 00353723 Problem Wheelchair bound Z99.3 Active confirmed 225 954717 Problem Congestive heart failure, un specified HF chronicity, unspecified heart failure type I50.9 Active confirmed 09866493 Problem Memory difficulties R41.3 Active confirmed 919698198 Problem Invasive lobular carcinoma of breast in female C50 .919 Active confirmed 004699039 Problem Seroma of breast N64.89 Active confirmed 297 893121 Problem Moderately severe depression F32.2 Active confirme d 745229067 Problem Venous stasis dermatitis of both lower extremities I87.2 Active confirmed 99997001 Problem Malignant neoplasm of unspecified site of left female breast C50.912 Active confirmed 682485192 Problem Congestive heart failure, unspecified I50.9 Ac tive confirmed 50154300 Problem Cardiomegaly I51.7 Active confirmed 9584681 Problem Overflow incontinence N39.490 Active confirmed 824588841 Problem Bipolar 1 disorder, depressed, partial remission F 31.75 Active confirmed 50511340 Problem Generalized anxiety disorder F41.1 Active confirme d 51767594 Problem 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 L97.819 Active confirmed Problem ALANIS (obstructive sleep apnea) G47.33 Active confirm ed 41301680 Problem Attention deficit hyperactiv ity disorder (ADHD), predominantly inattentive type F90.0 Active confirmed 97507373 Problem Type 2 diabetes mellitus wit h diabetic neuropathy, without long-term current use of insulin E11.40 Active confirmed 1426007 6 Problem Recurrent falls R29.6 Active confirmed 2799 13239 Problem Chronic venous hypertension (idiopathic) with ulcer of left lower extremity I87.312 Active confirmed 763587455373480 Problem 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 Active confirmed 59327660 ALLERGIES Allergen (clinical drug ingredient) Drug/Non Drug Allergy do cumented on EMR Reaction Allergy Type Onset Date Status gabapentin gabapentin Unknown Non Drug Allergy Active atorvastatin Atorvastatin Calcium([facility] Code:[address]-47) Unknown Drug Allergy Active clonidine Clonidine HCl([facility] Code:[address]-94) Unknown Drug Chris rgy Active ENCOUNTERS from 1945 to 2021-02-08 Encounter Location Date Provider Diagnosis [facility] [address] [facility] [phone] [place] [address] Jan, Franky Osorio Chronic venous hypertension (idiopathic) with ulcer of left lower extremity I87.312 ; Non-pressure chronic ulcer of other part of left lower leg with fat layer exposed L97.822 and Non-pressure chronic ulcer of other part of right lower leg with unspecified severity L97.819 IMMUNIZATIONS No Information SOCIAL HISTORY Tobacco Use: Social History Observation Description Date Details (start date - stop date) Never Smoker Sex Assigned At : Social History Observation Description Sex Assigned At Unknown Education: Question Answer Notes Level of Education: Finished High School Language: Question Answer Notes Languages spoken: Turkmen Synagogue: Question Answer Notes Synagogue No baptism beliefs that would impact health care. Sexual [...] No Information VITAL SIGNS Weight 261 lbs Jan, Height 65 in Jan, BMI 43.43 kg/m2 Jan, Heart Rate 92 /min Jan, Respiratory Rate 20 /min Jan, Temperature 98.4 degrees Fahrenheit Jan, Oximetry 97 Jan, Blood pressure systolic 161 mm Hg Jan, Blood pressure diastolic 77 mm Hg Jan, MEDICATIONS Medication SIG (Take, Route, Frequency, Duration) Notes Start Da te End Date Status Torsemide 20 MG 2 tabs Orally BID Ac tive Coreg 3.125 MG 1 tablet with food Orally Twice a day Active Carvedilol 3.125 MG TAKE ONE TABLET BY MOUTH @8A M and TAKE ONE TABLET BY MOUTH @8PM for Active Escitalopram Oxalate 10 MG 1 tablet Orally Once a day Active Amitriptyline HCl 50 MG 1 tablet at bedtime Orally Once a day Active amLODIPine Besylate 5 MG 1 tablet Orally Once a day Active Digest Enzymes-Anticholinergic Active Melatonin 5 MG 1 tablet in the evening Orally Once a day for 30 day(s ) Active FreeStyle Genoveva Sensor System - as directed intraderma lly for 2 weeks for 28 days Active Januvia 25 MG as directed Orally Once a day Active Magnesium Oxide 400 240 MG as directed Orally Active Amitriptyline HCl 25 mg 1/2 tablet at bedtime Orally Once a day Active Januvia 25 MG TAKE ONE TABLET BY MOUTH @8AM for 28 Active FreeStyle Genoveva Homer - as directed _ tid for 999 days Active aMILoride HCl 5 MG 1 tablet with food Orally Once a day Active PROCEDURES from 1945 to 2021-02-08 Procedure Date Ordered Result Body Site Medication: 4% Lidocaine topical cream (Anecream) 5gm 2021-02-07 N/A RESULTS No Results REASON FOR VISIT [...] Treatment Notes Treatm ent Clinical Notes Jan, Chronic venous hypertension (idiopathic) with ulcer of left lower extremity (ICD-10 - I87.312) IAnnette, documented the above order acting as a scribe for Dr. Osorio. I have reviewed the above order, written by korina Beltre, and I verify that it is accurate. Jan, 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 layer exposed (ICD-10 - L97.822) Jan, 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 (ICD-10 - L97.819) PLAN OF TREATMENT Treatment Notes Assessment Notes Clinical Notes Chronic venous hypertension (idiopathic) with ulcer of left lower extremity IAnnette, documented the above order acting as a scribe for Dr. sOorio. I have reviewed the above order, written by korina Beltre, and I verify that it is accurate. Next Appt Details 1 Week Reason: Provider Name:Monica Bateman, 02-14 10:15:00 AM, [address] [facility], , [place], [address], Provider Name:Kirill Tovar, 2021-02-17 03:0 0:00 PM, [address] [place] [address] , [place], [address] Provider Name:Arabella Hendrickson, 2021-05-27 02:00:00 PM, [address] [place] [address] , [place], [address], Insurance Providers Payer Name Payer Address Payer Phone Insured Name Patient Relati onship to Insured Coverage Start Date Coverage End Date [employer] [address] [facility] [phone] TEODORA RUSSELL self
--- OUTSIDE RECORDS SUMMARY | 2021-04-04 17:57 | CCD ---
Author Author [facility] Organization [facility] Address Unknown Phone Unavailable Care Team Providers Care Interior Decorator Painting Name Role Phone Franky Osorio Unavailable PROBLEMS Type Condition ICD9-CM Code [id number] Code Onset Dates Condition S tatus W/U Status Risk SNOMED Code Notes Problem Generalized anxiety disorder F41.1 Active confirme d 75630967 Problem Attention deficit hyperactiv ity disorder (ADHD), predominantly inattentive type F90.0 Active confirmed 55715185 Problem Wheelchair bound Z99.3 Active confirmed 225 107768 Problem Congestive heart failure, un specified HF chronicity, unspecified heart failure type I50.9 Active confirmed 25645505 Problem Memory difficulties R41.3 Active confirmed 322674922 Problem Invasive lobular carcinoma of breast in female C50 .919 Active confirmed 315369022 Problem Seroma of breast N64.89 Active confirmed 297 468691 Problem Type 2 diabetes mellitus wit hout complication, without long-term current use of insulin E11.9 Active confirmed 359372530 Problem Moderately severe depression F32.2 Active confirme d 139884027 Problem 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 Active confirmed 12558131 Problem Invasive lobular carcinoma of left breast in female C50.912 Active confirmed 8067480210812450 Problem Cardiomegaly I51.7 Active confirmed 3906659 Problem 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 Active confirmed 09484779 Problem Venous stasis dermatitis of both lower extremities I87.2 Active confirmed 45758761 Problem Neuropathy G62.9 Active confirmed 404827055 Problem Chronic venous hypertension (idiopathic) with ulcer of left lower extremity I87.312 Active confirmed 538264070700136 Problem Malignant neoplasm of unspecified site of left female breast C50.912 Active confirmed 052506275 Problem Chronic diastolic congestive heart failure I50.32 Active confirmed 863511280 Problem ALANIS (obstructive sleep apnea) G47.33 Active confirm ed 73137016 Problem Congestive heart failure, unspecified I50.9 Ac tive confirmed 06310866 Problem Overflow incontinence N39.490 Active confirmed 290156522 Problem Type 2 diabetes mellitus wit h diabetic neuropathy, without long-term current use of insulin E11.40 Active confirmed 9670467 6 Problem Recurrent falls R29.6 Active confirmed 2799 67054 ALLERGIES Allergen (clinical drug ingredient) Drug/Non Drug Allergy do cumented on EMR Reaction Allergy Type Onset Date Status gabapentin gabapentin Unknown Non Drug Allergy Active atorvastatin Atorvastatin Calcium([facility] Code:[address]-93) Unknown Drug Allergy Active clonidine Clonidine HCl(ND Code:[address]-04) Unknown Drug Chris rgy Active ENCOUNTERS from 1945 to 2021-01-31 Encounter Location Date Provider Diagnosis [facility] W[facility] Care [address] [facility] [phone] [place] [address] Jan, Franky Reginoerman Venous stasis dermatitis of both lower extremities I87.2 ; Open wound T14.8XXA ; Chronic venous hypertension (idiopathic) with ulcer of left lower extremity I87.312 and Non-pressure chronic ulcer of other part of left lower leg with fat layer exposed L97.822 IMMUNIZATIONS No Information SOCIAL HISTORY Tobacco Use: Social History Observation Description Date Details (start date - stop date) Never Smoker Sex Assigned At : Social History Observation Description Sex Assigned At Unknown Language: Question Answer Notes Languages spoken: Nepali Rastafarian: Question Answer Notes Rastafarian No catholic beliefs that would impact health care. Alcohol Screening: Question Answer Notes Did you have a drink containing alcohol in the past year? No Points 0 Interpretation Negative Tobacco Use: Question Answer Notes Are you a: never smoker REASON FOR REFERRAL No Information VITAL SIGNS Weight 267 lbs Jan, Height 65 in Jan, BMI 44.43 kg/m2 Jan, Heart Rate 84 /min Jan, Respiratory Rate 18 /min Jan, Temperature 98.4 degrees Fahrenheit Jan, Oximetry 98 Jan, MEDICATIONS Medication SIG (Take, Route, Frequency, [...] a day Active PROCEDURES from 1945 to 2021-01-31 Procedure Date Ordered Result Body Site Medication: 4% Lidocaine topical cream (Anecream) 5gm 2021-01-26 N/A RESULTS No Results REASON FOR VISIT [...] Treatment Notes Treatm ent Clinical Notes Jan, Venous stasis dermatitis of both lower extremities (ICD-10 - I87.2) Jan, Open wound (ICD-10 - T14.8XXA) Jan, Chronic venous hypertension (idiopathic) with ulcer of left lower extremity (ICD-10 - I87.312) Jan, 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 layer exposed (ICD-10 - L97.822) PLAN OF TREATMENT Next Appt Details 2 Weeks Reason: Provider Name:Kirill Tovar, 2021-02-02 03:0 0:00 PM, [address] [facility], , [place], [address] Provider Name:Yefri Cotton, 2021-02-04 02 :00:00 PM, [address] [facility] [address], , [place], [address], Provider Name:Franky Osorio, 01:15:00 PM, [address], , [place], [address], Provider Name:Arabella Hendrickson, 2021-05-27 02:00:00 PM, [address] [facility], , [place], [address], Insurance Providers Payer Name Payer Address Payer Phone Insured Name Patient Relati onship to Insured Coverage Start Date Coverage End Date [employer] [address] [facility] [phone] TEODORA RUSSELL self
--- OUTSIDE RECORDS SUMMARY | 2021-04-04 17:57 | CCD | Continuity of Care Document ---
Author Author Reji MENDOZA M.D. Organization Unknown Address [address] [place] [address] Phone [phone] Care Team Providers Care Bank And Savings Securities Trader Name Role Phone Yefri Cotton DO AUTM [phone] Problems Active Problems Provider Date Obstructive sleep apnea syndrome Reinaldo Mendoza M.D. Onset: 09/13/2016 Neck pain Reinaldo Mendoza M.D. Onset: 09/13/2016 Spondylolysis Reinaldo Mendoza M.D. Onset: 09/13/2016 Spondylolysis of cervical spine Reinaldo Mendoza M.D. Onset: 0 09/13/2016 Low back pain Reinaldo Mendzoa M.D. Onset: 09/13/2016 Malaise and fatigue Reinaldo [...] lb BMI (Body Mass Index) 47.4 kg/m2 [place] Body Weight 130 lb Results Description No Information Available Procedures Date Code Description Status 01/18/2021 85281 Nerve Conduction 9-10 Studies Co mpleted 01/18/2021 13587 Needle Electromyography Complete , Five Or More Muscles Studied Completed 01/18/2021 77149 Needle Electromyography Complete , Five Or More Muscles Studied Completed 12/20/2020 37400 Nerve Conduction 9-10 Studies Co mpleted 12/20/2020 51700 Needle Electromyography Complete , Five Or More Muscles Studied Completed 12/20/2020 77423 Needle Electromyography Complete , Five Or More Muscles Studied Completed 12/08/2020 38537 Office/Outpatient New Moderate M DM 45-59 Minutes Completed Medical Devices Description No Information Available Encounters Type Date Location Provider Dx Diagnosis Office Visit 12/08/2020 9:30a Main office - [place] [facility] [place] E11.42 Type 2 diabetes mellitus with diabetic polyneuropathy G56.03 Carpal tunnel syndrome, bila teral upper limbs M54.2 Cervicalgia M43.02 Spondylolysis, cervical shawnee on M54.5 Low back pain M43.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 12/08/2020 M43.02 Spondylolysis, cervical region Klaudia Mendoza M.D. 12/08/2020 M54.5 Low back pain Reinaldo Mendoza M.D. 12/08/2020 M43.06 Spondylolysis, lumbar region Kassie Mendoza M.D. Plan of Treatment Future Appointment(s):* 02/17/2021 11:30 am - Reinaldo Mendoza M.D. at Main office - [place] Functional Status Description No Information Available Mental Status Description No Information Available Referrals Description No Information Available
--- OUTSIDE RECORDS SUMMARY | 2021-04-04 17:57 | CCD ---
Author Author [facility] Organization [facility] Address Unknown Phone Unavailable Care Team Providers Care Audit Machine Operator Name Role Phone Franky Osorio Unavailable PROBLEMS Type Condition ICD9-CM Code TOA21-GI Code Onset Dates Condition S tatus W/U Status Risk SNOMED Code Notes Problem Generalized anxiety disorder F41.1 Active confirme d 77607943 Problem Attention deficit hyperactiv ity disorder (ADHD), predominantly inattentive type F90.0 Active confirmed 97471742 Problem Wheelchair bound Z99.3 Active confirmed 225 985718 Problem Congestive heart failure, un specified HF chronicity, unspecified heart failure type I50.9 Active confirmed 67112218 Problem Memory difficulties R41.3 Active confirmed 037851178 Problem Invasive lobular carcinoma of breast in female C50 .919 Active confirmed 338939955 Problem Seroma of breast N64.89 Active confirmed 297 446558 Problem Type 2 diabetes mellitus wit hout complication, without long-term current use of insulin E11.9 Active confirmed 987941149 Problem Moderately severe depression F32.2 Active confirme d 619735738 Problem 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 Active confirmed 42347999 Problem Invasive lobular carcinoma of left breast in female C50.912 Active confirmed 5972184433634577 Problem Cardiomegaly I51.7 Active confirmed 7649756 Problem 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 Active confirmed 42670535 Problem Venous stasis dermatitis of both lower extremities I87.2 Active confirmed 50022549 Problem Neuropathy G62.9 Active confirmed 883564000 Problem Chronic venous hypertension (idiopathic) with ulcer of left lower extremity I87.312 Active confirmed 968415096665095 Problem Malignant neoplasm of unspecified site of left female breast C50.912 Active confirmed 765481978 Problem Chronic diastolic congestive heart failure I50.32 Active confirmed 132469717 Problem ALANIS (obstructive sleep apnea) G47.33 Active confirm ed 89770056 Problem Congestive heart failure, unspecified I50.9 Ac tive confirmed 09129567 Problem Overflow incontinence N39.490 Active confirmed 296899926 Problem Type 2 diabetes mellitus wit h diabetic neuropathy, without long-term current use of insulin E11.40 Active confirmed 9149836 6 Problem Recurrent falls R29.6 Active confirmed 2799 93214 ALLERGIES Allergen (clinical drug ingredient) Drug/Non Drug Allergy do cumented on EMR Reaction Allergy Type Onset Date Status gabapentin gabapentin Unknown Non Drug Allergy Active atorvastatin Atorvastatin Calcium(ND Code:[address]-49) Unknown Drug Allergy Active clonidine Clonidine HCl(ND Code:[address]-29) Unknown Drug Chris rgy Active ENCOUNTERS from 1945 to 2021-01-14 Encounter Location Date Provider Diagnosis [facility] [address] [facility] [phone] [place] [address] Dec, Franky Stillerman Open wound T14.8XXA ; Venous stasis dermatitis of both lower extremities I87.2 ; Chronic venous hypertension (idiopathic) with ulcer [...] Unknown Language: Question Answer Notes Languages spoken: Danish Buddhism: Question Answer Notes Buddhism No samaritan beliefs that would impact health care. Alcohol Screening: Question Answer Notes Did you have a drink containing alcohol in the past year? No Points 0 Interpretation Negative Tobacco Use: Question Answer Notes Are you a: never smoker REASON FOR REFERRAL No Information VITAL SIGNS Weight 267 lbs Dec, Height 65 in Dec, BMI 44.43 kg/m2 Dec, Heart Rate 78 /min Dec, Respiratory Rate 16 /min Dec, Temperature 98.4 degrees Fahrenheit Dec, Oximetry 98 Dec, Blood pressure systolic 136 mm Hg Dec, Blood pressure diastolic 62 mm Hg Dec, MEDICATIONS Medication SIG (Take, Route, Frequency, Duration) Notes Start Da te End Date Status Escitalopram Oxalate 10 MG 1 tablet Orally Once a day Active Amitriptyline HCl 50 MG 1 tablet at bedtime Orally Once a day Active Torsemide 20 MG 2 tabs Orally BID Ac tive Carvedilol 3.125 MG TAKE ONE TABLET BY MOUTH @8A M and TAKE ONE TABLET BY MOUTH @8PM for 28 Active Amitriptyline HCl 25 mg 1/2 tablet at bedtime Orally Once a day Not-Taking Coreg 3.125 MG 1 tablet with food Orally Twice a day Active amLODIPine Besylate 5 MG 1 tablet Orally Once a day Active Magnesium Oxide 400 240 MG as directed Orally Active Januvia 25 MG TAKE ONE TABLET BY MOUTH @8AM for 28 Active PROCEDURES from 1945 to 2021-01-14 Procedure Date Ordered Result Body Site Medication: 4% Lidocaine topical cream (Anecream) 30 gm N/A RESULTS No Results REASON FOR VISIT Left Leg Ulcer MEDICAL (GENERAL) HISTORY Type Description Date Medical [...] Notes Treatment Notes Treatm ent Clinical Notes Dec, Open wound (ICD-10 - T14.8XXA) Dec, Venous stasis dermatitis of both lower extremities (ICD-10 - I87.2) Dec, Chronic venous hypertension (idiopathic) with ulcer of left lower extremity (ICD-10 - I87.312) Dec, 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 layer exposed (ICD-10 - L97.822) PLAN OF TREATMENT Next Appt Details 2 Weeks Reason: Provider Name:Franky Osorio, 02:45:00 PM, [address], , [place], [address], Provider Name:Kirill Tovar, 2021-02-02 03:0 0:00 PM, [address] [place] [address], , [place], [address] Provider Name:Yefri Cotton, 2021-02-04 02 :00:00 PM, [address] [place] [address], , [place], [address], Provider Name:Arabella Hendrickson, 2021-05-27 02:00:00 PM, [address] [place] [address], , [place], [address], Insurance Providers Payer Name Payer Address Payer Phone Insured Name Patient Relati onship to Insured Coverage Start Date Coverage End Date [employer] [address] [facility] [id number] TEODORA RUSSELL self
--- OUTSIDE RECORDS SUMMARY | 2021-04-04 17:57 | CCD | Continuity of Care Document ---
Author Author [facility] Organization Unknown Address [address] [place] [address], [facility] [place] [address] Phone [phone] Care Team Providers Care Air Pollution Auditor Name Role Phone Yefri Cotton DO AUTM [phone] Miranda Hernandez DO AUTM Miguel Hernandez MD AUTM [phone] Kera Valles MD AUTM [phone] Problems Active Problems Provider Date Essential hypertension Gilbert Davis MD Onset: 0 Chronic diastolic heart failure Gilbert Davis MD Onset: 01/22/2020 Morbid obesity Gilbert Davis MD Onset: 01/22/2020 Dietary management surveillance Gilbert Davis MD Onset: 01/22/2020 Right bundle branch block Gilbert Davis MD Onset: 2019 Edema Gilbert Davis MD Onset: 01/22/2020 Cellulitis of left lower limb Gilbert Davis MD Onset: Cellulitis of right lower limb Gilbert Davis MD Onset: 0 01/22/2020 Chronic kidney disease stage 3 due to type 2 diabetes mellitus Gilbert Davis MD Onset: 03/02/2020 Preoperative cardiovascular examination Gilbert Davis MD Onset: 04/12/2020 Electrocardiogram abnormal IGLESIA Gutierrez Onset: 07/2020 Social History Type Date Description Comments Sex Unknown ETOH Use Does not consume alcohol Tobacco Use Start: Unknown Patient has never smoked Smoking Status Reviewed: 01/19/21 Patient has never smoked Exercise Type/Frequency Does housework sporadica lly Exercise Limitations Imbalance Allergies, Adverse Reactions, Alerts Active Allergies Criticality Reaction | Severity Comments Date Losartan Unable to assess criticality 01/21/2020 Statins Unable to assess criticality 01/21/2020 Morphine Unable to assess criticality 03/02/2020 Gabapentin Unable to assess criticality 03/02/2020 Medications Active Medications SIG Qnty Indications Ordering Provide r Date Amitriptyline HCL 25mg Tablets 2 by mouth every day at bedtime Kera Valles MD Calcitriol 0.25mcg Capsules 1 by mouth every Mon and Wed Miguel Hernandez MD 01/18/2021 Januvia 25mg Tablets 1 by mouth every day Miguel Hernandez MD 07/13/2020 Amiloride HCL 5mg Tablets Take One Tablet By Mouth @5PM 30tabs Gilbert Davis MD 07/13/2020 Vitamin D 2000Unit Tablets 1 by mouth every day Miguel Hernandez MD 07/13/2020 Lexapro 10mg Tablets 1 by mouth every day Kera Valles MD 07/13/2020 Magnesium 400mg Tablets 1 by mouth every other day Miguel Hernandez MD 07/13/2020 Amlodipine Besylate 10mg Tablets 1 by mouth every day 90tabs I10 Gilbert Davis MD 06/23/2020 Torsemide 20mg Tablets 2 tablets by mouth twice a day 120tabs I50.32 Gilbert Davis MD 03/16/2020 I10 R60.0 Carvedilol 3.125mg Tablets 1 by mouth twice a day Unknown 03/01/2020 Immunizations Description No Information Available Vital Signs Date Vital Result Comment 01/19/2021 1:10pm Weight 263.00 lb Height 65 inches 5'5" BMI (Body Mass Index) 43.8 kg/m2 Heart Rate 75 /min BP Systolic Sitting 142 mmHg large cuff, Ra BP Diastolic Sitting 70 mmHg large cuff, Ra 07/14/2020 3:27pm Weight 266.00 lb Height 65 inches 5'5" BMI (Body Mass Index) 44.3 kg/m2 Heart Rate 87 /min BP Systolic Sitting 132 mmHg BP only on right arm BP Diastolic Sitting 78 mmHg BP only on right ar m Results Test Acquired Date Facility Test Result H/L Range Note Renal Profile 12/13/2020 [facility] - Glucose 274 High 70-106 Blood Urea Nitrogen 22.9 High 7-18 Creatinine 1.5 High 0.55-1.3 GFR (Calculated) 35 Low >60 Sodium 134.7 Low 135-145 Potassium 3.83 3.5-5.5 Chloride 98.8 94-110 Carbon Dioxide 30.6 21-32 Calcium 9.2 8.5-10.1 Phosphorus 3.3 2.5-4.9 Albumin 3.8 3.2-5.2 CBC without Differential 12/13/2020 [facility] - White Blood Count 10.2 High 4.0-10.0 Red Blood Count 4.22 4.00-5.40 Platelets 281 172-450 Hemoglobin 12.5 12.0-16.0 Hematocrit 38.8 36.0-47.0 Laboratory test finding 12/13/2020 [facility] ([facility])- - NT Probnp QN Ser/Plas 88 <450 Magnesium Level 2.4 1.8-2.4 Renal Profile 08/30/2020 [facility] ([facility])- - Glucose 270 High 70-100 Blood Urea Nitrogen 31.4 High 5-21 Creatinine 1.4 0.6-1.5 GFR (Calculated) 37 Sodium 135.8 Low 136-146 Potassium 3.65 3.5-5.3 Chloride 91.5 Low 98-110 Carbon Dioxide 33.5 High 20-32 Calcium 8.4 8.4-10.4 Phosphorus 3.0 Albumin 3.8 3.5-4.7 Laboratory test finding 08/30/2020 [facility] ([facility])- - Magnesium Level 1.95 Procedures Date Code Description Status 01/19/2021 55597 Office/Outpatient Established Mo d MDM 30-39 Min Completed 01/19/2021 42350 ECG 12-Lead Completed Medical Devices Description No Information Available Encounters Type Date Location Provider Dx Diagnosis Office Visit 01/19/2021 1:00p Main Office IGLESIA Gutierrez I50 .32 Chronic diastolic (congestive) heart failure I10 Essential (primary) hyperten ariel R60.0 Localized edema I45.19 Other right bundle-branch bl ock R94.31 Abnormal electrocardiogram [ ECG] [EKG] E66.01 Morbid (severe) obesity due to excess calories Z71.3 Dietary counseling and surve illance Assessments Date Code Description Provider 01/19/2021 I50.32 Chronic diastolic (congestive) h eart failure IGLESIA Gutierrez 01/19/2021 I10 Essential (primary) hypertension IGLESIA Gutierrez 01/19/2021 R60.0 Localized edema IGLESIA Montalvo Cha, se 01/19/2021 I45.19 Other right bundle-branch block IGLESIA Gutierrez 01/19/2021 R94.31 Abnormal electrocardiogram [ECG] [EKG] IGLESIA Gutierrez 01/19/2021 E66.01 Morbid (severe) obesity due to e xcess calories IGLESIA Gutierrez 01/19/2021 Z71.3 Dietary counseling and surveilla nce IGLESIA Gutierrez Plan of Treatment Future Appointment(s):* 07/21/2021 2:30 pm - IGLESIA Gutierrez at Main Office 01/19/2021 - IGLESIA Gutierrez* I50.32 Chronic diastolic (congestive) heart failure* Recommendations:* Continue diuretic therapy and carvedilol at the current dosages Please alert our office with a weight gain of more than 3 pounds, onset of shortness of breath, or lower extremity edema * I10 Essential (primary) hypertension* Recommendations:* Continue carvedilol, amiloride, amlodipine, and torsemide at the current dosages Advised patient to please monitor blood pressures at home and to alert our office for readings > 140/>90 or <110/<60 * R60.0 Localized edema* Recommendations:* Continue torsemide at the current dosage Advised patient and industrial maintenance instructor to please contact us with any worsening lower extremity edema, the onset of any shortness of breath, or orthopnea * I45.19 Other right bundle-branch block* Recommendations:* No further evaluation is needed at this time * R94.31 Abnormal electrocardiogram [ECG] [EKG]* Recommendations:* No further evaluation is needed at this time. * E66.01 Morbid (severe) obesity due to excess calories * Z71.3 Dietary counseling and surveillance* Recommendations:* Recommended for patient to follow a more whole food diet. Advised patient to avoid overly processed foods and packaged foods. Advised patient to avoid sodas, juices and other liquid calories. Recommended at least 30 minutes of exercise 3 days a week. * All * Follow up:* Follow up in 6 months Functional Status Functional Condition Comment Date Status Independent with all ADL's Activ e Requires assistance with ambulating uses walker or cane Active Mental Status Description No Information Available Referrals Description No Information Available
--- OUTSIDE RECORDS SUMMARY | 2021-04-04 17:57 | CCD | Continuity of Care Document ---
Author Author [facility] OLIVARES PA Organization Unknown Address [address] [place] [address], [facility] [place] [address] Phone [phone] Care Team Providers Care Pastry Cook Name Role Phone Yefri Cotton DO AUTM [phone] Miranda Hernandez DO AUTM Miguel Hernandez MD AUTM [phone] Kera Valles MD AUTM [phone] Problems Active Problems Provider Date Essential hypertension Gilbert Davis MD Onset: 0 Chronic diastolic heart failure Gilbert Davis MD Onset: 01/22/2020 Morbid obesity Gilbert Davis MD Onset: 01/22/2020 Dietary management surveillance Glibert Davis MD Onset: 01/22/2020 Right bundle branch [...] 1.95 Procedures Date Code Description Status 01/19/2021 92885 Office/Outpatient Established Mo d MDM 30-39 Min Completed 01/19/2021 44717 ECG 12-Lead Completed Medical Devices Description No [...] at the current dosage Advised patient and product representative to please contact us with any worsening [...]
--- OUTSIDE RECORDS SUMMARY | 2021-04-04 17:57 | CCD ---
Author Author [facility] Organization [facility] Address Unknown Phone Unavailable Care Team Providers Care Bumper Straightener Name Role Phone Kirill Tovar Unavailable PROBLEMS Type Condition ICD9-CM Code MFP38-VH Code Onset Dates Condition S tatus W/U Status Risk SNOMED Code Notes Problem Type 2 diabetes mellitus wit hout complication, without long-term current use of insulin E11.9 Active confirmed 499734189 Problem Neuropathy G62.9 Active confirmed 562429793 Problem Chronic diastolic congestive heart failure I50.32 Active confirmed 362196622 Problem Invasive lobular carcinoma of left breast in female C50.912 Active confirmed 2344467260556023 Problem 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 Active confirmed 25108131 Problem Wheelchair bound Z99.3 Active confirmed 225 924316 Problem Congestive heart failure, un specified HF chronicity, unspecified heart failure type I50.9 Active confirmed 95660438 Problem Memory difficulties R41.3 Active confirmed 486396278 Problem Invasive lobular carcinoma of breast in female C50 .919 Active confirmed 389257347 Problem Seroma of breast N64.89 Active confirmed 297 043343 Problem Moderately severe depression F32.2 Active confirme d 071817074 Problem Venous stasis dermatitis of both lower extremities I87.2 Active confirmed 52567485 Problem Malignant neoplasm of unspecified site of left female breast C50.912 Active confirmed 516741229 Problem Congestive heart failure, unspecified I50.9 Ac tive confirmed 27338677 Problem Cardiomegaly I51.7 Active confirmed 4778214 Problem Overflow incontinence N39.490 Active confirmed 379947893 Problem Bipolar 1 disorder, depressed, partial remission F 31.75 Active confirmed 27295998 Problem Generalized anxiety disorder F41.1 Active confirme d 51313699 Problem 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 L97.819 Active confirmed Problem ALANIS (obstructive sleep apnea) G47.33 Active confirm ed 95109347 Problem Attention deficit hyperactiv ity disorder (ADHD), predominantly inattentive type F90.0 Active confirmed 36899831 Problem Type 2 diabetes mellitus wit h diabetic neuropathy, without long-term current use of insulin E11.40 Active confirmed 3754790 6 Problem Recurrent falls R29.6 Active confirmed 2799 22709 Problem Chronic venous hypertension (idiopathic) with ulcer of left lower extremity I87.312 Active confirmed 055038779401357 Problem 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 Active confirmed 59113933 ALLERGIES Allergen (clinical drug ingredient) Drug/Non Drug Allergy do cumented on EMR Reaction Allergy Type Onset Date Status gabapentin gabapentin Unknown Non Drug Allergy Active atorvastatin Atorvastatin Calcium(ND Code:[address]-68) Unknown Drug Allergy Active clonidine Clonidine HCl(NDC Code:[address]-95) Unknown Drug Chris rgy Active ENCOUNTERS from 1945 to 2021-02-11 Encounter Location Date Provider Diagnosis [address] [phone] [place] [address] Jan, Kirill Tovar Bipolar 1 disorder, depresse d, partial remission F31.75 ; Attention deficit hyperactivity disorder (ADHD), predominantly inattentive type F90.0 and Generalized anxiety disorder F41.1 IMMUNIZATIONS No Information SOCIAL HISTORY Tobacco Use: Social History Observation Description Date Details (start date - stop date) Never Smoker Sex Assigned At : Social History Observation Description Sex Assigned At Unknown Education: Question Answer Notes Level of Education: Finished High School Language: Question Answer Notes Languages spoken: Citizen Of [place] Restoration: Question Answer Notes Restoration No anglican beliefs that would impact health care. Sexual [...] TABLET BY MOUTH @8PM for 28 Active Escitalopram Oxalate 10 MG 1 tablet [...] MOUTH @8AM for 28 Active FreeStyle Genoveva Ivel - as directed _ tid for 999 days Active aMILoride HCl 5 MG 1 tablet with food Orally Once a day Active PROCEDURES No [...] Treatment Notes Treatm ent Clinical Notes Jan, Bipolar 1 disorder, depressed, partial r emission (ICD-10 - F31.75) Jan, Attention deficit hyperactiv ity disorder (ADHD), predominantly inattentive type (ICD-10 - F90.0) Jan, Generalized anxiety disorder (ICD-10 - F41.1) Utilized CBT to review a thought reframing technique for decreasing her symptoms of anxiety. Reji arrived on time for her appointment and actively engaged throughout her session. Reji was responsive to the CBT thought reframing intervention for decreasing her symptoms of anxiety. Reji reports that she has been feeling anxious about her memory loss. Reji agreed to utilize the technique that we discussed and will return for psychotherapy 02/17/2021. Reji is aware to call for a sooner appointment if needed and to utilize the ED for MH emergencies. PLAN OF TREATMENT Treatment Notes Assessment Notes Clinical Notes Generalized anxiety disorder Utilized CB T to review a thought reframing technique for decreasing her symptoms of anxiety. Reji arrived on time for her appointment and actively engaged throughout her session. Reji was responsive to the CBT thought reframing intervention for decreasing her symptoms of anxiety. Reji reports that she has been feeling anxious about her memory loss. Reji agreed to utilize the technique that we discussed and will return for psychotherapy 02/17/2021. Reji is aware to call for a sooner appointment if needed and to utilize the ED for emergencies. Next Appt Details Provider Name:Monica Bateman, 02-14 10:15:00 AM, [address], , [place], [address], Provider Name:Kirill Tovar, 2021-02-17 03:0 0:00 PM, [address] [place] [address] , [place], [address] Provider Name:Franky Osorio, 08:30:00 AM, [address], , [place], [address], Provider Name:Arabella Hendrickson, 2021-05-27 02:00:00 PM, [address] [place] [address] , [place], [address], Insurance Providers Payer Name Payer Address Payer Phone Insured Name Patient Relati onship to Insured Coverage Start Date Coverage End Date [employer] [address] [facility] [phone] REJI RUSSELL self
--- OUTSIDE RECORDS SUMMARY | 2021-04-04 17:58 | CCD ---
Author Author [facility] Organization [facility] Address Unknown Phone Unavailable Care Team Providers Care Certified Procedural Coder Name Role Phone DOMBROWSKA, K YELITZA DO Unavailable Unavailable DOMBROWSKA, K YELITZA DO Unavailable Unavailable DOMBROWSKA, K YELITZA DO Unavailable Unavailable DOMBROWSKA, K YELITZA DO Unavailable Unavailable DOMBROWSKA, K YELITZA DO Unavailable Unavailable DOMBROWSKA, K YELITZA DO Unavailable Unavailable DOMBROWSKA, K YELITZA DO Unavailable Unavailable DOMBROWSKA, K YELITZA DO Unavailable Unavailable DOMBROWSKA, K YELITZA DO Unavailable Unavailable DOMBROWSKA, K YELITZA DO Unavailable Unavailable DOMBROWSKA, K YELITZA DO Unavailable Unavailable DOMBROWSKA, K YELITZA DO Unavailable Unavailable DOMBROWSKA, K YELITZA DO Unavailable Unavailable DOMBROWSKA, K YELITZA DO Unavailable Unavailable DOMBROWSKA, K YELITZA DO Unavailable Unavailable DOMBROWSKA, K YELITZA DO Unavailable Unavailable DOMBROWSKA, K YELITZA DO Unavailable Unavailable DOMBROWSKA, K YELITZA DO Unavailable Unavailable DOMBROWSKA, K YELITZA DO Unavailable Unavailable DOMBROWSKA, K YELITZA DO Unavailable Unavailable DOMBROWSKA, K YELITZA DO Unavailable Unavailable DOMBROWSKA, K YELITZA DO Unavailable Unavailable DOMBROWSKA, K YELITZA DO Unavailable Unavailable Ali, Reinaldo FARRAR Unavailable Unavailable Ali, Reinaldo FARRAR Unavailable Unavailable Ali, Reinaldo FARRAR Unavailable Unavailable Ali, Reinaldo FARRAR Unavailable Unavailable Ali, Reinaldo FARRAR Unavailable Unavailable Ali, Reinaldo FARRAR Unavailable Unavailable Ali, Reinaldo FARRAR Unavailable Unavailable Ali, Reinaldo FARRAR Unavailable Unavailable Ali, Reinaldo Unavailable Unavailable Ali, Reinaldo Unavailable Unavailable Ali, Reinaldo Unavailable Unavailable Ali, Reinaldo Unavailable Unavailable Ali, Reinaldo Unavailable Unavailable Ali, Reinaldo FARRAR Unavailable Unavailable Ali, Reinaldo FARRAR Unavailable Unavailable Ali, Reinaldo FARRAR Unavailable Unavailable Ali, Reinaldo FARRAR Unavailable Unavailable Ali, Reinaldo FARRAR Unavailable Unavailable Ali, Reinaldo FARRAR Unavailable Unavailable Ali, Reinaldo FARRAR Unavailable Unavailable Ali, Reinaldo FARRAR Unavailable Unavailable Ali, Reinaldo FARRAR Unavailable Unavailable Ali, Reinaldo AFRRAR Unavailable Unavailable Ali, Reinaldo FARRAR Unavailable Unavailable Ali, Reinaldo FARRAR Unavailable Unavailable Ali, Reinaldo FARRAR Unavailable Unavailable Ali, Reinaldo FARRAR Unavailable Unavailable Ali, Reinaldo FARRAR Unavailable Unavailable Ali, Reinaldo FARRAR Unavailable Unavailable Ali, Reinaldo FARRAR Unavailable Unavailable Ali, Reinaldo FARRAR Unavailable Unavailable Ali, Reinaldo FARRAR Unavailable Unavailable Ali, Reinaldo FARRAR Unavailable Unavailable Ali, Reinaldo FARRAR Unavailable Unavailable Ali, Reinaldo FARRAR Unavailable Unavailable Ali, Reinaldo FARRAR Unavailable Unavailable Ali, Reinaldo FARRAR Unavailable Unavailable Ali, Reinaldo FARRAR Unavailable Unavailable Ali, Reinaldo FARRAR Unavailable Unavailable AliReinaldo MD Unavailable Unavailable Ali, Reinaldo FARRAR Unavailable Unavailable Ali, Reinaldo FARRAR Unavailable Unavailable Ali, Reinaldo FARRAR Unavailable Unavailable Ali, Reinaldo FARRAR Unavailable Unavailable Ali, Reinaldo FARRAR Unavailable Unavailable Ali, Reinaldo FARRAR Unavailable Unavailable Ali, Reinaldo FARRAR Unavailable Unavailable Ali, Reinaldo FARRAR Unavailable Unavailable Ali, Reinaldo FARRAR Unavailable Unavailable Ali, Reinaldo FARRAR Unavailable Unavailable Ali, Reinaldo FARRAR Unavailable Unavailable Ali, Reinaldo FARRAR Unavailable Unavailable MAJAK, R BRITTANEY DPM Unavailable Unavailable MAJAK, R BRITTANEY DPM Unavailable Unavailable MAJAK, R BRITTANEY DPM Unavailable Unavailable MAJAK, R BRITTANEY DPM Unavailable Unavailable MAJAK, R BRITTANEY DPM Unavailable Unavailable MAJAK, R BRITTANEY DPM Unavailable Unavailable MAJAK, R BRITTANEY DPM Unavailable Unavailable MAJAK, R BRITTANEY DPM Unavailable Unavailable MAJAK, R BRITTANEY DPM Unavailable Unavailable MAJAK, R BRITTANEY DPM Unavailable Unavailable MAJAK, R BRITTANEY DPM Unavailable Unavailable MAJAK, R BRITTANEY DPM Unavailable Unavailable MAJAK, R BRITTANEY DPM Unavailable Unavailable MAJAK, R BRITTANEY DPM Unavailable Unavailable MAJAK, R BRITTANEY DPM Unavailable Unavailable MAJAK, R BRITTANEY DPM Unavailable Unavailable MAJAK, R BRITTANEY DPM Unavailable Unavailable MAJAK, R BRITTANEY DPM Unavailable Unavailable MAJAK, R BRITTANEY DPM Unavailable Unavailable MAJAK, R BRITTANEY DPM Unavailable Unavailable MAJAK, R BRITTANEY DPM Unavailable Unavailable MAJAK, R BRITTANEY DPM Unavailable Unavailable MAJAK, R BRITTANEY DPM Unavailable Unavailable MAJAK, R BRITTANEY DPM Unavailable Unavailable MAJAK, R BRITTANEY DPM Unavailable Unavailable MAJAK, R BRITTANEY DPM Unavailable Unavailable MAJAK, R BRITTANEY DPM Unavailable Unavailable MAJAK, R BRITTANEY DPM Unavailable Unavailable MAJAK, R BRITTANEY DPM Unavailable Unavailable MAJAK, R BRITTANEY DPM Unavailable Unavailable MAJAK, R BRITTANEY DPM Unavailable Unavailable MAJAK, R BRITTANEY DPM Unavailable Unavailable ELISE, L CECE PA Unavailable Unavailable ELSIE, L CECE PA Unavailable Unavailable ELISE, L CECE PA Unavailable Unavailable ELISE, L CECE PA Unavailable Unavailable ELISE, L CECE PA Unavailable Unavailable ELISE, L CECE PA Unavailable Unavailable ELISE, L CECE PA Unavailable Unavailable ELISE, L CECE PA Unavailable Unavailable ELISE, L CECE PA Unavailable Unavailable ELISE, L CECE PA Unavailable Unavailable ELISE, L CECE PA Unavailable Unavailable ELISE, L CECE PA Unavailable Unavailable ELISE, L CECE PA Unavailable Unavailable ELISE, L CECE PA Unavailable Unavailable ELISE, L CECE PA Unavailable Unavailable ELISE, L CECE PA Unavailable Unavailable ANTECOLShannon MD Unavailable Unavailable ANTECOLShannon MD Unavailable Unavailable ANTECOL, Shannon GRANT MD Unavailable Unavailable ANTECOL, Shannon GRANT MD Unavailable Unavailable ANTECOL, Shannon GRANT MD Unavailable Unavailable ANTECOL, Shannon GRANT MD Unavailable Unavailable ANTECOL, Shannon GRANT MD Unavailable Unavailable ANTECOL, Shannon GRANT MD Unavailable Unavailable ANTECOL, Shannon GRANT MD Unavailable Unavailable ANTECOLShannon MD Unavailable Unavailable ANTECOLShannon MD Unavailable Unavailable ANTECOLShannon MD Unavailable Unavailable ANTECOLShannon MD Unavailable Unavailable ANTECOLShannon MD Unavailable Unavailable ANTECOL, Shannon GRANT MD Unavailable Unavailable ANTECOL, Shannon GRANT MD Unavailable Unavailable ANTECOL, Shannon GRANT MD Unavailable Unavailable ANTECOL, Shannon GRANT MD Unavailable Unavailable ANTECOL, Shannon GRANT MD Unavailable Unavailable ANTECOL, Shannon GRANT MD Unavailable Unavailable ANTECOL, Shannon GRANT MD Unavailable Unavailable ANTECOL, Shannon GRANT MD Unavailable Unavailable ANTECOL, Shannon GRANT MD Unavailable Unavailable ANTECOL, Shannon GRANT MD Unavailable Unavailable ANTECOL, Shannon GRANT MD Unavailable Unavailable ANTECOL, Shannon GRANT MD Unavailable Unavailable ANTECOL, Shannon GRANT MD Unavailable Unavailable ANTECOL, Shannon GRANT MD Unavailable Unavailable ANTECOL, Shannon GRANT MD Unavailable Unavailable ANTECOL, Shannon GRANT MD Unavailable Unavailable ANTECOL, Shannon GRANT MD Unavailable Unavailable ANTECOL, Shannon GRANT MD Unavailable Unavailable ANTECOL, Shannon GRANT MD Unavailable Unavailable ANTECOL, Shannon GRANT MD Unavailable Unavailable ANTECOL, Shannon GRANT MD Unavailable Unavailable ANTECOL, Shannon GRANT MD Unavailable Unavailable ANTECOL, Shannon GRANT MD Unavailable Unavailable ANTECOL, Shannon GRANT MD Unavailable Unavailable ANTECOL, Shannon GRANT MD Unavailable Unavailable ANTECOL, Shannon GRANT MD Unavailable Unavailable ANTECOL, Shannon GRANT MD Unavailable Unavailable ANTECOL, Shannon GRANT MD Unavailable Unavailable ANTECOL, Shannon GRANT MD Unavailable Unavailable ANTECOL, Shannon GRANT MD Unavailable Unavailable ANTECOL, Shannon GRANT MD Unavailable Unavailable ANTECOL, Shannon GRANT MD Unavailable Unavailable ANTECOL, Shannon GRANT MD Unavailable Unavailable ANTECOL, Shannon GRANT MD Unavailable Unavailable ANTECOL, Shannon GRANT MD Unavailable Unavailable ANTECOL, Shannon GRANT MD Unavailable Unavailable ANTECOL, Shannon GRANT MD Unavailable Unavailable ANTECOL, Shannon GRANT MD Unavailable Unavailable ANTECOL, Shannon GRANT MD Unavailable Unavailable ANTECOL, Shannon GRANT MD Unavailable Unavailable Re-disclosure Warning The records that you are about to access may contain information from federally-assisted alcohol or drug abuse programs. If such information is present, then the following federally mandated warning applies: This information has been disclosed to you from records protected by federal confidentiality rules (42 CFR part 2). The federal rules prohibit you from making any further disclosure of this information unless further disclosure is expressly permitted by the written consent of the person to whom it pertains or as otherwise permitted by 42 CFR part 2. A general authorization for the release of medical or other information is NOT sufficient for this purpose. The Federal rules restrict any use of the information to criminally investigate or prosecute any alcohol or drug abuse patient.The records that you are about to access may contain highly sensitive health information, the redisclosure of which is protected by Article 27-F of the [facility] Public Health law. If you continue you may have access to information: Regarding HIV / AIDS; Provided by facilities licensed or operated by the [facility] Office of Mental Health; or Provided by the [facility] Office for People With Developmental Disabilities. If such information is present, then the following [facility] mandated warning applies: This information has been disclosed to you from confidential records which are protected by state law. State law prohibits you from making any further disclosure of this information without the specific written consent of the person to whom it pertains, or as otherwise permitted by law. Any unauthorized further disclosure in violation of state law may result in a fine or penitentiary sentence or both. A general authorization for the release of medical or other information is NOT sufficient authorization for further disc losure. Family History Family Member Name Family Member Gender Family Member Status Date o f Status Description Data Source(s) Unknown Male Problem MEDENT ([facility]) () Unknown Male Problem MEDENT ([facility]) Encounters Encounter Providers Location Date Indications Data Source(s ) ([facility]) [facility] Scheduled Visit [address] [place] [address] 03/15/2021 12:00:00 AM EDT eCW1 ([facility]) ([facility]) [facility] Scheduled Visit [address] [place] [address] 02/25/2021 12:00:00 AM EDT eCW1 ([facility]) Outpatient Attender: Reinaldo Mendoza MD Main office - [place] 02/17/2021 11:30:00 AM EDT MEDENT ([facility]) Unknown [address] [facility] [address] 02/16/2021 12:00:00 AM EDT eCW1 ([facility]) Unknown [address] [facility] [address] 02/14/2021 12:00:00 AM EDT eCW1 ([facility]) Unknown [address] [facility] [address] 02/14/2021 12:00:00 AM EDT eCW1 ([facility]) Outpatient [address] [facility] [address] 02/14/2021 12:00:00 AM EDT eCW1 ([facility]) ([id number]) For Template [place] [address] [place] [address] 02/07/2021 12:00:00 AM EDT eCW1 ([facility]) Outpatient [address] [facility] [address] 02/04/2021 12:00:00 AM EDT eCW1 ([facility]) (BHVHLTH) [facility] Scheduled Visit [address] [place] [address] 02/02/2021 12:00:00 AM EDT eCW1 ([facility]) ([id number]) For [facility] [place] [address] [place] [address] 01/26/2021 12:00:00 AM EDT eCW1 ([facility]) Outpatient Attender: CECE PAREKH Main Office 01/19/2021 0 1:00:00 PM EDT MEDENT ([facility]) (WND NP120) New Patient [address] [place] [address] 01/10/2021 12:00:00 AM EDT eCW1 ([facility]) Unknown [address] [facility] [address] 01/03/2021 12:00:00 AM EDT eCW1 ([facility]) Unknown [address] [facility] [place] [address] 12/29/2020 12:00:00 AM EDT eCW1 ([facility]) Unknown [address] [facility] [place] [address] 12/10/2020 12:00:00 AM EDT eCW1 ([facility]) Outpatient Attender: Reinaldo Mendoza MD Main office - [place] 12/08/2020 09:30:00 AM EDT MEDENT ([facility] [place], ) [place] [address] [facility] [address] 12/08/2020 12:00:00 AM EDT eCW1 ([facility]) Outpatient [address] [facility] [address] 12/07/2020 12:00:00 AM EDT eCW1 ([facility]) ([facility]) [facility] Scheduled Visit [address] [place] [address] 11/24/2020 12:00:00 AM EDT eCW1 ([facility]) Outpatient Attender: BRITTANEY PEACE [facility] Office 11/11 02:15:00 PM EDT MEDENT ([facility] ([facility]) [facility] Scheduled Visit [address] [place] [address] 11/04/2020 12:00:00 AM EDT eCW1 ([facility]) Outpatient Attender: BRITTANEY PEACE [facility] Office 10/12 11:00:00 AM EDT MEDENT ([facility] [place] [address] [facility] [address] 10/22/2020 12:00:00 AM EDT eCW1 ([facility]) Outpatient [address] [facility] [address] 10/22/2020 12:00:00 AM EDT eCW1 ([facility]) [facility] Scheduled Visit [address] [place] [address] 10/21/2020 12:00:00 AM EDT eCW1 ([facility]) Outpatient [address] [facility] [address] 10/08/2020 12:00:00 AM EDT eCW1 ([facility]) Unknown [address] [facility] [address] 10/04/2020 12:00:00 AM EDT eCW1 ([facility]) ([facility]) [facility] Scheduled Visit [address] [place] [address] 09/10/2020 12:00:00 AM EDT eCW1 ([facility]) Outpatient Attender: BRITTANEY PEACE [facility] Office 08/12 11:00:00 AM EDT MEDENT ([facility] ([facility]) [facility] Scheduled Visit [facility] [place] [address] 08/23/2020 12:00:00 AM EDT eCW1 ([facility]) ([facility]) [facility] Scheduled Visit [address] [place] [address] 08/05/2020 12:00:00 AM EDT eCW1 ([facility]) Outpatient [address] [facility] [address] 08/02/2020 12:00:00 AM EDT eCW1 ([facility]) Unknown [address] [facility] [address] 07/26/2020 12:00:00 AM EDT eCW1 ([facility]) ([facility]) [facility] Scheduled Visit [address] [place] [address] 07/21/2020 12:00:00 AM EST eCW1 ([facility]) Unknown [address] [facility] [address] 07/20/2020 12:00:00 AM EST eCW1 ([facility]) Unknown [address] [facility] [address] 06/25/2020 12:00:00 AM EST eCW1 ([facility]) Unknown [address] [facility] [place] [address] 06/24/2020 12:00:00 AM EST eCW1 ([facility]) ([facility]) [facility] Scheduled Visit [address] [place] [address] 06/23/2020 12:00:00 AM EST eCW1 ([facility]) Outpatient Attender: BRITTANEY PEACE [facility] Office 01/2021 08:30:00 AM EST MEDENT ([facility] Outpatient [address] [facility] [address] 06/22/2020 12:00:00 AM EST eCW1 ([facility]) Outpatient [address] [facility] [address] 06/07/2020 12:00:00 AM EST eCW1 ([facility]) (BC FU) Breast Center Follow Up [address] [place] [address] 06/04/2020 12:00:00 AM EST eCW1 ([facility]) (WND NP120) New Patient 120 Min [address] [place] [address] 06/02/2020 12:00:00 AM EST eCW1 ([facility]) Unknown [address] [facility] [address] 06/01/2020 12:00:00 AM EST eCW1 ([facility]) (WC PO) WCenter Post Op [address] [place] [address] 05/28/2020 12:00:00 AM EST eCW1 ([facility]) Unknown [address] [facility] [address] 05/26/2020 12:00:00 AM EST eCW1 ([facility]) (BC FU) Breast Center Follow Up [address] [place] [address] 05/17/2020 12:00:00 AM EST eCW1 ([facility]) Unknown [address] [facility] [address] 05/13/2020 12:00:00 AM EST eCW1 ([facility]) Unknown [address] [facility] [address] 05/11/2020 12:00:00 AM EST eCW1 ([facility]) Unknown [address] [facility] [place] [address] 05/11/2020 12:00:00 AM EST eCW1 ([facility]) Unknown [address] [facility] Y [address] 05/11/2020 12:00:00 AM EST eCW1 ([facility]) ( FU) Breast Center Follow Up [address] [place] [address] 05/10/2020 12:00:00 AM EST eCW1 ([facility]) Unknown [address] [facility] [address] 05/10/2020 12:00:00 AM EST eCW1 ([facility]) Unknown [address] [facility] [address] 05/06/2020 12:00:00 AM EST eCW1 ([facility]) Outpatient [address] [facility] [address] 05/04/2020 12:00:00 AM EST eCW1 ([facility]) ( PO) WCenter Post Op [address] [place] [address] 05/03/2020 12:00:00 AM EST eCW1 ([facility]) (BHVHL) [facility] Scheduled Visit [address] [place] [address] 04/26/2020 12:00:00 AM EST eCW1 ([facility]) Unknown [address] [facility] [address] 04/26/2020 12:00:00 AM EST eCW1 ([facility]) Unknown [address] [facility] [address] 04/22/2020 12:00:00 AM EST eCW1 ([facility]) Unknown [address] [facility] [address] 04/19/2020 12:00:00 AM EST eCW1 ([facility]) Outpatient [address] [facility] [address] 04/16/2020 12:00:00 AM EST eCW1 ([facility]) Outpatient Attender: RUDY TROY MD Main Office 04/12/2020 08:45:00 AM EST MEDENT ([facility]) Unknown [address] [facility] [address] 04/12/2020 12:00:00 AM EST eCW1 ([facility]) (BHVHLTH) [facility] Scheduled Visit [address] [place] [address] 04/12/2020 12:00:00 AM EST eCW1 ([facility]) Outpatient [address] [facility] [place] [address] 04/05/2020 12:00:00 AM EST [facility]CW1 [facility] Unknown [address] [facility] [address] 04/03/2020 12:00:00 AM EST eCW1 ([facility]) Unknown [address] [facility] [address] 04/02/2020 12:00:00 AM EST eCW1 ([facility]) Unknown [address] [facility] [address] 04/01/2020 12:00:00 AM EST eCW1 ([facility]) Unknown [address] [facility] [address] 04/01/2020 12:00:00 AM EST eCW1 ([facility]) Unknown [address] [facility] [place] [address] 04/01/2020 12:00:00 AM EST eCW1 ([facility]) Outpatient [address] [facility] [place] [address] 03/30/2020 12:00:00 AM EST eCW1 ([facility]) Unknown [address] [facility] [address] 03/29/2020 12:00:00 AM EST eCW1 ([facility]) (BHVHLTH) [facility] Scheduled Visit [address] [place] [address] 03/26/2020 12:00:00 AM EST eCW1 ([facility]) Outpatient [address] [facility] [place] [address] 03/24/2020 12:00:00 AM EST eCW1 ([facility]) Outpatient Admitter: YELITZA Blisser: GERSON GOMEZ DO 03/19/2020 12:00:00 AM EST Other abnormal and inconclusive findings on diagnostic imaging of [facility] Other abnormal and inconclusive findings on diagnostic imaging of breast Outpatient [address] [facility] [address] 03/18/2020 12:00:00 AM EST eCW1 ([facility]) Unknown [address] [facility] [address] 03/18/2020 12:00:00 AM EST eCW1 ([facility]) Outpatient Attender: RUDY TROY MD Main Office 03/16/2020 09:00:00 AM EST MEDENT ([facility]) Unknown [address] [facility] [address] 03/16/2020 12:00:00 AM EST eCW1 ([facility]) Outpatient [address] [facility] [address] 03/15/2020 12:00:00 AM EST eCW1 ([facility]) Unknown [address] [facility] [place] [address] 03/11/2020 12:00:00 AM EDT eCW1 ([facility]) Unknown [address] [facility] [place] [address] 03/10/2020 12:00:00 AM EDT eCW1 ([facility]) Outpatient [address] [facility] [address] 03/05/2020 12:00:00 AM EDT eCW1 ([facility]) [place] [address] [facility] [address] 03/04/2020 12:00:00 AM EDT eCW1 ([facility]) Outpatient Attender: RUDY TROY MD Main Office 03/02/2020 11:00:00 AM EDT MEDENT ([facility]) Unknown [address] [facility] [address] 02/26/2020 12:00:00 AM EDT eCW1 ([facility]) Unknown [address] [facility] [address] 02/23/2020 12:00:00 AM EDT eCW1 ([facility]) Unknown [address] [facility] [place] [address] 02/18/2020 12:00:00 AM EDT eCW1 ([facility]) Out[place] [address] [facility] [address] 02/17/2020 12:00:00 AM EDT eCW1 ([facility]) Unknown [address] [facility] [address] 02/17/2020 12:00:00 AM EDT eCW1 ([facility]) Immunizations Vaccine Date Status Description Data Source(s) COVID-19 VACCINE Moderna 08/16/2020 12:00:00 AM EDT completed [place] Vaccine Series Complete: YESThis Data wa s Submitted to [facility] Via [employer]. COVID-19 VACCINE Moderna 07/19/2020 12:00:00 AM EST completed [place] Vaccine Series Complete: NOThis Data was Submitted to [facility] Via [employer]. pneumococcal polysaccharide PPV23 04/28/2020 09:00:00 AM EST comple isa eCW1 ([facility]) influenza, recombinant, quadrIvalent,injectable, prese rvative free 04/28/2020 09:00:00 AM EST completed eCW1 ([facility]) pneumococcal polysaccharide PPV23 04/28/2020 09:00:00 AM EST comple isa eCW1 ([facility]) influenza, recombinant, quadrIvalent,injectable, prese rvative free 04/28/2020 09:00:00 AM EST completed eCW1 ([facility]) pneumococcal polysaccharide PPV23 04/28/2020 09:00:00 AM EST comple isa eCW1 ([facility]) influenza, recombinant, quadrIvalent,injectable, prese rvative free 04/28/2020 09:00:00 AM EST completed eCW1 ([facility]) pneumococcal polysaccharide PPV23 04/28/2020 09:00:00 AM EST comple isa eCW1 ([facility]) influenza, recombinant, quadrIvalent,injectable, prese rvative free 04/28/2020 09:00:00 AM EST completed eCW1 ([facility]) pneumococcal polysaccharide PPV23 04/28/2020 09:00:00 AM EST comple isa eCW1 ([facility]) influenza, recombinant, quadrIvalent,injectable, prese rvative free 04/28/2020 09:00:00 AM EST completed eCW1 ([facility]) pneumococcal polysaccharide PPV23 04/28/2020 09:00:00 AM EST comple isa eCW1 ([facility]) influenza, recombinant, quadrIvalent,injectable, prese rvative free 04/28/2020 09:00:00 AM EST completed eCW1 ([facility]) pneumococcal polysaccharide PPV23 04/28/2020 09:00:00 AM EST comple isa eCW1 ([facility]) influenza, recombinant, quadrIvalent,injectable, prese rvative free 04/28/2020 09:00:00 AM EST completed eCW1 ([facility]) Medications Medication Brand Name Start Date Product Form Dose Route Admi nistrative Instructions Pharmacy Instructions Status Indications Reaction Description Data Source(s) Calcitriol 0.29243 MG Oral Capsule Calcitriol 01/18/2021 12:00:00 AM EDT ORAL active MEDENT ([facility]) Amitriptyline Hydrochloride 25 MG Oral Tablet Amitriptyline HCL 01/18/2021 12:00:00 AM EDT ORAL active M EDENT ([facility]) Amitriptyline Hydrochloride 25 MG Oral Tablet Amitriptyline HCL 12/08/2020 12:00:00 AM EDT ORAL active M EDENT ([facility]) FreeStyle Genoveva Sensor System - FreeStyle Genoveva Sensor Syste m - 08/11/2020 12:00:00 AM EDT active FreeStyl e Genoveva Sensor System - eCW1 ([facility]) FreeStyle Genoveva Sensor System - FreeStyle Genoveva Sensor Syste m - 08/11/2020 12:00:00 AM EDT active FreeStyl e Genoveva Sensor System - eCW1 ([facility]) FreeStyle Genoveva Blaine - FreeStyle Genoveva Blaine - 08/11/2020 12:00: 00 AM EDT active FreeStyle Genoveva Blaine - eCW1 ([facility]) FreeStyle Genoveva Blaine - FreeStyle Genoveva Blaine - 08/11/2020 12:00: 00 AM EDT active FreeStyle Genoveva Blaine - eCW1 ([facility]) FreeStyle Genoveva Sensor System - FreeStyle Genoveva Sensor Syste m - 08/11/2020 12:00:00 AM EDT active FreeStyl e Genoveva Sensor System - eCW1 ([facility]) FreeStyle Genoveva Blaine - FreeStyle Genoveva Blaine - 08/11/2020 12:00: 00 AM EDT active FreeStyle Genoveva Blaine - eCW1 ([facility]) FreeStyle Genoveva Sensor System - FreeStyle Genoveva Sensor Syste m - 08/11/2020 12:00:00 AM EDT active FreeStyl e Genoveva Sensor System - eCW1 ([facility]) FreeStyle Genoveva Blaine - FreeStyle Genoveva Blaine - 08/11/2020 12:00: 00 AM EDT active FreeStyle Genoveva Blaine - eCW1 ([facility]) FreeStyle Genoveva Sensor System - FreeStyle Genoveva Sensor Syste m - 08/11/2020 12:00:00 AM EDT active FreeStyl e Genoveva Sensor System - eCW1 ([facility]) FreeStyle Genoveva Sensor System - FreeStyle Genoveva Sensor Syste m - 08/11/2020 12:00:00 AM EDT active FreeStyl e Genoveva Sensor System - eCW1 ([facility]) FreeStyle Genoveva Blaine - FreeStyle Genoveva Blaine - 08/11/2020 12:00: 00 AM EDT active FreeStyle Genoveva Blaine - eCW1 ([facility]) FreeStyle Genoveva Blaine - FreeStyle Genoveva Blaine - 08/11/2020 12:00: 00 AM EDT active FreeStyle Genoveva Blaine - eCW1 ([facility]) FreeStyle Genoveva 14 Day Sensor - FreeStyle Genoveva 14 Day Senso r - 08/02/2020 12:00:00 AM EDT active FreeStyl e Genoveva 14 Day Sensor - eCW1 ([facility]) FreeStyle Genoveva 14 Day Blaine - FreeStyle Genoveva 14 Day Reade r - 08/02/2020 12:00:00 AM EDT active FreeStyl e Genoveva 14 Day Blaine - eCW1 ([facility]) Magnesium 07/13/2020 12:00:00 AM EST ORAL active MEDENT ([facility]) sitagliptin 25 MG Oral Tablet [Januvia] Januvia 07/13/2020 12:00:0 0 AM EST ORAL active MEDENT ([facility]) Cholecalciferol 2000 UNT Oral Tablet Vitamin D 07/13/2020 12:00:00 A M EST ORAL active MEDENT ([facility]) Amiloride Hydrochloride 5 MG Oral Tablet Amiloride HCL 07/13/2020 12:00:00 AM EST active MEDENT ([facility]) Escitalopram 10 MG Oral Tablet [Lexapro] Lexapro 07/13/2020 12:00: 00 AM EST ORAL active MEDENT ([facility]) Amlodipine 10 MG Oral Tablet Amlodipine Besylate 06/23/2020 12:00:00 AM EST ORAL active MEDENT ([facility]) Clindamycin 150 MG Oral Capsule Clindamycin HCl 150 MG Clind amycin HCl 150 MG 05/31/2020 12:00:00 AM EST 2.0 {capsules} active Clindamycin HCl 150 MG eCW1 ([facility]) Cephalexin 500 MG Oral Capsule Cephalexin 500 MG 05/28/2020 12:00:0 0 AM EST 1.0 {capsule} suspended Cephalexin 500 M G eCW1 ([facility]) Cephalexin 500 MG Oral Capsule Cephalexin 500 MG 05/28/2020 12:00:0 0 AM EST 1.0 {capsule} suspended Cephalexin 500 M G eCW1 ([facility]) Cephalexin 500 MG Oral Capsule Cephalexin 500 MG 05/28/2020 12:00:0 0 AM EST 1.0 {capsule} suspended Cephalexin 500 M G eCW1 ([facility]) Cephalexin 500 MG Oral Capsule Cephalexin 500 MG 05/28/2020 12:00:0 0 AM EST 1.0 {capsule} suspended Cephalexin 500 M G eCW1 ([facility]) Cephalexin 500 MG Oral Capsule Cephalexin 500 MG 05/28/2020 12:00:0 0 AM EST 1.0 {capsule} suspended Cephalexin 500 M G eCW1 ([facility]) Cephalexin 500 MG Oral Capsule Cephalexin 500 MG 05/28/2020 12:00:0 0 AM EST 1.0 {capsule} suspended Cephalexin 500 M G eCW1 ([facility]) Cephalexin 500 MG Oral Capsule Cephalexin 500 MG 05/28/2020 12:00:0 0 AM EST 1.0 {capsule} suspended Cephalexin 500 M G eCW1 ([facility]) Cephalexin 500 MG Oral Capsule Cephalexin 500 MG 05/28/2020 12:00:0 0 AM EST 1.0 {capsule} suspended Cephalexin 500 M G eCW1 ([facility]) Cephalexin 500 MG Oral Capsule Cephalexin 500 MG 05/28/2020 12:00:0 0 AM EST 1.0 {capsule} suspended Cephalexin 500 M G eCW1 ([facility]) Cephalexin 500 MG Oral Capsule Cephalexin 500 MG 05/28/2020 12:00:0 0 AM EST 1.0 {capsule} suspended Cephalexin 500 M G eCW1 ([facility]) Cephalexin 500 MG Oral Capsule Cephalexin 500 MG 05/28/2020 12:00:0 0 AM EST 1.0 {capsule} suspended Cephalexin 500 M G eCW1 ([facility]) Triamcinolone Acetonide 1 MG/ML Topical Cream Triamcin olone Acetonide 0.1 % Triamcinolone Acetonide 0.1 % 05/25/2020 12:00:00 AM EST 1.0 {appli cation} active Triamcinolone Acetonide 0 .1 % eCW1 ([facility]) Triamcinolone Acetonide 1 MG/ML Topical Cream Triamcin olone Acetonide 0.1 % Triamcinolone Acetonide 0.1 % 05/25/2020 12:00:00 AM EST 1.0 {appli cation} active Triamcinolone Acetonide 0 .1 % eCW1 ([facility]) Amlodipine 5 MG Oral Tablet AmLODIPine Besylate 5 MG AmLODIP ine Besylate 5 MG 05/25/2020 12:00:00 AM EST 1.0 {tablet} active AmLODIPine Besylate 5 MG eCW1 ([facility]) Amlodipine 5 MG Oral Tablet AmLODIPine Besylate 5 MG AmLODIP ine Besylate 5 MG 05/25/2020 12:00:00 AM EST 1.0 {tablet} active AmLODIPine Besylate 5 MG eCW1 ([facility]) sitagliptin 25 MG Oral Tablet [Januvia] Januvia 25 MG Januvi a 25 MG 05/10/2020 12:00:00 AM EST active Januvia 25 MG eCW1 ([facility]) sitagliptin 25 MG Oral Tablet [Januvia] Januvia 25 MG Januvi a 25 MG 05/10/2020 12:00:00 AM EST active Januvia 25 MG eCW1 ([facility]) sitagliptin 25 MG Oral Tablet [Januvia] Januvia 25 MG Januvi a 25 MG 05/10/2020 12:00:00 AM EST active Januvia 25 MG eCW1 ([facility]) sitagliptin 25 MG Oral Tablet [Januvia] Januvia 25 MG Januvi a 25 MG 05/10/2020 12:00:00 AM EST suspended Januv ia 25 MG eCW1 ([facility]) sitagliptin 25 MG Oral Tablet [Januvia] Januvia 25 MG Januvi a 25 MG 05/10/2020 12:00:00 AM EST active Januvia 25 MG eCW1 ([facility]) sitagliptin 25 MG Oral Tablet [Januvia] Januvia 25 MG Januvi a 25 MG 05/10/2020 12:00:00 AM EST active Januvia 25 MG eCW1 ([facility]) sitagliptin 25 MG Oral Tablet [Januvia] Januvia 25 MG Januvi a 25 MG 05/10/2020 12:00:00 AM EST active Januvia 25 MG eCW1 ([facility]) sitagliptin 25 MG Oral Tablet [Januvia] Januvia 25 MG Januvi a 25 MG 05/10/2020 12:00:00 AM EST active Januvia 25 MG eCW1 ([facility]) sitagliptin 25 MG Oral Tablet [Januvia] Januvia 25 MG Januvi a 25 MG 05/10/2020 12:00:00 AM EST suspended Januv ia 25 MG eCW1 ([facility]) Lancets - Lancets - 05/04/2020 12:00:00 AM EST act shikha Lancets - eCW1 ([facility]) Glucometer UNK 05/04/2020 12:00:00 AM EST active Glucometer eCW1 ([facility]) Lancets - Lancets - 05/04/2020 12:00:00 AM EST act shikha Lancets - eCW1 ([facility]) Escitalopram 10 MG Oral Tablet [Lexapro] Lexapro 10 MG Lexap ro 10 MG 05/04/2020 12:00:00 AM EST 1.0 {tablet} active Le xapro 10 MG eCW1 ([facility]) CVS Glucose Meter Test Strips - CVS Glucose Meter Test Strip s - 05/04/2020 12:00:00 AM EST active CVS Gluc ose Meter Test Strips - eCW1 ([facility]) Escitalopram 10 MG Oral Tablet [Lexapro] Lexapro 10 MG Lexap ro 10 MG 05/04/2020 12:00:00 AM EST 1.0 {tablet} active Le xapro 10 MG eCW1 ([facility]) Lancets - Lancets - 05/04/2020 12:00:00 AM EST act shikha Lancets - eCW1 ([facility]) Escitalopram 10 MG Oral Tablet [Lexapro] Lexapro 10 MG Lexap ro 10 MG 05/04/2020 12:00:00 AM EST 1.0 {tablet} active Le xapro 10 MG eCW1 ([facility]) CVS Glucose Meter Test Strips - CVS Glucose Meter Test Strip s - 05/04/2020 12:00:00 AM EST active CVS Gluc ose Meter Test Strips - eCW1 ([facility]) Linagliptin 5 MG Oral Tablet [Tradjenta] Tradjenta 5 MG Trad jenta 5 MG 05/04/2020 12:00:00 AM EST 1.0 {tablet} active Tradjenta 5 MG eCW1 ([facility]) Escitalopram 10 MG Oral Tablet [Lexapro] Lexapro 10 MG Lexap ro 10 MG 05/04/2020 12:00:00 AM EST 1.0 {tablet} active Le xapro 10 MG eCW1 ([facility]) Lancets - Lancets - 05/04/2020 12:00:00 AM EST act shikha Lancets - eCW1 ([facility]) Lancets - Lancets - 05/04/2020 12:00:00 AM EST act shikha Lancets - eCW1 ([facility]) Escitalopram 10 MG Oral Tablet [Lexapro] Lexapro 10 MG Lexap ro 10 MG 05/04/2020 12:00:00 AM EST 1.0 {tablet} suspended Lexapro 10 MG eCW1 ([facility]) CVS Glucose Meter Test Strips - CVS Glucose Meter Test Strip s - 05/04/2020 12:00:00 AM EST active CVS Gluc ose Meter Test Strips - eCW1 ([facility]) CVS Glucose Meter Test Strips - CVS Glucose Meter Test Strip s - 05/04/2020 12:00:00 AM EST active CVS Gluc ose Meter Test Strips - eCW1 ([facility]) Glucometer UNK 05/04/2020 12:00:00 AM EST active Glucometer eCW1 ([facility]) Glucometer UNK 05/04/2020 12:00:00 AM EST active Glucometer eCW1 ([facility]) Lancets - Lancets - 05/04/2020 12:00:00 AM EST act shikha Lancets - eCW1 ([facility]) Escitalopram 10 MG Oral Tablet [Lexapro] Lexapro 10 MG Lexap ro 10 MG 05/04/2020 12:00:00 AM EST 1.0 {tablet} active Le xapro 10 MG eCW1 ([facility]) Linagliptin 5 MG Oral Tablet [Tradjenta] Tradjenta 5 MG Trad jenta 5 MG 05/04/2020 12:00:00 AM EST 1.0 {tablet} active Tradjenta 5 MG eCW1 ([facility]) Glucometer UNK 05/04/2020 12:00:00 AM EST active Glucometer eCW1 ([facility]) Escitalopram 10 MG Oral Tablet [Lexapro] Lexapro 10 MG Lexap ro 10 MG 05/04/2020 12:00:00 AM EST 1.0 {tablet} active Le xapro 10 MG eCW1 ([facility]) CVS Glucose Meter Test Strips - CVS Glucose Meter Test Strip s - 05/04/2020 12:00:00 AM EST active CVS Gluc ose Meter Test Strips - eCW1 ([facility]) Lancets - Lancets - 05/04/2020 12:00:00 AM EST act shikha Lancets - eCW1 ([facility]) Escitalopram 10 MG Oral Tablet [Lexapro] Lexapro 10 MG Lexap ro 10 MG 05/04/2020 12:00:00 AM EST 1.0 {tablet} active Le xapro 10 MG eCW1 ([facility]) Escitalopram 10 MG Oral Tablet [Lexapro] Lexapro 10 MG Lexap ro 10 MG 05/04/2020 12:00:00 AM EST 1.0 {tablet} active Le xapro 10 MG eCW1 ([facility]) Glucometer UNK 05/04/2020 12:00:00 AM EST active Glucometer eCW1 ([facility]) Lancets - Lancets - 05/04/2020 12:00:00 AM EST act shikha Lancets - eCW1 ([facility]) CVS Glucose Meter Test Strips - CVS Glucose Meter Test Strip s - 05/04/2020 12:00:00 AM EST active CVS Gluc ose Meter Test Strips - eCW1 ([facility]) Linagliptin 5 MG Oral Tablet [Tradjenta] Tradjenta 5 MG Trad jenta 5 MG 05/04/2020 12:00:00 AM EST 1.0 {tablet} active Tradjenta 5 MG eCW1 ([facility]) Glucometer UNK 05/04/2020 12:00:00 AM EST active Glucometer eCW1 ([facility]) Lancets - Lancets - 05/04/2020 12:00:00 AM EST act shikha Lancets - eCW1 ([facility]) CVS Glucose Meter Test Strips - CVS Glucose Meter Test Strip s - 05/04/2020 12:00:00 AM EST active CVS Gluc ose Meter Test Strips - eCW1 ([facility]) Escitalopram 10 MG Oral Tablet [Lexapro] Lexapro 10 MG Lexap ro 10 MG 05/04/2020 12:00:00 AM EST 1.0 {tablet} active Le xapro 10 MG eCW1 ([facility]) Linagliptin 5 MG Oral Tablet [Tradjenta] Tradjenta 5 MG Trad jenta 5 MG 05/04/2020 12:00:00 AM EST 1.0 {tablet} active Tradjenta 5 MG eCW1 ([facility]) Linagliptin 5 MG Oral Tablet [Tradjenta] Tradjenta 5 MG Trad jenta 5 MG 05/04/2020 12:00:00 AM EST 1.0 {tablet} suspended Tradjenta 5 MG eCW1 ([facility]) CVS Glucose Meter Test Strips - CVS Glucose Meter Test Strip s - 05/04/2020 12:00:00 AM EST active CVS Gluc ose Meter Test Strips - eCW1 ([facility]) CVS Glucose Meter Test Strips - CVS Glucose Meter Test Strip s - 05/04/2020 12:00:00 AM EST active CVS Gluc ose Meter Test Strips - eCW1 ([facility]) CVS Glucose Meter Test Strips - CVS Glucose Meter Test Strip s - 05/04/2020 12:00:00 AM EST active CVS Gluc ose Meter Test Strips - eCW1 ([facility]) Glucometer UNK 05/04/2020 12:00:00 AM EST active Glucometer eCW1 ([facility]) CVS Glucose Meter Test Strips - CVS Glucose Meter Test Strip s - 05/04/2020 12:00:00 AM EST active CVS Gluc ose Meter Test Strips - eCW1 ([facility]) Glucometer UNK 05/04/2020 12:00:00 AM EST active Glucometer eCW1 ([facility]) Glucometer UNK 05/04/2020 12:00:00 AM EST active Glucometer eCW1 ([facility]) CVS Glucose Meter Test Strips - CVS Glucose Meter Test Strip s - 05/04/2020 12:00:00 AM EST active CVS Gluc ose Meter Test Strips - eCW1 ([facility]) Lancets - Lancets - 05/04/2020 12:00:00 AM EST act shikha Lancets - eCW1 ([facility]) Linagliptin 5 MG Oral Tablet [Tradjenta] Tradjenta 5 MG Trad jenta 5 MG 05/04/2020 12:00:00 AM EST 1.0 {tablet} suspended Tradjenta 5 MG eCW1 ([facility]) Linagliptin 5 MG Oral Tablet [Tradjenta] Tradjenta 5 MG Trad jenta 5 MG 05/04/2020 12:00:00 AM EST 1.0 {tablet} active Tradjenta 5 MG eCW1 ([facility]) Escitalopram 10 MG Oral Tablet [Lexapro] Lexapro 10 MG Lexap ro 10 MG 05/04/2020 12:00:00 AM EST 1.0 {tablet} active Le xapro 10 MG eCW1 ([facility]) Glucometer UNK 05/04/2020 12:00:00 AM EST active Glucometer eCW1 ([facility]) Lancets - Lancets - 05/04/2020 12:00:00 AM EST act shikha Lancets - eCW1 ([facility]) Linagliptin 5 MG Oral Tablet [Tradjenta] Tradjenta 5 MG Trad jenta 5 MG 05/04/2020 12:00:00 AM EST 1.0 {tablet} active Tradjenta 5 MG eCW1 ([facility]) Linagliptin 5 MG Oral Tablet [Tradjenta] Tradjenta 5 MG Trad jenta 5 MG 05/04/2020 12:00:00 AM EST 1.0 {tablet} active Tradjenta 5 MG eCW1 ([facility]) Lancets - Lancets - 05/04/2020 12:00:00 AM EST act shikha Lancets - eCW1 ([facility]) Glucometer UNK 05/04/2020 12:00:00 AM EST active Glucometer eCW1 ([facility]) Linagliptin 5 MG Oral Tablet [Tradjenta] Tradjenta 5 MG Trad jenta 5 MG 05/04/2020 12:00:00 AM EST 1.0 {tablet} active Tradjenta 5 MG eCW1 ([facility]) Escitalopram 10 MG Oral Tablet [Lexapro] Lexapro 10 MG Lexap ro 10 MG 05/04/2020 12:00:00 AM EST 1.0 {tablet} suspended Lexapro 10 MG eCW1 ([facility]) Glucometer UNK 05/04/2020 12:00:00 AM EST active Glucometer eCW1 ([facility]) Ciprofloxacin 500 MG Oral Tablet Ciprofloxacin HCl 500 MG Ciprofloxacin HCl 500 MG 04/22/2020 12:00:00 AM EST 1.0 {tablet} activ e Ciprofloxacin HCl 500 MG eCW1 ([facility]) Ciprofloxacin 500 MG Oral Tablet Ciprofloxacin HCl 500 MG Ciprofloxacin HCl 500 MG 04/22/2020 12:00:00 AM EST 1.0 {tablet} activ e Ciprofloxacin HCl 500 MG eCW1 ([facility]) Ciprofloxacin 500 MG Oral Tablet Ciprofloxacin HCl 500 MG Ciprofloxacin HCl 500 MG 04/22/2020 12:00:00 AM EST 1.0 {tablet} activ e Ciprofloxacin HCl 500 MG eCW1 ([facility]) Ciprofloxacin 500 MG Oral Tablet Ciprofloxacin HCl 500 MG Ciprofloxacin HCl 500 MG 04/22/2020 12:00:00 AM EST 1.0 {tablet} activ e Ciprofloxacin HCl 500 MG eCW1 ([facility]) Lidocaine 25 MG/ML / Prilocaine 25 MG/ML Topical Cream Lidocaine-Prilocaine 2.5- 2.5 % Lidocaine-Prilocaine 2.5-2.5 % 04/05/2020 12:00:00 AM EST active Lidocaine-Prilocaine 2.5-2.5 % e CW1 ([facility]) Lidocaine 25 MG/ML / Prilocaine 25 MG/ML Topical Cream Lidocaine-Prilocaine 2.5- 2.5 % Lidocaine-Prilocaine 2.5-2.5 % 04/05/2020 12:00:00 AM EST active Lidocaine-Prilocaine 2.5-2.5 % e CW1 ([facility]) Lidocaine 25 MG/ML / Prilocaine 25 MG/ML Topical Cream Lidocaine-Prilocaine 2.5- 2.5 % Lidocaine-Prilocaine 2.5-2.5 % 04/05/2020 12:00:00 AM EST active Lidocaine-Prilocaine 2.5-2.5 % e CW1 ([facility]) Lidocaine 25 MG/ML / Prilocaine 25 MG/ML Topical Cream Lidocaine-Prilocaine 2.5- 2.5 % Lidocaine-Prilocaine 2.5-2.5 % 04/05/2020 12:00:00 AM EST active Lidocaine-Prilocaine 2.5-2.5 % e CW1 ([facility]) Lidocaine 25 MG/ML / Prilocaine 25 MG/ML Topical Cream Lidocaine-Prilocaine 2.5- 2.5 % Lidocaine-Prilocaine 2.5-2.5 % 04/05/2020 12:00:00 AM EST active Lidocaine-Prilocaine 2.5-2.5 % e CW1 ([facility]) Lidocaine 25 MG/ML / Prilocaine 25 MG/ML Topical Cream Lidocaine-Prilocaine 2.5- 2.5 % Lidocaine-Prilocaine 2.5-2.5 % 04/05/2020 12:00:00 AM EST active Lidocaine-Prilocaine 2.5-2.5 % e CW1 ([facility]) Lidocaine 25 MG/ML / Prilocaine 25 MG/ML Topical Cream Lidocaine-Prilocaine 2.5- 2.5 % Lidocaine-Prilocaine 2.5-2.5 % 04/05/2020 12:00:00 AM EST active Lidocaine-Prilocaine 2.5-2.5 % e CW1 ([facility]) Lidocaine 25 MG/ML / Prilocaine 25 MG/ML Topical Cream Lidocaine-Prilocaine 2.5- 2.5 % Lidocaine-Prilocaine 2.5-2.5 % 04/05/2020 12:00:00 AM EST active Lidocaine-Prilocaine 2.5-2.5 % e CW1 ([facility]) Lidocaine 25 MG/ML / Prilocaine 25 MG/ML Topical Cream Lidocaine-Prilocaine 2.5- 2.5 % Lidocaine-Prilocaine 2.5-2.5 % 04/05/2020 12:00:00 AM EST active Lidocaine-Prilocaine 2.5-2.5 % e CW1 ([facility]) Lidocaine 25 MG/ML / Prilocaine 25 MG/ML Topical Cream Lidocaine-Prilocaine 2.5- 2.5 % Lidocaine-Prilocaine 2.5-2.5 % 04/05/2020 12:00:00 AM EST active Lidocaine-Prilocaine 2.5-2.5 % e CW1 ([facility]) NITROFURANTOIN, MACROCRYSTALS 25 MG / Ni trofurantoin, Monohydrate 75 MG Oral Capsule Nitrofurantoin Monohyd Macro 100 MG Nitrofurantoin Monohyd Macro 100 MG 04/02/2020 12:00:00 AM EST suspended Nitrofurantoin Monohyd Macro 100 MG eCW1 ([facility]) NITROFURANTOIN, MACROCRYSTALS 25 MG / Ni trofurantoin, Monohydrate 75 MG Oral Capsule Nitrofurantoin Monohyd Macro 100 MG Nitrofurantoin Monohyd Macro 100 MG 04/02/2020 12:00:00 AM EST active Nitrofurantoin Monohyd Macro 100 MG eCW1 ([facility]) NITROFURANTOIN, MACROCRYSTALS 25 MG / Ni trofurantoin, Monohydrate 75 MG Oral Capsule Nitrofurantoin Monohyd Macro 100 MG Nitrofurantoin Monohyd Macro 100 MG 04/02/2020 12:00:00 AM EST suspended Nitrofurantoin Monohyd Macro 100 MG eCW1 ([facility]) NITROFURANTOIN, MACROCRYSTALS 25 MG / Ni trofurantoin, Monohydrate 75 MG Oral Capsule Nitrofurantoin Monohyd Macro 100 MG Nitrofurantoin Monohyd Macro 100 MG 04/02/2020 12:00:00 AM EST active Nitrofurantoin Monohyd Macro 100 MG eCW1 ([facility]) NITROFURANTOIN, MACROCRYSTALS 25 MG / Ni trofurantoin, Monohydrate 75 MG Oral Capsule Nitrofurantoin Monohyd Macro 100 MG Nitrofurantoin Monohyd Macro 100 MG 04/02/2020 12:00:00 AM EST suspended Nitrofurantoin Monohyd Macro 100 MG eCW1 ([facility]) NITROFURANTOIN, MACROCRYSTALS 25 MG / Ni trofurantoin, Monohydrate 75 MG Oral Capsule Nitrofurantoin Monohyd Macro 100 MG Nitrofurantoin Monohyd Macro 100 MG 04/02/2020 12:00:00 AM EST active Nitrofurantoin Monohyd Macro 100 MG eCW1 ([facility]) NITROFURANTOIN, MACROCRYSTALS 25 MG / Ni trofurantoin, Monohydrate 75 MG Oral Capsule Nitrofurantoin Monohyd Macro 100 MG Nitrofurantoin Monohyd Macro 100 MG 04/02/2020 12:00:00 AM EST suspended Nitrofurantoin Monohyd Macro 100 MG eCW1 ([facility]) NITROFURANTOIN, MACROCRYSTALS 25 MG / Ni trofurantoin, Monohydrate 75 MG Oral Capsule Nitrofurantoin Monohyd Macro 100 MG Nitrofurantoin Monohyd Macro 100 MG 04/02/2020 12:00:00 AM EST suspended Nitrofurantoin Monohyd Macro 100 MG eCW1 ([facility]) NITROFURANTOIN, MACROCRYSTALS 25 MG / Ni trofurantoin, Monohydrate 75 MG Oral Capsule Nitrofurantoin Monohyd Macro 100 MG Nitrofurantoin Monohyd Macro 100 MG 04/02/2020 12:00:00 AM EST active Nitrofurantoin Monohyd Macro 100 MG eCW1 ([facility]) NITROFURANTOIN, MACROCRYSTALS 25 MG / Ni trofurantoin, Monohydrate 75 MG Oral Capsule Nitrofurantoin Monohyd Macro 100 MG Nitrofurantoin Monohyd Macro 100 MG 04/02/2020 12:00:00 AM EST active Nitrofurantoin Monohyd Macro 100 MG eCW1 ([facility]) NITROFURANTOIN, MACROCRYSTALS 25 MG / Ni trofurantoin, Monohydrate 75 MG Oral Capsule Nitrofurantoin Monohyd Macro 100 MG Nitrofurantoin Monohyd Macro 100 MG 04/02/2020 12:00:00 AM EST suspended Nitrofurantoin Monohyd Macro 100 MG eCW1 ([facility]) NITROFURANTOIN, MACROCRYSTALS 25 MG / Ni trofurantoin, Monohydrate 75 MG Oral Capsule Nitrofurantoin Monohyd Macro 100 MG Nitrofurantoin Monohyd Macro 100 MG 04/02/2020 12:00:00 AM EST active Nitrofurantoin Monohyd Macro 100 MG eCW1 ([facility]) NITROFURANTOIN, MACROCRYSTALS 25 MG / Ni trofurantoin, Monohydrate 75 MG Oral Capsule Nitrofurantoin Monohyd Macro 100 MG Nitrofurantoin Monohyd Macro 100 MG 04/02/2020 12:00:00 AM EST suspended Nitrofurantoin Monohyd Macro 100 MG eCW1 ([facility]) Ondansetron 4 MG Disintegrating Oral Tablet Ondansetron 4 MG 03/30/2020 12:00:00 AM EST 1.0 {tablet_on_the_tongue_and_allow_to_dissolve} active Ondansetron 4 MG eCW1 ([facility]) Sulfamethoxazole 800 MG / Trimethoprim 1 60 MG Oral Tablet Sulfamethoxazole- Trimethoprim 800-160 MG Sulfamethoxazole-Trimethoprim 800-160 MG 03/30/2020 12:00:00 AM EST 1.0 {tablet} suspended Sulfamethoxazole-Trimethoprim 800-160 MG eCW1 ([facility]) Sulfamethoxazole 800 MG / Trimethoprim 1 60 MG Oral Tablet Sulfamethoxazole- Trimethoprim 800-160 MG Sulfamethoxazole-Trimethoprim 800-160 MG 03/30/2020 12:00:00 AM EST 1.0 {tablet} active Sulfamethoxazole-Trimethoprim 800-160 MG eCW1 ([facility]) Ondansetron 4 MG Disintegrating Oral Tablet Ondansetron 4 MG 03/30/2020 12:00:00 AM EST 1.0 {tablet_on_the_tongue_and_allow_to_dissolve} active Ondansetron 4 MG eCW1 ([facility]) Ondansetron 4 MG Disintegrating Oral Tablet Ondansetron 4 MG 03/30/2020 12:00:00 AM EST 1.0 {tablet_on_the_tongue_and_allow_to_dissolve} active Ondansetron 4 MG eCW1 ([facility]) Sulfamethoxazole 800 MG / Trimethoprim 1 60 MG Oral Tablet Sulfamethoxazole- Trimethoprim 800-160 MG Sulfamethoxazole-Trimethoprim 800-160 MG 03/30/2020 12:00:00 AM EST 1.0 {tablet} active Sulfamethoxazole-Trimethoprim 800-160 MG eCW1 ([facility]) Ondansetron 4 MG Disintegrating Oral Tablet Ondansetron 4 MG 03/30/2020 12:00:00 AM EST 1.0 {tablet_on_the_tongue_and_allow_to_dissolve} active Ondansetron 4 MG eCW1 ([facility]) Sulfamethoxazole 800 MG / Trimethoprim 1 60 MG Oral Tablet Sulfamethoxazole- Trimethoprim 800-160 MG Sulfamethoxazole-Trimethoprim 800-160 MG 03/30/2020 12:00:00 AM EST 1.0 {tablet} suspended Sulfamethoxazole-Trimethoprim 800-160 MG eCW1 ([facility]) Sulfamethoxazole 800 MG / Trimethoprim 1 60 MG Oral Tablet Sulfamethoxazole- Trimethoprim 800-160 MG Sulfamethoxazole-Trimethoprim 800-160 MG 03/30/2020 12:00:00 AM EST 1.0 {tablet} active Sulfamethoxazole-Trimethoprim 800-160 MG eCW1 ([facility]) Sulfamethoxazole 800 MG / Trimethoprim 1 60 MG Oral Tablet Sulfamethoxazole- Trimethoprim 800-160 MG Sulfamethoxazole-Trimethoprim 800-160 MG 03/30/2020 12:00:00 AM EST 1.0 {tablet} active Sulfamethoxazole-Trimethoprim 800-160 MG eCW1 ([facility]) Sulfamethoxazole 800 MG / Trimethoprim 1 60 MG Oral Tablet Sulfamethoxazole- Trimethoprim 800-160 MG Sulfamethoxazole-Trimethoprim 800-160 MG 03/30/2020 12:00:00 AM EST 1.0 {tablet} suspended Sulfamethoxazole-Trimethoprim 800-160 MG eCW1 ([facility]) Ondansetron 4 MG Disintegrating Oral Tablet Ondansetron 4 MG 03/30/2020 12:00:00 AM EST 1.0 {tablet_on_the_tongue_and_allow_to_dissolve} active Ondansetron 4 MG eCW1 ([facility]) Sulfamethoxazole 800 MG / Trimethoprim 1 60 MG Oral Tablet Sulfamethoxazole- Trimethoprim 800-160 MG Sulfamethoxazole-Trimethoprim 800-160 MG 03/30/2020 12:00:00 AM EST 1.0 {tablet} suspended Sulfamethoxazole-Trimethoprim 800-160 MG eCW1 ([facility]) Ondansetron 4 MG Disintegrating Oral Tablet Ondansetron 4 MG 03/30/2020 12:00:00 AM EST 1.0 {tablet_on_the_tongue_and_allow_to_dissolve} active Ondansetron 4 MG eCW1 ([facility]) Ondansetron 4 MG Disintegrating Oral Tablet Ondansetron 4 MG 03/30/2020 12:00:00 AM EST 1.0 {tablet_on_the_tongue_and_allow_to_dissolve} active Ondansetron 4 MG eCW1 ([facility]) Ondansetron 4 MG Disintegrating Oral Tablet Ondansetron 4 MG 03/30/2020 12:00:00 AM EST 1.0 {tablet_on_the_tongue_and_allow_to_dissolve} active Ondansetron 4 MG eCW1 ([facility]) Sulfamethoxazole 800 MG / Trimethoprim 1 60 MG Oral Tablet Sulfamethoxazole- Trimethoprim 800-160 MG Sulfamethoxazole-Trimethoprim 800-160 MG 03/30/2020 12:00:00 AM EST 1.0 {tablet} suspended Sulfamethoxazole-Trimethoprim 800-160 MG eCW1 ([facility]) Ondansetron 4 MG Disintegrating Oral Tablet Ondansetron 4 MG 03/30/2020 12:00:00 AM EST 1.0 {tablet_on_the_tongue_and_allow_to_dissolve} active Ondansetron 4 MG eCW1 ([facility]) Sulfamethoxazole 800 MG / Trimethoprim 1 60 MG Oral Tablet Sulfamethoxazole- Trimethoprim 800-160 MG Sulfamethoxazole-Trimethoprim 800-160 MG 03/30/2020 12:00:00 AM EST 1.0 {tablet} suspended Sulfamethoxazole-Trimethoprim 800-160 MG eCW1 ([facility]) Sulfamethoxazole 800 MG / Trimethoprim 1 60 MG Oral Tablet Sulfamethoxazole- Trimethoprim 800-160 MG Sulfamethoxazole-Trimethoprim 800-160 MG 03/30/2020 12:00:00 AM EST 1.0 {tablet} active Sulfamethoxazole-Trimethoprim 800-160 MG eCW1 ([facility]) Sulfamethoxazole 800 MG / Trimethoprim 1 60 MG Oral Tablet Sulfamethoxazole- Trimethoprim 800-160 MG Sulfamethoxazole-Trimethoprim 800-160 MG 03/30/2020 12:00:00 AM EST 1.0 {tablet} suspended Sulfamethoxazole-Trimethoprim 800-160 MG eCW1 ([facility]) Sulfamethoxazole 800 MG / Trimethoprim 1 60 MG Oral Tablet Sulfamethoxazole- Trimethoprim 800-160 MG Sulfamethoxazole-Trimethoprim 800-160 MG 03/30/2020 12:00:00 AM EST 1.0 {tablet} active Sulfamethoxazole-Trimethoprim 800-160 MG eCW1 ([facility]) Ondansetron 4 MG Disintegrating Oral Tablet Ondansetron 4 MG 03/30/2020 12:00:00 AM EST 1.0 {tablet_on_the_tongue_and_allow_to_dissolve} active Ondansetron 4 MG eCW1 ([facility]) Sulfamethoxazole 800 MG / Trimethoprim 1 60 MG Oral Tablet Sulfamethoxazole- Trimethoprim 800-160 MG Sulfamethoxazole-Trimethoprim 800-160 MG 03/30/2020 12:00:00 AM EST 1.0 {tablet} active Sulfamethoxazole-Trimethoprim 800-160 MG eCW1 ([facility]) Sulfamethoxazole 800 MG / Trimethoprim 1 60 MG Oral Tablet Sulfamethoxazole- Trimethoprim 800-160 MG Sulfamethoxazole-Trimethoprim 800-160 MG 03/30/2020 12:00:00 AM EST 1.0 {tablet} active Sulfamethoxazole-Trimethoprim 800-160 MG eCW1 ([facility]) Ondansetron 4 MG Disintegrating Oral Tablet Ondansetron 4 MG 03/30/2020 12:00:00 AM EST 1.0 {tablet_on_the_tongue_and_allow_to_dissolve} active Ondansetron 4 MG eCW1 ([facility]) Ondansetron 4 MG Disintegrating Oral Tablet Ondansetron 4 MG 03/30/2020 12:00:00 AM EST 1.0 {tablet_on_the_tongue_and_allow_to_dissolve} active Ondansetron 4 MG eCW1 ([facility]) Ondansetron 4 MG Disintegrating Oral Tablet Ondansetron 4 MG 03/30/2020 12:00:00 AM EST 1.0 {tablet_on_the_tongue_and_allow_to_dissolve} active Ondansetron 4 MG eCW1 ([facility]) Ondansetron 4 MG Disintegrating Oral Tablet Ondansetron 4 MG 03/30/2020 12:00:00 AM EST 1.0 {tablet_on_the_tongue_and_allow_to_dissolve} active Ondansetron 4 MG eCW1 ([facility]) Sulfamethoxazole 800 MG / Trimethoprim 1 60 MG Oral Tablet Sulfamethoxazole- Trimethoprim 800-160 MG Sulfamethoxazole-Trimethoprim 800-160 MG 03/30/2020 12:00:00 AM EST 1.0 {tablet} active Sulfamethoxazole-Trimethoprim 800-160 MG eCW1 ([facility]) Ondansetron 4 MG Disintegrating Oral Tablet Ondansetron 4 MG 03/30/2020 12:00:00 AM EST 1.0 {tablet_on_the_tongue_and_allow_to_dissolve} active Ondansetron 4 MG eCW1 ([facility]) Ondansetron 4 MG Disintegrating Oral Tablet Ondansetron 4 MG 03/30/2020 12:00:00 AM EST 1.0 {tablet_on_the_tongue_and_allow_to_dissolve} active Ondansetron 4 MG eCW1 ([facility]) torsemide 20 MG Oral Tablet Torsemide 03/16/2020 12:00:00 AM EST ORAL active MED[facility] ([facility]) torsemide 20 MG Oral Tablet Torsemide 03/02/2020 12:00:00 AM EDT ORAL completed [facility] ([facility]) carvedilol 3.125 MG Oral Tablet Carvedilol 03/01/2020 12:00:00 AM EDT ORAL active MEDENT ([facility]) Metformin hydrochloride 500 MG Oral Tablet Metformin HCL 03/01/2020 12:00:00 AM EDT ORAL active MEDENT ([facility]) Lisinopril 2.5 MG Oral Tablet Lisinopril 03/01/2020 12:00:00 AM EDT ORAL active MED[facility] ([facility]) Amitriptyline Hydrochloride 25 MG Oral Tablet Amitriptyline HCL 03/01/2020 12:00:00 AM EDT ORAL active M EDENT ([facility]) torsemide 10 MG Oral Tablet Torsemide 03/01/2020 12:00:00 AM EDT ORAL completed [facility] ([facility]) Metformin hydrochloride 500 MG Oral Tablet Metformin H Cl 500 MG Metformin HCl 500 MG 02/19/2020 12:00:00 AM EDT 1.0 {tablet_with_a_meal} active Metformin HCl 500 MG eCW1 ([facility]) Amitriptyline Hydrochloride 25 MG Oral Tablet Amitript yline HCl 25 MG Amitriptyline HCl 25 MG 02/19/2020 12:00:00 AM EDT 1.0 {tablet_at_b edtime} active Amitriptyline HCl 25 MG e CW1 ([facility]) Metformin hydrochloride 500 MG Oral Tablet Metformin H Cl 500 MG Metformin HCl 500 MG 02/19/2020 12:00:00 AM EDT 1.0 {tablet_with_a_meal} active Metformin HCl 500 MG eCW1 ([facility]) Metformin hydrochloride 500 MG Oral Tablet Metformin H Cl 500 MG Metformin HCl 500 MG 02/19/2020 12:00:00 AM EDT 1.0 {tablet_with_a_meal} active Metformin HCl 500 MG eCW1 ([facility]) Metformin hydrochloride 500 MG Oral Tablet Metformin H Cl 500 MG Metformin HCl 500 MG 02/19/2020 12:00:00 AM EDT 1.0 {tablet_with_a_meal} active Metformin HCl 500 MG eCW1 ([facility]) Amitriptyline Hydrochloride 25 MG Oral Tablet Amitript yline HCl 25 MG Amitriptyline HCl 25 MG 02/19/2020 12:00:00 AM EDT 1.0 {tablet_at_b edtime} active Amitriptyline HCl 25 MG e CW1 ([facility]) Amitriptyline Hydrochloride 25 MG Oral Tablet Amitript yline HCl 25 MG Amitriptyline HCl 25 MG 02/19/2020 12:00:00 AM EDT 1.0 {tablet_at_b edtime} active Amitriptyline HCl 25 MG e CW1 ([facility]) Amitriptyline Hydrochloride 25 MG Oral Tablet Amitript yline HCl 25 MG Amitriptyline HCl 25 MG 02/19/2020 12:00:00 AM EDT 1.0 {tablet_at_b edtime} active Amitriptyline HCl 25 MG e CW1 ([facility]) Amiloride Hydrochloride 5 MG Oral Tablet Amiloride HCL 01/22/2020 12:00:00 AM EDT completed MEDENT ([facility]) Cephalexin 500 MG Oral Capsule Cephalexin 01/22/2020 12:00:00 AM EDT ORAL completed MED[facility] ([facility]) torsemide 10 MG Oral Tablet Torsemide 01/21/2020 12:00:00 AM EDT ORAL completed [facility] ([facility]) Lisinopril 10 MG Oral Tablet Lisinopril 01/21/2020 12:00:00 AM EDT ORAL completed [facility] ([facility]) Metformin HCL ER (Mod) Metformin HCL ER (Mod) 01/21/2020 12:00:00 AM EDT ORAL completed [facility] ([facility]) carvedilol 12.5 MG Oral Tablet Carvedilol 01/21/2020 12:00:00 AM EDT ORAL completed [facility] ([facility]) Insurance Providers Payer name Policy type / Coverage type Policy ID Covered democrat ID Covered democrat's relationship to weston Policy Weston Plan Information [facility] Commercial Hmo [id number] Family Dependent Hmo COMMERCIAL GENERIC U [id number] Self [id number] [facility] GOVERNMENT EMPLOYEES HOSP ASSOC U [id number] Self [id number] GEHA-ASA [id number] SP [id number] [facility] [id number] SP [id number] GEHA-ASA [id number] SP [id number] MEDICARE [id number] SP [id number] GEHA-ASA [id number] SP [id number] GEHA-ASA [id number] SP [id number] GEHA-ASA [id number] SP [id number] [facility] [facility] [place] [id number] SP [id number] [employer] Commercial [id number] Self [id number] [employer] Commercial [id number] Self [id number] [employer] Commercial [id number] Self [id number] [employer] Commercial [id number] Self [id number] [employer] Life [employer] Medigap Part B [place] [id number] Self Open Choice Ppo [facility] P [id number] S [id number] [facility] [id number] SP [id number] DEPART OF 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 P [id number] S [id number] DEMETRIO TIJERINA P [id number] S [id number] DEMETRIO TIJERINA P UNAVAILABLE [id number] UNAVAI LABLE [facility] [id number] SP [id number] MEDICARE [id number] SP [id number] GEHA-ASA [id number] SP [id number] Problems, Conditions, and Diagnoses Code Display Name Description Problem Type Effective Dates Data Source(s) R92.8 Other abnormal and inconclusive findings on diagnostic imaging of breast Other abnormal and inconclusive findings on diagnostic imaging of breast Diagnosis 03/19/2020 02:08:00 PM [facility] G56.23 Lesion of ulnar nerve Lesion of ulnar nerve Problem 02/17/2021 12:00:00 AM EDT MEDENT ([facility]) K59.01 [id number] Slow transit constipation Problem 02/14/2021 12:00:00 AM EDT eCW1 ([facility]) G47.9 [id number] Difficulty sleeping Problem 02/14/2021 12:00 :00 AM EDT eCW1 ([facility]) R97.8 [id number] Elevated CA 19-9 level Problem 02/14/2021 12:00:00 AM EDT eCW1 ([facility]) L97.819 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-pressure chronic ulcer of other part of right lower leg with unspecified severity Problem 02/08/2021 12:00:00 AM EDT eCW1 ( [facility]) F31.75 Depressed bipolar I disorder in [facility] Bipolar 1 disorder, depressed, partial remission Problem 02/02/2021 12:00:00 AM EDT eCW1 ([facility]) L97.822 78096347 Non-pressure chronic ulcer of other part of left lower leg with fat layer exposed Problem 01/10/2021 12:00:00 AM EDT eCW1 ([facility]) I87.312 [id number] Chronic venous hyper tension (idiopathic) with ulcer of left lower extremity Problem 01/10/2021 12:00:00 AM EDT eCW1 ([facility]) 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 Problem 12/08/2020 12:00:00 AM EDT MEDENT ([facility]) G56.03 Bilateral carpal tunnel syndrome Bilateral carpa l tunnel syndrome Problem 12/08/2020 12:00:00 AM EDT MED[facility] ([facility]) R29.6 [id number] Recurrent falls Problem 12/07/2020 12:00:00 AM EDT eCW1 ([facility]) C50.912 [id number] Invasive lobular carcinoma of l eft breast in female Problem 10/20/2020 12:00:00 AM EDT eCW1 ([facility]) I51.7 8667885 Cardiomegaly Problem 10/20/2020 12:00:00 AM EDT eCW1 ([facility]) Q26.1 18836213 Persistent left SVC (superior vena cava) Problem 10/20/2020 12:00:00 AM EDT eCW1 ([facility]) I50.9 66127470 Congestive heart failure, unspecified Pro blem 10/20/2020 12:00:00 AM EDT eCW1 ([facility]) B35.1 Onychomycosis Onychomycosis Problem 09/08/2020 12:00:00 AM EDT [facility] N39.490 [id number] Overflow incontinence Problem 08/02/2020 12: 00:00 AM EDT eCW1 ([facility]) E11.40 [id number] 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, without long- term current use of insulin Problem 08/02/2020 12:00:00 AM EDT eCW1 ([facility]) R94.31 Electrocardiogram abnormal Electrocardiogram abnormal Problem 07/14/2020 12:00:00 AM EST MEDENT ([facility]) E11.9 Type 2 diabetes mellitus Type 2 diabetes mellitus Prob patrick 06/22/2020 12:00:00 AM EST [facility] ([facility] R26.89 Abnormal gait Abnormal gait Problem 06/22/2020 12:00:00 AM EST [facility] ([facility] M21.6x9 Pronation Pronation Problem 06/22/2020 12:00:00 AM ES T MED[facility] ([facility] R60.0 Edema Edema Problem 06/22/2020 12:00:00 AM ES T MED[facility] ([facility] I87.2 [id number] Venous stasis dermatitis of both lower ex tremities Problem 06/02/2020 12:00:00 AM EST eCW1 ([facility]) N64.89 781394394 Seroma of breast Problem 05/28/2020 12:00:00 AM EST eCW1 ([facility]) C50.912 248828091 Malignant neoplasm of unspecifie d site of left female breast Problem 05/10/2020 12:00:00 AM EST eCW1 ([facility]) F32.2 064897033 Moderately severe depression Problem 020 12:00:00 AM EST eCW1 ([facility]) R41.3 536013819 Memory difficulties Problem 05/04/2020 12:00 :00 AM EST eCW1 ([facility]) Z01.810 Preoperative cardiovascular examination Preoperative cardiovascular examination Problem 04/12/2020 12:00:00 AM EST [facility] C50.919 [id number] Invasive lobular carcinoma of breast in f emale Problem 03/30/2020 12:00:00 AM EST eCW1 ([facility]) I50.9 05284226 Congestive heart porfirio lure, unspecified HF chronicity, unspecified heart failure type Problem 03/28/2020 12:00:00 AM EST eCW1 ([facility]) Z99.3 485799350 Wheelchair bound Problem 03/28/2020 12:00:00 AM EST eCW1 ([facility]) I51.7 9908832 Cardiomegaly Problem 03/28/2020 12:00:00 AM EST eCW1 ([facility]) F41.1 59997145 Generalized anxiety disorder Problem 020 12:00:00 AM EDT eCW1 ([facility]) F90.0 58326695 Attention deficit hy peractivity disorder (ADHD), predominantly inattentive type Problem 03/05/2020 12:00:00 AM EDT eCW1 ([facility]) F31.75 61308072 Bipolar 1 disorder, depressed, partial re mission Problem 03/05/2020 12:00:00 AM EDT eCW1 ([facility]) N18.30 Chronic kidney disease stage 3 due to ty pe 2 diabetes mellitus Chronic kidney disease stage 3 due to type 2 diabetes mellitus Problem 03/02/2020 12:00:00 AM EDT MEDENT ([facility]) G62.9 [id number] Neuropathy Problem 02/19/2020 12:00:00 AM ED T eCW1 ([facility]) G47.33 65048029 ALANIS (obstructive sleep apnea) Problem 02/19/2020 12:00:00 AM EDT eCW1 ([facility]) G47.33 79429032 Obstructive sleep apnea (adult) (pediatri c) Problem 02/19/2020 12:00:00 AM EDT eCW1 ([facility]) E11.9 Type 2 diabetes mellitus without complic ation Type 2 diabetes mellitus without complication, without long-term current use of insulin Problem 02/17/2020 12:00:00 AM EDT eCW1 ([facility]) I50.32 081196903 Chronic diastolic congestive heart failur e Problem 02/17/2020 12:00:00 AM EDT eCW1 ([facility]) Surgeries/Procedures Procedure Description Date Indications Data Source(s) OFFICE OUTPATIENT VISIT 25 MINUTES 02/17/2021 12:00:00 AM EDT MEDSASHA ([facility] ) FINE NEEDLE ASPIRATION W/O IMAGING GUIDANCE 02/14/2021 12:00:00 AM EDT eCW1 ([facility]) FINE NEEDLE ASPIRATION W/O IMAGING GUIDANCE 02/07/2021 12:00:00 AM EDT eCW1 ([facility]) DEBRIDEMENT NAIL ANY METHOD 6/> 02/01/2021 12:00:00 AM EDT MEDSASHA ([facility] FINE NEEDLE ASPIRATION W/O IMAGING GUIDANCE 01/26/2021 12:00:00 AM EDT eCW1 ([facility]) ECG ROUTINE ECG W/LEAST 12 LDS W/I&R 01/19/2021 12:00: 00 AM EDT MEDENT ([facility]) OFFICE OUTPATIENT VISIT 25 MINUTES 01/19/2021 12:00:00 AM EDT MEDENT ([facility]) Needle electromyography, each extremity, with related paraspinal areas, when performed, done with nerve conduction, amplitude and latency/velocity study; complete, five or more muscles studied, innervated by three or more nerves or four or more spinal levels (list separately in addition to the code for primary procedure). 01/18/2021 12:00:00 AM EDT MEDEN T ([facility] ) Needle electromyography, each extremity, with related paraspinal areas, when performed, done with nerve conduction, amplitude and latency/velocity study; complete, five or more muscles studied, innervated by three or more nerves or four or more spinal levels (list separately in addition to the code for primary procedure). 01/18/2021 12:00:00 AM EDT MEDEN T ([facility] ) Nerve Conduction 9-10 Studies 01/18/2021 12:00:00 AM E DT MEDENT ([facility] ) Medication: 4% Lidocaine topical cream (Anecream) 30 gm 01/10/2021 12:00:00 AM EDT eC1 ([facility]) Needle electromyography, each extremity, with related paraspinal areas, when performed, done with nerve conduction, amplitude and latency/velocity study; complete, five or more muscles studied, innervated by three or more nerves or four or more spinal levels (list separately in addition to the code for primary procedure). 12/20/2020 12:00:00 AM EDT MEDEN T ([facility] ) Needle electromyography, each extremity, with related paraspinal areas, when performed, done with nerve conduction, amplitude and latency/velocity study; complete, five or more muscles studied, innervated by three or more nerves or four or more spinal levels (list separately in addition to the code for primary procedure). 12/20/2020 12:00:00 AM EDT MEDEN T ([facility] ) Nerve Conduction 9-10 Studies 12/20/2020 12:00:00 AM E DT MEDENT ([facility] ) OFFICE OUTPATIENT NEW 45 MINUTES 12/08/2020 12:00:00 A M EDT MEDENT ([facility]) OFFICE OUTPATIENT VISIT 10 MINUTES 11/23/2020 12:00:00 AM EDT MED[facility] ([facility] OFFICE OUTPATIENT VISIT 10 MINUTES 10/29/2020 12:00:00 AM EDT MED[facility] ([facility] OFFICE OUTPATIENT VISIT 10 MINUTES 08/27/2020 12:00:00 AM EDT MED[facility] ([facility] OFFICE OUTPATIENT NEW 30 MINUTES 06/22/2020 12:00:00 A M EST [facility] ([facility] Results ID Date Data Source TOTAL IRON BINDING CAPACIT 02/04/2021 12:00:00 AM EDT eCW1 ( [facility]) Name Value Range Interpretation Code Description Data Rsoy rce(s) Supporting Document(s) 55 50-170 IRON (FE) eCW1 ([facility]) 240 250-450 TOTAL IRON BINDING CAPACI TY eCW1 ([facility]) 22.9 13.2-45.0 PERCENT SATURATION eCW1 ([facility]) ID Date Data Source FERRITIN 02/04/2021 12:00:00 AM EDT eCW1 ([facility]) Name Value Range Interpretation Code Description Data Rosy rce(s) Supporting Document(s) 225 8-252 FERRITIN eCW1 ([facility]) ID Date Data Source [id number] 12/13/2020 12:41:00 PM EDT MEDENT ([facility]) Name Value Range Interpretation Code Description Data Rosy rce(s) Supporting Document(s) Natriuretic peptide.B prohormone N-Terminal [Mass/volu me] in Serum or Plasma 88 [facility] ([facility] Magnesium Level 2.4 1.8-2.4 MED[facility] ([facility]) ID Date Data Source [id number] 12/13/2020 12:41:00 PM EDT [facility] ([facility] Name Value Range Interpretation Code Description Data Rosy rce(s) Supporting Document(s) White Blood Count 10.2 4.0-10.0 [facility] ([facility]) Red Blood Count 4.22 4.00-5.40 [facility] ([facility]) Platelets 281 172-450 [facility] Hematocrit 38.8 36.0-47.0 [facility] ([facility]) Hemoglobin 12.5 12.0-16.0 MED[facility] ([facility]) ID Date Data Source [id number] 12/13/2020 12:41:00 PM EDT [facility] ([facility]) Name Value Range Interpretation Code Description Data Rosy rce(s) Supporting Document(s) Glucose 274 70-106 [facility] Blood Urea Nitrogen 22.9 7-18 [facility] Creatinine 1.5 0.55-1.3 MED[facility] ([facility]) Glomerular filtration rate/1.73 sq M.pre dicted [Volume Rate/Area] in Serum or Plasma by Creatinine-based formula (MDRD) 35 MEDENT ([facility]) Sodium 134.7 135-145 [facility] Chloride 98.8 94-110 [facility] Potassium 3.83 3.5-5.5 [facility] Calcium 9.2 8.5-10.1 [facility] Carbon Dioxide 30.6 21-32 [facility] ([facility]) Albumin 3.8 3.2-5.2 [facility] Phosphorus 3.3 2.5-4.9 [facility] ([facility]) ID Date Data Source VITAMIN B12 LEVEL 10/08/2020 12:00:00 AM EDT [email or web address] ([facility]) Name Value Range Interpretation Code Description Data Rosy rce(s) Supporting Document(s) [id number] VITAMIN B12 LEVEL eCW1 ([facility]) ID Date Data Source TSH 10/08/2020 12:00:00 AM EDT eCW1 ([facility]) Name Value Range Interpretation Code Description Data Rosy rce(s) Supporting Document(s) 1.170 0.358-3.740 THYROID STIMULATING HORM ONE eCW1 ([facility]) ID Date Data Source SERUM PROTEIN ELECTROPHORESIS (SPEP) 10/08/2020 12:00:00 AM EDT eCW1 ([facility]) Name Value Range Interpretation Code Description Data Rosy rce(s) Supporting Document(s) 13.9 7.1-11.8 SNAVN-4-KXDZLLMVN % eCW1 ([facility]) 5.9 4.7-7.2 BIUS-2-AZWJTGXES % eCW1 ([facility]) 4.8 2.9-4.9 SKHMW-3-CDQPECYE % eCW1 ([facility]) 50.7 55.8-66.1 ALBUMIN % eCW1 ([facility]) 7.0 3.2-6.5 WPPS-0-FPCTDGSYH % eCW1 ([facility]) 3.75 3.29-5.55 ALBUMIN eCW1 ([facility]) 17.7 11.1-18.8 GAMMA GLOBULIN % eCW1 ([facility]) 0.44 0.28-0.60 AONW-2-INLGKHIUB eCW1 ([facility]) 0.52 0.19-0.55 VQER-9-PDKBFDNWN eCW1 ([facility]) 1.03 0.42-0.99 OOSSU-6-ZNIQFALPE eCW1 ([facility]) 0.36 0.17-0.41 CDBSH-7-MSLIHSKHO eCW1 ([facility]) SEE COMMENT SPEP INTERPRETATION eCW1 ([facility]) 7.4 6.4-8.2 TOTAL PROTEIN eCW1 ([facility]) 1.31 0.65-1.58 GAMMA GLOBULINS eCW1 ([facility]) ID Date Data Source FOLATE 10/08/2020 12:00:00 AM EDT eCW1 ([facility]) Name Value Range Interpretation Code Description Data Rosy rce(s) Supporting Document(s) 8.9 >5.4 FOLATE eCW1 ([facility]) ID Date Data Source ANTI DOUBLE STRAND DNA SUNG 10/08/2020 12:00:00 AM EDT eCW1 ( [facility]) Name Value Range Interpretation Code Description Data Rosy rce(s) Supporting Document(s) ANTI DOUBLE STRAND DNA SUNG eCW 1 ([facility]) ID Date Data Source SHAWANDA 10/08/2020 12:00:00 AM EDT eCW1 ([facility]) Name Value Range Interpretation Code Description Data Rosy rce(s) Supporting Document(s) Negative Negative ANTINUCLEAR ANTIBODIES DI RECT eCW1 ([facility]) ID Date Data Source [id number] 10/08/2020 12:00:00 AM EDT eCW1 ([facility]) Name Value Range Interpretation Code Description Data Rosy rce(s) Supporting Document(s) Hemoglobin A1c/Hemoglobin.total in Blood 8.7 HEMOGLOBIN A1c eCW1 ([facility]) ID Date Data Source ERYTHROCYTE SEDIMENTATION RATE 10/08/2020 12:00:00 AM EDT eC W1 ([facility]) Name Value Range Interpretation Code Description Data Rosy rce(s) Supporting Document(s) 57 0-30 ERYTHROCYTE SEDIMENTATION RATE eCW1 ([facility]) ID Date Data Source [id number] 08/30/2020 01:33:00 PM EDT MEDENT ([facility]) Name Value Range Interpretation Code Description Data Rosy rce(s) Supporting Document(s) Magnesium Level 1.95 MEDENT ([facility]) ID Date Data Source [id number] 08/30/2020 01:33:00 PM EDT MEDENT ([facility]) Name Value Range Interpretation Code Description Data Rosy rce(s) Supporting Document(s) Blood Urea Nitrogen 31.4 5-21 MEDENT ([facility]) Glucose 270 70-100 MEDENT ([facility] Creatinine 1.4 0.6-1.5 MEDENT ([facility]) Glomerular filtration rate/1.73 sq M.pre dicted [Volume Rate/Area] in Serum or Plasma by Creatinine-based formula (MDRD) 37 MEDENT ([facility]) Sodium 135.8 136-146 MEDENT ([facility] Potassium 3.65 3.5-5.3 MEDENT ([facility]) Chloride 91.5 98-110 MEDENT ([facility] Carbon Dioxide 33.5 20-32 MEDENT ([facility]) Calcium 8.4 8.4-10.4 MEDENT ([facility]) Phosphorus 3.0 MEDENT ([facility]) Albumin 3.8 3.5-4.7 MEDENT ([facility]) ID Date Data Source [id number] 06/28/2020 12:22:00 PM EST MEDENT ([facility]) Name Value Range Interpretation Code Description Data Rosy rce(s) Supporting Document(s) Hemoglobin A1c/Hemoglobin.total in Blood 7.0 MEDENT ([facility]) ID Date Data Source [id number] 06/28/2020 12:22:00 PM EST MEDENT ([facility]) Name Value Range Interpretation Code Description Data Rosy rce(s) Supporting Document(s) Alanine aminotransferase [Enzymatic activity/volume] in Serum or Pl asma 21 MEDENT ([facility]) Albumin [Mass/volume] in Serum or Plasma 3.3 MEDENT ([facility]) Carbon dioxide, total [Moles/volume] in Serum or Plasma 36 MEDENT ([facility]) Calcium [Mass/volume] in Serum or Plasma 9.0 MEDENT ([facility]) Chloride [Moles/volume] in Serum or Plasma 98 MEDENT ([facility]) Potassium [Moles/volume] in Serum or Plasma 3.8 MEDENT ([facility]) Protein [Mass/volume] in Serum or Plasma 7.3 MEDENT ([facility]) Alkaline phosphatase [Enzymatic activity/volume] in Serum or Plasma 1 19 MEDENT ([facility]) Urea nitrogen [Mass/volume] in Serum or Plasma 22 MEDENT ([facility]) Aspartate aminotransferase [Enzymatic activity/volume] in Serum or Plasma 13 MEDENT ([facility]) Sodium 139 MED[facility] ([facility] Glucose 200 70-100 MEDENT ([facility]) Creatinine For GFR 1.46 MEDENT ([facility]) ID Date Data Source [id number] 06/28/2020 12:22:00 PM EST MEDENT ([facility]) Name Value Range Interpretation Code Description Data Rosy rce(s) Supporting Document(s) Red Blood Count 4.00 4.00-5.40 MEDENT ([facility]) White Blood Count 10.8 4.0-10.0 MEDENT ([facility]) Platelets 303 150-450 MEDENT ([facility]) Hematocrit 38.5 MEDENT ([facility]) Hemoglobin 12.2 MEDENT ([facility]) ID Date Data Source WOUND CULTURE AND GRAM ST 05/28/2020 12:00:00 AM EST eCW1 ([facility]) Name Value Range Interpretation Code Description Data Rosy rce(s) Supporting Document(s) WOUND CULTURE AND GRAM ST eCW1 ([facility]) ID Date Data Source [id number] 05/20/2020 02:02:00 PM EST [facility] Name Value Range Interpretation Code Description Data Rosy rce(s) Supporting Document(s) SARS-CoV-2 (COVID 19) NEGATIVE - SARS-CoV-2 (COVID19) [facility] This lab was ordered by [facility] a nd reported by [facility]. ID Date Data Source [id number] 05/19/2020 01:50:00 AM EST [facility] Name Value Range Interpretation Code Description Data Rosy rce(s) Supporting Document(s) SARS-CoV-2 (COVID 19) NEGATIVE - SARS-CoV-2 (COVID19) [facility] This lab was ordered by [facility] a nd reported by [facility]. ID Date Data Source [id number] 04/26/2020 08:09:00 AM EST MEDENT ([facility]) Name Value Range Interpretation Code Description Data Rosy rce(s) Supporting Document(s) Magnesium Level 2.65 MEDENT ([facility]) ID Date Data Source [id number] 04/26/2020 08:09:00 AM EST MEDENT ([facility]) Name Value Range Interpretation Code Description Data Rosy rce(s) Supporting Document(s) Glucose 222 MED[facility] ([facility] Glomerular filtration rate/1.73 sq M.pre dicted [Volume Rate/Area] in Serum or Plasma by Creatinine-based formula (MDRD) 22 MEDENT ([facility]) Blood Urea Nitrogen 42.9 MEDENT ([facility]) Creatinine 2.2 MEDENT ([facility]) Potassium 4.85 MED[facility] ([facility]) Chloride 93.8 [facility] Sodium 137.2 [facility] Phosphorus 4.0 MED[facility] ([facility]) Calcium 9.5 MED[facility] ([facility] Carbon Dioxide 31.3 MEDENT ([facility]) Albumin 3.8 MED[facility] ([facility] ID Date Data Source [id number] 04/22/2020 12:25:00 PM EST [facility] Name Value Range Interpretation Code Description Data Rosy rce(s) Supporting Document(s) SARS coronavirus 2 RNA [facility] This lab was ordered by [facility] and reported by [facility]. ID Date Data Source [id number] 04/13/2020 09:39:00 AM EST MEDENT ([facility]) Name Value Range Interpretation Code Description Data Rosy rce(s) Supporting Document(s) Magnesium Level 2.03 MEDENT ([facility]) ID Date Data Source [id number] 04/13/2020 09:39:00 AM EST MEDENT ([facility]) Name Value Range Interpretation Code Description Data Rosy rce(s) Supporting Document(s) Platelets 266 130-400 MED[facility] ([facility] Red Blood Count 4.04 4.70-6.20 MED[facility] ([facility]) White Blood Count 9.6 4.3-10.9 [facility] Hemoglobin 12.5 13.0-17.0 [facility] ([facility]) Hematocrit 37.8 39.0-50.0 [facility] ([facility]) ID Date Data Source [id number] 04/13/2020 09:39:00 AM EST MEDENT ([facility]) Name Value Range Interpretation Code Description Data Rosy rce(s) Supporting Document(s) Creatinine 1.8 0.6-1.5 [facility] ([facility]) Glucose 217 70-100 [facility] Blood Urea Nitrogen 44.6 5-21 MEDENT ([facility]) Glomerular filtration rate/1.73 sq M.pre dicted [Volume Rate/Area] in Serum or Plasma by Creatinine-based formula (MDRD) 28 [facility] ([facility]) Sodium 135 136-146 [facility] Carbon Dioxide 29.3 20-32 MEDENT ([facility]) Potassium 5.17 3.5-5.3 [facility] ([facility] Chloride 92.8 98-110 [facility] Phosphorus 4.5 [facility] ([facility]) Calcium 9.3 8.4-10.4 [facility] Albumin 3.8 3.5-4.7 [facility] ID Date Data Source URINE CULTURE 03/30/2020 12:00:00 AM EST eCW1 ([facility]) Name Value Range Interpretation Code Description Data Rosy rce(s) Supporting Document(s) URINE CULTURE eCW1 ([facility]) ID Date Data Source [id number] 03/23/2020 09:41:00 AM EST [facility] Surgical Pathology Report See Addendum B elNabilame: DREWSOCONAMRN: [id number] Number: [id number] Date: 03/19/2020 00:00Received Date: 03/19/2020 14:09Physician(s): YELITZA GOMEZ DO HAGHIR, SHAHANDEH F, MDSpecimen(s) ReceivedA: Material received for consultation, OEZClinical HistoryInvasive lobular carcinoma. Please do ER, LA, and Her2, reflex to FISH.Addendum 04/01/2020 RESULTS OF MOLECULAR ASSAYS: Test name: HER2 by FISHTest interpretation: NEGATIVE FOR HER2 (ERBB2) GENE AMPLIFICATION. ([id number] for full report)Comment:/jrs Addendum Electronically Signed By: Socorro Alexander M.D. 04/06/2020 DiagnosisIMMUNOHISTOCHEMISTRY, LEFT BREAST BIOPSY ([id number], 03/17/20) - ESTROGEN RECEPTORS: Positive (strong, 100 %).PROGESTERONE RECEPTORS: Positive (s tika, 100 %).HER2: Equivocal (2+); FISH pending (addendum report will follow).Electronically Signed By Socorro Alexander M.D., Attending Uqyctzcnnaz34/10/2020 09:41:39 Unless 'gross-only' is specified, the final diagnosis is based on amicroscopic examination of digital sales representative sections of tissue.Gross DescriptionReceived from [facility] in [place], [place] is one paraffinblock labeled [id number] with the corresponding pathology report./jrsThis report may include one or more immunohistochemical stain results thatuse analyte specific reagents. All positive and negative controls havebeen reviewed by the attending pathologist and are satisfactory. The testswere developed and their performance characteristics determined by [facility] Pathology department. They have not been cleared or approved by the USFood and Drug Administration. The FDA has determined that such clearanceor approval is not necessary. Name Value Range Interpretation Code Description Data Rosy rce(s) Supporting Document(s) ID Date Data Source [id number] 03/31/2020 09:43:00 AM [facility] Anatomic Molecular Pathology ReportName: GRANT RUSSELLRN: [id number] Number: [id number] Date: 03/19/2020 00:00Received Date: 03/25/2020 09:32Physician(s): YELITZA GOMEZ DO DOMBROWSKA,YELITZA,DOCopy To:MOSESFLO,MDSpecimen(s) ReceivedA: Material received for consultation, Formalin Block [id number] receivedfrom [facility] in [place], [place] [id number] by FISHDiagnosisTEST: HER2 (ERBB2) by FISH (Fluorescence in situ Hybridization).RESULT: RATIO of HER2 (ERBB2) to CEP17 (D17Z1) is 1.04Average HER2 (ERBB2) copy number per cell is 2.8International System for Cytogenetic Nomenclature: nuc adali (D17Z1,ERBB2)x2~4[40]INTERPRETATION:NEGATIVE FOR HER2 (ERBB2) GENE AMPLIFICATION.The average of HER2 and CEP17 copies per cell in breast cancer is 2.8 and2.7 respectively, which makes a ratio of HER2 to CEP17 1.04. Based oncurrent ASCO/CAP guideline recommendations (Arch Pathol Lab Med. doi:10.5858/arpa.7406-9444-HZ), a ratio of HER2 to CEP17 that is d2.0 (withHER2 copy number d4 per cell) or average HER2 copy number d6 per cell isconsidered positive, while a ratio of <2.0 or average HER2 copy number<6.0 is considered negative. This result is an adjunct to other clinicaland pathologic information for prediction of therapeutic response. /ldElectronically Signed By Aliyah Bailey MD, PhD AttendingPathologist 03/31/2020 09:43:50Gross DescriptionMETHODOLOGY:Interphase FISH is performed on paraffin embedded breast cancer utilizingthe [employer] HER2 DNA Probe Kit. This is a combination, direct label,dual color detection system utilizing 2 probes: 1) HER2 (17q11.2 - q12,190 kb, encompassing the gene) with SpectrumOrange label, and 2) CEP 17(17p11.1- q11.1, chromosome 17 centromere) with SpectrumGreen label. Tumor cells with no HER2 amplification have, on average, 2 orange and 2green signals. Amplification will result in multiple copies of the [id number], expressed as multiple orange signals. Hybridization is carried outas per the stated protocol with no significant background or random probehybridization detected. Cells are counterstained with DAPI. A total of 40interphase nuclei from a region of invasive or metastatic tumor areexamined by two different scorers. If the ratio of HER2 /D17Z1 is 1.8-2.2,40 more nuclei are evaluated. Also, if the HER2 gene copy number is4.0-6.0, 40 more nuclei are evaluated. This FISH Probe Kit was approved by the FDA for this application and hasbeen validated in the Special Procedures Laboratory in the Department ofPathology, [facility]. Processed at [facility], [address] [place] [address] and reported at [facility], [address] [place] [address].REFERENCES1. PAT Gilliam, [place] Juancarlos, KRISTAN Myers, et al. Recommendations for humanepidermal growth factor receptor 2 testing in breast cancer. Arch PatholLab Med, 2014; 138:241-256.2. Alfred Almazan and ALEXEY Godwin. Updates in HER2 Testing in GastricCancer. J Gastroint Dig Syst 2013, 3:2. This report may include one or more immunohistochemical stain results thatuse analyte specific reagents. All positive and negative controls havebeen reviewed by the attending pathologist and are satisfactory. The testswere developed and their performance characteristics determined by [facility] Pathology department. They have not been cleared or approved by the USFood and Drug Administration. The FDA has determined that such clearanceor approval is not necessary. Name Value Range Interpretation Code Description Data Rosy rce(s) Supporting Document(s) ID Date Data Source [id number] 03/16/2020 11:09:00 AM EST [facility] ([facility] Name Value Range Interpretation Code Description Data Rosy rce(s) Supporting Document(s) Bilirubin.total [Mass/volume] in Serum or Plasma 0.4 mg/dL 0.2-1.0 MEDENT ([facility]) ID Date Data Source [id number] 03/16/2020 11:09:00 AM EST MED[facility] ([facility] Name Value Range Interpretation Code Description Data Rosy rce(s) Supporting Document(s) Blood Urea Nitrogen 38 mg/dL 7-18 MEDENT ([facility]) Glucose, Fasting 131 mg/dL 70-100 [facility] Creatinine For GFR 1.35 mg/dL 0.55-1.30 MEDENT ([facility]) Glomerular Filtration Rate 40.8 MED ENT ([facility]) <content>Units are mL/min/1.73 m2</content>
<content></content>
<content>Chronic Kidney Disease Staging per NKF:</content>
<content></content>
<content>Stage I & II GFR >=60 Normal to Mildly Decreased</content>
<content>Stage III GFR 30- 59 Moderately Decreased</content>
<content>Stage IV GFR 15-29 Severely Decreased</content>
<content>Stage V GFR <15 Very Little GFR Left</content>
<content>ESRD GFR <15 on PERSONAL HEALTH COACH</content>
<content></content> Sodium Level 136 meq/L 136-145 MEDENT ([facility]) Potassium Serum 4.8 meq/L 3.5-5.1 MEDENT ([facility]) Carbon Dioxide Level 30 meq/L 21-32 MEDENT ([facility]) Chloride Level 102 meq/L 98-107 MEDENT ([facility]) Anion Gap 4 meq/L 8-16 MEDENT ([facility]) Calcium Level 9.8 mg/dL 8.8-10.2 MEDENT ([facility]) Albumin 3.8 GM/DL 3.2-5.2 [facility] Phosphorus Level 4.0 mg/dL 2.5-4.9 MEDENT ([facility]) ID Date Data Source [id number] 03/16/2020 11:09:00 AM EST [facility] ([facility]) Name Value Range Interpretation Code Description Data Rosy rce(s) Supporting Document(s) Natriuretic peptide.B prohormone N-Terminal [Mass/volu me] in Serum or Plasma 246 pg/mL MEDENT ([facility]) ID Date Data Source [id number] 02/23/2020 05:23:00 PM EDT MEDENT ([facility]) Name Value Range Interpretation Code Description Data Rosy rce(s) Supporting Document(s) Blood Urea Nitrogen 51 7-18 MEDENT ([facility]) Creatinine 1.52 0.55-1.00 MED[facility] ([facility]) Glucose 137 70-100 MEDENT ([facility]) Potassium 4.8 3.5-5.1 MEDENT ([facility]) Sodium 138 136-145 MEDENT ([facility] Carbon Dioxide 27 21-32 MEDENT ([facility]) Chloride 106 98-107 MEDENT ([facility]) Calcium 9.6 8.2-9.6 MEDENT ([facility]) Glomerular filtration rate/1.73 sq M.pre dicted [Volume Rate/Area] in Serum or Plasma by Creatinine-based formula (MDRD) 35.6 MEDENT ([facility]) ID Date Data Source Basic Metabolic Profile (BMP) 02/17/2020 07:21:37 AM EDT eCW 1 ([facility]) Name Value Range Interpretation Code Description Data Rosy rce(s) Supporting Document(s) 152 GLUCOSE, FASTING eCW1 ([facility]) 135 SODIUM LEVEL eCW1 ([facility]) 60 BLOOD UREA NITROGEN eCW1 ([facility]) 1.69 CREATININE FOR GFR eCW1 ([facility]) 31.5 GLOMERULAR FILTRATION RATE eCW 1 ([facility]) 30 CARBON DIOXIDE LEVEL eCW1 ([facility]) 102 CHLORIDE LEVEL eCW1 ([facility]) 5.6 POTASSIUM SERUM eCW1 ([facility]) 9.2 CALCIUM LEVEL eCW1 ([facility]) ID Date Data Source [id number] 02/08/2020 05:21:00 PM EDT MEDENT ([facility]) Name Value Range Interpretation Code Description Data Rosy rce(s) Supporting Document(s) Magnesium Level 2.0 1.8-2.4 MEDENT ([facility]) ID Date Data Source [id number] 02/07/2020 05:24:00 PM EDT MEDENT ([facility]) Name Value Range Interpretation Code Description Data Rosy rce(s) Supporting Document(s) White Blood Count 8.1 4.0-10.0 MED[facility] ([facility]) Red Blood Count 4.05 4.00-5.40 [facility] ([facility]) Hematocrit 37.7 MED[facility] ([facility]) Hemoglobin 12.1 MED[facility] ([facility]) Platelets 169 150-450 MED[facility] ([facility] Procedure Social History Code Duration Value Status Description Data Source(s ) Smoking 02/25/2021 12:00:00 AM EDT Never Smoker completed Never S moker eCW1 ([facility]) Smoking 02/25/2021 12:00:00 AM EDT Never Smoker completed Never S moker eCW1 ([facility]) Smoking 02/25/2021 12:00:00 AM EDT Never Smoker completed Never S moker eCW1 ([facility]) Smoking 02/25/2021 12:00:00 AM EDT Never Smoker completed Never S moker eCW1 ([facility]) Smoking 02/14/2021 12:00:00 AM EDT Never Smoker completed Never S moker eCW1 ([facility]) Smoking 02/14/2021 12:00:00 AM EDT Never Smoker completed Never S moker eCW1 ([facility]) Smoking 02/14/2021 12:00:00 AM EDT Never Smoker completed Never S moker eCW1 ([facility]) Smoking 02/07/2021 12:00:00 AM EDT Never Smoker completed Never S moker eCW1 ([facility]) Smoking 02/07/2021 12:00:00 AM EDT Never Smoker completed Never S moker eCW1 ([facility]) Smoking 01/26/2021 12:00:00 AM EDT Never Smoker completed Never S moker eCW1 ([facility]) Smoking 01/26/2021 12:00:00 AM EDT Never Smoker completed Never S moker eCW1 ([facility]) Smoking 01/19/2021 12:00:00 AM EDT Patient has never smoked co mpleted Patient has never smoked MEDENT ([facility]) Smoking 01/10/2021 12:00:00 AM EDT Never Smoker completed Never S moker eCW1 ([facility]) Smoking 12/07/2020 12:00:00 AM EDT Never Smoker completed Never S moker eCW1 ([facility]) Smoking 12/07/2020 12:00:00 AM EDT Never Smoker completed Never S moker eCW1 ([facility]) Smoking 12/07/2020 12:00:00 AM EDT Never Smoker completed Never S moker eCW1 ([facility]) Smoking 12/07/2020 12:00:00 AM EDT Never Smoker completed Never S moker eCW1 ([facility]) Smoking 12/07/2020 12:00:00 AM EDT Never Smoker completed Never S moker eCW1 ([facility]) Smoking 10/22/2020 12:00:00 AM EDT Never Smoker completed Never S moker eCW1 ([facility]) Smoking 10/22/2020 12:00:00 AM EDT Never Smoker completed Never S moker eCW1 ([facility]) Smoking 10/22/2020 12:00:00 AM EDT Never Smoker completed Never S moker eCW1 ([facility]) Smoking 10/22/2020 12:00:00 AM EDT Never Smoker completed Never S moker eCW1 ([facility]) Smoking 10/08/2020 12:00:00 AM EDT Never Smoker completed Never S moker eCW1 ([facility]) Smoking 08/02/2020 12:00:00 AM EDT Never Smoker completed Never S moker eCW1 ([facility]) Smoking 08/02/2020 12:00:00 AM EDT Never Smoker completed Never S moker eCW1 ([facility]) Smoking 08/02/2020 12:00:00 AM EDT Never Smoker completed Never S moker eCW1 ([facility]) Smoking 08/02/2020 12:00:00 AM EDT Never Smoker completed Never S moker eCW1 ([facility]) Smoking 08/02/2020 12:00:00 AM EDT Never Smoker completed Never S moker eCW1 ([facility]) Smoking 08/02/2020 12:00:00 AM EDT Never Smoker completed Never S moker eCW1 ([facility]) Smoking 08/02/2020 12:00:00 AM EDT Never Smoker completed Never S moker eCW1 ([facility]) Smoking 06/22/2020 12:00:00 AM EST Never Smoker completed Never S moker eCW1 ([facility]) Smoking 06/22/2020 12:00:00 AM EST Never Smoker completed Never S moker eCW1 ([facility]) Smoking 06/22/2020 12:00:00 AM EST Never Smoker completed Never S moker eCW1 ([facility]) Smoking 06/22/2020 12:00:00 AM EST Never Smoker completed Never S moker eCW1 ([facility]) Smoking 06/22/2020 12:00:00 AM EST Never Smoker completed Never S moker eCW1 ([facility]) Smoking 06/22/2020 12:00:00 AM EST Never Smoker completed Never S moker eCW1 ([facility]) Smoking 06/07/2020 12:00:00 AM EST Never Smoker completed Never S moker eCW1 ([facility]) Smoking 06/07/2020 12:00:00 AM EST Never Smoker completed Never S moker eCW1 ([facility]) Smoking 06/07/2020 12:00:00 AM EST Never Smoker completed Never S moker eCW1 ([facility]) Smoking 06/07/2020 12:00:00 AM EST Never Smoker completed Never S moker eCW1 ([facility]) Smoking 06/02/2020 12:00:00 AM EST Never Smoker completed Never S moker eCW1 ([facility]) Smoking 05/17/2020 12:00:00 AM EST Never Smoker completed Never S moker eCW1 ([facility]) Smoking 05/17/2020 12:00:00 AM EST Never Smoker completed Never S moker eCW1 ([facility]) Smoking 05/17/2020 12:00:00 AM EST Never Smoker completed Never S moker eCW1 ([facility]) Smoking 05/17/2020 12:00:00 AM EST Never Smoker completed Never S moker eCW1 ([facility]) Smoking 05/10/2020 12:00:00 AM EST Never Smoker completed Never S moker eCW1 ([facility]) Smoking 05/10/2020 12:00:00 AM EST Never Smoker completed Never S moker eCW1 ([facility]) Smoking 05/10/2020 12:00:00 AM EST Never Smoker completed Never S moker eCW1 ([facility]) Smoking 05/10/2020 12:00:00 AM EST Never Smoker completed Never S moker eCW1 ([facility]) Smoking 05/10/2020 12:00:00 AM EST Never Smoker completed Never S moker eCW1 ([facility]) Smoking 05/04/2020 12:00:00 AM EST Never Smoker completed Never S moker eCW1 ([facility]) Smoking 05/04/2020 12:00:00 AM EST Never Smoker completed Never S moker eCW1 ([facility]) Smoking 05/04/2020 12:00:00 AM EST Never Smoker completed Never S moker eCW1 ([facility]) Smoking 04/16/2020 12:00:00 AM EST Never Smoker completed Never S moker eCW1 ([facility]) Smoking 04/16/2020 12:00:00 AM EST Never Smoker completed Never S moker eCW1 ([facility]) Smoking 04/16/2020 12:00:00 AM EST Never Smoker completed Never S moker eCW1 ([facility]) Smoking 04/16/2020 12:00:00 AM EST Never Smoker completed Never S moker eCW1 ([facility]) Smoking 04/16/2020 12:00:00 AM EST Never Smoker completed Never S moker eCW1 ([facility]) Smoking 04/16/2020 12:00:00 AM EST Never Smoker completed Never S moker eCW1 ([facility]) Smoking 04/16/2020 12:00:00 AM EST Never Smoker completed Never S moker eCW1 ([facility]) Smoking 04/05/2020 12:00:00 AM EST Never Smoker completed Never S moker eCW1 ([facility]) Smoking 04/05/2020 12:00:00 AM EST Never Smoker completed Never S moker eCW1 ([facility]) Smoking 04/05/2020 12:00:00 AM EST Never Smoker completed Never S moker eCW1 ([facility]) Smoking 03/30/2020 12:00:00 AM EST Never Smoker completed Never S moker eCW1 ([facility]) Smoking 03/30/2020 12:00:00 AM EST Never Smoker completed Never S moker eCW1 ([facility]) Smoking 03/30/2020 12:00:00 AM EST Never Smoker completed Never S moker eCW1 ([facility]) Smoking 03/30/2020 12:00:00 AM EST Never Smoker completed Never S moker eCW1 ([facility]) Smoking 03/30/2020 12:00:00 AM EST Never Smoker completed Never S moker eCW1 ([facility]) Smoking 03/30/2020 12:00:00 AM EST Never Smoker completed Never S moker eCW1 ([facility]) Smoking 03/24/2020 12:00:00 AM EST Never Smoker completed Never S moker eCW1 ([facility]) Smoking 03/24/2020 12:00:00 AM EST Never Smoker completed Never S moker eCW1 ([facility]) Smoking 03/24/2020 12:00:00 AM EST Never Smoker completed Never S moker eCW1 ([facility]) Smoking 03/24/2020 12:00:00 AM EST Never Smoker completed Never S moker eCW1 ([facility]) Smoking 03/18/2020 12:00:00 AM EST Never Smoker completed Never S moker eCW1 ([facility]) Smoking 03/15/2020 12:00:00 AM EST Never Smoker completed Never S moker eCW1 ([facility]) Smoking 03/15/2020 12:00:00 AM EST Never Smoker completed Never S moker eCW1 ([facility]) Smoking 03/03/2020 12:00:00 AM EDT Never Smoker completed Never S moker eCW1 ([facility]) Smoking 02/19/2020 12:00:00 AM EDT Never Smoker completed Never S moker eCW1 ([facility]) Smoking 02/19/2020 12:00:00 AM EDT Never Smoker completed Never S moker eCW1 ([facility]) Smoking 02/19/2020 12:00:00 AM EDT Never Smoker completed Never S moker eCW1 ([facility]) Smoking 02/19/2020 12:00:00 AM EDT Never Smoker completed Never S moker eCW1 ([facility]) Vital Signs ID Date Data Source UNK Name Value Range Interpretation Code Description Data Source(s) Body weight 261 [lb_av] 261 [lb_av] eCW1 ([facility]) Body weight 118.39 kg 118.39 kg W1 ([facility]) Body height 65 [in_i] 65 [in_i] eCW1 ([facility]) Body mass index (BMI) [Ratio] 43.43 kg/m2 43.43 kg/m2 eCW1 ([facility]) Heart rate 78 /min 78 /min eCW1 ([facility]) Respiratory rate 20 /min 20 /min eCW1 ([facility] Body temperature 97.1 [degF] 97.1 [degF] eCW1 ( [facility]) Systolic blood pressure 178 mm[Hg] 178 mm[Hg] e CW1 ([facility]) Diastolic blood pressure 83 mm[Hg] 83 mm[Hg] eCW1 ([facility]) Heart rate 92 /min 92 /min eCW1 ([facility]) Respiratory rate 20 /min 20 /min eCW1 ([facility] Body weight 261 [lb_av] 261 [lb_av] eCW1 ([facility]) Body height 65 [in_i] 65 [in_i] eCW1 ([facility]) Body mass index (BMI) [Ratio] 43.43 kg/m2 43.43 kg/m2 eCW1 ([facility]) Body temperature 98.4 [degF] 98.4 [degF] eCW1 ( [facility]) Systolic blood pressure 161 mm[Hg] 161 mm[Hg] e CW1 ([facility]) Diastolic blood pressure 77 mm[Hg] 77 mm[Hg] eCW1 ([facility]) Body weight 261 [lb_av] 261 [lb_av] eCW1 ([facility]) Body weight 118.39 kg 118.39 kg eCW1 ([facility]) Body height 65 [in_i] 65 [in_i] eCW1 ([facility]) Body mass index (BMI) [Ratio] 43.43 kg/m2 43.43 kg/m2 eCW1 ([facility]) Heart rate 96 /min 96 /min eCW1 ([facility]) Respiratory rate 16 /min 16 /min eCW1 ([facility] Body temperature 98.9 [degF] 98.9 [degF] eCW1 ( [facility]) Systolic blood pressure 138 mm[Hg] 138 mm[Hg] e CW1 ([facility]) Diastolic blood pressure 70 mm[Hg] 70 mm[Hg] eCW1 ([facility]) Body weight 267 [lb_av] 267 [lb_av] eCW1 ([facility]) Body height 65 [in_i] 65 [in_i] eCW1 ([facility]) Body mass index (BMI) [Ratio] 44.43 kg/m2 44.43 kg/m2 eCW1 ([facility]) Heart rate 84 /min 84 /min eCW1 ([facility]) Respiratory rate 18 /min 18 /min eCW1 ([facility]) Body temperature 98.4 [degF] 98.4 [degF] eCW1 ( [facility]) Body weight 263.00 [lb_av] 263.00 [lb_av] MEDEN T ([facility]) Body height 65 [in_i] 65 [in_i] MEDENT ([facility]) 5'5" Body mass index (BMI) [Ratio] 43.8 kg/m2 43.8 k g/m2 MEDENT ([facility]) Heart rate 75 /min 75 /min MEDENT ([facility]) Systolic blood pressure--sitting 142 mm[Hg] 142 mm[Hg] MEDENT ([facility]) large cuff, Ra Diastolic blood pressure--sitting 70 mm[Hg] 70 mm[Hg] MEDENT ([facility]) large cuff, Ra Body weight 267 [lb_av] 267 [lb_av] eCW1 ([facility]) Body height 65 [in_i] 65 [in_i] eCW1 ([facility]) Body mass index (BMI) [Ratio] 44.43 kg/m2 44.43 kg/m2 W1 ([facility]) Heart rate 78 /min 78 /min eCW1 ([facility]) Respiratory rate 16 /min 16 /min eCW1 ([facility]) Body temperature 98.4 [degF] 98.4 [degF] eCW1 ( [facility]) Systolic blood pressure 136 mm[Hg] 136 mm[Hg] e CW1 ([facility]) Diastolic blood pressure 62 mm[Hg] 62 mm[Hg] eCW1 ([facility]) Body height 65 [in_i] 65 [in_i] eCW1 ([facility]) Body weight 263.4 [lb_av] 263.4 [lb_av] eCW1 ([facility]) Body mass index (BMI) [Ratio] 43.83 kg/m2 43.83 kg/m2 eCW1 ([facility]) Heart rate 93 /min 93 /min eCW1 ([facility]) Respiratory rate 18 /min 18 /min eCW1 ([facility] Body temperature 98.7 [degF] 98.7 [degF] eCW1 ( [facility]) Systolic blood pressure 132 mm[Hg] 132 mm[Hg] e CW1 ([facility]) Diastolic blood pressure 82 mm[Hg] 82 mm[Hg] eCW1 ([facility]) Body weight 264 [lb_av] 264 [lb_av] eCW1 ([facility]) Body weight 119.75 kg 119.75 kg eCW1 ([facility]) Body height 65 [in_i] 65 [in_i] eCW1 ([facility]) Body mass index (BMI) [Ratio] 43.93 kg/m2 43.93 kg/m2 eCW1 ([facility]) Heart rate 91 /min 91 /min eCW1 ([facility]) Respiratory rate 18 /min 18 /min eCW1 ([facility] Body temperature 98 [degF] 98 [degF] eCW1 ([facility]) Systolic blood pressure 140 mm[Hg] 140 mm[Hg] e CW1 ([facility]) Diastolic blood pressure 84 mm[Hg] 84 mm[Hg] eCW1 ([facility]) Body weight 263 [lb_av] 263 [lb_av] eCW1 ([facility]) Body height 65 [in_i] 65 [in_i] eCW1 ([facility]) Body mass index (BMI) [Ratio] 43.76 kg/m2 43.76 kg/m2 eCW1 ([facility]) Heart rate 93 /min 93 /min eCW1 ([facility]) Respiratory rate 18 /min 18 /min eCW1 ([facility] Body temperature 98.2 [degF] 98.2 [degF] eCW1 ( [facility]) Systolic blood pressure 128 mm[Hg] 128 mm[Hg] e CW1 ([facility]) Diastolic blood pressure 80 mm[Hg] 80 mm[Hg] eCW1 ([facility]) Body temperature 98.7 [degF] 98.7 [degF] eCW1 ( [facility]) Systolic blood pressure 136 mm[Hg] 136 mm[Hg] e CW1 ([facility]) Diastolic blood pressure 76 mm[Hg] 76 mm[Hg] eCW1 ([facility]) Body weight 271 [lb_av] 271 [lb_av] eCW1 ([facility]) Body height 65 [in_i] 65 [in_i] eCW1 ([facility]) Body mass index (BMI) [Ratio] 45.09 kg/m2 45.09 kg/m2 eCW1 ([facility]) Heart rate 84 /min 84 /min eCW1 ([facility]) Respiratory rate 18 /min 18 /min eCW1 ([facility]) Body height 65 [in_i] 65 [in_i] MEDENT ([facility] 5'5" Body mass index (BMI) [Ratio] 44.3 kg/m2 44.3 k g/m2 MEDENT ([facility]) Heart rate 87 /min 87 /min MEDENT ([facility]) Systolic blood pressure--sitting 132 mm[Hg] 132 mm[Hg] MEDENT ([facility]) BP only on right arm Diastolic blood pressure--sitting 78 mm[Hg] 78 mm[Hg] MEDENT ([facility]) BP only on right arm Body weight 266.00 [lb_av] 266.00 [lb_av] MEDEN T ([facility]) Body weight 262 [lb_av] 262 [lb_av] eCW1 ([facility]) Body weight kg eCW1 ([facility]) Body height 65 [in_i] 65 [in_i] eCW1 ([facility]) Body mass index (BMI) [Ratio] 43.59 kg/m2 43.59 kg/m2 eCW1 ([facility]) Heart rate 82 /min 82 /min eCW1 ([facility]) Respiratory rate 18 /min 18 /min eCW1 ([facility]) Body temperature 98.6 [degF] 98.6 [degF] eCW1 ( [facility]) Body height 65 [in_i] 65 [in_i] MEDENT ([facility] 5'5" Body weight 259.00 [lb_av] 259.00 [lb_av] MEDEN T ([facility] Systolic blood pressure 132 mm[Hg] 132 mm[Hg] M EDENT ([facility] Diastolic blood pressure 74 mm[Hg] 74 mm[Hg] MEDENT ([facility] Heart rate 89 /min 89 /min MEDENT ([facility] Body mass index (BMI) [Ratio] 43.1 kg/m2 43.1 k g/m2 MEDENT ([facility] Body weight 259 [lb_av] 259 [lb_av] eCW1 ([facility]) Body height 65 [in_i] 65 [in_i] eCW1 ([facility]) Body mass index (BMI) [Ratio] 43.10 kg/m2 43.10 kg/m2 eCW1 ([facility]) Heart rate 89 /min 89 /min eCW1 ([facility]) Respiratory rate 18 /min 18 /min eCW1 ([facility] Body temperature 97.9 [degF] 97.9 [degF] eCW1 ( [facility]) Systolic blood pressure 132 mm[Hg] 132 mm[Hg] e CW1 ([facility]) Diastolic blood pressure 74 mm[Hg] 74 mm[Hg] eCW1 ([facility]) Body weight 257 [lb_av] 257 [lb_av] eCW1 ([facility]) Systolic blood pressure 148 mm[Hg] 148 mm[Hg] e CW1 ([facility]) Diastolic blood pressure 76 mm[Hg] 76 mm[Hg] eCW1 ([facility]) Body weight 116.57 kg 116.57 kg eCW1 ([facility]) Body height 65 [in_i] 65 [in_i] eCW1 ([facility]) Body mass index (BMI) [Ratio] 42.76 kg/m2 42.76 kg/m2 eCW1 ([facility]) Heart rate 99 /min 99 /min eCW1 ([facility]) Respiratory rate 18 /min 18 /min eCW1 ([facility]) Body temperature 98.6 [degF] 98.6 [degF] eCW1 ( [facility]) Body temperature 96.4 [degF] 96.4 [degF] eCW1 ( [facility]) Body weight 241.5 [lb_av] 241.5 [lb_av] eCW1 ([facility]) Body weight kg eCW1 ([facility]) Body height 65 [in_i] 65 [in_i] eCW1 ([facility]) Body mass index (BMI) [Ratio] 40.18 kg/m2 40.18 kg/m2 eCW1 ([facility]) Heart rate 112 /min 112 /min eCW1 ([facility]) Respiratory rate 18 /min 18 /min eCW1 ([facility]) Systolic blood pressure 160 mm[Hg] 160 mm[Hg] e CW1 ([facility]) Diastolic blood pressure 70 mm[Hg] 70 mm[Hg] eCW1 ([facility]) Body weight 232.0 [lb_av] 232.0 [lb_av] eCW1 ([facility]) Body weight 105.23 kg 105.23 kg eCW1 ([facility]) Body height 65 [in_i] 65 [in_i] eCW1 ([facility]) Body mass index (BMI) [Ratio] 38.6 kg/m2 38.6 k g/m2 eCW1 ([facility]) Heart rate 99 /min 99 /min eCW1 ([facility]) Respiratory rate 18 /min 18 /min eCW1 ([facility]) Body temperature 97.4 [degF] 97.4 [degF] eCW1 ( [facility]) Systolic blood pressure 136 mm[Hg] 136 mm[Hg] e CW1 ([facility]) Diastolic blood pressure 72 mm[Hg] 72 mm[Hg] eCW1 ([facility]) Body weight 273.2 [lb_av] 273.2 [lb_av] eCW1 ([facility]) Body weight 123.92 kg 123.92 kg eCW1 ([facility]) Body height 65 [in_i] 65 [in_i] eCW1 ([facility]) Body mass index (BMI) [Ratio] 45.46 kg/m2 45.46 kg/m2 eCW1 ([facility]) Heart rate 97 /min 97 /min eCW1 ([facility]) Respiratory rate 18 /min 18 /min eCW1 ([facility] Body temperature 97.2 [degF] 97.2 [degF] eCW1 ( [facility]) Systolic blood pressure 138 mm[Hg] 138 mm[Hg] e CW1 ([facility]) Diastolic blood pressure 68 mm[Hg] 68 mm[Hg] eCW1 ([facility]) Body weight 271 [lb_av] 271 [lb_av] eCW1 ([facility]) Systolic blood pressure 142 mm[Hg] 142 mm[Hg] e CW1 ([facility]) Body weight 122.92 kg 122.92 kg eCW1 ([facility]) Body height 65 [in_i] 65 [in_i] eCW1 ([facility]) Body mass index (BMI) [Ratio] 45.09 kg/m2 45.09 kg/m2 eCW1 ([facility]) Heart rate 92 /min 92 /min eCW1 ([facility]) Respiratory rate 18 /min 18 /min eCW1 ([facility] Body temperature 97.1 [degF] 97.1 [degF] eCW1 ( [facility]) Diastolic blood pressure 82 mm[Hg] 82 mm[Hg] eCW1 ([facility]) Body mass index (BMI) [Ratio] 44.76 kg/m2 44.76 kg/m2 eCW1 ([facility]) Heart rate 91 /min 91 /min eCW1 ([facility]) Respiratory rate 17 /min 17 /min eCW1 ([facility]) Body temperature 97.8 [degF] 97.8 [degF] eCW1 ( [facility]) Systolic blood pressure 144 mm[Hg] 144 mm[Hg] e CW1 ([facility]) Diastolic blood pressure 80 mm[Hg] 80 mm[Hg] eCW1 ([facility]) Body weight 269 [lb_av] 269 [lb_av] eCW1 ([facility]) Body height 65 [in_i] 65 [in_i] eCW1 ([facility]) Body weight 277 [lb_av] 277 [lb_av] eCW1 ([facility]) Body weight 125.64 kg 125.64 kg eCW1 ([facility]) Body height 65 [in_i] 65 [in_i] eCW1 ([facility]) Body mass index (BMI) [Ratio] 46.09 kg/m2 46.09 kg/m2 eCW1 ([facility]) Heart rate 88 /min 88 /min eCW1 ([facility]) Respiratory rate 18 /min 18 /min eCW1 ([facility]) Body temperature 97.6 [degF] 97.6 [degF] eCW1 ( [facility]) Systolic blood pressure 138 mm[Hg] 138 mm[Hg] e CW1 ([facility]) Diastolic blood pressure 84 mm[Hg] 84 mm[Hg] eCW1 ([facility]) Heart rate 87 /min 87 /min eCW1 ([facility]) Body mass index (BMI) [Ratio] 45.92 kg/m2 45.92 kg/m2 eCW1 ([facility]) Body weight 276 [lb_av] 276 [lb_av] eCW1 ([facility]) Body height 65 [in_i] 65 [in_i] eCW1 ([facility]) Systolic blood pressure 134 mm[Hg] 134 mm[Hg] e CW1 ([facility]) Body temperature 98.3 [degF] 98.3 [degF] eCW1 ( [facility]) Diastolic blood pressure 60 mm[Hg] 60 mm[Hg] eCW1 ([facility]) Respiratory rate 18 /min 18 /min eCW1 ([facility]) Body weight 270.00 [lb_av] 270.00 [lb_av] MEDEN T ([facility]) Body height 65 [in_i] 65 [in_i] MEDENT ([facility]) 5'5" Body mass index (BMI) [Ratio] 44.9 kg/m2 44.9 k g/m2 MEDENT ([facility]) Heart rate 89 /min 89 /min MEDENT ([facility]) Systolic blood pressure--sitting 124 mm[Hg] 124 mm[Hg] MEDENT ([facility]) Diastolic blood pressure--sitting 77 mm[Hg] 77 mm[Hg] MEDENT ([facility]) Body weight 268 [lb_av] 268 [lb_av] eCW1 ([facility]) Body weight 121.56 kg 121.56 kg eCW1 ([facility]) Body height 65 [in_i] 65 [in_i] eCW1 ([facility]) Body mass index (BMI) [Ratio] 44.59 kg/m2 44.59 kg/m2 eCW1 ([facility]) Heart rate 88 /min 88 /min eCW1 ([facility]) Respiratory rate 18 /min 18 /min eCW1 ([facility] Body temperature 97.8 [degF] 97.8 [degF] eCW1 ( [facility]) Systolic blood pressure 129 mm[Hg] 129 mm[Hg] e CW1 ([facility]) Diastolic blood pressure 68 mm[Hg] 68 mm[Hg] eCW1 ([facility]) Body weight 266 [lb_av] 266 [lb_av] eCW1 ([facility]) Body height 65 [in_i] 65 [in_i] eCW1 ([facility]) Body mass index (BMI) [Ratio] 44.26 kg/m2 44.26 kg/m2 eCW1 ([facility]) Body weight 269.8 [lb_av] 269.8 [lb_av] eCW1 ([facility]) Body weight 122.38 kg 122.38 kg eCW1 ([facility]) Body height 65 [in_i] 65 [in_i] eCW1 ([facility]) Body mass index (BMI) [Ratio] 44.89 kg/m2 44.89 kg/m2 eCW1 ([facility]) Heart rate 96 /min 96 /min eCW1 ([facility]) Respiratory rate 18 /min 18 /min eCW1 ([facility]) Body temperature 97.2 [degF] 97.2 [degF] eCW1 ( [facility]) Systolic blood pressure 140 mm[Hg] 140 mm[Hg] e CW1 ([facility]) Diastolic blood pressure 78 mm[Hg] 78 mm[Hg] eCW1 ([facility]) Body mass index (BMI) [Ratio] 44.76 kg/m2 44.76 kg/m2 eCW1 ([facility]) Body height 65 [in_i] 65 [in_i] eCW1 ([facility]) Body weight 269 [lb_av] 269 [lb_av] eCW1 ([facility]) Heart rate 87 /min 87 /min eCW1 ([facility]) Systolic blood pressure 110 mm[Hg] 110 mm[Hg] e CW1 ([facility]) Diastolic blood pressure 72 mm[Hg] 72 mm[Hg] eCW1 ([facility]) Respiratory rate 18 /min 18 /min eCW1 (Critical [facility] Body temperature 98.5 [degF] 98.5 [degF] eCW1 ( [facility]) Body weight 271.00 [lb_av] 271.00 [lb_av] MEDEN T ([facility]) Body height 65 [in_i] 65 [in_i] MEDENT ([facility]) 5'5" Body mass index (BMI) [Ratio] 45.1 kg/m2 45.1 k g/m2 MEDENT ([facility]) Heart rate 67 /min 67 /min MEDENT ([facility]) Systolic blood pressure--sitting 118 mm[Hg] 118 mm[Hg] MEDENT ([facility]) [employer], large cuff/LA Diastolic blood pressure--sitting 87 mm[Hg] 87 mm[Hg] MEDENT ([facility]) [employer], large cuff/LA Body weight 275 [lb_av] 275 [lb_av] eCW1 ([facility]) Body weight 124.74 kg 124.74 kg eCW1 ([facility]) Body height 65 [in_i] 65 [in_i] eCW1 ([facility]) Body mass index (BMI) [Ratio] 45.76 kg/m2 45.76 kg/m2 eCW1 ([facility]) Heart rate 89 /min 89 /min eCW1 ([facility]) Respiratory rate 18 /min 18 /min eCW1 ([facility]) Body temperature 98.5 [degF] 98.5 [degF] eCW1 ( [facility]) Systolic blood pressure 132 mm[Hg] 132 mm[Hg] e CW1 ([facility]) Diastolic blood pressure 86 mm[Hg] 86 mm[Hg] eCW1 ([facility]) Body mass index (BMI) [Ratio] 45.76 kg/m2 45.76 kg/m2 eCW1 ([facility]) Body weight 275 [lb_av] 275 [lb_av] eCW1 ([facility]) Body height 65 [in_i] 65 [in_i] eCW1 ([facility]) Heart rate 93 /min 93 /min eCW1 ([facility]) Respiratory rate 18 /min 18 /min eCW1 ([facility]) Body temperature 98.1 [degF] 98.1 [degF] eCW1 ( [facility]) Systolic blood pressure 132 mm[Hg] 132 mm[Hg] e CW1 ([facility]) Diastolic blood pressure 80 mm[Hg] 80 mm[Hg] eCW1 ([facility]) Body weight 275.00 [lb_av] 275.00 [lb_av] MEDEN T ([facility]) Body mass index (BMI) [Ratio] 45.8 kg/m2 45.8 k g/m2 MEDENT ([facility]) Heart rate 69 /min 69 /min MEDENT ([facility]) Systolic blood pressure--sitting 148 mm[Hg] 148 mm[Hg] MEDENT ([facility]) [employer], large cuff/Ra Diastolic blood pressure--sitting 69 mm[Hg] 69 mm[Hg] MEDENT ([facility]) [employer], large cuff/Ra Body height 65 [in_i] 65 [in_i] MEDENT ([facility]) 5'5" Body weight 270.6 [lb_av] 270.6 [lb_av] eCW1 ([facility]) Body height 65 [in_i] 65 [in_i] eCW1 ([facility]) Body mass index (BMI) [Ratio] 45.03 kg/m2 45.03 kg/m2 eCW1 ([facility]) Heart rate 8 /min 8 /min eCW1 ([facility]) Respiratory rate 18 /min 18 /min eCW1 ([facility]) Body temperature 97.8 [degF] 97.8 [degF] eCW1 ( [facility]) Systolic blood pressure 128 mm[Hg] 128 mm[Hg] e CW1 ([facility]) Diastolic blood pressure 82 mm[Hg] 82 mm[Hg] eCW1 ([facility]) Patient Treatment Plan of Care Planned Activity Planned Date Details Description Data Source (s) [employer] Gen[employer]va Blaine - 08/11/2020 12:00:00 AM EDT eCW1 ([facility]) [employer] Gen[employer]va Sensor System - 08/11/2020 12:00:00 AM EDT eCW1 ([facility]) [employer] Geonveva Blaine - 08/11/2020 12:00:00 AM EDT eCW1 ([facility]) [employer] Sensor System - 08/11/2020 12:00:00 AM EDT eCW1 ([facility]) [employer] Genoveva Blaine - 08/11/2020 12:00:00 AM EDT eCW1 ([facility]) [employer] Sensor System - 08/11/2020 12:00:00 AM EDT eCW1 ([facility]) [employer] Sensor System - 08/11/2020 12:00:00 AM EDT eCW1 ([facility]) [employer] Sensor System - 08/11/2020 12:00:00 AM EDT eCW1 ([facility]) [employer] Genoveva Blaine - 08/11/2020 12:00:00 AM EDT eCW1 ([facility]) [employer] Genoveva Blaine - 08/11/2020 12:00:00 AM EDT eCW1 ([facility]) [employer]oveva Sensor System - 08/11/2020 12:00:00 AM EDT eCW1 ([facility]) [employer] Genoveva Blaine - 08/11/2020 12:00:00 AM EDT eCW1 ([facility]) [employer] Genoveva 14 Day Sensor - 08/02/2020 12:00:00 AM EDT eCW1 ([facility]) [employer]oveva 14 Day Blaine - 08/02/2020 12:00:00 AM EDT eCW1 ([facility]) CVS Glucose Meter Test Strips - 05/04/2020 12:00:00 AM EST eCW1 ([facility]) Escitalopram 10 MG Oral Tablet [Lexapro] 05/04/2020 12:00:00 AM EST eCW1 ([facility]) Glucometer 05/04/2020 12:00:00 AM EST e CW1 ([facility]) Linagliptin 5 MG Oral Tablet [Tradjenta] 05/04/2020 12:00:00 AM EST eCW1 ([facility]) Lancets - 05/04/2020 12:00:00 AM EST e CW1 ([facility]) CVS Glucose Meter Test Strips - 05/04/2020 12:00:00 AM EST eCW1 ([facility]) Escitalopram 10 MG Oral Tablet [Lexapro] 05/04/2020 12:00:00 AM EST eCW1 ([facility]) Glucometer 05/04/2020 12:00:00 AM EST e CW1 ([facility]) Linagliptin 5 MG Oral Tablet [Tradjenta] 05/04/2020 12:00:00 AM EST eCW1 ([facility]) Lancets - 05/04/2020 12:00:00 AM EST e CW1 ([facility]) CVS Glucose Meter Test Strips - 05/04/2020 12:00:00 AM EST eCW1 ([facility]) Escitalopram 10 MG Oral Tablet [Lexapro] 05/04/2020 12:00:00 AM EST eCW1 ([facility]) Glucometer 05/04/2020 12:00:00 AM EST e CW1 ([facility]) Linagliptin 5 MG Oral Tablet [Tradjenta] 05/04/2020 12:00:00 AM EST eCW1 ([facility]) Lancets - 05/04/2020 12:00:00 AM EST e CW1 ([facility]) Ciprofloxacin 500 MG Oral Tablet 04/22/2020 12:00:00 AM EST eCW1 ([facility]) Ciprofloxacin 500 MG Oral Tablet 04/22/2020 12:00:00 AM EST eCW1 ([facility]) Ciprofloxacin 500 MG Oral Tablet 04/22/2020 12:00:00 AM EST eCW1 ([facility]) Ciprofloxacin 500 MG Oral Tablet 04/22/2020 12:00:00 AM EST eCW1 ([facility]) Lidocaine 25 MG/ML / Prilocaine 25 MG/ML Topical Cream 04/05/2020 12:00:00 AM EST eCW1 ([facility]) Lidocaine 25 MG/ML / Prilocaine 25 MG/ML Topical Cream 04/05/2020 12:00:00 AM EST eCW1 ([facility]) Lidocaine 25 MG/ML / Prilocaine 25 MG/ML Topical Cream 04/05/2020 12:00:00 AM EST eCW1 ([facility]) NITROFURANTOIN, MACROCRYSTALS 25 MG / Ni trofurantoin, Monohydrate 75 MG Oral Capsule 04/02/2020 12:00:00 AM EST eCW1 ([facility]) NITROFURANTOIN, MACROCRYSTALS 25 MG / Ni trofurantoin, Monohydrate 75 MG Oral Capsule 04/02/2020 12:00:00 AM EST eCW1 ([facility]) NITROFURANTOIN, MACROCRYSTALS 25 MG / Ni trofurantoin, Monohydrate 75 MG Oral Capsule 04/02/2020 12:00:00 AM EST eCW1 ([facility]) Sulfamethoxazole 800 MG / Trimethoprim 160 MG Oral Tab let 03/30/2020 12:00:00 AM EST eCW1 ([facility]) Ondansetron 4 MG Disintegrating Oral Tablet 03/30/2020 12:00:00 AM EST eCW1 ([facility]) Sulfamethoxazole 800 MG / Trimethoprim 160 MG Oral Tab let 03/30/2020 12:00:00 AM EST eCW1 ([facility]) Ondansetron 4 MG Disintegrating Oral Tablet 03/30/2020 12:00:00 AM EST eCW1 ([facility]) Sulfamethoxazole 800 MG / Trimethoprim 160 MG Oral Tab let 03/30/2020 12:00:00 AM EST eCW1 ([facility]) Ondansetron 4 MG Disintegrating Oral Tablet 03/30/2020 12:00:00 AM EST eCW1 ([facility]) Ondansetron 4 MG Disintegrating Oral Tablet 03/30/2020 12:00:00 AM EST eCW1 ([facility]) Sulfamethoxazole 800 MG / Trimethoprim 160 MG Oral Tab let 03/30/2020 12:00:00 AM EST eCW1 ([facility]) Ondansetron 4 MG Disintegrating Oral Tablet 03/30/2020 12:00:00 AM EST eCW1 ([facility]) Sulfamethoxazole 800 MG / Trimethoprim 160 MG Oral Tab let 03/30/2020 12:00:00 AM EST eCW1 ([facility]) Ondansetron 4 MG Disintegrating Oral Tablet 03/30/2020 12:00:00 AM EST eCW1 ([facility]) Sulfamethoxazole 800 MG / Trimethoprim 160 MG Oral Tab let 03/30/2020 12:00:00 AM EST eCW1 ([facility]) Metformin hydrochloride 500 MG Oral Tablet 02/19/2020 12:00:00 AM E DT eCW1 ([facility]) Amitriptyline Hydrochloride 25 MG Oral Tablet 02/19/2020 12:00:00 A M EDT eCW1 ([facility]) Metformin hydrochloride 500 MG Oral Tablet 02/19/2020 12:00:00 AM E DT eCW1 ([facility]) Amitriptyline Hydrochloride 25 MG Oral Tablet 02/19/2020 12:00:00 A M EDT eCW1 ([facility]) Metformin hydrochloride 500 MG Oral Tablet 02/19/2020 12:00:00 AM E DT eCW1 ([facility]) Amitriptyline Hydrochloride 25 MG Oral Tablet 02/19/2020 12:00:00 A M EDT eCW1 ([facility]) Metformin hydrochloride 500 MG Oral Tablet 02/19/2020 12:00:00 AM E DT eCW1 ([facility]) Amitriptyline Hydrochloride 25 MG Oral Tablet 02/19/2020 12:00:00 A M EDT eCW1 ([facility])
[2021-04-04 17:59] LABS: CK-MB VALUE MASS 6.7 NG/ML (<3.6); CPK CREATINE PHOSPHOKINASE 374 U/L (26-192); MB/CK RELATIVE INDEX 1.79 (< OR =4); TROPONIN I < 0.02 NG/ML (< 0.10)
[2021-04-04 18:31] LABS: RSV AMPLIFICATION NEGATIVE (NEGATIVE)
--- NOTE | 2021-04-04 19:47 | ECGEPIP ---
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
[2021-04-04] MEDS ORDERED: MAALOX 30 ML SUSP *UDC PO PRN (19:50)
[2021-04-04] MEDS ORDERED: ACETAMINOPHEN TAB 650MG DOSE (2X325MG) PO PRN (19:50)
[2021-04-04] MEDS ORDERED: MOM 30ML SUSPENSION UDC PO PRN (19:50)
[2021-04-04 20:31] LABS: PHOSPHORUS LEVEL 2.1 MG/DL (2.5-4.9)
[2021-04-04] MEDS ORDERED: CALC1CAP31 PO (20:32)
--- OUTSIDE RECORDS SUMMARY | 2021-04-04 20:47 | CCD ---
Author Author [facility] Organization [facility] Address Unknown Phone Unavailable Care Team Providers Care Java [id number] Architect Name Role Phone DOMBROWSKA, K YELITZA DO [...] is protected by Article 27-F of the [facility] Public Health law. If you continue you may have access to information: Regarding HIV / AIDS; Provided by facilities licensed or operated by the [facility] Office of Mental Health; or Provided by the [facility] Office for People With Developmental Disabilities. If such information is present, then the following [facility] mandated warning applies: This information has been [...] law may result in a fine or senior living sentence or both. A general authorization for the release of medical or other information is NOT sufficient authorization for further disc losure. Family History Family Member Name Family Member Gender Family Member Status Date o f Status Description Data Source(s) Unknown Male Problem MEDENT ([facility]) () Unknown Male Problem MEDENT ([facility]) Encounters Encounter Providers Location Date Indications Data Source(s ) ([facility]) Behave Health Scheduled Visit [address] [place] [address] 03/15/2021 12:00:00 AM EDT eCW1 ([facility]) ([facility]) Behave Health Scheduled Visit [address] [place] [address] 02/25/2021 12:00:00 AM EDT eCW1 ([facility]) Outpatient Attender: Reinaldo Mendoza MD Main office - [place] 02/17/2021 11:30:00 AM EDT MEDENT ([facility]) Unknown [address] [facility] [address] 02/16/2021 12:00:00 AM EDT eCW1 ([facility]) Unknown [address] [facility] [address] 02/14/2021 12:00:00 AM EDT eCW1 ([facility]) Unknown [address] [facility] [address] 02/14/2021 12:00:00 AM EDT eCW1 ([facility]) Outpatient [address] [facility] [address] 02/14/2021 12:00:00 AM EDT eCW1 ([facility]) ([id number]) For Template [place] [address] [place] [address] 02/07/2021 12:00:00 AM EDT eCW1 ([facility]) Outpatient [address] [facility] [id number] 02/04/2021 12:00:00 AM EDT eCW1 ([facility]) (BHVHLTH) [facility] Health Scheduled Visit [address] [place] [address] 02/02/2021 12:00:00 AM EDT eCW1 ([facility]) ([id number]) For [employer] [place] [address] [place] [address] 01/26/2021 12:00:00 AM EDT eCW1 ([facility]) Outpatient Attender: CECE PAREKH Main Office 01/19/2021 0 1:00:00 PM EDT MEDENT ([facility]) (WND NP120) New Patient [address] [place] [address] 01/10/2021 12:00:00 AM EDT eCW1 ([facility]) Unknown [address] [facility] [address] 01/03/2021 12:00:00 AM EDT eCW1 ([facility]) Unknown [address] [facility] [address] 12/29/2020 12:00:00 AM EDT eCW1 ([facility]) Unknown [address] [facility] [place] [address] 12/10/2020 12:00:00 AM EDT eCW1 ([facility]) Outpatient Attender: Reinaldo Mendoza MD Main office - [place] 12/08/2020 09:30:00 AM EDT MEDENT ([facility] ) [place] [address] [facility] [address] 12/08/2020 12:00:00 AM EDT eCW1 ([facility]) Outpatient [address] [facility] [address] 12/07/2020 12:00:00 AM EDT eCW1 ([facility]) ([facility]) Behave Health Scheduled Visit [address] [place] [address] 11/24/2020 12:00:00 AM EDT eCW1 ([facility]) Outpatient Attender: BRITTANEY PEACE [facility] Office 11/11 02:15:00 PM EDT MEDENT ([facility] ([facility]) [facility] Health Scheduled Visit [address] [place] [address] 11/04/2020 12:00:00 AM EDT eCW1 ([facility]) Outpatient Attender: BRITTANEY PEACE [facility] Office 10/12 11:00:00 AM EDT MEDENT ([facility] Unknown [address] [facility] [address] 10/22/2020 12:00:00 AM EDT eCW1 ([facility]) Outpatient [address] [facility] [address] 10/22/2020 12:00:00 AM EDT eCW1 ([facility]) [facility] Health Scheduled Visit [address] [place] [address] 10/21/2020 12:00:00 AM EDT eCW1 ([facility]) Outpatient [address] [facility] [address] 10/08/2020 12:00:00 AM EDT eCW1 ([facility]) Unknown [address] [facility] [address] 10/04/2020 12:00:00 AM EDT [facility]CW1 [facility] ([facility]) Behave Health Scheduled Visit [address] [place] [address] 09/10/2020 12:00:00 AM EDT eCW1 ([facility]) Outpatient Attender: BRITTANEY PEACE [facility] Office 08/12 11:00:00 AM EDT MEDENT ([facility] ([facility]) Behave Health Scheduled Visit [facility] [place] [address] 08/23/2020 12:00:00 AM EDT eCW1 ([facility]) ([facility]) Behave Health Scheduled Visit [address] [place] [address] 08/05/2020 12:00:00 AM EDT eCW1 ([facility]) Outpatient [address] [facility] [address] 08/02/2020 12:00:00 AM EDT eCW1 [facility]) Unknown [address] [facility] [address] 07/26/2020 12:00:00 AM EDT eCW1 ([facility]) ([facility]) Behave Health Scheduled Visit [address] [place] [address] 07/21/2020 12:00:00 AM EST eCW1 ([facility]) Unknown [address] [facility] [address] 07/20/2020 12:00:00 AM EST eCW1 ([facility]) Unknown [address] [facility] [address] 06/25/2020 12:00:00 AM EST eCW1 ([facility]) Unknown [address] [facility] [address] 06/24/2020 12:00:00 AM EST eCW1 ([facility]) ([facility]) [facility] Scheduled Visit [address] [place] [address] 06/23/2020 12:00:00 AM EST eCW1 ([facility]) Outpatient Attender: BRITTANEY PEACE [facility] Office 01/2021 08:30:00 AM EST MEDENT ([facility] Outpatient [address] [facility] [address] 06/22/2020 12:00:00 AM EST eCW1 ([facility]) Outpatient [address] [facility] [address] 06/07/2020 12:00:00 AM EST eCW1 ([facility]) (BC FU) Breast Center Follow Up [address] [place] [address] 06/04/2020 12:00:00 AM EST eCW1 ([facility]) (WND NP120) New Patient 120 Min [address] [place] [address] 06/02/2020 12:00:00 AM EST eCW1 ([facility]) Unknown [address] [facility] [address] 06/01/2020 12:00:00 AM EST eCW1 ([facility]) (WC PO) WCenter Post Op [address] [place] [address] 05/28/2020 12:00:00 AM EST eCW1 ([facility]) Unknown [address] [facility] [address] 05/26/2020 12:00:00 AM EST eCW1 ([facility]) (BC FU) Breast Center Follow Up [address] [place] [address] 05/17/2020 12:00:00 AM EST eCW1 ([facility]) Unknown [address] [facility] [address] 05/13/2020 12:00:00 AM EST eCW1 ([facility]) Unknown [address] [facility] [place] [address] 05/11/2020 12:00:00 AM EST eCW1 ([facility]) Unknown [address] [facility] [address] 05/11/2020 12:00:00 AM EST eCW1 ([facility]) Unknown [address] [facility] [address] 05/11/2020 12:00:00 AM EST eCW1 ([facility]) ( FU) Breast Center Follow Up [address] [place] [address] 05/10/2020 12:00:00 AM EST eCW1 ([facility]) Unknown [address] [facility] [address] 05/10/2020 12:00:00 AM EST eCW1 ([facility]) Unknown [address] [facility] [address] 05/06/2020 12:00:00 AM EST eCW1 ([facility]) Outpatient [address] [facility] [address] 05/04/2020 12:00:00 AM EST eCW1 ([facility]) ( PO) WCenter Post Op [address] [place] [address] 05/03/2020 12:00:00 AM EST eCW1 ([facility]) ([facility]) Behave Health Scheduled Visit [address] [place] [address] 04/26/2020 12:00:00 AM EST eCW1 ([facility]) Unknown [address] [facility] [address] 04/26/2020 12:00:00 AM EST eCW1 ([facility]) Unknown [address] [facility] [address] 04/22/2020 12:00:00 AM EST eCW1 ([facility]) Unknown [address] [facility] [address] 04/19/2020 12:00:00 AM EST eCW1 ([facility]) Outpatient [address] [facility] [address] 04/16/2020 12:00:00 AM EST eCW1 ([facility]) Outpatient Attender: RUDY TROY MD Main Office 04/12/2020 08:45:00 AM EST MEDENT ([facility]) Unknown [address] [facility] [place] [address] 04/12/2020 12:00:00 AM EST eCW1 ([facility]) (BHVHLTH) [facility] Health Scheduled Visit [address] [place] [address] 04/12/2020 12:00:00 AM EST eCW1 ([facility]) Outpatient [address] [facility] [address] 04/05/2020 12:00:00 AM EST eCW1 [facility] Unknown [address] [facility] [place] [address] 04/03/2020 12:00:00 AM EST eCW1 ([facility]) Unknown [address] [facility] [place] [address] 04/02/2020 12:00:00 AM EST eCW1 ([facility]) Unknown [address] [facility] [place] [address] 04/01/2020 12:00:00 AM EST eCW1 ([facility]) Unknown [address] [facility] [place] [address] 04/01/2020 12:00:00 AM EST eCW1 [facility] Unknown [address] [facility] [address] 04/01/2020 12:00:00 AM EST eCW1 ([facility]) Outpatient [address] [facility] [address] 03/30/2020 12:00:00 AM EST eCW1 ([facility]) Unknown [address] [facility] [place] [address] 03/29/2020 12:00:00 AM EST eCW1 ([facility]) (BHVHLTH) [facility] Health Scheduled Visit [address] [place] [address] 03/26/2020 12:00:00 AM EST eCW1 ([facility]) Outpatient [address] [facility] [address] 03/24/2020 12:00:00 AM EST eCW1 ([facility]) Outpatient Admitter: YELITZA Blisser: GERSON GOMEZ DO 03/19/2020 12:00:00 AM EST Other abnormal and inconclusive findings on diagnostic imaging of [facility] Other abnormal and inconclusive findings on diagnostic imaging of breast Outpatient [address] [facility] [address] 03/18/2020 12:00:00 AM EST eCW1 ([facility]) Unknown [address] [facility] [address] 03/18/2020 12:00:00 AM EST eCW1 ([facility]) Outpatient Attender: RUDY TROY MD Main Office 03/16/2020 09:00:00 AM EST MEDENT ([facility]) Unknown [address] [facility] [place] [address] 03/16/2020 12:00:00 AM EST eCW1 ([facility]) Outpatient [address] [facility] [address] 03/15/2020 12:00:00 AM EST eCW1 ([facility]) Unknown [address] [facility] [address] 03/11/2020 12:00:00 AM EDT eCW1 ([facility]) Unknown [address] [facility] [address] 03/10/2020 12:00:00 AM EDT eCW1 ([facility]) Outpatient [address] [facility] [address] 03/05/2020 12:00:00 AM EDT eCW1 ([facility]) Outpatient [address] [facility] [place] [address] 03/04/2020 12:00:00 AM EDT eCW1 ([facility]) Outpatient Attender: RUDY TROY MD Main Office 03/02/2020 11:00:00 AM EDT MEDENT ([facility]) Unknown [address] [facility] [place] [address] 02/26/2020 12:00:00 AM EDT eCW1 ([facility]) Unknown [address] [facility] [place] [address] 02/23/2020 12:00:00 AM EDT eCW1 ([facility]) Unknown [address] [facility] [place] [address] 02/18/2020 12:00:00 AM EDT eCW1 ([facility]) Outpatient [address] [facility] [place] [address] 02/17/2020 12:00:00 AM EDT eCW1 ([facility]) Unknown [address] [facility] [place] [address] 02/17/2020 12:00:00 AM EDT eCW1 ([facility]) Immunizations Vaccine Date Status Description Data Source(s) COVID-19 VACCINE Moderna 08/16/2020 12:00:00 AM EDT completed [facility] Vaccine Series Complete: YESThis Data wa s Submitted to [facility] Via [employer]. COVID-19 VACCINE Moderna 07/19/2020 12:00:00 AM EST completed [facility] Vaccine Series Complete: NOThis Data was Submitted to [facility] Via [employer]. pneumococcal polysaccharide PPV23 04/28/2020 09:00:00 AM EST comple isa eCW1 ([facility]) influenza, recombinant, quadrIvalent,injectable, prese rvative free 04/28/2020 09:00:00 AM EST completed eCW1 ([facility]) pneumococcal polysaccharide PPV23 04/28/2020 09:00:00 AM EST comple isa eCW1 ([facility]) influenza, recombinant, quadrIvalent,injectable, prese rvative free 04/28/2020 09:00:00 AM EST completed eCW1 ([facility]) pneumococcal polysaccharide PPV23 04/28/2020 09:00:00 AM EST comple isa eCW1 ([facility]) influenza, recombinant, quadrIvalent,injectable, prese rvative free 04/28/2020 09:00:00 AM EST completed eCW1 ([facility]) pneumococcal polysaccharide PPV23 04/28/2020 09:00:00 AM EST comple isa eCW1 ([facility]) influenza, recombinant, quadrIvalent,injectable, prese rvative free 04/28/2020 09:00:00 AM EST completed eCW1 ([facility]) pneumococcal polysaccharide PPV23 04/28/2020 09:00:00 AM EST comple isa eCW1 ([facility]) influenza, recombinant, quadrIvalent,injectable, prese rvative free 04/28/2020 09:00:00 AM EST completed eCW1 ([facility]) pneumococcal polysaccharide PPV23 04/28/2020 09:00:00 AM EST comple isa eCW1 ([facility]) influenza, recombinant, quadrIvalent,injectable, prese rvative free 04/28/2020 09:00:00 AM EST completed eCW1 ([facility]) pneumococcal polysaccharide PPV23 04/28/2020 09:00:00 AM EST comple isa eCW1 ([facility]) influenza, recombinant, quadrIvalent,injectable, prese rvative free 04/28/2020 09:00:00 AM EST completed eCW1 ([facility]) Medications Medication Brand Name Start Date Product Form Dose Route Admi nistrative Instructions Pharmacy Instructions Status Indications Reaction Description Data Source(s) Calcitriol 0.30339 MG Oral Capsule Calcitriol 01/18/2021 12:00:00 AM EDT ORAL active MEDENT ([facility] Amitriptyline Hydrochloride 25 MG Oral Tablet Amitriptyline HCL 01/18/2021 12:00:00 AM EDT ORAL active M EDENT ([facility]) Amitriptyline Hydrochloride 25 MG Oral Tablet Amitriptyline HCL 12/08/2020 12:00:00 AM EDT ORAL active M EDENT ([facility]) FreeStyle Genoveva Sensor System - FreeStyle Genoveva Sensor Syste m - 08/11/2020 12:00:00 AM EDT active FreeStyl [employer]ensor System - eCW1 ([facility]) FreeStyle Genoveva Sensor System - FreeStyle Genoveva Sensor Syste m - 08/11/2020 12:00:00 AM EDT active FreeSty[employer]oveva Sensor System - eCW1 ([facility]) FreeStyle Genoveva [place] - FreeStyle Genoveva [place] - 08/11/2020 12:00: 00 AM EDT active [employer] [place] - eCW1 ([facility]) FreeStyle Gen[employer]va [place] - FreeStyle [employer]va [place] - 08/11/2020 12:00: 00 AM EDT active [employer] [place] - eCW1 ([facility]) FreeStyle Genoveva Sensor System - FreeStyle Genoveva Sensor Syste m - 08/11/2020 12:00:00 AM EDT active FreeStyl e [employer]oveva Sensor System - eCW1 ([facility]) FreeStyle [employer]va [place] - FreeStyle [employer] [place] - 08/11/2020 12:00: 00 AM EDT active [employer] [place] - eCW1 ([facility]) FreeStyle Genoveva Sensor System - FreeStyle Genoveva Sensor Syste m - 08/11/2020 12:00:00 AM EDT active FreeStyl e [employer]oveva Sensor System - eCW1 ([facility]) FreeStyle [employer]va [place] - FreeStyle [employer]va [place] - 08/11/2020 12:00: 00 AM EDT active [employer] [place] - eCW1 ([facility]) FreeStyle Genoveva Sensor System - FreeStyle Genoveva Sensor Syste m - 08/11/2020 12:00:00 AM EDT active FreeStyl [employer]oveva Sensor System - eCW1 ([facility]) FreeStyle Genoveva Sensor System - FreeStyle Genoveva Sensor Syste m - 08/11/2020 12:00:00 AM EDT active FreeStyl e [employer]oveva Sensor System - eCW1 ([facility]) FreeStyle Gen[employer]va [place] - FreeStyle [employer]va [place] - 08/11/2020 12:00: 00 AM EDT active [employer] [place] - eCW1 ([facility]) FreeStyle Gen[employer]va [place] - FreeStyle Gen[employer]va [place] - 08/11/2020 12:00: 00 AM EDT active [employer] [place] - eCW1 ([facility]) FreeStyle Genoveva 14 Day Sensor - FreeStyle Genoveva 14 Day Senso r - 08/02/2020 12:00:00 AM EDT active FreeStyl e Genoveva 14 Day Sensor - eCW1 ([facility]) FreeStyle Genoveva 14 Day [place] - FreeStyle Genoveva 14 Day Reade r - 08/02/2020 12:00:00 AM EDT active FreeStyl e Genoveva 14 Day [place] - eCW1 ([facility]) Magnesium 07/13/2020 12:00:00 AM EST ORAL active MEDENT ([facility]) sitagliptin 25 MG Oral Tablet [Januvia] Januvia 07/13/2020 12:00:0 0 AM EST ORAL active MEDENT ([facility]) Cholecalciferol 2000 UNT Oral Tablet Vitamin D 07/13/2020 12:00:00 A M EST ORAL active MEDENT ([facility]) Amiloride Hydrochloride 5 MG Oral Tablet Amiloride HCL 07/13/2020 12:00:00 AM EST active MEDENT ([facility]) Escitalopram 10 MG Oral Tablet [Lexapro] Lexapro 07/13/2020 12:00: 00 AM EST ORAL active MEDENT ([facility] Amlodipine 10 MG Oral Tablet Amlodipine Besylate 06/23/2020 12:00:00 AM EST ORAL active MEDENT ([facility]) Clindamycin 150 MG Oral Capsule Clindamycin HCl 150 MG Clind amycin HCl 150 MG 05/31/2020 12:00:00 AM EST 2.0 {capsules} active Clindamycin HCl 150 MG eCW1 ([facility]) Cephalexin 500 MG Oral Capsule Cephalexin 500 MG 05/28/2020 12:00:0 0 AM EST 1.0 {capsule} suspended Cephalexin 500 M G eCW1 ([facility]) Cephalexin 500 MG Oral Capsule Cephalexin 500 MG 05/28/2020 12:00:0 0 AM EST 1.0 {capsule} suspended Cephalexin 500 M G eCW1 ([facility]) Cephalexin 500 MG Oral Capsule Cephalexin 500 MG 05/28/2020 12:00:0 0 AM EST 1.0 {capsule} suspended Cephalexin 500 M G eCW1 ([facility]) Cephalexin 500 MG Oral Capsule Cephalexin 500 MG 05/28/2020 12:00:0 0 AM EST 1.0 {capsule} suspended Cephalexin 500 M G eCW1 ([facility]) Cephalexin 500 MG Oral Capsule Cephalexin 500 MG 05/28/2020 12:00:0 0 AM EST 1.0 {capsule} suspended Cephalexin 500 M G eCW1 ([facility]) Cephalexin 500 MG Oral Capsule Cephalexin 500 MG 05/28/2020 12:00:0 0 AM EST 1.0 {capsule} suspended Cephalexin 500 M G eCW1 ([facility]) Cephalexin 500 MG Oral Capsule Cephalexin 500 MG 05/28/2020 12:00:0 0 AM EST 1.0 {capsule} suspended Cephalexin 500 M G eCW1 ([facility]) Cephalexin 500 MG Oral Capsule Cephalexin 500 MG 05/28/2020 12:00:0 0 AM EST 1.0 {capsule} suspended Cephalexin 500 M G eCW1 ([facility]) Cephalexin 500 MG Oral Capsule Cephalexin 500 MG 05/28/2020 12:00:0 0 AM EST 1.0 {capsule} suspended Cephalexin 500 M G eCW1 ([facility]) Cephalexin 500 MG Oral Capsule Cephalexin 500 MG 05/28/2020 12:00:0 0 AM EST 1.0 {capsule} suspended Cephalexin 500 M G eCW1 ([facility]) Cephalexin 500 MG Oral Capsule Cephalexin 500 MG 05/28/2020 12:00:0 0 AM EST 1.0 {capsule} suspended Cephalexin 500 M G eCW1 ([facility]) Triamcinolone Acetonide 1 MG/ML Topical Cream Triamcin olone Acetonide 0.1 % Triamcinolone Acetonide 0.1 % 05/25/2020 12:00:00 AM EST 1.0 {appli cation} active Triamcinolone Acetonide 0 .1 % eCW1 ([facility]) Triamcinolone Acetonide 1 MG/ML Topical Cream Triamcin olone Acetonide 0.1 % Triamcinolone Acetonide 0.1 % 05/25/2020 12:00:00 AM EST 1.0 {appli cation} active Triamcinolone Acetonide 0 .1 % eCW1 ([facility]) Amlodipine 5 MG Oral Tablet AmLODIPine Besylate 5 MG AmLODIP ine Besylate 5 MG 05/25/2020 12:00:00 AM EST 1.0 {tablet} active AmLODIPine Besylate 5 MG eCW1 ([facility]) Amlodipine 5 MG Oral Tablet AmLODIPine Besylate 5 MG AmLODIP ine Besylate 5 MG 05/25/2020 12:00:00 AM EST 1.0 {tablet} active AmLODIPine Besylate 5 MG eCW1 ([facility]) sitagliptin 25 MG Oral Tablet [Januvia] Januvia 25 MG Januvi a 25 MG 05/10/2020 12:00:00 AM EST active Januvia 25 MG eCW1 ([facility]) sitagliptin 25 MG Oral Tablet [Januvia] Januvia 25 MG Januvi a 25 MG 05/10/2020 12:00:00 AM EST active Januvia 25 MG eCW1 ([facility]) sitagliptin 25 MG Oral Tablet [Januvia] Januvia 25 MG Januvi a 25 MG 05/10/2020 12:00:00 AM EST active Januvia 25 MG eCW1 ([facility]) sitagliptin 25 MG Oral Tablet [Januvia] Januvia 25 MG Januvi a 25 MG 05/10/2020 12:00:00 AM EST suspended Januv ia 25 MG eCW1 ([facility]) sitagliptin 25 MG Oral Tablet [Januvia] Januvia 25 MG Januvi a 25 MG 05/10/2020 12:00:00 AM EST active Januvia 25 MG eCW1 ([facility]) sitagliptin 25 MG Oral Tablet [Januvia] Januvia 25 MG Januvi a 25 MG 05/10/2020 12:00:00 AM EST active Januvia 25 MG eCW1 ([facility]) sitagliptin 25 MG Oral Tablet [Januvia] Januvia 25 MG Januvi a 25 MG 05/10/2020 12:00:00 AM EST active Januvia 25 MG eCW1 ([facility]) sitagliptin 25 MG Oral Tablet [Januvia] Januvia 25 MG Januvi a 25 MG 05/10/2020 12:00:00 AM EST active Januvia 25 MG eCW1 ([facility]) sitagliptin 25 MG Oral Tablet [Januvia] Januvia 25 MG Januvi a 25 MG 05/10/2020 12:00:00 AM EST suspended Januv ia 25 MG eCW1 ([facility]) Lancets - Lancets - 05/04/2020 12:00:00 AM EST act shikha Lancets - eCW1 ([facility]) Glucometer UNK 05/04/2020 12:00:00 AM EST active Glucometer eCW1 ([facility]) Lancets - Lancets - 05/04/2020 12:00:00 AM EST act shikha Lancets - eCW1 ([facility]) Escitalopram 10 MG Oral Tablet [Lexapro] Lexapro 10 MG Lexap ro 10 MG 05/04/2020 12:00:00 AM EST 1.0 {tablet} active Le xapro 10 MG eCW1 ([facility]) [facility] Glucose Meter Test Strips - [facility] Glucose Meter Test Strip s - 05/04/2020 12:00:00 AM EST active [facility] Gluc ose Meter Test Strips - eCW1 ([facility]) Escitalopram 10 MG Oral Tablet [Lexapro] Lexapro 10 MG Lexap ro 10 MG 05/04/2020 12:00:00 AM EST 1.0 {tablet} active Le xapro 10 MG eCW1 ([facility]) Lancets - Lancets - 05/04/2020 12:00:00 AM EST act shikha Lancets - eCW1 ([facility]) Escitalopram 10 MG Oral Tablet [Lexapro] Lexapro 10 MG Lexap ro 10 MG 05/04/2020 12:00:00 AM EST 1.0 {tablet} active Le xapro 10 MG eCW1 ([facility]) [facility]S Glucose Meter Test Strips - [facility] Glucose Meter Test Strip s - 05/04/2020 12:00:00 AM EST active CVS Gluc ose Meter Test Strips - eCW1 ([facility]) Linagliptin 5 MG Oral Tablet [Tradjenta] Tradjenta 5 MG Trad jenta 5 MG 05/04/2020 12:00:00 AM EST 1.0 {tablet} active Tradjenta 5 MG eCW1 ([facility]) Escitalopram 10 MG Oral Tablet [Lexapro] Lexapro 10 MG Lexap ro 10 MG 05/04/2020 12:00:00 AM EST 1.0 {tablet} active Le xapro 10 MG eCW1 ([facility]) Lancets - Lancets - 05/04/2020 12:00:00 AM EST act shikha Lancets - eCW1 ([facility]) Lancets - Lancets - 05/04/2020 12:00:00 AM EST act shikha Lancets - eCW1 ([facility]) Escitalopram 10 MG Oral Tablet [Lexapro] Lexapro 10 MG Lexap ro 10 MG 05/04/2020 12:00:00 AM EST 1.0 {tablet} suspended Lexapro 10 MG eCW1 ([facility]) CVS Glucose Meter Test Strips - [facility]S Glucose Meter Test Strip s - 05/04/2020 12:00:00 AM EST active CVS Gluc ose Meter Test Strips - eCW1 ([facility]) CVS Glucose Meter Test Strips - [facility] Glucose Meter Test Strip s - 05/04/2020 12:00:00 AM EST active CVS Gluc ose Meter Test Strips - eCW1 ([facility]) Glucometer UNK 05/04/2020 12:00:00 AM EST active Glucometer eCW1 ([facility]) Glucometer UNK 05/04/2020 12:00:00 AM EST active Glucometer eCW1 ([facility]) Lancets - Lancets - 05/04/2020 12:00:00 AM EST act shikha Lancets - eCW1 ([facility]) Escitalopram 10 MG Oral Tablet [Lexapro] Lexapro 10 MG Lexap ro 10 MG 05/04/2020 12:00:00 AM EST 1.0 {tablet} active Le xapro 10 MG eCW1 ([facility]) Linagliptin 5 MG Oral Tablet [Tradjenta] Tradjenta 5 MG Trad jenta 5 MG 05/04/2020 12:00:00 AM EST 1.0 {tablet} active Tradjenta 5 MG eCW1 ([facility]) Glucometer UNK 05/04/2020 12:00:00 AM EST active Glucometer eCW1 ([facility]) Escitalopram 10 MG Oral Tablet [Lexapro] Lexapro 10 MG Lexap ro 10 MG 05/04/2020 12:00:00 AM EST 1.0 {tablet} active Le xapro 10 MG eCW1 ([facility]) CVS Glucose Meter Test Strips - CVS Glucose Meter Test Strip s - 05/04/2020 12:00:00 AM EST active CVS Gluc ose Meter Test Strips - eCW1 ([facility]) Lancets - Lancets - 05/04/2020 12:00:00 AM EST act shikha Lancets - eCW1 ([facility]) Escitalopram 10 MG Oral Tablet [Lexapro] Lexapro 10 MG Lexap ro 10 MG 05/04/2020 12:00:00 AM EST 1.0 {tablet} active Le xapro 10 MG eCW1 ([facility]) Escitalopram 10 MG Oral Tablet [Lexapro] Lexapro 10 MG Lexap ro 10 MG 05/04/2020 12:00:00 AM EST 1.0 {tablet} active Le xapro 10 MG eCW1 ([facility]) Glucometer UNK 05/04/2020 12:00:00 AM EST active Glucometer eCW1 ([facility]) Lancets - Lancets - 05/04/2020 12:00:00 AM EST act shikha Lancets - eCW1 ([facility]) CVS Glucose Meter Test Strips - CVS Glucose Meter Test Strip s - 05/04/2020 12:00:00 AM EST active CVS Gluc ose Meter Test Strips - eCW1 ([facility]) Linagliptin 5 MG Oral Tablet [Tradjenta] Tradjenta 5 MG Trad jenta 5 MG 05/04/2020 12:00:00 AM EST 1.0 {tablet} active Tradjenta 5 MG eCW1 ([facility]) Glucometer UNK 05/04/2020 12:00:00 AM EST active Glucometer eCW1 ([facility]) Lancets - Lancets - 05/04/2020 12:00:00 AM EST act shikha Lancets - eCW1 ([facility]) CVS Glucose Meter Test Strips - CVS Glucose Meter Test Strip s - 05/04/2020 12:00:00 AM EST active CVS Gluc ose Meter Test Strips - eCW1 ([facility]) Escitalopram 10 MG Oral Tablet [Lexapro] Lexapro 10 MG Lexap ro 10 MG 05/04/2020 12:00:00 AM EST 1.0 {tablet} active Le xapro 10 MG eCW1 ([facility]) Linagliptin 5 MG Oral Tablet [Tradjenta] Tradjenta 5 MG Trad jenta 5 MG 05/04/2020 12:00:00 AM EST 1.0 {tablet} active Tradjenta 5 MG eCW1 ([facility]) Linagliptin 5 MG Oral Tablet [Tradjenta] Tradjenta 5 MG Trad jenta 5 MG 05/04/2020 12:00:00 AM EST 1.0 {tablet} suspended Tradjenta 5 MG eCW1 ([facility]) CVS Glucose Meter Test Strips - CVS Glucose Meter Test Strip s - 05/04/2020 12:00:00 AM EST active CVS Gluc ose Meter Test Strips - eCW1 ([facility]) CVS Glucose Meter Test Strips - CVS Glucose Meter Test Strip s - 05/04/2020 12:00:00 AM EST active CVS Gluc ose Meter Test Strips - eCW1 ([facility]) CVS Glucose Meter Test Strips - CVS Glucose Meter Test Strip s - 05/04/2020 12:00:00 AM EST active CVS Gluc ose Meter Test Strips - eCW1 ([facility]) Glucometer UNK 05/04/2020 12:00:00 AM EST active Glucometer eCW1 ([facility]) CVS Glucose Meter Test Strips - CVS Glucose Meter Test Strip s - 05/04/2020 12:00:00 AM EST active CVS Gluc ose Meter Test Strips - eCW1 ([facility]) Glucometer UNK 05/04/2020 12:00:00 AM EST active Glucometer eCW1 ([facility]) Glucometer UNK 05/04/2020 12:00:00 AM EST active Glucometer eCW1 ([facility]) CVS Glucose Meter Test Strips - CVS Glucose Meter Test Strip s - 05/04/2020 12:00:00 AM EST active CVS Gluc ose Meter Test Strips - eCW1 ([facility]) Lancets - Lancets - 05/04/2020 12:00:00 AM EST act shikha Lancets - eCW1 ([facility]) Linagliptin 5 MG Oral Tablet [Tradjenta] Tradjenta 5 MG Trad jenta 5 MG 05/04/2020 12:00:00 AM EST 1.0 {tablet} suspended Tradjenta 5 MG eCW1 ([facility]) Linagliptin 5 MG Oral Tablet [Tradjenta] Tradjenta 5 MG Trad jenta 5 MG 05/04/2020 12:00:00 AM EST 1.0 {tablet} active Tradjenta 5 MG eCW1 ([facility]) Escitalopram 10 MG Oral Tablet [Lexapro] Lexapro 10 MG Lexap ro 10 MG 05/04/2020 12:00:00 AM EST 1.0 {tablet} active Le xapro 10 MG eCW1 ([facility]) Glucometer UNK 05/04/2020 12:00:00 AM EST active Glucometer eCW1 ([facility]) Lancets - Lancets - 05/04/2020 12:00:00 AM EST act shikha Lancets - eCW1 ([facility]) Linagliptin 5 MG Oral Tablet [Tradjenta] Tradjenta 5 MG Trad jenta 5 MG 05/04/2020 12:00:00 AM EST 1.0 {tablet} active Tradjenta 5 MG eCW1 ([facility]) Linagliptin 5 MG Oral Tablet [Tradjenta] Tradjenta 5 MG Trad jenta 5 MG 05/04/2020 12:00:00 AM EST 1.0 {tablet} active Tradjenta 5 MG eCW1 ([facility]) Lancets - Lancets - 05/04/2020 12:00:00 AM EST act shikha Lancets - eCW1 ([facility]) Glucometer UNK 05/04/2020 12:00:00 AM EST active Glucometer eCW1 ([facility]) Linagliptin 5 MG Oral Tablet [Tradjenta] Tradjenta 5 MG Trad jenta 5 MG 05/04/2020 12:00:00 AM EST 1.0 {tablet} active Tradjenta 5 MG eCW1 ([facility]) Escitalopram 10 MG Oral Tablet [Lexapro] Lexapro 10 MG Lexap ro 10 MG 05/04/2020 12:00:00 AM EST 1.0 {tablet} suspended Lexapro 10 MG eCW1 ([facility]) Glucometer UNK 05/04/2020 12:00:00 AM EST active Glucometer eCW1 ([facility]) Ciprofloxacin 500 MG Oral Tablet Ciprofloxacin HCl 500 MG Ciprofloxacin HCl 500 MG 04/22/2020 12:00:00 AM EST 1.0 {tablet} activ e Ciprofloxacin HCl 500 MG eCW1 ([facility]) Ciprofloxacin 500 MG Oral Tablet Ciprofloxacin HCl 500 MG Ciprofloxacin HCl 500 MG 04/22/2020 12:00:00 AM EST 1.0 {tablet} activ e Ciprofloxacin HCl 500 MG eCW1 ([facility]) Ciprofloxacin 500 MG Oral Tablet Ciprofloxacin HCl 500 MG Ciprofloxacin HCl 500 MG 04/22/2020 12:00:00 AM EST 1.0 {tablet} activ e Ciprofloxacin HCl 500 MG eCW1 ([facility]) Ciprofloxacin 500 MG Oral Tablet Ciprofloxacin HCl 500 MG Ciprofloxacin HCl 500 MG 04/22/2020 12:00:00 AM EST 1.0 {tablet} activ e Ciprofloxacin HCl 500 MG eCW1 ([facility]) Lidocaine 25 MG/ML / Prilocaine 25 MG/ML Topical Cream Lidocaine-Prilocaine 2.5- 2.5 % Lidocaine-Prilocaine 2.5-2.5 % 04/05/2020 12:00:00 AM EST active Lidocaine-Prilocaine 2.5-2.5 % e CW1 ([facility]) Lidocaine 25 MG/ML / Prilocaine 25 MG/ML Topical Cream Lidocaine-Prilocaine 2.5- 2.5 % Lidocaine-Prilocaine 2.5-2.5 % 04/05/2020 12:00:00 AM EST active Lidocaine-Prilocaine 2.5-2.5 % e CW1 ([facility]) Lidocaine 25 MG/ML / Prilocaine 25 MG/ML Topical Cream Lidocaine-Prilocaine 2.5- 2.5 % Lidocaine-Prilocaine 2.5-2.5 % 04/05/2020 12:00:00 AM EST active Lidocaine-Prilocaine 2.5-2.5 % e CW1 ([facility]) Lidocaine 25 MG/ML / Prilocaine 25 MG/ML Topical Cream Lidocaine-Prilocaine 2.5- 2.5 % Lidocaine-Prilocaine 2.5-2.5 % 04/05/2020 12:00:00 AM EST active Lidocaine-Prilocaine 2.5-2.5 % e CW1 ([facility]) Lidocaine 25 MG/ML / Prilocaine 25 MG/ML Topical Cream Lidocaine-Prilocaine 2.5- 2.5 % Lidocaine-Prilocaine 2.5-2.5 % 04/05/2020 12:00:00 AM EST active Lidocaine-Prilocaine 2.5-2.5 % e CW1 ([facility]) Lidocaine 25 MG/ML / Prilocaine 25 MG/ML Topical Cream Lidocaine-Prilocaine 2.5- 2.5 % Lidocaine-Prilocaine 2.5-2.5 % 04/05/2020 12:00:00 AM EST active Lidocaine-Prilocaine 2.5-2.5 % e CW1 ([facility]) Lidocaine 25 MG/ML / Prilocaine 25 MG/ML Topical Cream Lidocaine-Prilocaine 2.5- 2.5 % Lidocaine-Prilocaine 2.5-2.5 % 04/05/2020 12:00:00 AM EST active Lidocaine-Prilocaine 2.5-2.5 % e CW1 ([facility]) Lidocaine 25 MG/ML / Prilocaine 25 MG/ML Topical Cream Lidocaine-Prilocaine 2.5- 2.5 % Lidocaine-Prilocaine 2.5-2.5 % 04/05/2020 12:00:00 AM EST active Lidocaine-Prilocaine 2.5-2.5 % e CW1 ([facility]) Lidocaine 25 MG/ML / Prilocaine 25 MG/ML Topical Cream Lidocaine-Prilocaine 2.5- 2.5 % Lidocaine-Prilocaine 2.5-2.5 % 04/05/2020 12:00:00 AM EST active Lidocaine-Prilocaine 2.5-2.5 % e CW1 ([facility]) Lidocaine 25 MG/ML / Prilocaine 25 MG/ML Topical Cream Lidocaine-Prilocaine 2.5- 2.5 % Lidocaine-Prilocaine 2.5-2.5 % 04/05/2020 12:00:00 AM EST active Lidocaine-Prilocaine 2.5-2.5 % e CW1 ([facility]) NITROFURANTOIN, MACROCRYSTALS 25 MG / Ni trofurantoin, Monohydrate 75 MG Oral Capsule Nitrofurantoin Monohyd Macro 100 MG Nitrofurantoin Monohyd Macro 100 MG 04/02/2020 12:00:00 AM EST suspended Nitrofurantoin Monohyd Macro 100 MG eCW1 ([facility]) NITROFURANTOIN, MACROCRYSTALS 25 MG / Ni trofurantoin, Monohydrate 75 MG Oral Capsule Nitrofurantoin Monohyd Macro 100 MG Nitrofurantoin Monohyd Macro 100 MG 04/02/2020 12:00:00 AM EST active Nitrofurantoin Monohyd Macro 100 MG eCW1 ([facility]) NITROFURANTOIN, MACROCRYSTALS 25 MG / Ni trofurantoin, Monohydrate 75 MG Oral Capsule Nitrofurantoin Monohyd Macro 100 MG Nitrofurantoin Monohyd Macro 100 MG 04/02/2020 12:00:00 AM EST suspended Nitrofurantoin Monohyd Macro 100 MG eCW1 ([facility]) NITROFURANTOIN, MACROCRYSTALS 25 MG / Ni trofurantoin, Monohydrate 75 MG Oral Capsule Nitrofurantoin Monohyd Macro 100 MG Nitrofurantoin Monohyd Macro 100 MG 04/02/2020 12:00:00 AM EST active Nitrofurantoin Monohyd Macro 100 MG eCW1 ([facility]) NITROFURANTOIN, MACROCRYSTALS 25 MG / Ni trofurantoin, Monohydrate 75 MG Oral Capsule Nitrofurantoin Monohyd Macro 100 MG Nitrofurantoin Monohyd Macro 100 MG 04/02/2020 12:00:00 AM EST suspended Nitrofurantoin Monohyd Macro 100 MG eCW1 ([facility]) NITROFURANTOIN, MACROCRYSTALS 25 MG / Ni trofurantoin, Monohydrate 75 MG Oral Capsule Nitrofurantoin Monohyd Macro 100 MG Nitrofurantoin Monohyd Macro 100 MG 04/02/2020 12:00:00 AM EST active Nitrofurantoin Monohyd Macro 100 MG eCW1 ([facility]) NITROFURANTOIN, MACROCRYSTALS 25 MG / Ni trofurantoin, Monohydrate 75 MG Oral Capsule Nitrofurantoin Monohyd Macro 100 MG Nitrofurantoin Monohyd Macro 100 MG 04/02/2020 12:00:00 AM EST suspended Nitrofurantoin Monohyd Macro 100 MG eCW1 ([facility]) NITROFURANTOIN, MACROCRYSTALS 25 MG / Ni trofurantoin, Monohydrate 75 MG Oral Capsule Nitrofurantoin Monohyd Macro 100 MG Nitrofurantoin Monohyd Macro 100 MG 04/02/2020 12:00:00 AM EST suspended Nitrofurantoin Monohyd Macro 100 MG eCW1 ([facility]) NITROFURANTOIN, MACROCRYSTALS 25 MG / Ni trofurantoin, Monohydrate 75 MG Oral Capsule Nitrofurantoin Monohyd Macro 100 MG Nitrofurantoin Monohyd Macro 100 MG 04/02/2020 12:00:00 AM EST active Nitrofurantoin Monohyd Macro 100 MG eCW1 ([facility]) NITROFURANTOIN, MACROCRYSTALS 25 MG / Ni trofurantoin, Monohydrate 75 MG Oral Capsule Nitrofurantoin Monohyd Macro 100 MG Nitrofurantoin Monohyd Macro 100 MG 04/02/2020 12:00:00 AM EST active Nitrofurantoin Monohyd Macro 100 MG eCW1 ([facility]) NITROFURANTOIN, MACROCRYSTALS 25 MG / Ni trofurantoin, Monohydrate 75 MG Oral Capsule Nitrofurantoin Monohyd Macro 100 MG Nitrofurantoin Monohyd Macro 100 MG 04/02/2020 12:00:00 AM EST suspended Nitrofurantoin Monohyd Macro 100 MG eCW1 ([facility]) NITROFURANTOIN, MACROCRYSTALS 25 MG / Ni trofurantoin, Monohydrate 75 MG Oral Capsule Nitrofurantoin Monohyd Macro 100 MG Nitrofurantoin Monohyd Macro 100 MG 04/02/2020 12:00:00 AM EST active Nitrofurantoin Monohyd Macro 100 MG eCW1 ([facility]) NITROFURANTOIN, MACROCRYSTALS 25 MG / Ni trofurantoin, Monohydrate 75 MG Oral Capsule Nitrofurantoin Monohyd Macro 100 MG Nitrofurantoin Monohyd Macro 100 MG 04/02/2020 12:00:00 AM EST suspended Nitrofurantoin Monohyd Macro 100 MG eCW1 ([facility]) Ondansetron 4 MG Disintegrating Oral Tablet Ondansetron 4 MG 03/30/2020 12:00:00 AM EST 1.0 {tablet_on_the_tongue_and_allow_to_dissolve} active Ondansetron 4 MG eCW1 ([facility]) Sulfamethoxazole 800 MG / Trimethoprim 1 60 MG Oral Tablet Sulfamethoxazole- Trimethoprim 800-160 MG Sulfamethoxazole-Trimethoprim 800-160 MG 03/30/2020 12:00:00 AM EST 1.0 {tablet} suspended Sulfamethoxazole-Trimethoprim 800-160 MG eCW1 ([facility]) Sulfamethoxazole 800 MG / Trimethoprim 1 60 MG Oral Tablet Sulfamethoxazole- Trimethoprim 800-160 MG Sulfamethoxazole-Trimethoprim 800-160 MG 03/30/2020 12:00:00 AM EST 1.0 {tablet} active Sulfamethoxazole-Trimethoprim 800-160 MG eCW1 ([facility]) Ondansetron 4 MG Disintegrating Oral Tablet Ondansetron 4 MG 03/30/2020 12:00:00 AM EST 1.0 {tablet_on_the_tongue_and_allow_to_dissolve} active Ondansetron 4 MG eCW1 ([facility]) Ondansetron 4 MG Disintegrating Oral Tablet Ondansetron 4 MG 03/30/2020 12:00:00 AM EST 1.0 {tablet_on_the_tongue_and_allow_to_dissolve} active Ondansetron 4 MG eCW1 ([facility]) Sulfamethoxazole 800 MG / Trimethoprim 1 60 MG Oral Tablet Sulfamethoxazole- Trimethoprim 800-160 MG Sulfamethoxazole-Trimethoprim 800-160 MG 03/30/2020 12:00:00 AM EST 1.0 {tablet} active Sulfamethoxazole-Trimethoprim 800-160 MG eCW1 ([facility]) Ondansetron 4 MG Disintegrating Oral Tablet Ondansetron 4 MG 03/30/2020 12:00:00 AM EST 1.0 {tablet_on_the_tongue_and_allow_to_dissolve} active Ondansetron 4 MG eCW1 ([facility]) Sulfamethoxazole 800 MG / Trimethoprim 1 60 MG Oral Tablet Sulfamethoxazole- Trimethoprim 800-160 MG Sulfamethoxazole-Trimethoprim 800-160 MG 03/30/2020 12:00:00 AM EST 1.0 {tablet} suspended Sulfamethoxazole-Trimethoprim 800-160 MG eCW1 ([facility]) Sulfamethoxazole 800 MG / Trimethoprim 1 60 MG Oral Tablet Sulfamethoxazole- Trimethoprim 800-160 MG Sulfamethoxazole-Trimethoprim 800-160 MG 03/30/2020 12:00:00 AM EST 1.0 {tablet} active Sulfamethoxazole-Trimethoprim 800-160 MG eCW1 ([facility]) Sulfamethoxazole 800 MG / Trimethoprim 1 60 MG Oral Tablet Sulfamethoxazole- Trimethoprim 800-160 MG Sulfamethoxazole-Trimethoprim 800-160 MG 03/30/2020 12:00:00 AM EST 1.0 {tablet} active Sulfamethoxazole-Trimethoprim 800-160 MG eCW1 ([facility]) Sulfamethoxazole 800 MG / Trimethoprim 1 60 MG Oral Tablet Sulfamethoxazole- Trimethoprim 800-160 MG Sulfamethoxazole-Trimethoprim 800-160 MG 03/30/2020 12:00:00 AM EST 1.0 {tablet} suspended Sulfamethoxazole-Trimethoprim 800-160 MG eCW1 ([facility]) Ondansetron 4 MG Disintegrating Oral Tablet Ondansetron 4 MG 03/30/2020 12:00:00 AM EST 1.0 {tablet_on_the_tongue_and_allow_to_dissolve} active Ondansetron 4 MG eCW1 ([facility]) Sulfamethoxazole 800 MG / Trimethoprim 1 60 MG Oral Tablet Sulfamethoxazole- Trimethoprim 800-160 MG Sulfamethoxazole-Trimethoprim 800-160 MG 03/30/2020 12:00:00 AM EST 1.0 {tablet} suspended Sulfamethoxazole-Trimethoprim 800-160 MG eCW1 ([facility]) Ondansetron 4 MG Disintegrating Oral Tablet Ondansetron 4 MG 03/30/2020 12:00:00 AM EST 1.0 {tablet_on_the_tongue_and_allow_to_dissolve} active Ondansetron 4 MG eCW1 ([facility]) Ondansetron 4 MG Disintegrating Oral Tablet Ondansetron 4 MG 03/30/2020 12:00:00 AM EST 1.0 {tablet_on_the_tongue_and_allow_to_dissolve} active Ondansetron 4 MG eCW1 ([facility]) Ondansetron 4 MG Disintegrating Oral Tablet Ondansetron 4 MG 03/30/2020 12:00:00 AM EST 1.0 {tablet_on_the_tongue_and_allow_to_dissolve} active Ondansetron 4 MG eCW1 ([facility]) Sulfamethoxazole 800 MG / Trimethoprim 1 60 MG Oral Tablet Sulfamethoxazole- Trimethoprim 800-160 MG Sulfamethoxazole-Trimethoprim 800-160 MG 03/30/2020 12:00:00 AM EST 1.0 {tablet} suspended Sulfamethoxazole-Trimethoprim 800-160 MG eCW1 ([facility]) Ondansetron 4 MG Disintegrating Oral Tablet Ondansetron 4 MG 03/30/2020 12:00:00 AM EST 1.0 {tablet_on_the_tongue_and_allow_to_dissolve} active Ondansetron 4 MG eCW1 ([facility]) Sulfamethoxazole 800 MG / Trimethoprim 1 60 MG Oral Tablet Sulfamethoxazole- Trimethoprim 800-160 MG Sulfamethoxazole-Trimethoprim 800-160 MG 03/30/2020 12:00:00 AM EST 1.0 {tablet} suspended Sulfamethoxazole-Trimethoprim 800-160 MG eCW1 ([facility]) Sulfamethoxazole 800 MG / Trimethoprim 1 60 MG Oral Tablet Sulfamethoxazole- Trimethoprim 800-160 MG Sulfamethoxazole-Trimethoprim 800-160 MG 03/30/2020 12:00:00 AM EST 1.0 {tablet} active Sulfamethoxazole-Trimethoprim 800-160 MG eCW1 ([facility]) Sulfamethoxazole 800 MG / Trimethoprim 1 60 MG Oral Tablet Sulfamethoxazole- Trimethoprim 800-160 MG Sulfamethoxazole-Trimethoprim 800-160 MG 03/30/2020 12:00:00 AM EST 1.0 {tablet} suspended Sulfamethoxazole-Trimethoprim 800-160 MG eCW1 ([facility]) Sulfamethoxazole 800 MG / Trimethoprim 1 60 MG Oral Tablet Sulfamethoxazole- Trimethoprim 800-160 MG Sulfamethoxazole-Trimethoprim 800-160 MG 03/30/2020 12:00:00 AM EST 1.0 {tablet} active Sulfamethoxazole-Trimethoprim 800-160 MG eCW1 ([facility]) Ondansetron 4 MG Disintegrating Oral Tablet Ondansetron 4 MG 03/30/2020 12:00:00 AM EST 1.0 {tablet_on_the_tongue_and_allow_to_dissolve} active Ondansetron 4 MG eCW1 ([facility]) Sulfamethoxazole 800 MG / Trimethoprim 1 60 MG Oral Tablet Sulfamethoxazole- Trimethoprim 800-160 MG Sulfamethoxazole-Trimethoprim 800-160 MG 03/30/2020 12:00:00 AM EST 1.0 {tablet} active Sulfamethoxazole-Trimethoprim 800-160 MG eCW1 ([facility]) Sulfamethoxazole 800 MG / Trimethoprim 1 60 MG Oral Tablet Sulfamethoxazole- Trimethoprim 800-160 MG Sulfamethoxazole-Trimethoprim 800-160 MG 03/30/2020 12:00:00 AM EST 1.0 {tablet} active Sulfamethoxazole-Trimethoprim 800-160 MG eCW1 ([facility]) Ondansetron 4 MG Disintegrating Oral Tablet Ondansetron 4 MG 03/30/2020 12:00:00 AM EST 1.0 {tablet_on_the_tongue_and_allow_to_dissolve} active Ondansetron 4 MG eCW1 ([facility]) Ondansetron 4 MG Disintegrating Oral Tablet Ondansetron 4 MG 03/30/2020 12:00:00 AM EST 1.0 {tablet_on_the_tongue_and_allow_to_dissolve} active Ondansetron 4 MG eCW1 ([facility]) Ondansetron 4 MG Disintegrating Oral Tablet Ondansetron 4 MG 03/30/2020 12:00:00 AM EST 1.0 {tablet_on_the_tongue_and_allow_to_dissolve} active Ondansetron 4 MG eCW1 ([facility]) Ondansetron 4 MG Disintegrating Oral Tablet Ondansetron 4 MG 03/30/2020 12:00:00 AM EST 1.0 {tablet_on_the_tongue_and_allow_to_dissolve} active Ondansetron 4 MG eCW1 ([facility]) Sulfamethoxazole 800 MG / Trimethoprim 1 60 MG Oral Tablet Sulfamethoxazole- Trimethoprim 800-160 MG Sulfamethoxazole-Trimethoprim 800-160 MG 03/30/2020 12:00:00 AM EST 1.0 {tablet} active Sulfamethoxazole-Trimethoprim 800-160 MG eCW1 ([facility]) Ondansetron 4 MG Disintegrating Oral Tablet Ondansetron 4 MG 03/30/2020 12:00:00 AM EST 1.0 {tablet_on_the_tongue_and_allow_to_dissolve} active Ondansetron 4 MG eCW1 ([facility]) Ondansetron 4 MG Disintegrating Oral Tablet Ondansetron 4 MG 03/30/2020 12:00:00 AM EST 1.0 {tablet_on_the_tongue_and_allow_to_dissolve} active Ondansetron 4 MG eCW1 ([facility]) torsemide 20 MG Oral Tablet Torsemide 03/16/2020 12:00:00 AM EST ORAL active [facility] ([facility]) torsemide 20 MG Oral Tablet Torsemide 03/02/2020 12:00:00 AM EDT ORAL completed [facility] ([facility]) carvedilol 3.125 MG Oral Tablet Carvedilol 03/01/2020 12:00:00 AM EDT ORAL active [facility] ([facility]) Metformin hydrochloride 500 MG Oral Tablet Metformin HCL 03/01/2020 12:00:00 AM EDT ORAL active [facility] ([facility]) Lisinopril 2.5 MG Oral Tablet Lisinopril 03/01/2020 12:00:00 AM EDT ORAL active [facility] ([facility]) Amitriptyline Hydrochloride 25 MG Oral Tablet Amitriptyline HCL 03/01/2020 12:00:00 AM EDT ORAL active M [facility] ([facility]) torsemide 10 MG Oral Tablet Torsemide 03/01/2020 12:00:00 AM EDT ORAL completed [facility] ([facility]) Metformin hydrochloride 500 MG Oral Tablet Metformin H Cl 500 MG Metformin HCl 500 MG 02/19/2020 12:00:00 AM EDT 1.0 {tablet_with_a_meal} active Metformin HCl 500 MG eCW1 ([facility]) Amitriptyline Hydrochloride 25 MG Oral Tablet Amitript yline HCl 25 MG Amitriptyline HCl 25 MG 02/19/2020 12:00:00 AM EDT 1.0 {tablet_at_b edtime} active Amitriptyline HCl 25 MG e CW1 ([facility]) Metformin hydrochloride 500 MG Oral Tablet Metformin H Cl 500 MG Metformin HCl 500 MG 02/19/2020 12:00:00 AM EDT 1.0 {tablet_with_a_meal} active Metformin HCl 500 MG eCW1 ([facility]) Metformin hydrochloride 500 MG Oral Tablet Metformin H Cl 500 MG Metformin HCl 500 MG 02/19/2020 12:00:00 AM EDT 1.0 {tablet_with_a_meal} active Metformin HCl 500 MG eCW1 ([facility]) Metformin hydrochloride 500 MG Oral Tablet Metformin H Cl 500 MG Metformin HCl 500 MG 02/19/2020 12:00:00 AM EDT 1.0 {tablet_with_a_meal} active Metformin HCl 500 MG eCW1 ([facility]) Amitriptyline Hydrochloride 25 MG Oral Tablet Amitript yline HCl 25 MG Amitriptyline HCl 25 MG 02/19/2020 12:00:00 AM EDT 1.0 {tablet_at_b edtime} active Amitriptyline HCl 25 MG e CW1 ([facility]) Amitriptyline Hydrochloride 25 MG Oral Tablet Amitript yline HCl 25 MG Amitriptyline HCl 25 MG 02/19/2020 12:00:00 AM EDT 1.0 {tablet_at_b edtime} active Amitriptyline HCl 25 MG e CW1 ([facility]) Amitriptyline Hydrochloride 25 MG Oral Tablet Amitript yline HCl 25 MG Amitriptyline HCl 25 MG 02/19/2020 12:00:00 AM EDT 1.0 {tablet_at_b edtime} active Amitriptyline HCl 25 MG e CW1 ([facility]) Amiloride Hydrochloride 5 MG Oral Tablet Amiloride HCL 01/22/2020 12:00:00 AM EDT completed [facility] ([facility]) Cephalexin 500 MG Oral Capsule Cephalexin 01/22/2020 12:00:00 AM EDT ORAL completed [facility] ([facility]) torsemide 10 MG Oral Tablet Torsemide 01/21/2020 12:00:00 AM EDT ORAL completed [facility] ([facility]) Lisinopril 10 MG Oral Tablet Lisinopril 01/21/2020 12:00:00 AM EDT ORAL completed [facility] ([facility]) Metformin HCL ER (Mod) Metformin HCL ER (Mod) 01/21/2020 12:00:00 AM EDT ORAL completed [facility] ([facility] carvedilol 12.5 MG Oral Tablet Carvedilol 01/21/2020 12:00:00 AM EDT ORAL completed [facility] ([facility]) Insurance Providers Payer name Policy type / Coverage type Policy ID Covered alliance party ID Covered alliance party's relationship to weston Policy [place] Plan Information [facility] [place] [id number] Family Dependent Hmo COMMERCIAL GENERIC [place] [id number] Self [id number] [facility] [id number] Self [id number] GE-ASA [id number] SP [id number] 0GEHA [facility] SHARED SERVICES [id number] SP [id number] GEHA-ASA [id number] SP [id number] 0GEHA MEDICARE [id number] SP [id number] GEHA-ASA [id number] SP [id number] GEHA-ASA [id number] SP [id number] GEHA-ASA [id number] SP [id number] [employer] [place] [id number] SP [id number] [employer] [id number] Self [id number] [employer] [id number] Self [id number] [employer] [id number] Self [id number] [employer] [id number] Self [id number] [employer] [place] [id number] Self Open Choice Ppo [facility] P [id number] S [id number] [facility] [id number] SP [id number] [facility] P [id number] S [id number] DEMETRIO TIJERINA P [id number] S [id number] DEMETRIO TIJERINA P UNAVAILABLE [id number] UNAVAI LABLE MEDICARE [id number] SP [id number] GEHA-ASA [id number] SP [id number] [facility] [id number] SP [id number] Problems, Conditions, and Diagnoses Code Display Name Description Problem Type Effective Dates Data Source(s) R92.8 Other abnormal and inconclusive findings on diagnostic imaging of breast Other abnormal and inconclusive findings on diagnostic imaging of breast Diagnosis 03/19/2020 02:08:00 PM [facility] G56.23 Lesion of ulnar nerve Lesion of ulnar nerve Problem 02/17/2021 12:00:00 AM EDT MEDENT ([facility]) K59.01 [id number] Slow transit constipation Problem 02/14/2021 12:00:00 AM EDT eCW1 ([facility]) G47.9 [id number] Difficulty sleeping Problem 02/14/2021 12:00 :00 AM EDT eCW1 ([facility]) R97.8 [id number] Elevated CA 19-9 level Problem 02/14/2021 12:00:00 AM EDT eCW1 ([facility]) L97.819 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-pressure chronic ulcer of other part of right lower leg with unspecified severity Problem 02/08/2021 12:00:00 AM EDT eCW1 ( [facility]) F31.75 Depressed bipolar I disorder in [facility] Bipolar 1 disorder, depressed, partial remission Problem 02/02/2021 12:00:00 AM EDT eCW1 ([facility]) L97.822 [id number] Non-pressure chronic ulcer of other part of left lower leg with fat layer exposed Problem 01/10/2021 12:00:00 AM EDT eCW1 ([facility]) I87.312 [id number] Chronic venous hyper tension (idiopathic) with ulcer of left lower extremity Problem 01/10/2021 12:00:00 AM EDT eCW1 ([facility]) 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 Problem 12/08/2020 12:00:00 AM EDT MEDENT ([facility]) G56.03 Bilateral carpal tunnel syndrome Bilateral carpa l tunnel syndrome Problem 12/08/2020 12:00:00 AM EDT MEDENT ([facility]) R29.6 [id number] Recurrent falls Problem 12/07/2020 12:00:00 AM EDT eCW1 ([facility]) C50.912 [id number] Invasive lobular carcinoma of l eft breast in female Problem 10/20/2020 12:00:00 AM EDT eCW1 ([facility]) I51.7 [id number] Cardiomegaly Problem 10/20/2020 12:00:00 AM EDT eCW1 ([facility]) Q26.1 [id number] Persistent left SVC (superior vena cava) Problem 10/20/2020 12:00:00 AM EDT eCW1 ([facility]) I50.9 [id number] Congestive heart failure, unspecified Pro blem 10/20/2020 12:00:00 AM EDT eCW1 ([facility]) B35.1 Onychomycosis Onychomycosis Problem 09/08/2020 12:00:00 AM EDT MEDENT ([facility] N39.490 351036561 Overflow incontinence Problem 08/02/2020 12: 00:00 AM EDT eCW1 ([facility]) E11.40 [id number] 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, without long- term current use of insulin Problem 08/02/2020 12:00:00 AM EDT eCW1 ([facility]) R94.31 Electrocardiogram abnormal Electrocardiogram abnormal Problem 07/14/2020 12:00:00 AM EST MEDENT ([facility]) E11.9 Type 2 diabetes mellitus Type 2 diabetes mellitus Prob patrick 06/22/2020 12:00:00 AM EST MEDENT ([facility] R26.89 Abnormal gait Abnormal gait Problem 06/22/2020 12:00:00 AM EST MED[facility] ([facility] M21.6x9 Pronation Pronation Problem 06/22/2020 12:00:00 AM ES T MEDENT ([facility] R60.0 Edema Edema Problem 06/22/2020 12:00:00 AM ES T MEDENT ([facility] I87.2 52203230 Venous stasis dermatitis of both lower ex tremities Problem 06/02/2020 12:00:00 AM EST eCW1 ([facility]) N64.89 [id number] Seroma of breast Problem 05/28/2020 12:00:00 AM EST eCW1 ([facility]) C50.912 [id number] Malignant neoplasm of unspecifie d site of left female breast Problem 05/10/2020 12:00:00 AM EST eCW1 ([facility]) F32.2 433449618 Moderately severe depression Problem 020 12:00:00 AM EST eCW1 ([facility]) R41.3 [id number] Memory difficulties Problem 05/04/2020 12:00 :00 AM EST eCW1 ([facility]) Z01.810 Preoperative cardiovascular examination Preoperative cardiovascular examination Problem 04/12/2020 12:00:00 AM EST MEDENT ([facility]) C50.919 [id number] Invasive lobular carcinoma of breast in f emale Problem 03/30/2020 12:00:00 AM EST eCW1 ([facility]) I50.9 [id number] Congestive heart porfirio lure, unspecified HF chronicity, unspecified heart failure type Problem 03/28/2020 12:00:00 AM EST eCW1 ([facility]) Z99.3 [id number] Wheelchair bound Problem 03/28/2020 12:00:00 AM EST eCW1 ([facility]) I51.7 6706503 Cardiomegaly Problem 03/28/2020 12:00:00 AM EST eCW1 ([facility]) F41.1 47353184 Generalized anxiety disorder Problem 020 12:00:00 AM EDT eCW1 ([facility]) F90.0 42243437 Attention deficit hy peractivity disorder (ADHD), predominantly inattentive type Problem 03/05/2020 12:00:00 AM EDT eCW1 ([facility]) F31.75 25727986 Bipolar 1 disorder, depressed, partial re mission Problem 03/05/2020 12:00:00 AM EDT eCW1 ([facility]) N18.30 Chronic kidney disease stage 3 due to ty pe 2 diabetes mellitus Chronic kidney disease stage 3 due to type 2 diabetes mellitus Problem 03/02/2020 12:00:00 AM EDT MEDENT ([facility]) G62.9 [id number] Neuropathy Problem 02/19/2020 12:00:00 AM ED T eCW1 ([facility]) G47.33 64460206 ALANIS (obstructive sleep apnea) Problem 02/19/2020 12:00:00 AM EDT eCW1 ([facility]) G47.33 32764200 Obstructive sleep apnea (adult) (pediatri c) Problem 02/19/2020 12:00:00 AM EDT eCW1 ([facility]) E11.9 Type 2 diabetes mellitus without complic ation Type 2 diabetes mellitus without complication, without long-term current use of insulin Problem 02/17/2020 12:00:00 AM EDT eCW1 ([facility]) I50.32 [id number] Chronic diastolic congestive heart failur e Problem 02/17/2020 12:00:00 AM EDT eCW1 ([facility]) Surgeries/Procedures Procedure Description Date Indications Data Source(s) OFFICE OUTPATIENT VISIT 25 MINUTES 02/17/2021 12:00:00 AM EDT MEDSASHA ([facility] ) FINE NEEDLE ASPIRATION W/O IMAGING GUIDANCE 02/14/2021 12:00:00 AM EDT eCW1 ([facility]) FINE NEEDLE ASPIRATION W/O IMAGING GUIDANCE 02/07/2021 12:00:00 AM EDT eCW1 ([facility]) DEBRIDEMENT NAIL ANY METHOD 6/> 02/01/2021 12:00:00 AM EDT MEDSASHA ([facility] FINE NEEDLE ASPIRATION W/O IMAGING GUIDANCE 01/26/2021 12:00:00 AM EDT eCW1 ([facility]) ECG ROUTINE ECG W/LEAST 12 LDS W/I&R 01/19/2021 12:00: 00 AM EDT MEDENT ([facility]) OFFICE OUTPATIENT VISIT 25 MINUTES 01/19/2021 12:00:00 AM EDT MEDENT ([facility]) Needle electromyography, each extremity, with related paraspinal areas, when performed, done with nerve conduction, amplitude and latency/velocity study; complete, five or more muscles studied, innervated by three or more nerves or four or more spinal levels (list separately in addition to the code for primary procedure). 01/18/2021 12:00:00 AM EDT MEDEN T ([facility] ) Needle electromyography, each extremity, with related paraspinal areas, when performed, done with nerve conduction, amplitude and latency/velocity study; complete, five or more muscles studied, innervated by three or more nerves or four or more spinal levels (list separately in addition to the code for primary procedure). 01/18/2021 12:00:00 AM EDT MEDEN T ([facility] ) Nerve Conduction 9-10 Studies 01/18/2021 12:00:00 AM E DT MEDENT ([facility] ) Medication: 4% Lidocaine topical cream (Anecream) 30 gm 01/10/2021 12:00:00 AM EDT eC1 ([facility]) Needle electromyography, each extremity, with related paraspinal areas, when performed, done with nerve conduction, amplitude and latency/velocity study; complete, five or more muscles studied, innervated by three or more nerves or four or more spinal levels (list separately in addition to the code for primary procedure). 12/20/2020 12:00:00 AM EDT MEDEN T ([facility] ) Needle electromyography, each extremity, with related paraspinal areas, when performed, done with nerve conduction, amplitude and latency/velocity study; complete, five or more muscles studied, innervated by three or more nerves or four or more spinal levels (list separately in addition to the code for primary procedure). 12/20/2020 12:00:00 AM EDT MEDEN T ([facility] ) Nerve Conduction 9-10 Studies 12/20/2020 12:00:00 AM E DT MEDENT ([facility] ) OFFICE OUTPATIENT NEW 45 MINUTES 12/08/2020 12:00:00 A M EDT MEDENT ([facility]) OFFICE OUTPATIENT VISIT 10 MINUTES 11/23/2020 12:00:00 AM EDT MEDENT ([facility] OFFICE OUTPATIENT VISIT 10 MINUTES 10/29/2020 12:00:00 AM EDT MEDENT ([facility] OFFICE OUTPATIENT VISIT 10 MINUTES 08/27/2020 12:00:00 AM EDT MEDENT ([facility] OFFICE OUTPATIENT NEW 30 MINUTES 06/22/2020 12:00:00 A M EST MEDENT ([facility] Results ID Date Data Source TOTAL IRON BINDING CAPACIT 02/04/2021 12:00:00 AM EDT eCW1 ( [facility]) Name Value Range Interpretation Code Description Data Rosy rce(s) Supporting Document(s) 55 50-170 IRON (FE) eCW1 ([facility]) 240 250-450 TOTAL IRON BINDING CAPACI TY eCW1 ([facility]) 22.9 13.2-45.0 PERCENT SATURATION eCW1 ([facility]) ID Date Data Source FERRITIN 02/04/2021 12:00:00 AM EDT eCW1 ([facility]) Name Value Range Interpretation Code Description Data Rosy rce(s) Supporting Document(s) 225 8-252 FERRITIN eCW1 ([facility]) ID Date Data Source [id number] 12/13/2020 12:41:00 PM EDT MEDENT ([facility]) Name Value Range Interpretation Code Description Data Rosy rce(s) Supporting Document(s) Natriuretic peptide.B prohormone N-Terminal [Mass/volu me] in Serum or Plasma 88 MEDENT ([facility]) Magnesium Level 2.4 1.8-2.4 MEDENT ([facility]) ID Date Data Source [id number] 12/13/2020 12:41:00 PM EDT MEDENT ([facility] [place]) ID Date Data Source [id number] 12/13/2020 12:41:00 PM EDT MEDENT ([facility]i [facility] [...] B12 LEVEL 10/08/2020 12:00:00 AM EDT eCW1 ([facility]) Name Value Range Interpretation Code Description Data Rosy rce(s) Supporting Document(s) 1047 537-062 VITAMIN B12 LEVEL eCW1 ([facility]) ID Date Data Source TSH 10/08/2020 12:00:00 AM EDT eCW1 ([facility]) Name Value Range Interpretation Code Description Data Rosy rce(s) Supporting Document(s) 1.170 0.358-3.740 THYROID STIMULATING HORM ONE eCW1 ([facility]) ID Date Data Source SERUM PROTEIN ELECTROPHORESIS (SPEP) 10/08/2020 12:00:00 AM EDT eCW1 ([facility]) Name Value Range Interpretation Code Description Data Rosy rce(s) Supporting Document(s) 13.9 7.1-11.8 DVTEO-2-UYABALGWF % eCW1 ([facility]) 5.9 4.7-7.2 RQSO-6-MVATPWTCU % eCW1 ([facility]) 4.8 2.9-4.9 BUSRO-5-KRLMIPYN % eCW1 ([facility]) 50.7 55.8-66.1 ALBUMIN % eCW1 ([facility]) 7.0 3.2-6.5 UZHO-0-SYZCKQFGZ % eCW1 ([facility]) 3.75 3.29-5.55 ALBUMIN eCW1 ([facility]) 17.7 11.1-18.8 GAMMA GLOBULIN % eCW1 ([facility]) 0.44 0.28-0.60 OLKF-0-ZCFKCYGQI eCW1 ([facility]) 0.52 0.19-0.55 QCTN-2-YFYSKQNLW eCW1 ([facility]) 1.03 0.42-0.99 PGRGY-4-NZMXOCHKE eCW1 ([facility]) 0.36 0.17-0.41 SOPIE-8-INAFFCXHT eCW1 ([facility]) SEE COMMENT SPEP INTERPRETATION eCW1 ([facility]) 7.4 6.4-8.2 TOTAL PROTEIN eCW1 ([facility]) 1.31 0.65-1.58 GAMMA GLOBULINS eCW1 ([facility]) ID Date Data Source FOLATE 10/08/2020 12:00:00 AM EDT eCW1 ([facility]) Name Value Range Interpretation Code Description Data Rosy rce(s) Supporting Document(s) 8.9 >5.4 FOLATE eCW1 ([facility]) ID Date Data Source ANTI DOUBLE STRAND DNA SUNG 10/08/2020 12:00:00 AM EDT eCW1 ( [facility]) Name Value Range Interpretation Code Description Data Rosy rce(s) Supporting Document(s) ANTI DOUBLE STRAND DNA SUNG eCW 1 ([facility]) ID Date Data Source SHAWANDA 10/08/2020 12:00:00 AM EDT eCW1 ([facility]) Name Value Range Interpretation Code Description Data Rosy rce(s) Supporting Document(s) Negative Negative ANTINUCLEAR ANTIBODIES DI RECT eCW1 ([facility]) ID Date Data Source [id number] 10/08/2020 12:00:00 AM EDT eCW1 ([facility]) Name Value Range Interpretation Code Description Data Rosy rce(s) Supporting Document(s) Hemoglobin A1c/Hemoglobin.total in Blood 8.7 HEMOGLOBIN A1c eCW1 ([facility]) ID Date Data Source ERYTHROCYTE SEDIMENTATION RATE 10/08/2020 12:00:00 AM EDT eC W1 ([facility]) Name Value Range Interpretation Code Description Data Rosy rce(s) Supporting Document(s) 57 0-30 ERYTHROCYTE SEDIMENTATION RATE eCW1 ([facility]) ID Date Data Source [id number] 08/30/2020 01:33:00 PM EDT MEDENT ([facility]) Name Value Range Interpretation Code Description Data Rosy rce(s) Supporting Document(s) Magnesium Level 1.95 MEDENT ([facility]) ID Date Data Source [id number] 08/30/2020 01:33:00 PM EDT MEDENT ([facility]) Name Value Range Interpretation Code Description Data Rosy rce(s) Supporting Document(s) Blood Urea Nitrogen 31.4 5-21 MEDENT ([facility]) Glucose 270 70-100 MEDENT ([facility]) Creatinine 1.4 0.6-1.5 MEDENT ([facility]) Glomerular filtration rate/1.73 sq M.pre dicted [Volume Rate/Area] in Serum or Plasma by Creatinine-based formula (MDRD) 37 MEDENT ([facility]) Sodium 135.8 136-146 MEDENT ([facility]) Potassium 3.65 3.5-5.3 MEDENT ([facility]) Chloride 91.5 98-110 MEDENT ([facility]) Carbon Dioxide 33.5 20-32 MEDENT ([facility]) Calcium 8.4 8.4-10.4 MEDENT ([facility]) Phosphorus 3.0 MEDENT ([facility]) Albumin 3.8 3.5-4.7 MEDENT ([facility]) ID Date Data Source [id number] 06/28/2020 12:22:00 PM EST MEDENT ([facility]) Name Value Range Interpretation Code Description Data Rosy rce(s) Supporting Document(s) Hemoglobin A1c/Hemoglobin.total in Blood 7.0 MEDENT ([facility]) ID Date Data Source [id number] 06/28/2020 12:22:00 PM EST MEDENT ([facility]) Name Value Range Interpretation Code Description Data Rosy rce(s) Supporting Document(s) Alanine aminotransferase [Enzymatic activity/volume] in Serum or Pl asma 21 MEDENT ([facility]) Albumin [Mass/volume] in Serum or Plasma 3.3 MEDENT ([facility]) Carbon dioxide, total [Moles/volume] in Serum or Plasma 36 MEDENT ([facility]) Calcium [Mass/volume] in Serum or Plasma 9.0 MEDENT ([facility]) Chloride [Moles/volume] in Serum or Plasma 98 MEDENT ([facility]) Potassium [Moles/volume] in Serum or Plasma 3.8 MEDENT ([facility]) Protein [Mass/volume] in Serum or Plasma 7.3 MEDENT ([facility]) Alkaline phosphatase [Enzymatic activity/volume] in Serum or Plasma 1 19 MEDENT ([facility]) Urea nitrogen [Mass/volume] in Serum or Plasma 22 MEDENT ([facility]) Aspartate aminotransferase [Enzymatic activity/volume] in Serum or Plasma 13 MEDENT ([facility]) Sodium 139 MEDENT ([facility]) Glucose 200 70-100 MEDENT ([facility]) Creatinine For GFR 1.46 MEDENT ([facility]) ID Date Data Source [id number] 06/28/2020 12:22:00 PM EST MEDENT ([facility]) Name Value Range Interpretation Code Description Data Rosy rce(s) Supporting Document(s) Red Blood Count 4.00 4.00-5.40 MEDENT ([facility]) White Blood Count 10.8 4.0-10.0 MEDENT ([facility]) Platelets 303 150-450 MEDENT ([facility]) Hematocrit 38.5 MEDENT ([facility]) Hemoglobin 12.2 MEDENT ([facility]) ID Date Data Source WOUND CULTURE AND GRAM ST 05/28/2020 12:00:00 AM EST eCW1 ([facility]) Name Value Range Interpretation Code Description Data Rosy rce(s) Supporting Document(s) WOUND CULTURE AND GRAM ST eCW1 ([facility]) ID Date Data Source [id number] 05/20/2020 02:02:00 PM EST [facility] Name Value Range Interpretation Code Description Data Rosy rce(s) Supporting Document(s) SARS-CoV-2 (COVID 19) NEGATIVE - SARS-CoV-2 (COVID19) [facility] This lab was ordered by [facility] a nd reported by [facility]. ID Date Data Source [id number] 05/19/2020 01:50:00 AM EST [facility] Name Value Range Interpretation Code Description Data Rosy rce(s) Supporting Document(s) SARS-CoV-2 (COVID 19) NEGATIVE - SARS-CoV-2 (COVID19) [facility] This lab was ordered by [facility] a nd reported by [facility]. ID Date Data Source [id number] 04/26/2020 08:09:00 AM EST MEDENT ([facility]) Name Value Range Interpretation Code Description Data Rosy rce(s) Supporting Document(s) Magnesium Level 2.65 MEDENT ([facility]) ID Date Data Source [id number] 04/26/2020 08:09:00 AM EST MEDENT ([facility]) Name Value Range Interpretation Code Description Data Rosy rce(s) Supporting Document(s) Glucose 222 MEDENT ([facility]) Glomerular filtration rate/1.73 sq M.pre dicted [Volume Rate/Area] in Serum or Plasma by Creatinine-based formula (MDRD) 22 MEDENT ([facility]) Blood Urea Nitrogen 42.9 MEDENT ([facility]) Creatinine 2.2 MEDENT ([facility]) Potassium 4.85 MEDENT ([facility]) Chloride 93.8 [facility] Sodium 137.2 [facility] Phosphorus 4.0 MEDENT ([facility]) Calcium 9.5 MEDENT ([facility]) Carbon Dioxide 31.3 MEDENT ([facility]) Albumin 3.8 MEDENT ([facility]) ID Date Data Source [id number] 04/22/2020 12:25:00 PM EST [facility] Name Value Range Interpretation Code Description Data Rosy rce(s) Supporting Document(s) SARS coronavirus 2 RNA [facility] This lab was ordered by [facility] and reported by [facility]. ID Date Data Source [id number] 04/13/2020 09:39:00 AM EST MEDENT ([facility]) Name Value Range Interpretation Code Description Data Rosy rce(s) Supporting Document(s) Magnesium Level 2.03 MEDENT ([facility]) ID Date Data Source [id number] 04/13/2020 09:39:00 AM EST MEDENT ([facility]) Name Value Range Interpretation Code Description Data Rosy rce(s) Supporting Document(s) Platelets 266 130-400 MEDENT ([facility] Red Blood Count 4.04 4.70-6.20 MEDENT ([facility]) White Blood Count 9.6 4.3-10.9 [facility] Hemoglobin 12.5 13.0-17.0 MEDENT ([facility]) Hematocrit 37.8 39.0-50.0 MEDENT ([facility]) ID Date Data Source [id number] 04/13/2020 09:39:00 AM EST MEDENT ([facility]) Name Value Range Interpretation Code Description Data Rosy rce(s) Supporting Document(s) Creatinine 1.8 0.6-1.5 MED[facility] ([facility]) Glucose 217 70-100 [facility] Blood Urea Nitrogen 44.6 5-21 MEDENT ([facility]) Glomerular filtration rate/1.73 sq M.pre dicted [Volume Rate/Area] in Serum or Plasma by Creatinine-based formula (MDRD) 28 MEDENT ([facility]) Sodium 135 136-146 [facility] [place] Carbon Dioxide 29.3 20-32 MEDENT ([facility]) Potassium 5.17 3.5-5.3 [facility] ([facility] [place] Chloride 92.8 98-110 [facility] [place] Phosphorus 4.5 MEDENT ([facility]) Calcium 9.3 8.4-10.4 [facility] ([facility] [place] Albumin 3.8 3.5-4.7 [facility] ([facility] [place] ID Date Data Source URINE CULTURE 03/30/2020 12:00:00 AM EST eCW1 ([facility]) Name Value Range Interpretation Code Description Data Rosy rce(s) Supporting Document(s) URINE CULTURE eCW1 ([facility]) ID Date Data Source [id number] 03/23/2020 09:41:00 AM EST [facility] Surgical Pathology Report See Addendum B elNabilame: DREWSOCONAMRN: [id number] Number: [id number] Date: 03/19/2020 00:00Received Date: 03/19/2020 14:09Physician(s): YELITZA GOMEZ DO HAGHIR, SHAHANDEH F, MDSpecimen(s) ReceivedA: Material received for consultation, OEZClinical HistoryInvasive lobular carcinoma. Please do ER, HI, and Her2, reflex to FISH.Addendum 04/01/2020 RESULTS OF MOLECULAR ASSAYS: Test name: HER2 by FISHTest interpretation: NEGATIVE FOR HER2 (ERBB2) GENE AMPLIFICATION. ([id number] for full report)Comment:/jrs Addendum Electronically Signed By: Socorro Alexander M.D. 04/06/2020 DiagnosisIMMUNOHISTOCHEMISTRY, LEFT BREAST BIOPSY ([id number], 03/17/20) - ESTROGEN RECEPTORS: Positive (strong, 100 %).PROGESTERONE RECEPTORS: Positive (s tika, 100 %).HER2: Equivocal (2+); FISH pending (addendum report will follow).Electronically Signed By Socorro Alexander M.D., Attending Oeradlyrjfl08/10/2020 09:41:39 Unless 'gross-only' is specified, the final diagnosis is based on amicroscopic examination of territory representative sections of tissue.Gross DescriptionReceived from [facility] in [place], [place] is one paraffinblock labeled [id number] with the corresponding pathology report./jrsThis report may include one or more immunohistochemical stain results thatuse analyte specific reagents. All positive and negative controls havebeen reviewed by the attending pathologist and are satisfactory. The testswere developed and their performance characteristics determined by [facility] Pathology department. They have not been cleared or approved by the USFood and Drug Administration. The FDA has determined that such clearanceor approval is not necessary. Name Value Range Interpretation Code Description Data Rosy rce(s) Supporting Document(s) ID Date Data Source [id number] 03/31/2020 09:43:00 AM [facility] Anatomic Molecular Pathology ReportName: GARNT RUSSELLRN: [id number] Number: [id number] Date: 03/19/2020 00:00Received Date: 03/25/2020 09:32Physician(s): YELITZA GOMEZ DO DOMBROWSKA,YELITZA,DOCopy To:MOSESFLO,MDSpecimen(s) ReceivedA: Material received for consultation, Formalin Block [id number] receivedfrom [facility] in [place], [place] Rxr0Caa by FISHDiagnosisTEST: HER2 (ERBB2) by FISH (Fluorescence [...] ASCO/CAP guideline recommendations (Arch Pathol Lab Med. doi:10.5858/arpa.[id number]-WA), a ratio of HER2 to CEP17 that [...] performed on paraffin embedded breast cancer utilizingthe [employer] HER2 DNA Probe Kit. This is a combination, direct label,dual color detection system utilizing 2 probes: 1) HER2 (17q11.2 - q12,190 kb, encompassing the gene) with SpectrumOrange label, and 2) CEP 17(17p11.1- q11.1, chromosome 17 centromere) with SpectrumGreen label. Tumor cells with no HER2 amplification have, on average, 2 orange and 2green signals. Amplification will result in multiple copies of the [id number], expressed as multiple orange signals. Hybridization is [...] Special Procedures Laboratory in the Department ofPathology, [facility]. Processed at [facility], [address] [place] [address] and reported at [facility], [address] [place] [address].REFERENCES1. PAT Gilliam, ME Juancarlos, KRISTAN Myers, et [...] developed and their performance characteristics determined by [facility] Pathology department. They have not been cleared or approved by the USFood and Drug Administration. The FDA has determined that such clearanceor approval is not necessary. Name Value Range Interpretation Code Description Data Rosy rce(s) Supporting Document(s) ID Date Data Source [id number] 03/16/2020 11:09:00 AM EST MEDENT ([facility]) Name Value Range Interpretation Code Description Data Rosy rce(s) Supporting Document(s) Bilirubin.total [Mass/volume] in Serum or Plasma 0.4 mg/dL 0.2-1.0 MEDENT ([facility]) ID Date Data Source [id number] 03/16/2020 11:09:00 AM EST MEDENT ([facility]) Name Value Range Interpretation Code Description Data Rosy rce(s) Supporting Document(s) Blood Urea Nitrogen 38 mg/dL 7-18 MEDENT ([facility]) Glucose, Fasting 131 mg/dL 70-100 [facility] Creatinine For GFR 1.35 mg/dL 0.55-1.30 MEDENT ([facility]) Glomerular Filtration Rate 40.8 MED ENT ([facility]) <content>Units are mL/min/1.73 m2</content>
<content></content>
<content>Chronic Kidney Disease Staging per NKF:</content>
<content></content>
<content>Stage I & II GFR >=60 Normal to Mildly Decreased</content>
<content>Stage III GFR 30- 59 Moderately Decreased</content>
<content>Stage IV GFR 15-29 Severely Decreased</content>
<content>Stage V GFR <15 Very Little GFR Left</content>
<content>ESRD GFR <15 on CABLE SPLICER HELPER</content>
<content></content> Sodium Level 136 meq/L 136-145 MEDENT ([facility]) Potassium Serum 4.8 meq/L 3.5-5.1 MEDENT ([facility]) Carbon Dioxide Level 30 meq/L 21-32 MEDENT ([facility]) Chloride Level 102 meq/L 98-107 MEDENT ([facility]) Anion Gap 4 meq/L 8-16 MEDENT ([facility]) Calcium Level 9.8 mg/dL 8.8-10.2 MEDENT ([facility]) Albumin 3.8 GM/DL 3.2-5.2 [facility] Phosphorus Level 4.0 mg/dL 2.5-4.9 MEDENT ([facility]) ID Date Data Source [id number] 03/16/2020 11:09:00 AM EST [facility]) Name Value Range Interpretation Code Description Data Rosy rce(s) Supporting Document(s) Natriuretic peptide.B prohormone N-Terminal [Mass/volu me] in Serum or Plasma 246 pg/mL MEDENT ([facility] [facility]) ID Date Data Source [id number] 02/23/2020 05:23:00 PM EDT MEDENT ([facility]) Name Value Range Interpretation Code Description Data Rosy rce(s) Supporting Document(s) Blood Urea Nitrogen 51 7-18 MEDENT ([facility]) Creatinine 1.52 0.55-1.00 MEDENT ([facility]) Glucose 137 70-100 MEDENT ([facility]) Potassium 4.8 3.5-5.1 MEDENT ([facility]) Sodium 138 136-145 MEDENT ([facility] Carbon Dioxide 27 21-32 MEDENT ([facility]) Chloride 106 98-107 MEDENT ([facility]) Calcium 9.6 8.2-9.6 MEDENT ([facility]) Glomerular filtration rate/1.73 sq M.pre dicted [Volume Rate/Area] in Serum or Plasma by Creatinine-based formula (MDRD) 35.6 MEDENT ([facility]) ID Date Data Source Basic Metabolic Profile (BMP) 02/17/2020 07:21:37 AM EDT eCW 1 ([facility]) Name Value Range Interpretation Code Description Data Rosy rce(s) Supporting Document(s) 152 GLUCOSE, FASTING eCW1 ([facility]) 135 SODIUM LEVEL eCW1 ([facility]) 60 BLOOD UREA NITROGEN eCW1 ([facility]) 1.69 CREATININE FOR GFR eCW1 ([facility]) 31.5 GLOMERULAR FILTRATION RATE eCW 1 ([facility]) 30 CARBON DIOXIDE LEVEL eCW1 ([facility]) 102 CHLORIDE LEVEL eCW1 ([facility]) 5.6 POTASSIUM SERUM eCW1 ([facility]) 9.2 CALCIUM LEVEL eCW1 ([facility]) ID Date Data Source [id number] 02/08/2020 05:21:00 PM EDT MEDENT ([facility]) Name Value Range Interpretation Code Description Data Rosy rce(s) Supporting Document(s) Magnesium Level 2.0 1.8-2.4 MEDENT ([facility]) ID Date Data Source [id number] 02/07/2020 05:24:00 PM EDT MEDENT ([facility]) Name Value Range Interpretation Code Description Data Rosy rce(s) Supporting Document(s) White Blood Count 8.1 4.0-10.0 MEDENT ([facility]) Red Blood Count 4.05 4.00-5.40 MEDENT ([facility]) Hematocrit 37.7 MEDENT ([facility]) Hemoglobin 12.1 MEDENT ([facility]) Platelets 169 150-450 MEDENT ([facility]) Procedure Social History Code Duration Value Status Description Data Source(s ) Smoking 02/25/2021 12:00:00 AM EDT Never Smoker completed Never S moker eCW1 ([facility]) Smoking 02/25/2021 12:00:00 AM EDT Never Smoker completed Never S moker eCW1 ([facility]) Smoking 02/25/2021 12:00:00 AM EDT Never Smoker completed Never S moker eCW1 ([facility]) Smoking 02/25/2021 12:00:00 AM EDT Never Smoker completed Never S moker eCW1 ([facility]) Smoking 02/14/2021 12:00:00 AM EDT Never Smoker completed Never S moker eCW1 ([facility]) Smoking 02/14/2021 12:00:00 AM EDT Never Smoker completed Never S moker eCW1 ([facility]) Smoking 02/14/2021 12:00:00 AM EDT Never Smoker completed Never S moker eCW1 ([facility]) Smoking 02/07/2021 12:00:00 AM EDT Never Smoker completed Never S moker eCW1 ([facility]) Smoking 02/07/2021 12:00:00 AM EDT Never Smoker completed Never S moker eCW1 ([facility]) Smoking 01/26/2021 12:00:00 AM EDT Never Smoker completed Never S moker eCW1 ([facility]) Smoking 01/26/2021 12:00:00 AM EDT Never Smoker completed Never S moker eCW1 ([facility]) Smoking 01/19/2021 12:00:00 AM EDT Patient has never smoked co mpleted Patient has never smoked MEDENT ([facility]) Smoking 01/10/2021 12:00:00 AM EDT Never Smoker completed Never S moker eCW1 ([facility]) Smoking 12/07/2020 12:00:00 AM EDT Never Smoker completed Never S moker eCW1 ([facility]) Smoking 12/07/2020 12:00:00 AM EDT Never Smoker completed Never S moker eCW1 ([facility]) Smoking 12/07/2020 12:00:00 AM EDT Never Smoker completed Never S moker eCW1 ([facility]) Smoking 12/07/2020 12:00:00 AM EDT Never Smoker completed Never S moker eCW1 ([facility]) Smoking 12/07/2020 12:00:00 AM EDT Never Smoker completed Never S moker eCW1 ([facility]) Smoking 10/22/2020 12:00:00 AM EDT Never Smoker completed Never S moker eCW1 ([facility]) Smoking 10/22/2020 12:00:00 AM EDT Never Smoker completed Never S moker eCW1 ([facility]) Smoking 10/22/2020 12:00:00 AM EDT Never Smoker completed Never S moker eCW1 ([facility]) Smoking 10/22/2020 12:00:00 AM EDT Never Smoker completed Never S moker eCW1 ([facility]) Smoking 10/08/2020 12:00:00 AM EDT Never Smoker completed Never S moker eCW1 ([facility]) Smoking 08/02/2020 12:00:00 AM EDT Never Smoker completed Never S moker eCW1 ([facility]) Smoking 08/02/2020 12:00:00 AM EDT Never Smoker completed Never S moker eCW1 ([facility]) Smoking 08/02/2020 12:00:00 AM EDT Never Smoker completed Never S moker eCW1 ([facility]) Smoking 08/02/2020 12:00:00 AM EDT Never Smoker completed Never S moker eCW1 ([facility]) Smoking 08/02/2020 12:00:00 AM EDT Never Smoker completed Never S moker eCW1 ([facility]) Smoking 08/02/2020 12:00:00 AM EDT Never Smoker completed Never S moker eCW1 ([facility]) Smoking 08/02/2020 12:00:00 AM EDT Never Smoker completed Never S moker eCW1 ([facility]) Smoking 06/22/2020 12:00:00 AM EST Never Smoker completed Never S moker eCW1 ([facility]) Smoking 06/22/2020 12:00:00 AM EST Never Smoker completed Never S moker eCW1 ([facility]) Smoking 06/22/2020 12:00:00 AM EST Never Smoker completed Never S moker eCW1 ([facility]) Smoking 06/22/2020 12:00:00 AM EST Never Smoker completed Never S moker eCW1 ([facility]) Smoking 06/22/2020 12:00:00 AM EST Never Smoker completed Never S moker eCW1 ([facility]) Smoking 06/22/2020 12:00:00 AM EST Never Smoker completed Never S moker eCW1 ([facility]) Smoking 06/07/2020 12:00:00 AM EST Never Smoker completed Never S moker eCW1 ([facility]) Smoking 06/07/2020 12:00:00 AM EST Never Smoker completed Never S moker eCW1 ([facility]) Smoking 06/07/2020 12:00:00 AM EST Never Smoker completed Never S moker eCW1 ([facility]) Smoking 06/07/2020 12:00:00 AM EST Never Smoker completed Never S moker eCW1 ([facility]) Smoking 06/02/2020 12:00:00 AM EST Never Smoker completed Never S moker eCW1 ([facility]) Smoking 05/17/2020 12:00:00 AM EST Never Smoker completed Never S moker eCW1 ([facility]) Smoking 05/17/2020 12:00:00 AM EST Never Smoker completed Never S moker eCW1 ([facility]) Smoking 05/17/2020 12:00:00 AM EST Never Smoker completed Never S moker eCW1 ([facility]) Smoking 05/17/2020 12:00:00 AM EST Never Smoker completed Never S moker eCW1 ([facility]) Smoking 05/10/2020 12:00:00 AM EST Never Smoker completed Never S moker eCW1 ([facility]) Smoking 05/10/2020 12:00:00 AM EST Never Smoker completed Never S moker eCW1 ([facility]) Smoking 05/10/2020 12:00:00 AM EST Never Smoker completed Never S moker eCW1 ([facility]) Smoking 05/10/2020 12:00:00 AM EST Never Smoker completed Never S moker eCW1 ([facility]) Smoking 05/10/2020 12:00:00 AM EST Never Smoker completed Never S moker eCW1 ([facility]) Smoking 05/04/2020 12:00:00 AM EST Never Smoker completed Never S moker eCW1 ([facility]) Smoking 05/04/2020 12:00:00 AM EST Never Smoker completed Never S moker eCW1 ([facility]) Smoking 05/04/2020 12:00:00 AM EST Never Smoker completed Never S moker eCW1 ([facility]) Smoking 04/16/2020 12:00:00 AM EST Never Smoker completed Never S moker eCW1 ([facility]) Smoking 04/16/2020 12:00:00 AM EST Never Smoker completed Never S moker eCW1 ([facility]) Smoking 04/16/2020 12:00:00 AM EST Never Smoker completed Never S moker eCW1 ([facility]) Smoking 04/16/2020 12:00:00 AM EST Never Smoker completed Never S moker eCW1 ([facility]) Smoking 04/16/2020 12:00:00 AM EST Never Smoker completed Never S moker eCW1 ([facility]) Smoking 04/16/2020 12:00:00 AM EST Never Smoker completed Never S moker eCW1 ([facility]) Smoking 04/16/2020 12:00:00 AM EST Never Smoker completed Never S moker eCW1 ([facility]) Smoking 04/05/2020 12:00:00 AM EST Never Smoker completed Never S moker eCW1 ([facility]) Smoking 04/05/2020 12:00:00 AM EST Never Smoker completed Never S moker eCW1 ([facility]) Smoking 04/05/2020 12:00:00 AM EST Never Smoker completed Never S moker eCW1 ([facility]) Smoking 03/30/2020 12:00:00 AM EST Never Smoker completed Never S moker eCW1 ([facility]) Smoking 03/30/2020 12:00:00 AM EST Never Smoker completed Never S moker eCW1 ([facility]) Smoking 03/30/2020 12:00:00 AM EST Never Smoker completed Never S moker eCW1 ([facility]) Smoking 03/30/2020 12:00:00 AM EST Never Smoker completed Never S moker eCW1 ([facility]) Smoking 03/30/2020 12:00:00 AM EST Never Smoker completed Never S moker eCW1 ([facility]) Smoking 03/30/2020 12:00:00 AM EST Never Smoker completed Never S moker eCW1 ([facility]) Smoking 03/24/2020 12:00:00 AM EST Never Smoker completed Never S moker eCW1 ([facility]) Smoking 03/24/2020 12:00:00 AM EST Never Smoker completed Never S moker eCW1 ([facility]) Smoking 03/24/2020 12:00:00 AM EST Never Smoker completed Never S moker eCW1 ([facility]) Smoking 03/24/2020 12:00:00 AM EST Never Smoker completed Never S moker eCW1 ([facility]) Smoking 03/18/2020 12:00:00 AM EST Never Smoker completed Never S moker eCW1 ([facility]) Smoking 03/15/2020 12:00:00 AM EST Never Smoker completed Never S moker eCW1 ([facility]) Smoking 03/15/2020 12:00:00 AM EST Never Smoker completed Never S moker eCW1 ([facility]) Smoking 03/03/2020 12:00:00 AM EDT Never Smoker completed Never S moker eCW1 ([facility]) Smoking 02/19/2020 12:00:00 AM EDT Never Smoker completed Never S moker eCW1 ([facility]) Smoking 02/19/2020 12:00:00 AM EDT Never Smoker completed Never S moker eCW1 ([facility]) Smoking 02/19/2020 12:00:00 AM EDT Never Smoker completed Never S moker eCW1 ([facility]) Smoking 02/19/2020 12:00:00 AM EDT Never Smoker completed Never S moker eCW1 ([facility]) Vital Signs ID Date Data Source UNK Name Value Range Interpretation Code Description Data Source(s) Body weight 261 [lb_av] 261 [lb_av] eCW1 ([facility]) Body weight 118.39 kg 118.39 kg W1 ([facility]) Body height 65 [in_i] 65 [in_i] eCW1 ([facility]) Body mass index (BMI) [Ratio] 43.43 kg/m2 43.43 kg/m2 eCW1 ([facility]) Heart rate 78 /min 78 /min eCW1 ([facility]) Respiratory rate 20 /min 20 /min eCW1 ([facility]) Body temperature 97.1 [degF] 97.1 [degF] eCW1 ( [facility]) Systolic blood pressure 178 mm[Hg] 178 mm[Hg] e CW1 ([facility]) Diastolic blood pressure 83 mm[Hg] 83 mm[Hg] eCW1 ([facility]) Body weight 261 [lb_av] 261 [lb_av] eCW1 ([facility]) Body height 65 [in_i] 65 [in_i] eCW1 ([facility]) Body mass index (BMI) [Ratio] 43.43 kg/m2 43.43 kg/m2 eCW1 ([facility]) Heart rate 92 /min 92 /min eCW1 ([facility]) Respiratory rate 20 /min 20 /min eCW1 ([facility]) Body temperature 98.4 [degF] 98.4 [degF] eCW1 ( [facility]) Systolic blood pressure 161 mm[Hg] 161 mm[Hg] e CW1 ([facility]) Diastolic blood pressure 77 mm[Hg] 77 mm[Hg] eCW1 ([facility]) Body weight 261 [lb_av] 261 [lb_av] eCW1 ([facility]) Body weight 118.39 kg 118.39 kg eCW1 ([facility]) Body height 65 [in_i] 65 [in_i] eCW1 ([facility]) Body mass index (BMI) [Ratio] 43.43 kg/m2 43.43 kg/m2 eCW1 ([facility]) Heart rate 96 /min 96 /min eCW1 ([facility]) Respiratory rate 16 /min 16 /min eCW1 ([facility]) Body temperature 98.9 [degF] 98.9 [degF] eCW1 ( [facility]) Systolic blood pressure 138 mm[Hg] 138 mm[Hg] e CW1 ([facility]) Diastolic blood pressure 70 mm[Hg] 70 mm[Hg] eCW1 ([facility]) Body weight 267 [lb_av] 267 [lb_av] eCW1 ([facility]) Body height 65 [in_i] 65 [in_i] eCW1 ([facility]) Body mass index (BMI) [Ratio] 44.43 kg/m2 44.43 kg/m2 eCW1 ([facility]) Heart rate 84 /min 84 /min eCW1 ([facility]) Respiratory rate 18 /min 18 /min eCW1 ([facility]) Body temperature 98.4 [degF] 98.4 [degF] eCW1 ( [facility]) Body weight 263.00 [lb_av] 263.00 [lb_av] MEDEN T ([facility]) Body height 65 [in_i] 65 [in_i] MEDENT ([facility]) 5'5" Body mass index (BMI) [Ratio] 43.8 kg/m2 43.8 k g/m2 MEDENT ([facility]) Heart rate 75 /min 75 /min MEDENT ([facility]) Systolic blood pressure--sitting 142 mm[Hg] 142 mm[Hg] MEDENT ([facility]) large cuff, Ra Diastolic blood pressure--sitting 70 mm[Hg] 70 mm[Hg] MEDENT ([facility]) large cuff, Ra Body weight 267 [lb_av] 267 [lb_av] eCW1 ([facility]) Body height 65 [in_i] 65 [in_i] eCW1 ([facility]) Body mass index (BMI) [Ratio] 44.43 kg/m2 44.43 kg/m2 W1 ([facility]) Heart rate 78 /min 78 /min eCW1 ([facility]) Respiratory rate 16 /min 16 /min eCW1 ([facility]) Body temperature 98.4 [degF] 98.4 [degF] eCW1 ( [facility]) Systolic blood pressure 136 mm[Hg] 136 mm[Hg] e CW1 ([facility]) Diastolic blood pressure 62 mm[Hg] 62 mm[Hg] eCW1 ([facility]) Body height 65 [in_i] 65 [in_i] eCW1 ([facility]) Body weight 263.4 [lb_av] 263.4 [lb_av] eCW1 ([facility]) Body mass index (BMI) [Ratio] 43.83 kg/m2 43.83 kg/m2 eCW1 ([facility]) Heart rate 93 /min 93 /min eCW1 ([facility]) Respiratory rate 18 /min 18 /min eCW1 ([facility]) Body temperature 98.7 [degF] 98.7 [degF] eCW1 ( [facility]) Systolic blood pressure 132 mm[Hg] 132 mm[Hg] e CW1 ([facility]) Diastolic blood pressure 82 mm[Hg] 82 mm[Hg] eCW1 ([facility]) Body weight 264 [lb_av] 264 [lb_av] eCW1 ([facility]) Body weight 119.75 kg 119.75 kg eCW1 ([facility]) Body height 65 [in_i] 65 [in_i] eCW1 ([facility]) Body mass index (BMI) [Ratio] 43.93 kg/m2 43.93 kg/m2 eCW1 ([facility]) Heart rate 91 /min 91 /min eCW1 ([facility]) Respiratory rate 18 /min 18 /min eCW1 ([facility]) Body temperature 98 [degF] 98 [degF] eCW1 ([facility]) Systolic blood pressure 140 mm[Hg] 140 mm[Hg] e CW1 ([facility]) Diastolic blood pressure 84 mm[Hg] 84 mm[Hg] eCW1 ([facility]) Body weight 263 [lb_av] 263 [lb_av] eCW1 ([facility]) Body height 65 [in_i] 65 [in_i] eCW1 ([facility]) Body mass index (BMI) [Ratio] 43.76 kg/m2 43.76 kg/m2 eCW1 ([facility]) Heart rate 93 /min 93 /min eCW1 ([facility]) Respiratory rate 18 /min 18 /min eCW1 ([facility]) Body temperature 98.2 [degF] 98.2 [degF] eCW1 ( [facility]) Systolic blood pressure 128 mm[Hg] 128 mm[Hg] e CW1 ([facility]) Diastolic blood pressure 80 mm[Hg] 80 mm[Hg] eCW1 ([facility]) Body temperature 98.7 [degF] 98.7 [degF] eCW1 ( [facility]) Body weight 271 [lb_av] 271 [lb_av] eCW1 ([facility]) Body height 65 [in_i] 65 [in_i] eCW1 ([facility]) Body mass index (BMI) [Ratio] 45.09 kg/m2 45.09 kg/m2 eCW1 ([facility]) Heart rate 84 /min 84 /min eCW1 ([facility]) Respiratory rate 18 /min 18 /min eCW1 ([facility]) Systolic blood pressure 136 mm[Hg] 136 mm[Hg] e CW1 ([facility]) Diastolic blood pressure 76 mm[Hg] 76 mm[Hg] eCW1 ([facility]) Body height 65 [in_i] 65 [in_i] MEDENT ([facility]) 5'5" Body mass index (BMI) [Ratio] 44.3 kg/m2 44.3 k g/m2 MEDENT ([facility]) Heart rate 87 /min 87 /min MEDENT ([facility]) Systolic blood pressure--sitting 132 mm[Hg] 132 mm[Hg] MEDENT ([facility]) BP only on right arm Diastolic blood pressure--sitting 78 mm[Hg] 78 mm[Hg] MEDENT ([facility]) BP only on right arm Body weight 266.00 [lb_av] 266.00 [lb_av] MEDEN T ([facility]) Body weight 262 [lb_av] 262 [lb_av] eCW1 ([facility]) Body weight kg eCW1 ([facility]) Body height 65 [in_i] 65 [in_i] eCW1 ([facility]) Body mass index (BMI) [Ratio] 43.59 kg/m2 43.59 kg/m2 [facility] ([facility]) Heart rate 82 /min 82 /min eCW1 ([facility]) Respiratory rate 18 /min 18 /min eCW1 ([facility]) Body temperature 98.6 [degF] 98.6 [degF] eCW1 ( [facility]) Body height 65 [in_i] 65 [in_i] MEDENT [...] Body weight 259 [lb_av] 259 [lb_av] eCW1 ([facility]) Body height 65 [in_i] 65 [in_i] eCW1 ([facility]) Body mass index (BMI) [Ratio] 43.10 kg/m2 43.10 kg/m2 eCW1 ([facility]) Heart rate 89 /min 89 /min eCW1 ([facility]) Respiratory rate 18 /min 18 /min eCW1 ([facility]) Body temperature 97.9 [degF] 97.9 [degF] eCW1 ( [facility]) Systolic blood pressure 132 mm[Hg] 132 mm[Hg] e CW1 ([facility]) Diastolic blood pressure 74 mm[Hg] 74 mm[Hg] eCW1 ([facility]) Body weight 257 [lb_av] 257 [lb_av] eCW1 ([facility]) Body weight 116.57 kg 116.57 kg eCW1 ([facility]) Body height 65 [in_i] 65 [in_i] eCW1 ([facility]) Body mass index (BMI) [Ratio] 42.76 kg/m2 42.76 kg/m2 eCW1 ([facility]) Heart rate 99 /min 99 /min eCW1 ([facility]) Respiratory rate 18 /min 18 /min eCW1 ([facility]) Body temperature 98.6 [degF] 98.6 [degF] eCW1 ( [facility]) Systolic blood pressure 148 mm[Hg] 148 mm[Hg] e CW1 ([facility]) Diastolic blood pressure 76 mm[Hg] 76 mm[Hg] eCW1 ([facility]) Body weight 241.5 [lb_av] 241.5 [lb_av] eCW1 ([facility]) Body weight kg eCW1 ([facility]) Body height 65 [in_i] 65 [in_i] eCW1 ([facility]) Body mass index (BMI) [Ratio] 40.18 kg/m2 40.18 kg/m2 W1 ([facility]) Heart rate 112 /min 112 /min eCW1 ([facility] [facility] [place] Respiratory rate 18 /min 18 /min eCW1 ([facility]) Body temperature 96.4 [degF] 96.4 [degF] eCW1 ( [facility]) Systolic blood pressure 160 mm[Hg] 160 mm[Hg] e CW1 ([facility]) Diastolic blood pressure 70 mm[Hg] 70 mm[Hg] eCW1 ([facility]) Body weight 232.0 [lb_av] 232.0 [lb_av] eCW1 ([facility] [place]) Body weight 105.23 kg 105.23 kg eCW1 ([facility]) Body height 65 [in_i] 65 [in_i] eCW1 ([facility]) Body mass index (BMI) [Ratio] 38.6 kg/m2 38.6 k g/m2 eCW1 ([facility]) Heart rate 99 /min 99 /min eCW1 ([facility] [place]) Respiratory rate 18 /min 18 /min eCW1 ([facility]) Body temperature 97.4 [degF] 97.4 [degF] eCW1 ( [facility]) Systolic blood pressure 136 mm[Hg] 136 mm[Hg] e CW1 ([facility]) Diastolic blood pressure 72 mm[Hg] 72 mm[Hg] eCW1 ([facility]) Body weight 273.2 [lb_av] 273.2 [lb_av] eCW1 ([facility] [place]) Body weight 123.92 kg 123.92 kg eCW1 ([facility]) Body height 65 [in_i] 65 [in_i] eCW1 ([facility]) Body mass index (BMI) [Ratio] 45.46 kg/m2 45.46 kg/m2 eCW1 ([facility]) Heart rate 97 /min 97 /min eCW1 ([facility] [place]) Respiratory rate 18 /min 18 /min eCW1 ([facility]) Body temperature 97.2 [degF] 97.2 [degF] eCW1 ( [facility]) Systolic blood pressure 138 mm[Hg] 138 mm[Hg] e CW1 ([facility]) Diastolic blood pressure 68 mm[Hg] 68 mm[Hg] eCW1 ([facility]) Systolic blood pressure 142 mm[Hg] 142 mm[Hg] e CW1 ([facility]) Body weight 271 [lb_av] 271 [lb_av] eCW1 ([facility]) Body weight 122.92 kg 122.92 kg eCW1 ([facility]) Body height 65 [in_i] 65 [in_i] eCW1 ([facility]) Body mass index (BMI) [Ratio] 45.09 kg/m2 45.09 kg/m2 eCW1 ([facility]) Heart rate 92 /min 92 /min eCW1 ([facility] [place]) Respiratory rate 18 /min 18 /min eCW1 ([facility]) Diastolic blood pressure 82 mm[Hg] 82 mm[Hg] eCW1 ([facility]) Body temperature 97.1 [degF] 97.1 [degF] eCW1 ( [facility]) Body mass index (BMI) [Ratio] 44.76 kg/m2 44.76 kg/m2 eCW1 ([facility]) Body weight 269 [lb_av] 269 [lb_av] eCW1 ([facility]) Body height 65 [in_i] 65 [in_i] eCW1 ([facility]) Heart rate 91 /min 91 /min eCW1 ([facility] [place]) Respiratory rate 17 /min 17 /min eCW1 ([facility]) Body temperature 97.8 [degF] 97.8 [degF] eCW1 ( [facility]) Systolic blood pressure 144 mm[Hg] 144 mm[Hg] e CW1 ([facility]) Diastolic blood pressure 80 mm[Hg] 80 mm[Hg] eCW1 ([facility]) Body weight 277 [lb_av] 277 [lb_av] eCW1 ([facility]) Body weight 125.64 kg 125.64 kg eCW1 ([facility]) Body height 65 [in_i] 65 [in_i] eCW1 ([facility]) Body mass index (BMI) [Ratio] 46.09 kg/m2 46.09 kg/m2 eCW1 ([facility]) Heart rate 88 /min 88 /min eCW1 ([facility] [place]) Respiratory rate 18 /min 18 /min eCW1 ([facility]) Body temperature 97.6 [degF] 97.6 [degF] eCW1 ( [facility]) Systolic blood pressure 138 mm[Hg] 138 mm[Hg] e CW1 ([facility]) Diastolic blood pressure 84 mm[Hg] 84 mm[Hg] eCW1 ([facility]) Body weight 276 [lb_av] 276 [lb_av] eCW1 ([facility]) Respiratory rate 18 /min 18 /min eCW1 ([facility]) Heart rate 87 /min 87 /min eCW1 ([facility] [place]) Body mass index (BMI) [Ratio] 45.92 kg/m2 45.92 kg/m2 eCW1 ([facility]) Systolic blood pressure 134 mm[Hg] 134 mm[Hg] e CW1 ([facility]) Diastolic blood pressure 60 mm[Hg] 60 mm[Hg] eCW1 ([facility]) Body temperature 98.3 [degF] 98.3 [degF] eCW1 ( [facility]) Body height 65 [in_i] 65 [in_i] eCW1 ([facility]) Body mass index (BMI) [Ratio] 44.9 kg/m2 44.9 k g/m2 MEDENT ([facility]) Body weight 270.00 [lb_av] 270.00 [lb_av] MEDEN T ([facility]) Heart rate 89 /min 89 /min MEDENT ([facility] Systolic blood pressure--sitting 124 mm[Hg] 124 mm[Hg] MEDENT ([facility]) Diastolic blood pressure--sitting 77 mm[Hg] 77 mm[Hg] MEDENT ([facility]) Body height 65 [in_i] 65 [in_i] MEDENT ([facility] 5'5" Body weight 268 [lb_av] 268 [lb_av] eCW1 ([facility]) Body weight 121.56 kg 121.56 kg eCW1 ([facility]) Body height 65 [in_i] 65 [in_i] eCW1 ([facility]) Body mass index (BMI) [Ratio] 44.59 kg/m2 44.59 kg/m2 eCW1 ([facility]) Heart rate 88 /min 88 /min eCW1 ([facility] [place]) Respiratory rate 18 /min 18 /min eCW1 ([facility]) Body temperature 97.8 [degF] 97.8 [degF] eCW1 ( [facility]) Systolic blood pressure 129 mm[Hg] 129 mm[Hg] e CW1 ([facility]) Diastolic blood pressure 68 mm[Hg] 68 mm[Hg] eCW1 ([facility]) Body weight 266 [lb_av] 266 [lb_av] eCW1 ([facility]) Body height 65 [in_i] 65 [in_i] eCW1 ([facility]) Body mass index (BMI) [Ratio] 44.26 kg/m2 44.26 kg/m2 eCW1 ([facility]) Body weight 269.8 [lb_av] 269.8 [lb_av] eCW1 ([facility] [place]) Body weight 122.38 kg 122.38 kg eCW1 ([facility]) Body height 65 [in_i] 65 [in_i] eCW1 ([facility]) Body mass index (BMI) [Ratio] 44.89 kg/m2 44.89 kg/m2 eCW1 ([facility]) Heart rate 96 /min 96 /min eCW1 ([facility] [place]) Respiratory rate 18 /min 18 /min eCW1 ([facility]) Body temperature 97.2 [degF] 97.2 [degF] eCW1 ( [facility]) Systolic blood pressure 140 mm[Hg] 140 mm[Hg] e CW1 ([facility]) Diastolic blood pressure 78 mm[Hg] 78 mm[Hg] eCW1 ([facility]) Body height 65 [in_i] 65 [in_i] eCW1 ([facility]) Body weight 269 [lb_av] 269 [lb_av] eCW1 ([facility]) Systolic blood pressure 110 mm[Hg] 110 mm[Hg] e CW1 ([facility]) Diastolic blood pressure 72 mm[Hg] 72 mm[Hg] eCW1 ([facility]) Body mass index (BMI) [Ratio] 44.76 kg/m2 44.76 kg/m2 eCW1 ([facility]) Heart rate 87 /min 87 /min eCW1 ([facility] [place]) Respiratory rate 18 /min 18 /min eCW1 ([facility]) Body temperature 98.5 [degF] 98.5 [degF] eCW1 ( [facility]) Body weight 271.00 [lb_av] 271.00 [lb_av] MEDEN T ([facility]) Body height 65 [in_i] 65 [in_i] MEDENT ([facility]) 5'5" Body mass index (BMI) [Ratio] 45.1 kg/m2 45.1 k g/m2 MEDENT ([facility]) Heart rate 67 /min 67 /min MEDENT ([facility]) Systolic blood pressure--sitting 118 mm[Hg] 118 mm[Hg] MEDENT ([facility]) [employer], large cuff/LA Diastolic blood pressure--sitting 87 mm[Hg] 87 mm[Hg] MEDENT ([facility]) [employer], large cuff/LA Body weight 275 [lb_av] 275 [lb_av] eCW1 ([facility]) Body weight 124.74 kg 124.74 kg eCW1 ([facility]) Body height 65 [in_i] 65 [in_i] eCW1 ([facility]) Body mass index (BMI) [Ratio] 45.76 kg/m2 45.76 kg/m2 eCW1 ([facility]) Heart rate 89 /min 89 /min eCW1 ([facility] [place]) Respiratory rate 18 /min 18 /min eCW1 ([facility]) Body temperature 98.5 [degF] 98.5 [degF] eCW1 ( [facility]) Systolic blood pressure 132 mm[Hg] 132 mm[Hg] e CW1 ([facility]) Diastolic blood pressure 86 mm[Hg] 86 mm[Hg] eCW1 ([facility]) Body mass index (BMI) [Ratio] 45.76 kg/m2 45.76 kg/m2 eCW1 ([facility]) Heart rate 93 /min 93 /min eCW1 ([facility] [place]) Respiratory rate 18 /min 18 /min eCW1 ([facility]) Body temperature 98.1 [degF] 98.1 [degF] eCW1 ( [facility]) Systolic blood pressure 132 mm[Hg] 132 mm[Hg] e CW1 ([facility]) Diastolic blood pressure 80 mm[Hg] 80 mm[Hg] eCW1 ([facility]) Body weight 275 [lb_av] 275 [lb_av] eCW1 ([facility]) Body height 65 [in_i] 65 [in_i] eCW1 ([facility]) Body weight 275.00 [lb_av] 275.00 [lb_av] LILIEN T ([facility]) Body height 65 [in_i] 65 [in_i] MEDENT ([facility]) 5'5" Body mass index (BMI) [Ratio] 45.8 kg/m2 45.8 k g/m2 MEDENT ([facility]) Heart rate 69 /min 69 /min MED[facility] ([facility]) Systolic blood pressure--sitting 148 mm[Hg] 148 mm[Hg] MEDENT ([facility]) Omron, large cuff/Ra Diastolic blood pressure--sitting 69 mm[Hg] 69 mm[Hg] MEDENT ([facility]) Omron, large cuff/Ra Body weight 270.6 [lb_av] 270.6 [lb_av] eCW1 ([facility] [place]) Body height 65 [in_i] 65 [in_i] eCW1 ([facility]) Body mass index (BMI) [Ratio] 45.03 kg/m2 45.03 kg/m2 eCW1 ([facility]) Heart rate 8 /min 8 /min eCW1 ([facility] [place]) Respiratory rate 18 /min 18 /min eCW1 ([facility]) Body temperature 97.8 [degF] 97.8 [degF] eCW1 ( [facility]) Systolic blood pressure 128 mm[Hg] 128 mm[Hg] e CW1 ([facility]) Diastolic blood pressure 82 mm[Hg] 82 mm[Hg] eCW1 ([facility]) Patient Treatment Plan of Care Planned Activity Planned Date Details Description Data Source (s) [employer] [place] - 08/11/2020 12:00:00 AM EDT eCW1 ([facility]) [employer] Sensor System - 08/11/2020 12:00:00 AM EDT eCW1 ([facility]) [employer] [place] - 08/11/2020 12:00:00 AM EDT eCW1 ([facility]) [employer] Sensor System - 08/11/2020 12:00:00 AM EDT eCW1 ([facility]) [employer] [place] - 08/11/2020 12:00:00 AM EDT eCW1 ([facility]) [employer] Sensor System - 08/11/2020 12:00:00 AM EDT eCW1 ([facility]) [employer] Sensor System - 08/11/2020 12:00:00 AM EDT eCW1 ([facility]) [employer] Sensor System - 08/11/2020 12:00:00 AM EDT eCW1 ([facility]) [employer] [place] - 08/11/2020 12:00:00 AM EDT eCW1 ([facility]) [employer] [place] - 08/11/2020 12:00:00 AM EDT eCW1 ([facility]) [employer] Sensor System - 08/11/2020 12:00:00 AM EDT eCW1 ([facility]) [employer] [place] - 08/11/2020 12:00:00 AM EDT eCW1 ([facility]) [employer] 14 Day Sensor - 08/02/2020 12:00:00 AM EDT eCW1 ([facility]) [employer] 14 Day [place] - 08/02/2020 12:00:00 AM EDT eCW1 ([facility]) [facility] Glucose Meter Test Strips - 05/04/2020 12:00:00 AM EST eCW1 ([facility]) Escitalopram 10 MG Oral Tablet [Lexapro] 05/04/2020 12:00:00 AM EST eCW1 ([facility]) Glucometer 05/04/2020 12:00:00 AM EST e CW1 ([facility]) Linagliptin 5 MG Oral Tablet [Tradjenta] 05/04/2020 12:00:00 AM EST eCW1 ([facility]) Lancets - 05/04/2020 12:00:00 AM EST e CW1 ([facility]) [facility] Glucose Meter Test Strips - 05/04/2020 12:00:00 AM EST eCW1 ([facility]) Escitalopram 10 MG Oral Tablet [Lexapro] 05/04/2020 12:00:00 AM EST eCW1 ([facility]) Glucometer 05/04/2020 12:00:00 AM EST e CW1 ([facility]) Linagliptin 5 MG Oral Tablet [Tradjenta] 05/04/2020 12:00:00 AM EST eCW1 ([facility]) Lancets - 05/04/2020 12:00:00 AM EST e CW1 ([facility]) [employer]S Glucose Meter Test Strips - 05/04/2020 12:00:00 AM EST eCW1 ([facility]) Escitalopram 10 MG Oral Tablet [Lexapro] 05/04/2020 12:00:00 AM EST eCW1 ([facility]) Glucometer 05/04/2020 12:00:00 AM EST e CW1 ([facility]) Linagliptin 5 MG Oral Tablet [Tradjenta] 05/04/2020 12:00:00 AM EST eCW1 ([facility]) Lancets - 05/04/2020 12:00:00 AM EST e CW1 ([facility]) Ciprofloxacin 500 MG Oral Tablet 04/22/2020 12:00:00 AM EST eCW1 ([facility]) Ciprofloxacin 500 MG Oral Tablet 04/22/2020 12:00:00 AM EST eCW1 ([facility]) Ciprofloxacin 500 MG Oral Tablet 04/22/2020 12:00:00 AM EST eCW1 ([facility]) Ciprofloxacin 500 MG Oral Tablet 04/22/2020 12:00:00 AM EST eCW1 ([facility]) Lidocaine 25 MG/ML / Prilocaine 25 MG/ML Topical Cream 04/05/2020 12:00:00 AM EST eCW1 ([facility]) Lidocaine 25 MG/ML / Prilocaine 25 MG/ML Topical Cream 04/05/2020 12:00:00 AM EST eCW1 ([facility]) Lidocaine 25 MG/ML / Prilocaine 25 MG/ML Topical Cream 04/05/2020 12:00:00 AM EST eCW1 ([facility]) NITROFURANTOIN, MACROCRYSTALS 25 MG / Ni trofurantoin, Monohydrate 75 MG Oral Capsule 04/02/2020 12:00:00 AM EST eCW1 ([facility]) NITROFURANTOIN, MACROCRYSTALS 25 MG / Ni trofurantoin, Monohydrate 75 MG Oral Capsule 04/02/2020 12:00:00 AM EST eCW1 ([facility]) NITROFURANTOIN, MACROCRYSTALS 25 MG / Ni trofurantoin, Monohydrate 75 MG Oral Capsule 04/02/2020 12:00:00 AM EST eCW1 ([facility]) Sulfamethoxazole 800 MG / Trimethoprim 160 MG Oral Tab let 03/30/2020 12:00:00 AM EST eCW1 ([facility]) Ondansetron 4 MG Disintegrating Oral Tablet 03/30/2020 12:00:00 AM EST eCW1 ([facility]) Sulfamethoxazole 800 MG / Trimethoprim 160 MG Oral Tab let 03/30/2020 12:00:00 AM EST eCW1 ([facility]) Ondansetron 4 MG Disintegrating Oral Tablet 03/30/2020 12:00:00 AM EST eCW1 ([facility]) Sulfamethoxazole 800 MG / Trimethoprim 160 MG Oral Tab let 03/30/2020 12:00:00 AM EST eCW1 ([facility]) Ondansetron 4 MG Disintegrating Oral Tablet 03/30/2020 12:00:00 AM EST eCW1 ([facility]) Ondansetron 4 MG Disintegrating Oral Tablet 03/30/2020 12:00:00 AM EST eCW1 ([facility]) Sulfamethoxazole 800 MG / Trimethoprim 160 MG Oral Tab let 03/30/2020 12:00:00 AM EST eCW1 ([facility]) Ondansetron 4 MG Disintegrating Oral Tablet 03/30/2020 12:00:00 AM EST eCW1 ([facility]) Sulfamethoxazole 800 MG / Trimethoprim 160 MG Oral Tab let 03/30/2020 12:00:00 AM EST eCW1 ([facility]) Ondansetron 4 MG Disintegrating Oral Tablet 03/30/2020 12:00:00 AM EST eCW1 ([facility]) Sulfamethoxazole 800 MG / Trimethoprim 160 MG Oral Tab let 03/30/2020 12:00:00 AM EST eCW1 ([facility]) Metformin hydrochloride 500 MG Oral Tablet 02/19/2020 12:00:00 AM E DT eCW1 ([facility]) Amitriptyline Hydrochloride 25 MG Oral Tablet 02/19/2020 12:00:00 A M EDT eCW1 ([facility]) Metformin hydrochloride 500 MG Oral Tablet 02/19/2020 12:00:00 AM E DT eCW1 ([facility]) Amitriptyline Hydrochloride 25 MG Oral Tablet 02/19/2020 12:00:00 A M EDT eCW1 ([facility]) Metformin hydrochloride 500 MG Oral Tablet 02/19/2020 12:00:00 AM E DT eCW1 ([facility]) Amitriptyline Hydrochloride 25 MG Oral Tablet 02/19/2020 12:00:00 A M EDT eCW1 ([facility]) Metformin hydrochloride 500 MG Oral Tablet 02/19/2020 12:00:00 AM E DT eCW1 ([facility]) Amitriptyline Hydrochloride 25 MG Oral Tablet 02/19/2020 12:00:00 A M EDT eCW1 ([facility])
[2021-04-04] MEDS ORDERED: POTASSIUM CHLORIDE 10MEQ SR TABLET PO ONE (20:55)
[2021-04-04] MEDS ORDERED: ENOXAPARIN 40MG/0.4ML SYRINGE (J1650 PER 10MG) SC ONE (21:00)
[2021-04-04] MEDS ORDERED: GLUCAGON INJ 1MG VIAL SC PRN (21:05)
[2021-04-04] MEDS ORDERED: DEXTROSE 50% 50 ML SYRINGE IV PRN (21:05)
[2021-04-04] MEDS ORDERED: GLUCOSE 4GM CHEW TABLET PO PRN (21:05)
--- NOTE | 2021-04-04 21:08 | HPEPDOC ---
[facility] Medical History & Physical Date of Admission Apr 04, 2021 Date of Service: Apr 04, 2021 Primary Care Physician: ELKE PAGE DO Attending Physician: OTIS RAMIREZ MD History and Physical CHIEF COMPLAINT: Generalized weakness HISTORY OF PRESENT ILLNESS: Patient is an 75-year-old female with a history of [id number] diabetes mellitus, hypertension, sleep apnea noncompliant on CPAP, and osteoarthritis who presents due to generalized weakness. The patient reports that approximately 2 days ago due to the weather and the patient was feeling very stiff and weak. She reports that she told her friend, Maria Alejandra to place her on the ground. She reports that she was on the ground for 2 days and was unable to get up. She reports that her friend, Maria Alejandra brought her food. Her last meal was yesterday evening, bagel and cream cheese. Patient reports that she was unable to take her medications today. She reports that her last medication administration was yesterday. She reports having chills over the past week but no fevers and no night sweats. She denies any nausea, vomiting, diarrhea, constipation, shortness of breath, heart palpitations, or chest pain at this time. Patient reports that her friend brought her in via ambulance because he thought that the patient should be placed in an assisted living facility. Patient reports that she was seen by for severe neuropathy. She reports that the last time she was here she had severe back pain and cannot feel that anymore. She states that she had nerve studies done and does not remember what the results were. Patient's EKG in the ER showed normal sinus rhythm, however did show QT prolongation with QTC of 482. Patient is on amitriptyline at home. Patient reports that she has opted for DNR/DNI measures. Her healthcare proxy is Maria Alejandra Kirk. Patient's blood pressure in the ER systolic was in the high 180s to low 190s. The patient reports that she did not take her blood pressure medication this morning. 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 Patient denies smoking history Patient denies alcohol use. Reports marijuana use of zeeshan martinez, last use last year. Denies any other illicit drug use. FAMILY HISTORY: Breast cancer, denies any other medical history. ALLERGIES: Please see below. REVIEW OF SYSTEMS: General: Patient denies fevers, night sweats. Reports chills. HEENT: Patient denies headaches, rhinorrhea, coryza. Cardiovascular: Patient denies chest pain, heart palpitations, increased swelling of the legs. Respiratory: Patient denies shortness of breath, cough. GI: Patient denies abdominal pain, nausea, vomiting, diarrhea, blood in stool. : Patient denies dysuria, reports polyuria and polydipsia. Extremities: Patient denies swelling or pain in extremities Neurological: Patient reports numbness or tingling in legs Skin: Patient denies any new rashes or lesions. Hematologic: Patient reports easy bruising denies excessive hematomas or bleeding. Lymphatic: Patient denies any lumps or bumps in neck, axilla, or groin HOME MEDICATIONS: Please see below. PHYSICAL EXAMINATION: Vital Signs Date Time Temp Pulse Resp B/P (MAP) Pulse Ox O2 Delivery O2 Flow Rate FiO2 04/04/21 16:23 97.6 77 26 132/99 (110) 97 Room Air GENERAL APPEARANCE: Patient is in no acute distress, she is lying back in her gurney. HEENT: Normocephalic atraumatic, EOMI, PERRLA, no rhinorrhea, mucous membranes dry. CARDIOVASCULAR: Distant heart sounds, regular rate and rhythm, no murmurs rubs or gallops. LUNGS: Clear to auscultation bilaterally, no wheezes rales or rhonchi. ABDOMEN: Soft, nontender, nondistended, increased abdominal girth, no hepatosplenomegaly appreciated. MUSCULOSKELETAL: Good tone, upper and lower extremity strength 5 out of 5. EXTREMITIES: No clubbing, lipodermatosclerosis of bilateral lower extremities from feet to mid calves, venous stasis hyperpigmentation bilateral lower extremities, poor sensation secondary to diabetic neuropathy. NEUROLOGICAL: No focal motor deficits, decreased sensation of bilateral lower extremities, cranial nerves II to XII intact. PSYCHIATRIC: Affect full and open, alert and oriented x3. LABORATORY DATA: IMAGING: Chest x-ray, 04/04/2021no cardiopulmonary process appreciated. MICROBIOLOGY:negative respiratory panle ASSESSMENT/PLAN: Patient is a 75-year-old female with a history of NIDDM with neuropathy, history of breast cancer status post left mastectomy, neuropathy of unknown etiology still undergoing clinical investigation, who presented due to generalized weakness. Patient lives alone and is unable to care for herself at this time. Patient will likely need placement after she is medically optimized. #LE weakness, likely secondary to neuropathy Patient reports that she has nerve studies pending with Dr. Mendoza's office. Please consider obtaining nerve studies results from Dr. Mendoza's office in the a.m. B12 level ordered because the neuropathy may also be a component of patient's type 2 diabetes mellitus Phosphorus level ordered, if low will need repletion as low phosphorus levels can cause weakness Orthostatic vital signs ordered because autonomic neuropathy can present with orthostasis and also cause peripheral nerve dysfunction Dietary consult placed due to possible malnutrition PT OT ordered -she is not able to care for herself CFS ordered for possible placement. Pending nerve studies, other differential diagnoses to consider monoclonal immunoglobulin deposition disease (consider amyloidosis) #Mildly Elevated CPK -mildly elevated levels of CPK can be due to a neurological disorder Patient was unable to move due to generalized weakness 500 mL lactated Ringer ordered -check urine myoglobin & TSH now & repeat CPK in the morning #Uncontrolled HTN -resume home amlodipine 10 mg p.o. daily, carvedilol & torsemide #Chronic constipation Milk of magnesia and Mylanta ordered as needed #Abnormal urinalysis results Patient denies any symptoms at this time Consider antibiotic treatment in the a.m. if patient develops tachycardia and/or tachypnea, flushing, fevers Patient does not have any symptoms at this time, however please have a low threshold to treat because patient does have neuropathy Reflex culture results pending #Hypokalemia 20 mEq of p.o. potassium chloride ordered. Patient has slow transit constipation therefore a smaller dose of potassium chloride has been ordered Follow-up K level in the a.m. Patient is on a potassium sparing diuretic, amiloride, please be careful with potassium replacement. Can consider oral or IV potassium replacement in the a.m. #Chronic anemia Patient's hemoglobin level is 11, at baseline Stool occult ordered #ALANIS, noncompliant on CPAP Consider referral to pulmonology upon discharge #Diastolic heart failure history Restrict oral liquid intake to less than 2 L daily Continue home amiloride Continue home carvedilol #NIDDM Hold home sitagliptin Patient placed on sliding scale insulin Hypoglycemic protocol ordered. Blood glucose in the ER is 275 Hemoglobin A1c ordered. #Bipolar type I disorder Continue home Lexapro #Generalized anxiety disorder Continue home amitriptyline #Obesity -she will need an air mattress and two person assist for transfers -this complicates her care #History of breast cancer Continue home anastrozole. Follow-up on tomorrow CMP, if alkaline phosphatase is elevated consider malignant progression to bone. VTE prophylaxis: LMWH 40 mg daily Disposition: Inpatient status admit to [facility], expect at least 2 midnight stay Home Medications Scheduled Amiloride HCl (Amiloride HCl) 5 Mg Tablet, 5 MG PO QPM TAKES AT 1700 Amitriptyline HCl (Amitriptyline HCl) 25 Mg Tablet, 50 MG PO QHS Amlodipine Besylate (Norvasc) 10 Mg Tablet, 10 MG PO DAILY Anastrozole (Anastrozole) 1 Mg Tablet, 1 MG PO DAILY Calcitriol (Calcitriol) 0.25 Mcg Capsule, 0.25 MCG PO 2XW SUNDAY AND SUNDAY Carvedilol (Carvedilol) 3.125 Mg Tablet, 3.125 MG PO BID Cholecalciferol (Vitamin D3) (Vitamin D3) 50 Mcg Capsule, 50 MCG PO QPM TAKES AT 1700 Escitalopram Oxalate (Lexapro) 5 Mg Tablet, 5 MG PO DAILY Magnesium Oxide (Magnesium Oxide) 400 Mg Tablet, 200 MG PO Q2D Sitagliptin Phosphate (Januvia) 25 Mg Tablet, 25 MG PO DAILY Torsemide (Torsemide) 20 Mg Tablet, 40 MG PO BID Allergies Coded Allergies: clonidine (Verified Allergy, Unknown, UNKNOWN REACTION, 04/04/21) codeine (Verified Allergy, Unknown, UNKNOWN REACTION, 04/04/21) atorvastatin (Verified Adverse Reaction, Intermediate, AFFECTED LEGS, BONES, URINE BROWN, 04/04/21) morphine (Verified Adverse Reaction, Mild, N/V, 04/04/21) A-FIB/CHADSVASC A-FIB History Current/History of A-Fib/PAF?: No Current PO Anticoag Therapy: Yes GME ATTESTATION GME ATTESTATION My faculty preceptor for this patient encounter was physically present during the encounter and was fully available. All aspects of the patient interview, examination, medical decision making process, and medical care plan development were reviewed and approved by the faculty preceptor. The faculty preceptor is aware and concurs with the plan as stated in the body of this note and will attest to such by his/her cosignature. ATTENDING NOTE Time of service 750pm I examined the patient, discussed the case with and agree with the findings as documented. Yadiel Bennett DO Apr 04, 2021 21:08 OTIS RAMIREZ MD Apr 04, 2021 21:55
[2021-04-04] MEDS ORDERED: LR 500 ML IV SCH (21:30)
[2021-04-04] MEDS ORDERED: MAGN400T2 PO (21:31)
[2021-04-04] MEDS ORDERED: D3 S20002 PO (21:31)
[2021-04-04] MEDS ORDERED: LEXA5TAB13 PO (21:31)
[2021-04-04] MEDS ORDERED: ANAS1TAB2 PO (21:31)
[2021-04-04] MEDS ORDERED: HOME MED LIST COMPLETE! XX SCH (21:35)
[2021-04-04 22:20] LABS: HEMOGLOBIN A1c 11.1 %
[2021-04-04] MEDS: HumaLOG INSULIN (NovoLOG) PER UNIT SC SCH (22:21)
[2021-04-04 22:53] LABS: THYROID STIMULATING HORMONE 1.02 uIU/ML (0.358-3.740)
[2021-04-04] MEDS ORDERED: PILL CUTTER 1 EACH XX PRN (23:25)
[2021-04-04] MEDS: CARVedilol 3.125 MG TAB PO SCH (23:59)
[2021-04-05 07:30] VITALS: BP 159/80
[2021-04-05] MEDS: HumaLOG INSULIN (NovoLOG) PER UNIT SC SCH ×4 (08:51→21:34)
[2021-04-05] MEDS: TORSEMIDE 20 MG TAB PO SCH ×2 (08:52→17:22)
[2021-04-05] MEDS: CARVedilol 3.125 MG TAB PO SCH ×2 (08:52→21:33)
[2021-04-05] MEDS: ESCITALOPRAM OXALATE 5MG TABLET (LEXAPRO) PO SCH (08:52)
[2021-04-05 09:58] LABS: HEMATOCRIT 36.3 % (36.0-47.0); MEAN CORPUSCULAR HEMOGLOBIN 30.1 pg (27.0-33.0); MEAN CORPUSCULAR HGB CONC 33.1 g/dl (32.0-36.5); PLATELET COUNT, AUTOMATED 325 10^3/uL (150-450); RED BLOOD COUNT 3.99 10^6/uL (4.00-5.40); WHITE BLOOD COUNT 11.1 10^3/uL (4.0-10.0)
[2021-04-05 10:00] VITALS: BP 142/70
[2021-04-05 10:31] LABS: CALCIUM LEVEL 8.5 MG/DL (8.8-10.2); CREATININE FOR GFR 1.18 MG/DL (0.55-1.30); GLOMERULAR FILTRATION RATE 47.5 (>39); POTASSIUM SERUM 4.2 MEQ/L (3.5-5.1)
[2021-04-05 10:39] LABS: ALBUMIN 2.6 GM/DL (3.2-5.2); BILIRUBIN,TOTAL 0.3 MG/DL (0.2-1.0); CALCIUM LEVEL 8.2 MG/DL (8.8-10.2); CREATININE FOR GFR 1.27 MG/DL (0.55-1.30); GLOMERULAR FILTRATION RATE 43.7 (>39); MAGNESIUM LEVEL 2.4 MG/DL (1.8-2.4); POTASSIUM SERUM 3.7 MEQ/L (3.5-5.1); TOTAL PROTEIN 6.9 GM/DL (6.4-8.2)
[2021-04-05] MEDS: LEVEMIR (INSULIN DETEMIR) 1 UNITS/0.01ML SC SCH (10:51)
--- NOTE | 2021-04-05 11:28 | REP ---
INDICATION: fullness in R-anterior chest wall COMPARISON: 04/04/2021 TECHNIQUE: Portable AP view of the chest FINDINGS: The mediastinum and cardiac silhouette are stable and within normal limits for portable technique. The lung weinstein are clear without acute consolidation, effusion, or pneumothorax. Skeletal structures are intact. IMPRESSION: No acute cardiopulmonary process appreciated. <Electronically signed by Minesh Alfred > 04/05/21 [id number]
--- NOTE | 2021-04-05 12:14 | IPNPDOC ---
Text Note Date of Service The patient was seen on 04/05/21. NOTE Subjective: Patient is a 75-year-old female admitted overnight for generalized weakness and inability to care for herself. She reports that she placed herself on the ground and was unable to get up for 2 days and that her friend Carlos A came over and brought her some food before finally calling EMS. This morning she reports she is feeling okay and has no acute complaints. I spoke with Carlos A who is her healthcare proxy and he states that although she typically does have generalized weakness at home this feels like an exacerbation of her same weakness. Outpatient EMG demonstrates severe sensory and motor axonal peripheral neuropathy in bilateral LE and mild sensory and motor axonal peripheral neuropathy of bilateral UE. Dr. 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 Objective: GENERAL APPEARANCE: Patient sitting in chair at bedside in no acute distress HEENT: Normocephalic atraumatic, EOMI, mucous membranes moist. CARDIOVASCULAR: RRR, normal S1 and S2, no murmurs rubs or gallops. LUNGS: CTAB with full breath sounds, no wheezes rales or rhonchi. ABDOMEN: Soft, nontender, nondistended,obese abdomen MUSCULOSKELETAL: Good tone, upper and lower extremity strength +5/5. EXTREMITIES: No clubbing, lipodermatosclerosis of bilateral lower extremities from feet to mid calves, venous stasis hyperpigmentation bilateral lower extremities, poor sensation secondary to diabetic neuropathy. NEUROLOGICAL: No focal motor deficits, decreased sensation of bilateral lower extremities, cranial nerves II-XII intact. PSYCHIATRIC: Affect full and open, alert and oriented x3. IMAGING: Chest x-ray, 04/04/2021no cardiopulmonary process appreciated. Assessment/Plan: Patient is a 75-year-old female with a history of NIDDM with neuropathy, history of breast cancer status post left mastectomy, neuropathy of unknown etiology still undergoing clinical investigation, who presented due to generalized weakness. Patient lives alone and is unable to care for herself at this time. Patient will likely need placement after she is medically optimized. #. LE weakness-likely 2/2 diabetic peripheral neuropathy -Outpatient EMG demonstrates severe sensory and motor axonal peripheral neuropathy in bilateral LE and mild sensory and motor axonal peripheral neuropathy of bilateral UE -Ddx also includes amyloidosis which does seem consistent with her presentation, will need outpatient surgery referral for fat pad biopsy, then send it to pathology. Spoke with Dr. Jaimes about same. -Continue amitriptyline for LE neuropathy pain #. Inability to care for self -PFS consult placed for possible placement #. hypertensive urgency -Resolved #. CKDIII -Continue with home calcitriol -Cr at baseline #. Diastolic CHF -Continue home torsemide -Last echo shows #. Hypertension -Continue home Amlodipine, torsemide, amiloride, carvedilol #. Asymptomatic bacteriuria -No need to treat, patient denies symptoms consistent with UTI #. Hypokalemia -Resolved #. Hx of breast cancer -Continue with anastrazole -?this medication is relatively new and can cause arthralgias, joint stiffness, etc #. Constipation -Continue milk of magnesia, mylanta #. T2DM -Continue SSI, consistent carb diet, levemir 10U #. Depression/DEL -Continue lexapro #. Obesity -Complicating care DVT prophylaxis: Lovenox CODE STATUS: DNR/DNI Disposition: Inpatient, PT/OT, PFS placement. VS,Fishbone, I+O VS, Fishbone, I+O Laboratory Tests 04/04/21 17:18 04/05/21 09:41 04/05/21 09:42 Vital Signs Date Time Temp Pulse Resp B/P (MAP) Pulse Ox O2 Delivery O2 Flow Rate FiO2 04/05/21 10:00 98.9 73 18 142/70 (94) 93 Room Air I&O- Last 24 Hours up to 6 AM 04/05/21 06:00 Output Total 550 ml Balance -550 ml GME ATTESTATION GME ATTESTATION My faculty preceptor for this patient encounter was physically present during the encounter and was fully available. All aspects of the patient interview, examination, medical decision making process, and medical care plan development were reviewed and approved by the faculty preceptor. The faculty preceptor is aware and concurs with the plan as stated in the body of this note and will attest to such by his/her cosignature. ATTENDING NOTE I personally examined Ms. Pendleton and discussed her history, presentation and findings with the resident team, and I agree with the above noted assessment and plan. In our discussion, I suggested a potential fat pad biopsy perhaps in the outpatient setting for potential amyloid, possibly TTR amyloid driven neuropathy given her severe neuropathy, history of HFpEF and CKD despite DM diagnosis. In the meantime, we expect a PT/OT evaluation for safe discharge planning with continuation of neuropathy pharmacotherapy. ELKE PAGE DO Apr 05, 2021 12:14 EULALIO GONZALEZ MD Apr 06, 2021 07:00
[2021-04-05 14:00] VITALS: BP 142/72
[2021-04-05] MEDS: aMILoride 5 MG TAB PO SCH (17:23)
[2021-04-05 18:00] VITALS: BP 148/74
[2021-04-05] MEDS: AMITRIPTYLINE 50 MG TAB PO SCH (21:33)
[2021-04-05 22:00] VITALS: BP 151/75
[2021-04-06] VITALS (7 sets, daily range): BP systolic 140–155; BP diastolic 73–106
[2021-04-06 08:22] LABS: HEMATOCRIT 30.1 % (36.0-47.0); HEMOGLOBIN 10.1 g/dl (12.0-15.5); MEAN CORPUSCULAR HEMOGLOBIN 30.1 pg (27.0-33.0); MEAN CORPUSCULAR HGB CONC 33.6 g/dl (32.0-36.5); MEAN CORPUSCULAR VOLUME 89.9 fl (80.0-96.0); PLATELET COUNT, AUTOMATED 276 10^3/uL (150-450); RED BLOOD COUNT 3.35 10^6/uL (4.00-5.40); WHITE BLOOD COUNT 9.2 10^3/uL (4.0-10.0)
[2021-04-06 08:42] LABS: CREATININE FOR GFR 1.17 MG/DL (0.55-1.30); POTASSIUM SERUM 3.2 MEQ/L (3.5-5.1)
[2021-04-06] MEDS: HumaLOG INSULIN (NovoLOG) PER UNIT SC SCH ×4 (08:43→21:30)
[2021-04-06] MEDS: LEVEMIR (INSULIN DETEMIR) 1 UNITS/0.01ML SC SCH (08:44)
[2021-04-06] MEDS: ESCITALOPRAM OXALATE 5MG TABLET (LEXAPRO) PO SCH (08:45)
[2021-04-06] MEDS: CALCITRIOL 0.25 MCG CAP (S0169) PO SCH (08:45)
[2021-04-06] MEDS: CARVedilol 3.125 MG TAB PO SCH ×2 (08:47→21:29)
[2021-04-06] MEDS: MAGNESIUM OXIDE 400MG TAB (MAG-OX) PO SCH (09:05)
[2021-04-06] MEDS ORDERED: POTASSIUM CHLORIDE 10MEQ SR TABLET PO ONE (09:15)
[2021-04-06] MEDS: TORSEMIDE 20 MG TAB PO SCH ×2 (10:47→16:55)
--- NOTE | 2021-04-06 11:24 | IPNPDOC ---
Text Note Date of Service The patient was seen on 04/06/21. NOTE Subjective: Patient is a 75-year-old female admitted overnight for generalized weakness and inability to care for herself. She reports that she placed herself on the ground and was unable to get up for 2 days and that her friend Carlos A came over and brought her some food before finally calling EMS. Patient seen and examined at bedside. She reports no acute events overnight. She denies any fever, chills, chest pain, difficulty breathing, lightheadedness, dizziness, abdominal pain, nausea, vomiting, difficulty urinating, dysuria. She has not yet worked with physical therapy. Objective: GENERAL APPEARANCE: Patient sitting in chair at bedside in no acute distress HEENT: Normocephalic atraumatic, EOMI, mucous membranes moist. CARDIOVASCULAR: RRR, normal S1 and S2, no murmurs rubs or gallops. LUNGS: CTAB with full breath sounds, no wheezes rales or rhonchi. ABDOMEN: Soft, nontender, nondistended,obese abdomen MUSCULOSKELETAL: Good tone, upper and lower extremity strength +5/5. EXTREMITIES: No clubbing, lipodermatosclerosis of bilateral lower extremities from feet to mid calves, venous stasis hyperpigmentation bilateral lower extremities, poor sensation secondary to diabetic neuropathy. NEUROLOGICAL: No focal motor deficits, decreased sensation of bilateral lower extremities, cranial nerves II-XII intact. PSYCHIATRIC: Affect full and open, alert and oriented x3. IMAGING: Chest x-ray, 04/04/2021no cardiopulmonary process appreciated. Assessment/Plan: Patient is a 75-year-old female with a history of NIDDM with neuropathy, history of breast cancer status post left mastectomy, neuropathy of unknown etiology still undergoing clinical investigation, who presented due to generalized weakness. Patient lives alone and is unable to care for herself at this time. Patient will likely need placement after she is medically optimized. #. LE weakness-likely 2/2 diabetic peripheral neuropathy -Outpatient EMG demonstrates severe sensory and motor axonal peripheral neuropathy in bilateral LE and mild sensory and motor axonal peripheral neuropathy of bilateral UE -Ddx also includes amyloidosis which does seem consistent with her presentation, will need outpatient surgery referral for fat pad biopsy, then send it to pathology. Spoke with Dr. Jaimes about same. -Continue amitriptyline for LE neuropathy pain #. Inability to care for self -PFS consult placed for possible placement #. hypertensive urgency -Resolved #. CKD-III -Continue with home calcitriol -Cr at baseline #. Diastolic CHF -Continue home torsemide -Last echo shows #. Hypertension -Continue home Amlodipine, torsemide, amiloride, carvedilol #. UTI -EColi sensitive, cefdinirx5 days, stop date 04/11 #. Hypokalemia -Resolved #. Hx of breast cancer -Continue with anastrazole -?this medication is relatively new and can cause arthralgias, joint stiffness, etc #. Constipation -Continue milk of magnesia, mylanta #. T2DM -SSI, levemir 10U -consistent carb diet #. Depression/DEL -Continue lexapro #. Obesity -Complicating care DVT prophylaxis: Lovenox CODE STATUS: DNR/DNI Disposition: ALC status, PFS pending placement. VS,Fishbone, I+O VS, Fishbone, I+O Laboratory Tests 04/06/21 07:37 Vital Signs Date Time Temp Pulse Resp B/P (MAP) Pulse Ox O2 Delivery O2 Flow Rate FiO2 04/06/21 10:00 98.1 84 18 143/73 (96) 95 Room Air I&O- Last 24 Hours up to 6 AM 04/06/21 06:00 Intake Total 920 ml Output Total 550 ml Balance 370 ml GME ATTESTATION GME ATTESTATION My faculty preceptor for this patient encounter was physically present during the encounter and was fully available. All aspects of the patient interview, examination, medical decision making process, and medical care plan development were reviewed and approved by the faculty preceptor. The faculty preceptor is aware and concurs with the plan as stated in the body of this note and will attest to such by his/her cosignature. ATTENDING NOTE I personally examined Ms. Pendleton and discussed her findings with the resident team and I agree with the above noted assessmetn and plan. ELKE PAGE DO Apr 06, 2021 11:24 EULALIO GONZALEZ MD Apr 06, 2021 16:02
[2021-04-06] MEDS: CEFDINIR 300 MG CAP (OMNICEF) PO SCH ×2 (13:42→21:19)
[2021-04-06] MEDS: aMILoride 5 MG TAB PO SCH (16:55)
[2021-04-06] MEDS: AMITRIPTYLINE 50 MG TAB PO SCH (21:19)
[2021-04-07 02:00] VITALS: BP 142/72
[2021-04-07 06:00] VITALS: BP 141/72
[2021-04-07 07:21] LABS: HEMATOCRIT 30.5 % (36.0-47.0); HEMOGLOBIN 10.2 g/dl (12.0-15.5); MEAN CORPUSCULAR HEMOGLOBIN 30.3 pg (27.0-33.0); MEAN CORPUSCULAR HGB CONC 33.4 g/dl (32.0-36.5); MEAN CORPUSCULAR VOLUME 90.5 fl (80.0-96.0); PLATELET COUNT, AUTOMATED 273 10^3/uL (150-450); RED BLOOD COUNT 3.37 10^6/uL (4.00-5.40); WHITE BLOOD COUNT 11.1 10^3/uL (4.0-10.0)
[2021-04-07 07:50] LABS: CALCIUM LEVEL 7.5 MG/DL (8.8-10.2); CREATININE FOR GFR 1.04 MG/DL (0.55-1.30); POTASSIUM SERUM 3.8 MEQ/L (3.5-5.1)
[2021-04-07] MEDS: CEFDINIR 300 MG CAP (OMNICEF) PO SCH ×2 (08:28→22:10)
[2021-04-07] MEDS: ESCITALOPRAM OXALATE 5MG TABLET (LEXAPRO) PO SCH (08:29)
[2021-04-07] MEDS: TORSEMIDE 20 MG TAB PO SCH ×2 (08:29→17:18)
[2021-04-07] MEDS: ANASTROZOLE 1 MG PO SCH (08:29)
[2021-04-07] MEDS: LEVEMIR (INSULIN DETEMIR) 1 UNITS/0.01ML SC SCH (08:31)
[2021-04-07] MEDS: CARVedilol 3.125 MG TAB PO SCH ×2 (08:32→22:11)
[2021-04-07] MEDS: HumaLOG INSULIN (NovoLOG) PER UNIT SC SCH ×4 (08:32→21:00)
[2021-04-07 10:00] VITALS: BP 157/78
[2021-04-07 14:00] VITALS: BP 135/97
[2021-04-07] MEDS: aMILoride 5 MG TAB PO SCH (17:18)
[2021-04-07 22:00] VITALS: BP 135/64
[2021-04-07] MEDS: AMITRIPTYLINE 50 MG TAB PO SCH (22:11)
[2021-04-08 06:00] VITALS: BP 124/71
[2021-04-08 06:24] LABS: HEMATOCRIT 33.4 % (36.0-47.0); HEMOGLOBIN 10.9 g/dl (12.0-15.5); MEAN CORPUSCULAR HEMOGLOBIN 30.3 pg (27.0-33.0); MEAN CORPUSCULAR HGB CONC 32.6 g/dl (32.0-36.5); MEAN CORPUSCULAR VOLUME 92.8 fl (80.0-96.0); PLATELET COUNT, AUTOMATED 306 10^3/uL (150-450); WHITE BLOOD COUNT 11.5 10^3/uL (4.0-10.0)
[2021-04-08 06:53] LABS: CALCIUM LEVEL 7.7 MG/DL (8.8-10.2); CREATININE FOR GFR 1.19 MG/DL (0.55-1.30); GLOMERULAR FILTRATION RATE 47.1 (>39); POTASSIUM SERUM 4.1 MEQ/L (3.5-5.1)
[2021-04-08] MEDS: ANASTROZOLE 1 MG PO SCH (08:47)
[2021-04-08] MEDS: MAGNESIUM OXIDE 400MG TAB (MAG-OX) PO SCH (08:47)
[2021-04-08] MEDS: TORSEMIDE 20 MG TAB PO SCH ×2 (08:48→17:34)
[2021-04-08] MEDS: LEVEMIR (INSULIN DETEMIR) 1 UNITS/0.01ML SC SCH (08:48)
[2021-04-08] MEDS: ESCITALOPRAM OXALATE 5MG TABLET (LEXAPRO) PO SCH (08:48)
[2021-04-08] MEDS: HumaLOG INSULIN (NovoLOG) PER UNIT SC SCH ×4 (08:49→21:57)
[2021-04-08] MEDS: CEFDINIR 300 MG CAP (OMNICEF) PO SCH ×2 (08:51→21:57)
[2021-04-08] MEDS: CARVedilol 3.125 MG TAB PO SCH ×2 (08:57→21:57)
[2021-04-08] MEDS: aMILoride 5 MG TAB PO SCH (17:33)
[2021-04-08] MEDS: AMITRIPTYLINE 50 MG TAB PO SCH (21:57)
[2021-04-08 22:00] VITALS: BP 139/83
[2021-04-09 06:00] VITALS: BP 131/73
[2021-04-09 06:21] LABS: HEMATOCRIT 34.7 % (36.0-47.0); HEMOGLOBIN 11.3 g/dl (12.0-15.5); MEAN CORPUSCULAR HEMOGLOBIN 30.1 pg (27.0-33.0); MEAN CORPUSCULAR HGB CONC 32.6 g/dl (32.0-36.5); MEAN CORPUSCULAR VOLUME 92.5 fl (80.0-96.0); PLATELET COUNT, AUTOMATED 313 10^3/uL (150-450); RED BLOOD COUNT 3.75 10^6/uL (4.00-5.40); WHITE BLOOD COUNT 10.8 10^3/uL (4.0-10.0)
[2021-04-09 06:44] LABS: CALCIUM LEVEL 8.5 MG/DL (8.8-10.2); CREATININE FOR GFR 1.31 MG/DL (0.55-1.30); GLOMERULAR FILTRATION RATE 42.1 (>39); POTASSIUM SERUM 3.5 MEQ/L (3.5-5.1)
[2021-04-09] MEDS: CARVedilol 3.125 MG TAB PO SCH ×2 (08:23→20:53)
[2021-04-09] MEDS: ESCITALOPRAM OXALATE 5MG TABLET (LEXAPRO) PO SCH (08:24)
[2021-04-09] MEDS: CEFDINIR 300 MG CAP (OMNICEF) PO SCH ×2 (08:24→20:52)
[2021-04-09] MEDS: TORSEMIDE 20 MG TAB PO SCH ×2 (08:24→17:42)
[2021-04-09] MEDS: LEVEMIR (INSULIN DETEMIR) 1 UNITS/0.01ML SC SCH (08:25)
[2021-04-09] MEDS: HumaLOG INSULIN (NovoLOG) PER UNIT SC SCH ×4 (08:25→20:54)
[2021-04-09] MEDS: ANASTROZOLE 1 MG PO SCH (09:00)
[2021-04-09] MEDS: aMILoride 5 MG TAB PO SCH (17:42)
[2021-04-09] MEDS: AMITRIPTYLINE 50 MG TAB PO SCH (20:52)
[2021-04-10 06:00] VITALS: BP 156/79
[2021-04-10 06:55] LABS: HEMATOCRIT 37.2 % (36.0-47.0); HEMOGLOBIN 12.2 g/dl (12.0-15.5); MEAN CORPUSCULAR HEMOGLOBIN 30.3 pg (27.0-33.0); MEAN CORPUSCULAR HGB CONC 32.8 g/dl (32.0-36.5); MEAN CORPUSCULAR VOLUME 92.5 fl (80.0-96.0); PLATELET COUNT, AUTOMATED 317 10^3/uL (150-450); RED BLOOD COUNT 4.02 10^6/uL (4.00-5.40); WHITE BLOOD COUNT 9.3 10^3/uL (4.0-10.0)
[2021-04-10 07:03] LABS: CALCIUM LEVEL 8.8 MG/DL (8.8-10.2); CREATININE FOR GFR 1.47 MG/DL (0.55-1.30); GLOMERULAR FILTRATION RATE 36.9 (>39); POTASSIUM SERUM 3.6 MEQ/L (3.5-5.1)
[2021-04-10] MEDS: LEVEMIR (INSULIN DETEMIR) 1 UNITS/0.01ML SC SCH (08:15)
[2021-04-10] MEDS: TORSEMIDE 20 MG TAB PO SCH ×2 (08:16→17:19)
[2021-04-10] MEDS: ESCITALOPRAM OXALATE 5MG TABLET (LEXAPRO) PO SCH (08:16)
[2021-04-10] MEDS: HumaLOG INSULIN (NovoLOG) PER UNIT SC SCH ×4 (08:16→20:19)
[2021-04-10] MEDS: CARVedilol 3.125 MG TAB PO SCH ×2 (08:17→20:18)
[2021-04-10] MEDS: MAGNESIUM OXIDE 400MG TAB (MAG-OX) PO SCH (08:17)
[2021-04-10] MEDS: CEFDINIR 300 MG CAP (OMNICEF) PO SCH ×2 (08:21→20:18)
[2021-04-10] MEDS: ANASTROZOLE 1 MG PO SCH (08:28)
[2021-04-10] MEDS: aMILoride 5 MG TAB PO SCH (17:19)
[2021-04-10] MEDS: AMITRIPTYLINE 50 MG TAB PO SCH (20:18)
[2021-04-11 06:00] VITALS: BP 162/86
[2021-04-11 06:09] LABS: HEMATOCRIT 39.3 % (36.0-47.0); HEMOGLOBIN 12.8 g/dl (12.0-15.5); MEAN CORPUSCULAR HGB CONC 32.6 g/dl (32.0-36.5); PLATELET COUNT, AUTOMATED 334 10^3/uL (150-450); RED BLOOD COUNT 4.27 10^6/uL (4.00-5.40); WHITE BLOOD COUNT 9.8 10^3/uL (4.0-10.0)
[2021-04-11 06:38] LABS: CALCIUM LEVEL 8.6 MG/DL (8.8-10.2); CREATININE FOR GFR 1.55 MG/DL (0.55-1.30); GLOMERULAR FILTRATION RATE 34.7 (>39); POTASSIUM SERUM 3.9 MEQ/L (3.5-5.1)
[2021-04-11] MEDS: HumaLOG INSULIN (NovoLOG) PER UNIT SC SCH ×4 (08:39→22:00)
[2021-04-11] MEDS: LEVEMIR (INSULIN DETEMIR) 1 UNITS/0.01ML SC SCH (08:40)
[2021-04-11] MEDS: ESCITALOPRAM OXALATE 5MG TABLET (LEXAPRO) PO SCH (08:40)
[2021-04-11] MEDS: TORSEMIDE 20 MG TAB PO SCH (08:43)
[2021-04-11] MEDS: CARVedilol 3.125 MG TAB PO SCH ×2 (08:44→22:00)
[2021-04-11] MEDS: CALCITRIOL 0.25 MCG CAP (S0169) PO SCH (08:44)
[2021-04-11] MEDS: ANASTROZOLE 1 MG PO SCH (08:49)
[2021-04-11] MEDS: aMILoride 5 MG TAB PO SCH (17:38)
[2021-04-11] MEDS: AMITRIPTYLINE 50 MG TAB PO SCH (22:00)
[2021-04-12 06:00] VITALS: BP 147/76
[2021-04-12 07:16] LABS: HEMATOCRIT 42.8 % (36.0-47.0); HEMOGLOBIN 13.2 g/dl (12.0-15.5); MEAN CORPUSCULAR HEMOGLOBIN 30.2 pg (27.0-33.0); MEAN CORPUSCULAR HGB CONC 30.8 g/dl (32.0-36.5); MEAN CORPUSCULAR VOLUME 97.9 fl (80.0-96.0); PLATELET COUNT, AUTOMATED 277 10^3/uL (150-450); RED BLOOD COUNT 4.37 10^6/uL (4.00-5.40); WHITE BLOOD COUNT 11.9 10^3/uL (4.0-10.0)
[2021-04-12 07:37] LABS: CALCIUM LEVEL 8.7 MG/DL (8.8-10.2); CREATININE FOR GFR 1.6 MG/DL (0.55-1.30); GLOMERULAR FILTRATION RATE 33.5 (>39); POTASSIUM SERUM 4.9 MEQ/L (3.5-5.1)
[2021-04-12] MEDS: LEVEMIR (INSULIN DETEMIR) 1 UNITS/0.01ML SC SCH (08:33)
[2021-04-12] MEDS: HumaLOG INSULIN (NovoLOG) PER UNIT SC SCH ×4 (08:34→20:33)
[2021-04-12] MEDS: ANASTROZOLE 1 MG PO SCH (08:37)
[2021-04-12] MEDS: ESCITALOPRAM OXALATE 5MG TABLET (LEXAPRO) PO SCH (08:37)
[2021-04-12] MEDS: MAGNESIUM OXIDE 400MG TAB (MAG-OX) PO SCH (08:38)
[2021-04-12] MEDS: CARVedilol 3.125 MG TAB PO SCH ×2 (08:38→20:32)
[2021-04-12] MEDS: aMILoride 5 MG TAB PO SCH (17:36)
[2021-04-12 17:40] VITALS: BP 193/90
[2021-04-12] MEDS: AMITRIPTYLINE 50 MG TAB PO SCH (20:32)
[2021-04-13 05:43] VITALS: BP 146/56
[2021-04-13 06:33] LABS: HEMATOCRIT 35.3 % (36.0-47.0); HEMOGLOBIN 11.4 g/dl (12.0-15.5); MEAN CORPUSCULAR HEMOGLOBIN 30.4 pg (27.0-33.0); MEAN CORPUSCULAR HGB CONC 32.3 g/dl (32.0-36.5); MEAN CORPUSCULAR VOLUME 94.1 fl (80.0-96.0); PLATELET COUNT, AUTOMATED 288 10^3/uL (150-450); RED BLOOD COUNT 3.75 10^6/uL (4.00-5.40); WHITE BLOOD COUNT 10.6 10^3/uL (4.0-10.0)
[2021-04-13 06:54] LABS: CALCIUM LEVEL 9.4 MG/DL (8.8-10.2); CREATININE FOR GFR 1.34 MG/DL (0.55-1.30); POTASSIUM SERUM 4.5 MEQ/L (3.5-5.1)
[2021-04-13] MEDS: LEVEMIR (INSULIN DETEMIR) 1 UNITS/0.01ML SC SCH (09:25)
[2021-04-13] MEDS: HumaLOG INSULIN (NovoLOG) PER UNIT SC SCH ×4 (09:26→21:26)
[2021-04-13] MEDS: ANASTROZOLE 1 MG PO SCH (09:27)
[2021-04-13] MEDS: ESCITALOPRAM OXALATE 5MG TABLET (LEXAPRO) PO SCH (09:28)
[2021-04-13] MEDS: CALCITRIOL 0.25 MCG CAP (S0169) PO SCH (09:28)
[2021-04-13] MEDS: CARVedilol 3.125 MG TAB PO SCH ×2 (09:31→21:26)
[2021-04-13] MEDS: FUROSEMIDE 100MG/10ML VIAL (J1940) IV ONE ×2 (14:43→14:52)
[2021-04-13] MEDS: aMILoride 5 MG TAB PO SCH (18:16)
[2021-04-13] MEDS: AMITRIPTYLINE 50 MG TAB PO SCH (21:25)
[2021-04-14 06:00] VITALS: BP 146/80
[2021-04-14 06:12] LABS: HEMATOCRIT 34.7 % (36.0-47.0); HEMOGLOBIN 11.1 g/dl (12.0-15.5); MEAN CORPUSCULAR HEMOGLOBIN 30.2 pg (27.0-33.0); MEAN CORPUSCULAR VOLUME 94.6 fl (80.0-96.0); PLATELET COUNT, AUTOMATED 268 10^3/uL (150-450); RED BLOOD COUNT 3.67 10^6/uL (4.00-5.40); WHITE BLOOD COUNT 8.8 10^3/uL (4.0-10.0)
[2021-04-14 06:30] LABS: CALCIUM LEVEL 9.1 MG/DL (8.8-10.2); CREATININE FOR GFR 1.31 MG/DL (0.55-1.30); GLOMERULAR FILTRATION RATE 42.1 (>39); POTASSIUM SERUM 4.2 MEQ/L (3.5-5.1)
[2021-04-14] MEDS: HumaLOG INSULIN (NovoLOG) PER UNIT SC SCH ×4 (08:24→20:38)
[2021-04-14] MEDS: aMILoride 5 MG TAB PO SCH ×2 (08:24→17:53)
[2021-04-14] MEDS: LEVEMIR (INSULIN DETEMIR) 1 UNITS/0.01ML SC SCH (08:24)
[2021-04-14] MEDS: ESCITALOPRAM OXALATE 5MG TABLET (LEXAPRO) PO SCH (08:24)
[2021-04-14] MEDS: CARVedilol 3.125 MG TAB PO SCH ×2 (08:25→20:37)
[2021-04-14] MEDS: MAGNESIUM OXIDE 400MG TAB (MAG-OX) PO SCH (08:25)
[2021-04-14] MEDS: ANASTROZOLE 1 MG PO SCH (08:25)
[2021-04-14] MEDS: AMITRIPTYLINE 50 MG TAB PO SCH (20:37)
[2021-04-15 06:00] VITALS: BP 145/90
[2021-04-15 06:10] LABS: HEMATOCRIT 36.2 % (36.0-47.0); HEMOGLOBIN 11.6 g/dl (12.0-15.5); MEAN CORPUSCULAR HEMOGLOBIN 29.9 pg (27.0-33.0); MEAN CORPUSCULAR VOLUME 93.3 fl (80.0-96.0); PLATELET COUNT, AUTOMATED 290 10^3/uL (150-450); RED BLOOD COUNT 3.88 10^6/uL (4.00-5.40); WHITE BLOOD COUNT 12.8 10^3/uL (4.0-10.0)
[2021-04-15 06:34] LABS: CALCIUM LEVEL 9.3 MG/DL (8.8-10.2); CREATININE FOR GFR 1.33 MG/DL (0.55-1.30); GLOMERULAR FILTRATION RATE 41.4 (>39); POTASSIUM SERUM 4.7 MEQ/L (3.5-5.1)
[2021-04-15] MEDS: HumaLOG INSULIN (NovoLOG) PER UNIT SC SCH ×4 (08:03→21:05)
[2021-04-15] MEDS: LEVEMIR (INSULIN DETEMIR) 1 UNITS/0.01ML SC SCH (08:04)
[2021-04-15] MEDS: aMILoride 5 MG TAB PO SCH (08:04)
[2021-04-15] MEDS: ANASTROZOLE 1 MG PO SCH (08:04)
[2021-04-15] MEDS: ESCITALOPRAM OXALATE 5MG TABLET (LEXAPRO) PO SCH (08:05)
[2021-04-15] MEDS: CARVedilol 3.125 MG TAB PO SCH ×2 (08:06→21:04)
[2021-04-15] MEDS: TORSEMIDE 20 MG TAB PO SCH (08:48)
[2021-04-15 12:45] VITALS: BP 162/108
[2021-04-15] MEDS: **hydrALAZINE HCL** 25 MG TAB PO SCH ×2 (14:00→21:04)
[2021-04-15 14:42] LABS: PHOSPHORUS LEVEL 3.6 MG/DL (2.5-4.9)
[2021-04-15] MEDS ORDERED: QUEtiapine FUMARATE 25 MG TAB PO ONE (15:20)
--- NOTE | 2021-04-15 15:32 | IPNPDOC ---
Subjective Date Seen The patient was seen on 04/15/21. Subjective Chief Complaint/HPI Patient with increased weakness this am and needed Katy steady to get her out of bed which is a change from yesterday. This afternoon she was noted to be confused trying to get out of bed. She did not have definite complaints, did tell me that she is incontinent of urine at home also that soiled her couch. She could not remember that PT had to use katy steady this morning. Appeared to be slightly slow in answering questions and having difficulty in formulating answers. Speech was clear though some waht delayed. No focal weakness. Ordered UA, CT head . Objective Physical Examination General Exam: Positive: Alert, Cooperative, Other (confused) Eye Exam: Positive: PERRLA, Conjunctiva & lids normal, EOMI; Negative: Sclera icteric ENT Exam: Positive: Atraumatic, Mucous membr. moist/pink, Pharynx Normal Neck Exam: Positive: Supple; Negative: JVD, thyromegaly Chest Exam: Positive: Clear to auscultation, Normal air movement Heart Exam: Positive: Rate Normal, Regular Rhythm, Normal S1, Normal S2; Negative: Murmurs, Rubs Abdomen Exam: Positive: Normal bowel sounds, Soft; Negative: Tenderness Extremity Exam: Positive: Edema; Negative: Clubbing, Cyanosis Neuro Exam: Positive: Strength at 5/5 X4 ext, Normal Tone Assessment /Plan Assessment Patient is a 75-year-old female with a history of NIDDM with neuropathy, HTN, CKD stage 3, Diastolic CHF, Morbid obesity, Anxiety, depression, history of breast cancer status post left mastectomy, neuropathy of unknown etiology still undergoing clinical investigation, who presented due to generalized weakness. On admission moe had hypertensive urgency, Juan on CKD and an UTI. She was treated for UTI with Cefdinir finished on 04/11. [facility] has been working with PT and awaiting for a subacute rehab bed. But today noted to be more weaker than last few days and this afternoon moe confused. Acute delirium will get a CT head and UA likely due to hospitalization related delirium will give seroquel. Hypertension on amlodipine and torsemide, amiloride and coreg. will add hydralazine LE weakness-likely 2/2 diabetic peripheral neuropathy Outpatient EMG demonstrates severe sensory and motor axonal peripheral roxanne ropathy in bilateral LE and mild sensory and motor axonal peripheral neuropathy of bilateral UE Ddx also includes amyloidosis which does seem consistent with her presentation, will need outpatient surgery referral for fat pad biopsy, then send it to pathology. Spoke with Dr. Jaimes about same. Continue amitriptyline for LE neuropathy pain CKD-III creatinine at baseline Diastolic CHF Continue torsemide S/p UTI E coli finished treatment. Hx of breast cancer Continue with anastrazole Constipation Continue milk of magnesia, mylanta T2DM SSI, levemir 10U consistent carb diet Depression/DEL Continue lexapro Morbid Obesity Complicating care Plan/VTE VTE Prophylaxis Ordered?: Yes VS, I&O, 24H, Fishbone Vital Signs/I&O Vital Signs Date Time Temp Pulse Resp B/P (MAP) Pulse Ox O2 Delivery O2 Flow Rate FiO2 04/15/21 12:45 98.8 104 18 162/108 (126) 96 Room Air I&O- Last 24 Hours up to 6 AM 04/15/21 07:00 Intake Total 1380 ml Output Total 650 ml Balance 730 ml Laboratory Data 24H LABS Laboratory Tests 2 04/14/21 17:08: Bedside Glucose (Misc Panel) 274H 04/14/21 19:37: Bedside Glucose (Misc Panel) 265H 04/15/21 05:54: Nucleated Red Blood Cells % (auto) 0.0, Anion Gap 6L, Glomerular Filtration Rate 41.4, Calcium Level 9.3, Phosphorus Level 3.6 04/15/21 11:54: Bedside Glucose (Misc Panel) 319H 04/15/21 14:52: Bedside Glucose (Misc Panel) 279H CBC/BMP Laboratory Tests 04/15/21 05:54 Ree Levi MD Apr 15, 2021 15:32
[2021-04-15 15:48] LABS: APPEARANCE, URINE TURBID (CLEAR); BACTERIA, URINE AUTO 2+ (NEGATIVE); BILIRUBIN, URINE AUTO NEGATIVE (NEGATIVE); BLOOD, URINE BLOOD 2+ (NEGATIVE); COLOR, URINE YELLOW (YELLOW); GLUCOSE, URINE (UA) AUTO 1+ mg/dL (NEGATIVE); KETONE, URINE AUTO NEGATIVE (NEGATIVE); LEUKOCYTE ESTERASE, URINE AUTO 3+ (NEGATIVE); NITRITE, URINE AUTO POSITIVE (NEGATIVE); PROTEIN, URINE AUTO 1+ mg/dL (NEGATIVE); RBC, URINE AUTO 154 /HPF (0-3); SPECIFIC GRAVITY URINE AUTO 1.006 (1.002-1.035); SQUAMOUS EPITHELIAL CELL UR AU 2 /HPF (0-6); UROBILINOGEN, URINE AUTO 0.2 mg/dL (0.0-2.0); WBC, URINE AUTO TNTC /HPF (0-3)
--- NOTE | 2021-04-15 16:31 | REPVR ---
PROCEDURE INFORMATION: Exam: CT Head Without Contrast Exam date and time: 04/15/2021 3:19 PM Age: 75 years old Clinical indication: Other: Confusion; Additional info: New onset of confusion TECHNIQUE: Imaging protocol: Computed tomography of the head without contrast. Radiation optimization: All CT scans at this facility use at least one of these dose optimization techniques: automated exposure control; mA and/or kV adjustment per patient size (includes targeted exams where dose is matched to clinical indication); or iterative reconstruction. 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 Chronic moderate prominence of the ventricles disproportionate to the sulci. Nonspecific hypodensities of the periventricular white matter, which could reflect sequela of chronic small vessel ischemic change versus transependymal flow of CSF. No intracranial hemorrhage or extra-axial fluid collection. No evidence of mass effect or midline shift. Wahl-white matter differentiation is normal. Paranasal sinuses: Visualized sinuses are unremarkable. No fluid levels. Mastoid air cells: Unremarkable. Bones/joints: No acute osseus lesion or fracture. Soft tissues: Unremarkable. IMPRESSION: 1. Chronic moderate prominence of the ventricles disproportionate to the sulci, similar to prior head CT performed on 05/19/2020, appearance worrisome for chronic hydrocephalus and less likely central parenchymal volume loss. Recommend neurology consultation. 2. Other chronic findings, as above. Electronically signed by: Jimmy Barraza On 04/15/2021 16:31:23 PM
[2021-04-15] MEDS: cefTRIAXone SOD 1 GM in D5W MINI-BAG PLUS 50 ML IV SCH (19:13)
[2021-04-15] MEDS: AMITRIPTYLINE 50 MG TAB PO SCH (21:04)
[2021-04-15 22:00] VITALS: BP 144/89
[2021-04-16 02:00] VITALS: BP 145/89
[2021-04-16 06:00] VITALS: BP 143/91
[2021-04-16] MEDS: **hydrALAZINE HCL** 25 MG TAB PO SCH ×3 (06:29→21:27)
[2021-04-16 06:45] LABS: HEMATOCRIT 37.9 % (36.0-47.0); HEMOGLOBIN 12.3 g/dl (12.0-15.5); MEAN CORPUSCULAR HEMOGLOBIN 30.1 pg (27.0-33.0); MEAN CORPUSCULAR HGB CONC 32.5 g/dl (32.0-36.5); MEAN CORPUSCULAR VOLUME 92.9 fl (80.0-96.0); PLATELET COUNT, AUTOMATED 300 10^3/uL (150-450); RED BLOOD COUNT 4.08 10^6/uL (4.00-5.40); WHITE BLOOD COUNT 14.2 10^3/uL (4.0-10.0)
[2021-04-16 07:07] LABS: CREATININE FOR GFR 1.66 MG/DL (0.55-1.30); GLOMERULAR FILTRATION RATE 32.1 (>39); POTASSIUM SERUM 5.1 MEQ/L (3.5-5.1)
[2021-04-16] MEDS: HumaLOG INSULIN (NovoLOG) PER UNIT SC SCH ×4 (09:00→21:28)
[2021-04-16] MEDS ORDERED: LEVEMIR (INSULIN DETEMIR) 1 UNITS/0.01ML SC SCH ×2 (09:00)
[2021-04-16] MEDS: MAGNESIUM OXIDE 400MG TAB (MAG-OX) PO SCH (09:01)
[2021-04-16] MEDS: CARVedilol 3.125 MG TAB PO SCH ×2 (09:03→21:28)
[2021-04-16] MEDS: ESCITALOPRAM OXALATE 5MG TABLET (LEXAPRO) PO SCH (09:03)
[2021-04-16] MEDS: aMILoride 5 MG TAB PO SCH (09:03)
[2021-04-16] MEDS: TORSEMIDE 20 MG TAB PO SCH (09:03)
[2021-04-16] MEDS: ANASTROZOLE 1 MG PO SCH (09:05)
[2021-04-16 10:00] VITALS: BP 152/83
--- NOTE | 2021-04-16 10:53 | IPNPDOC ---
Subjective Date Seen The patient was seen on 04/16/21. Subjective Chief Complaint/HPI Continues to be very weak requiring moe steady to move form bed to chair. Delirium is better this am. She is incontinent of urine. Does not have any dysuria. Objective Physical Examination General Exam: Positive: Alert, Cooperative, No Acute Distress Eye Exam: Positive: PERRLA, Conjunctiva & lids normal, EOMI; Negative: Sclera icteric ENT Exam: Positive: Atraumatic, Mucous membr. moist/pink, Pharynx Normal Neck Exam: Positive: Supple; Negative: JVD, thyromegaly Chest Exam: Positive: Clear to auscultation, Normal air movement Heart Exam: Positive: Rate Normal, Regular Rhythm, Normal S1, Normal S2; Negative: Murmurs, Rubs Abdomen Exam: Positive: Normal bowel sounds, Soft; Negative: Tenderness Extremity Exam: Positive: Edema; Negative: Clubbing, Cyanosis Neuro Exam: Positive: Strength at 5/5 X4 ext, Normal Tone Psych Exam: Positive: Oriented x 3 Assessment /Plan Assessment Patient is a 75-year-old female with a history of NIDDM with neuropathy, HTN, CKD stage 3, Diastolic CHF, Morbid obesity, Anxiety, depression, history of breast cancer status post left mastectomy, neuropathy of unknown etiology still undergoing clinical investigation, who presented due to generalized weakness. On admission moe had hypertensive urgency, Juan on CKD and an UTI. She was treated for UTI with Cefdinir finished on 04/11. [facility] has been working with [facility] and awaiting for a subacute rehab bed. But today noted to be more weaker than last few days and this afternoon moe confused. Acute delirium CT head with chronic hydrocephalus, follows with neurology UA dirty, UC pending. likely due to hospitalization related delirium and UTI. will continue with seroquel UTI UC pending. last urine culture was E coli. continue ceftriaxone. Hypertension on amlodipine and torsemide, amiloride and coreg. 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 Spoke with Dr. Jaimes about same. Continue amitriptyline for LE neuropathy pain CKD-III creatinine at baseline Diastolic CHF Continue torsemide and amiloride. Hx of breast cancer s/p left mastectomy Continue with anastrazole Constipation Continue milk of magnesia, mylanta T2DM SSI, levemir 10U consistent carb diet Depression/DEL Continue lexapro Morbid Obesity Complicating care Plan/VTE VTE Prophylaxis Ordered?: Yes VS, I&O, 24H, Fishbone Vital Signs/I&O Vital Signs Date Time Temp Pulse Resp B/P (MAP) Pulse Ox O2 Delivery O2 Flow Rate FiO2 04/16/21 10:00 98.4 91 20 152/83 (106) 97 Room Air I&O- Last 24 Hours up to 6 AM 04/16/21 06:00 Intake Total 1580 ml Output Total 1625 ml Balance -45 ml Laboratory Data 24H LABS Laboratory Tests 2 04/15/21 11:54: Bedside Glucose (Misc Panel) 319H 04/15/21 14:52: Bedside Glucose (Misc Panel) 279H 04/15/21 15:25: Urine Color YELLOW, Urine Appearance TURBIDH, Urine pH 5.0, Urine Specific [place] 1.006, Urine Protein 1+H, Urine Glucose (Auto)(UA) 1+H, Urine Ketones (Auto) NEGATIVE, Urine Blood 2+H, Urine Nitrite POSITIVE, Urine Bilirubin NEGATIVE, Urine Urobilinogen 0.2, Urine Leukocyte Esterase (Auto) 3+H, Urine WBC (Auto) TNTCH, Urine RBC (Auto) 154H, Urine Hyaline Casts (Auto) 0, Urine Bacteria (Auto) 2+H, Urine Squamous Epithelial Cells 2, Urine Sperm (Auto) 04/15/21 16:30: Bedside Glucose (Misc Panel) 267H 04/15/21 19:57: Bedside Glucose (Misc Panel) 294H 04/16/21 06:01: Nucleated Red Blood Cells % (auto) 0.0, Anion Gap 8, Glomerular Filtration Rate 32.1L, Calcium Level 9.0 04/16/21 06:09: Bedside Glucose (Misc Panel) 346H CBC/BMP Laboratory Tests 04/16/21 06:01 Microbiology Microbiology 04/15/21 Urine Culture, Received Pending Ree Levi MD Apr 16, 2021 10:53
[2021-04-16 14:00] VITALS: BP 131/77
[2021-04-16] MEDS: QUEtiapine FUMARATE 12.5 MG HALF-TAB PO SCH (16:32)
[2021-04-16 18:00] VITALS: BP 133/72
[2021-04-16] MEDS: cefTRIAXone SOD 1 GM in D5W MINI-BAG PLUS 50 ML IV SCH (19:00)
[2021-04-16] MEDS: AMITRIPTYLINE 50 MG TAB PO SCH (21:27)
[2021-04-16 22:00] VITALS: BP 137/94
[2021-04-17] VITALS (7 sets, daily range): BP systolic 134–167; BP diastolic 69–99
[2021-04-17] MEDS: **hydrALAZINE HCL** 25 MG TAB PO SCH ×3 (05:34→22:24)
[2021-04-17 06:21] LABS: HEMATOCRIT 36.8 % (36.0-47.0); HEMOGLOBIN 11.9 g/dl (12.0-15.5); MEAN CORPUSCULAR HEMOGLOBIN 30.3 pg (27.0-33.0); MEAN CORPUSCULAR HGB CONC 32.3 g/dl (32.0-36.5); MEAN CORPUSCULAR VOLUME 93.6 fl (80.0-96.0); PLATELET COUNT, AUTOMATED 302 10^3/uL (150-450); RED BLOOD COUNT 3.93 10^6/uL (4.00-5.40); WHITE BLOOD COUNT 9.7 10^3/uL (4.0-10.0)
[2021-04-17 06:42] LABS: CALCIUM LEVEL 8.9 MG/DL (8.8-10.2); CREATININE FOR GFR 1.46 MG/DL (0.55-1.30); GLOMERULAR FILTRATION RATE 37.2 (>39); POTASSIUM SERUM 4.5 MEQ/L (3.5-5.1)
[2021-04-17] MEDS: HumaLOG INSULIN (NovoLOG) PER UNIT SC SCH ×4 (08:54→20:46)
[2021-04-17] MEDS: ESCITALOPRAM OXALATE 5MG TABLET (LEXAPRO) PO SCH (08:55)
[2021-04-17] MEDS: aMILoride 5 MG TAB PO SCH (08:55)
[2021-04-17] MEDS: TORSEMIDE 20 MG TAB PO SCH (08:55)
[2021-04-17] MEDS: CARVedilol 3.125 MG TAB PO SCH ×2 (08:56→20:46)
[2021-04-17] MEDS: ANASTROZOLE 1 MG PO SCH (08:57)
[2021-04-17] MEDS ORDERED: LEVEMIR (INSULIN DETEMIR) 1 UNITS/0.01ML SC SCH ×2 (09:00→21:00)
--- NOTE | 2021-04-17 13:39 | IPNPDOC ---
Subjective Date Seen The patient was seen on 04/17/21. Subjective Chief Complaint/HPI No issues overnight. No fevers or chills. Delirium seems to have resolved. Did not need Maria Ines steady for mobilizing this morning. Sugars remain uncontrolled Objective Physical Examination General Exam: Positive: Alert, Cooperative, No Acute Distress Eye Exam: Positive: PERRLA, Conjunctiva & lids normal, EOMI; Negative: Sclera icteric ENT Exam: Positive: Atraumatic, Mucous membr. moist/pink, Pharynx Normal Neck Exam: Positive: Supple; Negative: JVD, thyromegaly Chest Exam: Positive: Clear to auscultation, Normal air movement Heart Exam: Positive: Rate Normal, Regular Rhythm, Normal S1, Normal S2; Negative: Murmurs, Rubs Abdomen Exam: Positive: Normal bowel sounds, Soft; Negative: Tenderness Extremity Exam: Positive: Edema; Negative: Clubbing, Cyanosis Neuro Exam: Positive: Strength at 5/5 X4 ext, Normal Tone Psych Exam: Positive: Oriented x 3 Assessment /Plan Assessment Patient is a 75-year-old female with a history of NIDDM with neuropathy, HTN, CKD stage 3, Diastolic CHF, Morbid obesity, Anxiety, depression, history of breast cancer status post left mastectomy, neuropathy of unknown etiology still undergoing clinical investigation, who presented due to generalized weakness. On admission moe had hypertensive urgency, Juan on CKD and an UTI. She was treated for UTI with Cefdinir finished on 04/11. [facility] has been working with PT and awaiting for a subacute rehab bed. But today noted to be more weaker than last few days and this afternoon moe confused. Acute delirium CT head with chronic hydrocephalus, follows with neurology UA dirty, UC pending. likely due to hospitalization related delirium and UTI. will continue with seroquel UTI UC pending. last urine culture was E coli. continue ceftriaxone. Hypertension on amlodipine and torsemide, amiloride and coreg. will add hydralazine LE weakness-likely 2/2 diabetic peripheral neuropathy Outpatient EMG demonstrates severe sensory and motor axonal peripheral n europathy in bilateral LE and mild sensory and motor axonal peripheral neuropathy of bilateral UE Ddx also includes amyloidosis which does seem consistent with her presentation, will need outpatient surgery referral for fat pad biopsy, then send it to pathology. Spoke with Dr. Jaimes about same. Continue amitriptyline for LE neuropathy pain CKD-III creatinine at baseline Diastolic CHF Continue torsemide and amiloride. Hx of breast cancer s/p left mastectomy Continue with anastrazole Constipation Continue milk of magnesia, mylanta T2DM Sugars uncontrolled at this time SSI, Levemir dose is being adjusted. consistent carb diet Depression/DEL Continue lexapro Morbid Obesity Complicating care Plan/VTE VTE Prophylaxis Ordered?: Yes VS, I&O, 24H, Fishbone Vital Signs/I&O Vital Signs Date Time Temp Pulse Resp B/P (MAP) Pulse Ox O2 Delivery O2 Flow Rate FiO2 04/17/21 06:00 97.2 92 19 167/98 (121) 97 Room Air I&O- Last 24 Hours up to 6 AM 04/17/21 06:00 Intake Total 1260 ml Output Total 475 ml Balance 785 ml Laboratory Data 24H LABS Laboratory Tests 2 04/16/21 11:27: Bedside Glucose (Misc Panel) 351H 04/16/21 17:13: Bedside Glucose (Misc Panel) 310H 04/16/21 19:57: Bedside Glucose (Misc Panel) 323H 04/17/21 05:53: Nucleated Red Blood Cells % (auto) 0.0, Anion Gap 8, Glomerular Filtration Rate 37.2L, Calcium Level 8.9 CBC/BMP Laboratory Tests 04/17/21 05:53 Microbiology Microbiology 04/15/21 Urine Culture, Received Pending Ree Levi MD Apr 17, 2021 08:21
[2021-04-17] MEDS: QUEtiapine FUMARATE 12.5 MG HALF-TAB PO SCH (15:05)
[2021-04-17] MEDS: cefTRIAXone SOD 1 GM in D5W MINI-BAG PLUS 50 ML IV SCH (18:22)
[2021-04-17] MEDS: AMITRIPTYLINE 50 MG TAB PO SCH (20:51)
[2021-04-18 02:00] VITALS: BP 151/80
[2021-04-18] MEDS: **hydrALAZINE HCL** 25 MG TAB PO SCH ×3 (05:46→21:16)
[2021-04-18 06:00] VITALS: BP 142/86
[2021-04-18 07:36] LABS: HEMATOCRIT 40.4 % (36.0-47.0); MEAN CORPUSCULAR HEMOGLOBIN 29.9 pg (27.0-33.0); MEAN CORPUSCULAR HGB CONC 32.2 g/dl (32.0-36.5); MEAN CORPUSCULAR VOLUME 92.9 fl (80.0-96.0); PLATELET COUNT, AUTOMATED 386 10^3/uL (150-450); RED BLOOD COUNT 4.35 10^6/uL (4.00-5.40); WHITE BLOOD COUNT 9.8 10^3/uL (4.0-10.0)
[2021-04-18] MEDS ORDERED: MEROPENEM INJ 1 GM in IV 1 EA IV SCH (08:00)
[2021-04-18 08:06] LABS: CALCIUM LEVEL 9.1 MG/DL (8.8-10.2); CREATININE FOR GFR 1.5 MG/DL (0.55-1.30); POTASSIUM SERUM 4.4 MEQ/L (3.5-5.1)
[2021-04-18] MEDS: LEVEMIR (INSULIN DETEMIR) 1 UNITS/0.01ML SC SCH ×2 (10:01→21:16)
[2021-04-18] MEDS: HumaLOG INSULIN (NovoLOG) PER UNIT SC SCH ×4 (10:02→21:00)
[2021-04-18] MEDS: TORSEMIDE 20 MG TAB PO SCH (10:02)
[2021-04-18] MEDS: CALCITRIOL 0.25 MCG CAP (S0169) PO SCH (10:03)
[2021-04-18] MEDS: ESCITALOPRAM OXALATE 5MG TABLET (LEXAPRO) PO SCH (10:03)
[2021-04-18] MEDS: MAGNESIUM OXIDE 400MG TAB (MAG-OX) PO SCH (10:03)
[2021-04-18] MEDS: ERTAPENEM SODIUM 1 GM in NS MINI-BAG PLUS 50 ML IV SCH (10:04)
[2021-04-18] MEDS: aMILoride 5 MG TAB PO SCH (10:05)
[2021-04-18] MEDS: CARVedilol 3.125 MG TAB PO SCH ×2 (10:06→21:14)
[2021-04-18 14:00] VITALS: BP 143/83
--- NOTE | 2021-04-18 16:58 | IPNPDOC ---
Subjective Date Seen The patient was seen on 04/18/21. Subjective Chief Complaint/HPI No acute issues overnight. No fever or chills. Patient reports she slept well. No signs of delirium this morning. Seen ambulating with PT in the hallway. Says she feels better. Feels a little stronger. Objective Physical Examination General Exam: Positive: Alert, Cooperative, No Acute Distress Eye Exam: Positive: PERRLA, Conjunctiva & lids normal, EOMI; Negative: Sclera icteric ENT Exam: Positive: Atraumatic, Mucous membr. moist/pink, Pharynx Normal Neck Exam: Positive: Supple; Negative: JVD, thyromegaly Chest Exam: Positive: Clear to auscultation, Normal air movement Heart Exam: Positive: Rate Normal, Regular Rhythm, Normal S1, Normal S2; Negative: Murmurs, Rubs Abdomen Exam: Positive: Normal bowel sounds, Soft; Negative: Tenderness Extremity Exam: Positive: Edema; Negative: Clubbing, Cyanosis Neuro Exam: Positive: Strength at 5/5 X4 ext, Normal Tone Psych Exam: Positive: Oriented x 3 Assessment /Plan Assessment Patient is a 75-year-old female with a history of NIDDM with neuropathy, HTN, CKD stage 3, Diastolic CHF, Morbid obesity, Anxiety, depression, history of breast cancer status post left mastectomy, neuropathy of unknown etiology still undergoing clinical investigation, who presented due to generalized weakness. On admission moe had hypertensive urgency, Juan on CKD and an UTI. She was treated for UTI with Cefdinir finished on 04/11. [facility] has been working with PT and awaiting for a subacute rehab bed. But today noted to be more weaker than last few days and this afternoon moe confused. Acute delirium CT head with chronic hydrocephalus, follows with neurology due to hospitalization related delirium and UTI. will continue with seroquel UTI Urine culture ESBL E. 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 Spoke with Dr. Jaimes about same. Continue amitriptyline for LE neuropathy pain CKD-III creatinine at baseline Diastolic CHF Continue torsemide and amiloride. Hx of breast cancer s/p left mastectomy Continue with anastrazole Constipation Continue milk of magnesia, mylanta T2DM Sugars uncontrolled at this time SSI, Levemir dose is being adjusted. consistent carb diet Depression/DEL Continue lexapro Morbid Obesity Complicating care Plan/VTE VTE Prophylaxis Ordered?: Yes VS, I&O, 24H, Fishbone Vital Signs/I&O Vital Signs Date Time Temp Pulse Resp B/P (MAP) Pulse Ox O2 Delivery O2 Flow Rate FiO2 04/18/21 06:00 98.8 90 17 142/86 (104) 95 Room Air I&O- Last 24 Hours up to 6 AM 04/18/21 06:00 Intake Total 1080 ml Output Total 450 ml Balance 630 ml Laboratory Data 24H LABS Laboratory Tests 2 04/17/21 11:42: Bedside Glucose (Misc Panel) 313H 04/17/21 16:35: Bedside Glucose (Misc Panel) 255H 04/17/21 20:31: Bedside Glucose (Misc Panel) 307H 04/18/21 06:49: Nucleated Red Blood Cells % (auto) 0.0 CBC/BMP Laboratory Tests 04/18/21 06:49 Microbiology Microbiology 04/15/21 Urine Culture - Preliminary, Resulted E.coli Esbl Ree Levi MD Apr 18, 2021 07:55
[2021-04-18] MEDS: QUEtiapine FUMARATE 12.5 MG HALF-TAB PO SCH (17:54)
[2021-04-18] MEDS: ANASTROZOLE 1 MG PO SCH (21:13)
[2021-04-18] MEDS: AMITRIPTYLINE 50 MG TAB PO SCH (21:14)
[2021-04-18 22:00] VITALS: BP 140/85
[2021-04-19] MEDS: **hydrALAZINE HCL** 25 MG TAB PO SCH ×2 (05:26→17:22)
[2021-04-19 06:00] VITALS: BP 143/81
[2021-04-19 07:26] LABS: HEMATOCRIT 37.9 % (36.0-47.0); HEMOGLOBIN 12.2 g/dl (12.0-15.5); MEAN CORPUSCULAR HEMOGLOBIN 29.7 pg (27.0-33.0); MEAN CORPUSCULAR HGB CONC 32.2 g/dl (32.0-36.5); MEAN CORPUSCULAR VOLUME 92.2 fl (80.0-96.0); PLATELET COUNT, AUTOMATED 356 10^3/uL (150-450); RED BLOOD COUNT 4.11 10^6/uL (4.00-5.40)
[2021-04-19 07:56] LABS: CALCIUM LEVEL 8.4 MG/DL (8.8-10.2); CREATININE FOR GFR 1.43 MG/DL (0.55-1.30); GLOMERULAR FILTRATION RATE 38.1 (>39); POTASSIUM SERUM 3.7 MEQ/L (3.5-5.1)
[2021-04-19] MEDS ORDERED: TORS20TA2 PO ×3 (08:42→19:37)
[2021-04-19] MEDS ORDERED: HYDR25TA PO (08:46)
[2021-04-19] MEDS ORDERED: INSUDET SC (08:46)
[2021-04-19] MEDS ORDERED: INSUHUMDS SC ×2 (08:46)
[2021-04-19] MEDS ORDERED: QUET1TAB17 PO (08:46)
[2021-04-19] MEDS: ANASTROZOLE 1 MG PO SCH (09:00)
[2021-04-19] MEDS: ERTAPENEM SODIUM 1 GM in NS MINI-BAG PLUS 50 ML IV SCH (10:30)
[2021-04-19] MEDS: ESCITALOPRAM OXALATE 5MG TABLET (LEXAPRO) PO SCH (10:31)
[2021-04-19] MEDS: TORSEMIDE 20 MG TAB PO SCH (10:32)
[2021-04-19] MEDS: HumaLOG INSULIN (NovoLOG) PER UNIT SC SCH ×3 (10:32→17:23)
[2021-04-19] MEDS: aMILoride 5 MG TAB PO SCH (10:32)
[2021-04-19] MEDS: CARVedilol 3.125 MG TAB PO SCH (10:32)
[2021-04-19] MEDS: LEVEMIR (INSULIN DETEMIR) 1 UNITS/0.01ML SC SCH (10:33)
--- NOTE | 2021-04-19 11:00 | DS.PDOC ---
Discharge Summary General Date of Admission Apr 04, 2021 at 20:19 Date of Discharge 04/19/21 Discharge Summary PROCEDURES PERFORMED DURING STAY: [None]. DISCHARGE DIAGNOSES: Urinary tract infection with ESBL Ecoli Acute delirium Persistent debility and generalized weakness. Bilateral lower extremity weakness likely due to Neuropathy. Hypertensive urgency on admission. CANDICE on CKD SECONDARY DIAGNOSIS: NIDDM with neuropathy, HTN, CKD stage 3, Diastolic CHF, Morbid obesity, Anxiety, depression, history of breast cancer status post left mastectomy, neuropathy of unknown etiology still undergoing clinical investigation,Generalized anxiety disorder COMPLICATIONS/CHIEF COMPLAINT: Weakness Generalized. HOSPITAL COURSE: Patient is a 75-year-old female with a history of NIDDM with neuropathy, HTN, CKD stage 3, Diastolic CHF, Morbid obesity, Anxiety, depression, history of breast cancer status post left mastectomy, neuropathy of unknown etiology still undergoing clinical investigation, who presented due to generalized weakness. On admission patient had hypertensive urgency, CANDICE on CKD and an UTI. She was treated for UTI with Cefdinir finished on 04/11. Patient had been working with PT and awaiting for a subacute rehab bed. On 04/15/21 patient was noted to be more weaker than before and was also delirious. CT head no acute changes showed chronic hydrocephalus. UA was dirty so patient was started on ceftriaxone However Urine Culture grew ESBL Ecoli so antibiotic was changed to Ertapenum on 04/18/21. Delirium has now resolved. Patient continues to be below her baseline functional capability and needing help with ADLs so need continued rehab to get back to baseline. She is being discharged to ARU for continued rehab. UTI Urine culture ESBL E. coli Ertapenem x 7 days sarted on 04/18/21 Acute delirium now resolved. CT head with chronic hydrocephalus, follows with neurology due to hospitalization related delirium and UTI. 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 Spoke with Dr. Jaimes about same. Continue amitriptyline for LE neuropathy pain CKD-III creatinine at baseline Diastolic CHF Continue torsemide and amiloride. Hx of breast cancer s/p left mastectomy Continue with anastrazole Constipation Continue milk of magnesia, mylanta T2DM Sugars uncontrolled at this time. A1c of 11.2 moe is only on januvia at home. She will need more oral medications as well as insulin at home. At the least she should have long actining insulin once a day at home. She will need insulin teaching prior to discharge from rehab. For now continue SSI, Levemir. consistent carb diet Depression/DEL Continue lexapro Morbid Obesity Complicating care DISCHARGE MEDICATIONS: Please see below. ALLERGIES: Please see below. PHYSICAL EXAMINATION ON DISCHARGE: VITAL SIGNS: Please see below. General Exam: Positive: Alert, Cooperative, No Acute Distress Eye Exam: Positive: PERRLA, Conjunctiva & lids normal, EOMI; Negative: Sclera icteric ENT Exam: Positive: Atraumatic, Mucous membr. moist/pink, Pharynx Normal Neck Exam: Positive: Supple; Negative: JVD, thyromegaly Chest Exam: Positive: Clear to auscultation, Normal air movement Heart Exam: Positive: Rate Normal, Regular Rhythm, Normal S1, Normal S2; Negative: Murmurs, Rubs Abdomen Exam: Positive: Normal bowel sounds, Soft; Negative: Tenderness Extremity Exam: Positive: Edema; Negative: Clubbing, Cyanosis Neuro Exam: Positive: Strength at 5/5 X4 ext, Normal Tone Psych Exam: Positive: Oriented x 3 LABORATORY DATA: Please see below. ACTIVITY: [As tolerated]. DIET: Carb consistent DISCHARGE PLAN: ARU TIME SPENT ON DISCHARGE: 35 minutes. Vital Signs/I&Os Vital Signs Date Time Temp Pulse Resp B/P (MAP) Pulse Ox O2 Delivery O2 Flow Rate FiO2 04/19/21 10:32 98 143/81 04/19/21 06:00 98.2 14 93 Room Air I&O- Last 24 Hours up to 6 AM 04/19/21 06:00 Intake Total 830 ml Output Total 500 ml Balance 330 ml Laboratory Data Labs 24H Laboratory Tests 2 04/18/21 12:05: Bedside Glucose (Misc Panel) 218H 04/18/21 16:53: Bedside Glucose (Misc Panel) 259H 04/18/21 21:04: Bedside Glucose (Misc Panel) 213H 04/19/21 07:02: Nucleated Red Blood Cells % (auto) 0.0, Anion Gap 7L, Glomerular Filtration Rate 38.1L, Calcium Level 8.4L CBC/BMP Laboratory Tests 04/19/21 07:02 FSBS Laboratory Tests Test 04/18/21 12:05 04/18/21 16:53 04/18/21 21:04 Range/Units Bedside Glucose ([facility] Panel) 218 259 213 83-110 MG/DL Microbiology Microbiology 04/15/21 Urine Culture - Final, Complete E.coli Esbl Discharge Medications Scheduled Amiloride HCl (Amiloride HCl) 5 Mg Tablet, 5 MG PO QPM, (Reported) TAKES AT 1700 Amitriptyline HCl (Amitriptyline HCl) 25 Mg Tablet, 50 MG PO QHS, (Reported) Amlodipine Besylate (Norvasc) 10 Mg Tablet, 10 MG PO DAILY, (Reported) Anastrozole (Anastrozole) 1 Mg Tablet, 1 MG PO DAILY, (Reported) Calcitriol (Calcitriol) 0.25 Mcg Capsule, 0.25 MCG PO 2XW, (Reported) SUNDAY AND SUNDAY Carvedilol (Carvedilol) 3.125 Mg Tablet, 3.125 MG PO BID, (Reported) Cholecalciferol (Vitamin D3) (Vitamin D3) 50 Mcg Capsule, 50 MCG PO QPM, (Reported) TAKES AT 1700 Escitalopram Oxalate (Lexapro) 5 Mg Tablet, 5 MG PO DAILY, (Reported) Hydralazine HCl (Hydralazine HCl) 25 Mg Tablet, 25 MG PO Q8H Insulin Detemir (Levemir) 100 Unit/1 Ml Vial, 30 UNITS SC BID Insulin Human Lispro (Humalog) 100 Unit/1 Ml Vial, 0 UNITS SC AC Insulin Human Lispro (Humalog) 100 Unit/1 Ml Vial, 0 UNITS SC QHS Magnesium Oxide (Magnesium Oxide) 400 Mg Tablet, 200 MG PO Q2D, (Reported) Quetiapine Fumarate (Quetiapine Fumarate) 25 Mg Tablet, 12.5 MG PO DAILY@1600 Sitagliptin Phosphate (Januvia) 25 Mg Tablet, 25 MG PO DAILY, (Reported) Torsemide (Torsemide) 20 Mg Tablet, 40 MG PO DAILY Allergies Coded Allergies: clonidine (Verified Allergy, Unknown, UNKNOWN REACTION, 04/04/21) codeine (Verified Allergy, Unknown, UNKNOWN REACTION, 04/04/21) atorvastatin (Verified Adverse Reaction, Intermediate, AFFECTED LEGS, BONES, URINE BROWN, 04/04/21) morphine (Verified Adverse Reaction, Mild, N/V, 04/04/21) Ree Levi MD Apr 19, 2021 11:00
[2021-04-19 17:22] VITALS: BP 143/81
[2021-04-19] MEDS: QUEtiapine FUMARATE 12.5 MG HALF-TAB PO SCH (17:22)
[2021-04-19] MEDS ORDERED: CYMB1CAP5 PO (19:37)
== END 2021-04-19 18:37 | DRG 74 ==
LOC: EDBD 16:05 → M ED 16:05 → EEVIPCON 20:19 → M ED INP 20:19 → ENRESERV 04-05 07:00 → M MSPAV 04-05 07:30
PROVIDERS: ADMIT Internal Medicine; ATTEND Internal Medicine Nephrology
DX: E11.42 Type 2 diabetes mellitus with diabetic polyneuropathy (principal); I50.32 Chronic diastolic (congestive) heart failure; L97.922 Non-pressure chronic ulcer of unspecified part of left lower leg with fat layer exposed; Z68.41 Body mass index [BMI] 40.0-44.9, adult; I13.0 Hypertensive heart and chronic kidney disease with heart failure and stage 1 through stage 4 chronic kidney disease, or unspecified chronic kidney disease; N39.0 Urinary tract infection, site not specified; E85.9 Amyloidosis, unspecified; N17.9 Acute kidney failure, unspecified; G47.33 Obstructive sleep apnea (adult) (pediatric); M19.90 Unspecified osteoarthritis, unspecified site; R53.1 Weakness; Z66 Do not resuscitate; F32.A Depression, unspecified; E11.65 Type 2 diabetes mellitus with hyperglycemia; B96.20 Unspecified Escherichia coli [E. coli] as the cause of diseases classified elsewhere; F41.1 Generalized anxiety disorder; R53.81 Other malaise; R41.0 Disorientation, unspecified; E11.22 Type 2 diabetes mellitus with diabetic chronic kidney disease; N18.30 Chronic kidney disease, stage 3 unspecified; E11.621 Type 2 diabetes mellitus with foot ulcer; I16.0 Hypertensive urgency; R32 Unspecified urinary incontinence; F31.9 Bipolar disorder, unspecified; K59.09 Other constipation; Z85.3 Personal history of malignant neoplasm of breast; Z90.12 Acquired absence of left breast and nipple; E87.6 Hypokalemia; E66.01 Morbid (severe) obesity due to excess calories; Z79.84 Long term (current) use of oral hypoglycemic drugs; Z79.899 Other long term (current) drug therapy; Z88.5 Allergy status to narcotic agent; Z88.8 Allergy status to other drugs, medicaments and biological substances; Z20.822 Contact with and (suspected) exposure to COVID-19

== ENCOUNTER 2021-04-19 10:00 | Inpatient (IN) | payer MEDICARE, OTHER ==
[~2021-04-19] VITALS: Ht 167.6 cm; Wt 116.4 kg
[~2021-04-19 10:00] MED LIST changes: +CALC1CAP31 PO; +D3 S20002 PO; +HYDR25TA PO; +INSUDET SC; +INSUHUMDS SC; +LEXA5TAB13 PO; -LISI-898 PO; +LISI5TAB11 PO; +MAGN400T2 PO; +QUET1TAB17 PO
[2021-04-19] MEDS ORDERED: QUEtiapine FUMARATE 12.5 MG HALF-TAB PO PRN (12:25)
[2021-04-19] MEDS ORDERED: GLUCAGON INJ 1MG VIAL SC PRN (12:25)
[2021-04-19] MEDS ORDERED: DEXTROSE 50% 50 ML SYRINGE IV PRN (12:25)
[2021-04-19] MEDS ORDERED: GLUCOSE 4GM CHEW TABLET PO PRN (12:25)
[2021-04-19 18:55] VITALS: BP 169/93
[2021-04-19] MEDS ORDERED: PILL CUTTER 1 EACH XX PRN (19:35)
[2021-04-19] MEDS ORDERED: TORS20TA2 PO ×2 (19:37)
[2021-04-19] MEDS ORDERED: CYMB1CAP5 PO (19:37)
[2021-04-19] MEDS ORDERED: HOME MED LIST COMPLETE! XX SCH (19:40)
[2021-04-19] MEDS: HumaLOG INSULIN (NovoLOG) PER UNIT SC SCH ×2 (21:00→22:02)
[2021-04-19] MEDS: REMEDY PHYTOPLEX Z-GUARD PASTE 113GM TUBE (FROM STOREROOM PRODUCT) TOP SCH ×2 (21:00→22:02)
[2021-04-19] MEDS: LACTOBACILLUS ACIDOPHILUS CAP (BACID) PO SCH ×2 (21:00→22:01)
[2021-04-19 21:44] VITALS: BP 165/87
[2021-04-19] MEDS: HEPARIN SOD (PORCINE) 5000UNITS/ML 1ML VIAL/SYRINGE SC SCH (21:59)
[2021-04-19] MEDS: AMITRIPTYLINE 50 MG TAB PO SCH (22:00)
[2021-04-19] MEDS: LEVEMIR (INSULIN DETEMIR) 1 UNITS/0.01ML SC SCH (22:00)
[2021-04-19] MEDS: DOCUSATE SODIUM 100MG CAPSULE PO SCH (22:01)
[2021-04-19] MEDS: CARVedilol 3.125 MG TAB PO SCH (22:01)
[2021-04-19] MEDS: **hydrALAZINE HCL** 25 MG TAB PO SCH (22:01)
[2021-04-19] MEDS: SENNA 8.6 MG TAB (SENOKOT) PO SCH (22:02)
[2021-04-20] MEDS: **hydrALAZINE HCL** 25 MG TAB PO SCH ×3 (05:36→22:01)
[2021-04-20 05:43] VITALS: BP 162/90
[2021-04-20 07:07] LABS: BASO # 0.1 10^3/uL (0.0-0.2); BASO % 0.6 % (0.0-1.0); EOS # 0.3 10^3/uL (0.0-0.5); EOS % 3.1 % (0.0-3.0); HEMATOCRIT 37.5 % (36.0-47.0); LYMPH # 1.9 10^3/uL (1.5-5.0); LYMPH % 21.9 % (24.0-44.0); MEAN CORPUSCULAR HEMOGLOBIN 29.9 pg (27.0-33.0); MEAN CORPUSCULAR VOLUME 93.3 fl (80.0-96.0); MONO # 0.6 10^3/uL (0.0-0.8); NEUTROPHILS # 5.8 10^3/uL (1.5-8.5); NEUTROPHILS % 67.1 % (36.0-66.0); PLATELET COUNT, AUTOMATED 320 10^3/uL (150-450); RED BLOOD COUNT 4.02 10^6/uL (4.00-5.40); WHITE BLOOD COUNT 8.7 10^3/uL (4.0-10.0)
[2021-04-20 07:53] LABS: ALBUMIN 2.7 GM/DL (3.2-5.2); BILIRUBIN,TOTAL 0.4 MG/DL (0.2-1.0); CREATININE FOR GFR 1.34 MG/DL (0.55-1.30); POTASSIUM SERUM 4.5 MEQ/L (3.5-5.1)
[2021-04-20] MEDS: ERTAPENEM SODIUM 1 GM in NS MINI-BAG PLUS 50 ML IV SCH (08:23)
[2021-04-20] MEDS: HumaLOG INSULIN (NovoLOG) PER UNIT SC SCH ×4 (08:26→20:18)
[2021-04-20] MEDS: LEVEMIR (INSULIN DETEMIR) 1 UNITS/0.01ML SC SCH ×2 (08:27→20:18)
[2021-04-20] MEDS: HEPARIN SOD (PORCINE) 5000UNITS/ML 1ML VIAL/SYRINGE SC SCH ×2 (08:28→20:18)
[2021-04-20] MEDS: CALCITRIOL 0.25 MCG CAP (S0169) PO SCH (08:30)
[2021-04-20] MEDS: CARVedilol 3.125 MG TAB PO SCH ×2 (08:30→20:18)
[2021-04-20] MEDS: DOCUSATE SODIUM 100MG CAPSULE PO SCH ×2 (08:32→20:17)
[2021-04-20] MEDS: SITagliptin 50 MG TAB (JANUVIA) PO SCH (08:32)
[2021-04-20] MEDS: aMILoride 5 MG TAB PO SCH (08:32)
[2021-04-20] MEDS: PANTOPRAZOLE 40MG TAB (PROTONIX) PO SCH (08:32)
[2021-04-20] MEDS: MAGNESIUM OXIDE 400MG TAB (MAG-OX) PO SCH (08:33)
[2021-04-20] MEDS: TORSEMIDE 20 MG TAB PO SCH (08:34)
[2021-04-20] MEDS: ESCITALOPRAM OXALATE 5MG TABLET (LEXAPRO) PO SCH (08:34)
[2021-04-20] MEDS: LACTOBACILLUS ACIDOPHILUS CAP (BACID) PO SCH ×4 (08:35→20:17)
[2021-04-20] MEDS: REMEDY PHYTOPLEX Z-GUARD PASTE 113GM TUBE (FROM STOREROOM PRODUCT) TOP SCH ×3 (08:37→20:19)
[2021-04-20] MEDS: ANASTROZOLE 1 MG PO SCH (10:22)
[2021-04-20 14:00] VITALS: BP 175/80
[2021-04-20 14:10] VITALS: BP 150/62
[2021-04-20] MEDS: QUEtiapine FUMARATE 12.5 MG HALF-TAB PO SCH (16:51)
[2021-04-20 20:00] VITALS: BP 164/88
[2021-04-20] MEDS: AMITRIPTYLINE 50 MG TAB PO SCH (20:17)
[2021-04-20] MEDS: SENNA 8.6 MG TAB (SENOKOT) PO SCH (20:17)
[2021-04-20] MEDS: DIMETHICONE 2% OINTMENT(VANICREAM) 70GM TUBE TOP SCH (20:19)
[2021-04-21] MEDS: **hydrALAZINE HCL** 25 MG TAB PO SCH ×3 (05:59→21:12)
[2021-04-21 06:00] VITALS: BP 146/69
[2021-04-21] MEDS: LEVEMIR (INSULIN DETEMIR) 1 UNITS/0.01ML SC SCH (08:05)
[2021-04-21] MEDS: HumaLOG INSULIN (NovoLOG) PER UNIT SC SCH ×4 (08:06→21:00)
[2021-04-21] MEDS: HEPARIN SOD (PORCINE) 5000UNITS/ML 1ML VIAL/SYRINGE SC SCH ×2 (08:06→21:12)
[2021-04-21] MEDS: PANTOPRAZOLE 40MG TAB (PROTONIX) PO SCH (08:07)
[2021-04-21] MEDS: ANASTROZOLE 1 MG PO SCH (08:07)
[2021-04-21] MEDS: DOCUSATE SODIUM 100MG CAPSULE PO SCH ×2 (08:07→21:11)
[2021-04-21] MEDS: ESCITALOPRAM OXALATE 5MG TABLET (LEXAPRO) PO SCH (08:08)
[2021-04-21] MEDS: SITagliptin 50 MG TAB (JANUVIA) PO SCH (08:08)
[2021-04-21] MEDS: aMILoride 5 MG TAB PO SCH (08:09)
[2021-04-21] MEDS: LACTOBACILLUS ACIDOPHILUS CAP (BACID) PO SCH ×4 (08:09→21:11)
[2021-04-21] MEDS: TORSEMIDE 20 MG TAB PO SCH (08:09)
[2021-04-21] MEDS: ERTAPENEM SODIUM 1 GM in NS MINI-BAG PLUS 50 ML IV SCH (08:10)
[2021-04-21] MEDS: CARVedilol 3.125 MG TAB PO SCH ×2 (08:10→21:12)
[2021-04-21] MEDS: DIMETHICONE 2% OINTMENT(VANICREAM) 70GM TUBE TOP SCH ×2 (08:11→21:12)
[2021-04-21] MEDS: REMEDY PHYTOPLEX Z-GUARD PASTE 113GM TUBE (FROM STOREROOM PRODUCT) TOP SCH ×3 (08:11→21:12)
[2021-04-21] MEDS: ACETAMINOPHEN TAB 650MG DOSE (2X325MG) PO PRN (08:12)
[2021-04-21 08:20] VITALS: BP 181/81
[2021-04-21 14:22] VITALS: BP 158/70
[2021-04-21] MEDS: QUEtiapine FUMARATE 12.5 MG HALF-TAB PO SCH (16:01)
[2021-04-21 20:00] VITALS: BP 128/67
[2021-04-21] MEDS: AMITRIPTYLINE 50 MG TAB PO SCH (21:11)
[2021-04-21] MEDS: SENNA 8.6 MG TAB (SENOKOT) PO SCH (21:11)
[2021-04-22] MEDS: **hydrALAZINE HCL** 25 MG TAB PO SCH ×3 (05:43→21:24)
[2021-04-22 06:00] VITALS: BP 140/95
[2021-04-22 06:03] LABS: BASO % 0.3 % (0.0-1.0); EOS # 0.3 10^3/uL (0.0-0.5); EOS % 3.5 % (0.0-3.0); HEMATOCRIT 34.4 % (36.0-47.0); HEMOGLOBIN 11.1 g/dl (12.0-15.5); LYMPH # 2.4 10^3/uL (1.5-5.0); LYMPH % 25.9 % (24.0-44.0); MEAN CORPUSCULAR HGB CONC 32.3 g/dl (32.0-36.5); MONO # 0.5 10^3/uL (0.0-0.8); MONO % 5.5 % (2.0-8.0); NEUTROPHILS % 64.5 % (36.0-66.0); PLATELET COUNT, AUTOMATED 285 10^3/uL (150-450); WHITE BLOOD COUNT 9.3 10^3/uL (4.0-10.0)
[2021-04-22 06:25] LABS: CALCIUM LEVEL 8.4 MG/DL (8.8-10.2); CREATININE FOR GFR 1.29 MG/DL (0.55-1.30); GLOMERULAR FILTRATION RATE 42.9 (>39); POTASSIUM SERUM 4.1 MEQ/L (3.5-5.1)
[2021-04-22] MEDS: ERTAPENEM SODIUM 1 GM in NS MINI-BAG PLUS 50 ML IV SCH (08:14)
[2021-04-22] MEDS: ANASTROZOLE 1 MG PO SCH (08:14)
[2021-04-22] MEDS: HEPARIN SOD (PORCINE) 5000UNITS/ML 1ML VIAL/SYRINGE SC SCH ×2 (08:15→20:38)
[2021-04-22] MEDS: REMEDY PHYTOPLEX Z-GUARD PASTE 113GM TUBE (FROM STOREROOM PRODUCT) TOP SCH ×3 (08:15→20:40)
[2021-04-22] MEDS: HumaLOG INSULIN (NovoLOG) PER UNIT SC SCH ×4 (08:15→20:39)
[2021-04-22] MEDS: PANTOPRAZOLE 40MG TAB (PROTONIX) PO SCH (08:16)
[2021-04-22] MEDS: DOCUSATE SODIUM 100MG CAPSULE PO SCH ×2 (08:16→20:39)
[2021-04-22] MEDS: aMILoride 5 MG TAB PO SCH (08:16)
[2021-04-22] MEDS: MAGNESIUM OXIDE 400MG TAB (MAG-OX) PO SCH (08:16)
[2021-04-22] MEDS: SITagliptin 50 MG TAB (JANUVIA) PO SCH (08:16)
[2021-04-22] MEDS: ESCITALOPRAM OXALATE 5MG TABLET (LEXAPRO) PO SCH (08:16)
[2021-04-22] MEDS: LACTOBACILLUS ACIDOPHILUS CAP (BACID) PO SCH ×4 (08:16→20:39)
[2021-04-22] MEDS: CARVedilol 3.125 MG TAB PO SCH ×2 (08:17→20:39)
[2021-04-22] MEDS: TORSEMIDE 20 MG TAB PO SCH (08:17)
[2021-04-22] MEDS: DIMETHICONE 2% OINTMENT(VANICREAM) 70GM TUBE TOP SCH ×2 (08:18→21:22)
[2021-04-22 14:00] VITALS: BP 187/84
[2021-04-22] MEDS: QUEtiapine FUMARATE 12.5 MG HALF-TAB PO SCH (16:00)
[2021-04-22 18:30] VITALS: BP 152/70
[2021-04-22 20:00] VITALS: BP 135/67
[2021-04-22] MEDS: SENNA 8.6 MG TAB (SENOKOT) PO SCH (20:39)
[2021-04-22] MEDS: AMITRIPTYLINE 50 MG TAB PO SCH (20:39)
[2021-04-23] MEDS: **hydrALAZINE HCL** 25 MG TAB PO SCH ×3 (06:17→21:35)
[2021-04-23 06:42] VITALS: BP 160/89
[2021-04-23] MEDS: HEPARIN SOD (PORCINE) 5000UNITS/ML 1ML VIAL/SYRINGE SC SCH ×2 (08:22→20:20)
[2021-04-23] MEDS: ESCITALOPRAM OXALATE 5MG TABLET (LEXAPRO) PO SCH (08:22)
[2021-04-23] MEDS: aMILoride 5 MG TAB PO SCH (08:22)
[2021-04-23] MEDS: DOCUSATE SODIUM 100MG CAPSULE PO SCH ×2 (08:22→20:20)
[2021-04-23] MEDS: LACTOBACILLUS ACIDOPHILUS CAP (BACID) PO SCH ×4 (08:22→20:20)
[2021-04-23] MEDS: HumaLOG INSULIN (NovoLOG) PER UNIT SC SCH ×4 (08:22→20:20)
[2021-04-23] MEDS: PANTOPRAZOLE 40MG TAB (PROTONIX) PO SCH (08:22)
[2021-04-23] MEDS: SITagliptin 50 MG TAB (JANUVIA) PO SCH (08:22)
[2021-04-23] MEDS: CARVedilol 3.125 MG TAB PO SCH ×2 (08:23→20:20)
[2021-04-23] MEDS: TORSEMIDE 20 MG TAB PO SCH (08:23)
[2021-04-23] MEDS: ERTAPENEM SODIUM 1 GM in NS MINI-BAG PLUS 50 ML IV SCH (08:23)
[2021-04-23] MEDS: ANASTROZOLE 1 MG PO SCH (08:23)
[2021-04-23] MEDS: REMEDY PHYTOPLEX Z-GUARD PASTE 113GM TUBE (FROM STOREROOM PRODUCT) TOP SCH ×3 (08:24→20:21)
[2021-04-23] MEDS: DIMETHICONE 2% OINTMENT(VANICREAM) 70GM TUBE TOP SCH ×2 (08:24→20:21)
[2021-04-23 13:58] VITALS: BP 166/88
[2021-04-23] MEDS: QUEtiapine FUMARATE 12.5 MG HALF-TAB PO SCH (17:09)
[2021-04-23 20:17] VITALS: BP 156/74
[2021-04-23] MEDS: AMITRIPTYLINE 50 MG TAB PO SCH (20:20)
[2021-04-23] MEDS: SENNA 8.6 MG TAB (SENOKOT) PO SCH (20:20)
[2021-04-24] MEDS: **hydrALAZINE HCL** 25 MG TAB PO SCH ×3 (05:19→21:49)
[2021-04-24 05:30] VITALS: BP 150/82
[2021-04-24] MEDS: HumaLOG INSULIN (NovoLOG) PER UNIT SC SCH ×4 (08:23→20:03)
[2021-04-24] MEDS: ESCITALOPRAM OXALATE 5MG TABLET (LEXAPRO) PO SCH (08:24)
[2021-04-24] MEDS: DOCUSATE SODIUM 100MG CAPSULE PO SCH ×2 (08:24→20:02)
[2021-04-24] MEDS: LACTOBACILLUS ACIDOPHILUS CAP (BACID) PO SCH ×4 (08:24→20:01)
[2021-04-24] MEDS: PANTOPRAZOLE 40MG TAB (PROTONIX) PO SCH (08:24)
[2021-04-24] MEDS: aMILoride 5 MG TAB PO SCH (08:24)
[2021-04-24] MEDS: SITagliptin 50 MG TAB (JANUVIA) PO SCH (08:24)
[2021-04-24] MEDS: MAGNESIUM OXIDE 400MG TAB (MAG-OX) PO SCH (08:24)
[2021-04-24] MEDS: HEPARIN SOD (PORCINE) 5000UNITS/ML 1ML VIAL/SYRINGE SC SCH ×2 (08:25→20:01)
[2021-04-24] MEDS: CARVedilol 3.125 MG TAB PO SCH ×2 (08:25→20:02)
[2021-04-24] MEDS: TORSEMIDE 20 MG TAB PO SCH (08:25)
[2021-04-24] MEDS: ANASTROZOLE 1 MG PO SCH (08:25)
[2021-04-24] MEDS: ERTAPENEM SODIUM 1 GM in NS MINI-BAG PLUS 50 ML IV SCH (08:26)
[2021-04-24] MEDS: DIMETHICONE 2% OINTMENT(VANICREAM) 70GM TUBE TOP SCH ×2 (08:30→20:03)
[2021-04-24] MEDS: REMEDY PHYTOPLEX Z-GUARD PASTE 113GM TUBE (FROM STOREROOM PRODUCT) TOP SCH ×3 (08:30→20:02)
[2021-04-24 14:00] VITALS: BP 140/64
[2021-04-24] MEDS: QUEtiapine FUMARATE 12.5 MG HALF-TAB PO SCH (17:46)
[2021-04-24 20:00] VITALS: BP 137/71
[2021-04-24] MEDS: AMITRIPTYLINE 50 MG TAB PO SCH (20:02)
[2021-04-24] MEDS: SENNA 8.6 MG TAB (SENOKOT) PO SCH (20:02)
[2021-04-25] MEDS: **hydrALAZINE HCL** 25 MG TAB PO SCH ×3 (05:02→21:52)
[2021-04-25 06:00] VITALS: BP 160/76
[2021-04-25 08:02] LABS: BASO # 0.1 10^3/uL (0.0-0.2); BASO % 0.6 % (0.0-1.0); EOS # 0.2 10^3/uL (0.0-0.5); EOS % 2.3 % (0.0-3.0); HEMATOCRIT 38.8 % (36.0-47.0); HEMOGLOBIN 12.3 g/dl (12.0-15.5); LYMPH # 2.3 10^3/uL (1.5-5.0); LYMPH % 26.2 % (24.0-44.0); MEAN CORPUSCULAR HEMOGLOBIN 29.9 pg (27.0-33.0); MEAN CORPUSCULAR HGB CONC 31.7 g/dl (32.0-36.5); MEAN CORPUSCULAR VOLUME 94.2 fl (80.0-96.0); MONO # 0.4 10^3/uL (0.0-0.8); MONO % 4.4 % (2.0-8.0); NEUTROPHILS # 5.8 10^3/uL (1.5-8.5); NEUTROPHILS % 65.7 % (36.0-66.0); PLATELET COUNT, AUTOMATED 335 10^3/uL (150-450); RED BLOOD COUNT 4.12 10^6/uL (4.00-5.40); WHITE BLOOD COUNT 8.8 10^3/uL (4.0-10.0)
[2021-04-25 08:17] LABS: CALCIUM LEVEL 8.4 MG/DL (8.8-10.2); CREATININE FOR GFR 1.47 MG/DL (0.55-1.30); GLOMERULAR FILTRATION RATE 36.9 (>39); POTASSIUM SERUM 4.5 MEQ/L (3.5-5.1)
[2021-04-25] MEDS: DOCUSATE SODIUM 100MG CAPSULE PO SCH ×2 (08:28→21:52)
[2021-04-25] MEDS: HumaLOG INSULIN (NovoLOG) PER UNIT SC SCH ×4 (08:28→19:27)
[2021-04-25] MEDS: HEPARIN SOD (PORCINE) 5000UNITS/ML 1ML VIAL/SYRINGE SC SCH ×2 (08:28→21:52)
[2021-04-25] MEDS: aMILoride 5 MG TAB PO SCH (08:29)
[2021-04-25] MEDS: SITagliptin 50 MG TAB (JANUVIA) PO SCH (08:29)
[2021-04-25] MEDS: PANTOPRAZOLE 40MG TAB (PROTONIX) PO SCH (08:29)
[2021-04-25] MEDS: ESCITALOPRAM OXALATE 5MG TABLET (LEXAPRO) PO SCH (08:29)
[2021-04-25] MEDS: LACTOBACILLUS ACIDOPHILUS CAP (BACID) PO SCH ×4 (08:30→21:51)
[2021-04-25] MEDS: CALCITRIOL 0.25 MCG CAP (S0169) PO SCH (08:30)
[2021-04-25] MEDS: CARVedilol 3.125 MG TAB PO SCH ×2 (08:30→21:52)
[2021-04-25] MEDS: TORSEMIDE 20 MG TAB PO SCH (08:32)
[2021-04-25] MEDS: ANASTROZOLE 1 MG PO SCH (08:33)
[2021-04-25] MEDS: REMEDY PHYTOPLEX Z-GUARD PASTE 113GM TUBE (FROM STOREROOM PRODUCT) TOP SCH ×3 (08:34→21:52)
[2021-04-25] MEDS: DIMETHICONE 2% OINTMENT(VANICREAM) 70GM TUBE TOP SCH ×2 (08:35→21:55)
[2021-04-25] MEDS: VANICREAM MOISTURIZING SKIN CREAM 113GM TUBE TOP SCH ×2 (09:00→21:00)
[2021-04-25 14:00] VITALS: BP 130/71
[2021-04-25] MEDS: QUEtiapine FUMARATE 12.5 MG HALF-TAB PO SCH (15:24)
[2021-04-25 20:00] VITALS: BP 138/82
[2021-04-25] MEDS: AMITRIPTYLINE 50 MG TAB PO SCH (21:51)
[2021-04-25] MEDS: SENNA 8.6 MG TAB (SENOKOT) PO SCH (21:52)
[2021-04-26] MEDS: **hydrALAZINE HCL** 25 MG TAB PO SCH ×4 (05:22→20:25)
[2021-04-26 06:00] VITALS: BP 158/82
[2021-04-26] MEDS: ANASTROZOLE 1 MG PO SCH (09:18)
[2021-04-26] MEDS: HumaLOG INSULIN (NovoLOG) PER UNIT SC SCH ×4 (09:19→20:25)
[2021-04-26] MEDS: MAGNESIUM OXIDE 400MG TAB (MAG-OX) PO SCH (09:20)
[2021-04-26] MEDS: CARVedilol 3.125 MG TAB PO SCH ×2 (09:20→20:24)
[2021-04-26] MEDS: PANTOPRAZOLE 40MG TAB (PROTONIX) PO SCH (09:20)
[2021-04-26] MEDS: DOCUSATE SODIUM 100MG CAPSULE PO SCH ×2 (09:20→20:24)
[2021-04-26] MEDS: aMILoride 5 MG TAB PO SCH (09:20)
[2021-04-26] MEDS: LACTOBACILLUS ACIDOPHILUS CAP (BACID) PO SCH ×4 (09:21→20:24)
[2021-04-26] MEDS: SITagliptin 50 MG TAB (JANUVIA) PO SCH (09:21)
[2021-04-26] MEDS: HEPARIN SOD (PORCINE) 5000UNITS/ML 1ML VIAL/SYRINGE SC SCH ×2 (09:21→20:24)
[2021-04-26] MEDS: ESCITALOPRAM OXALATE 5MG TABLET (LEXAPRO) PO SCH (09:21)
[2021-04-26] MEDS: TORSEMIDE 20 MG TAB PO SCH (09:25)
[2021-04-26] MEDS: REMEDY PHYTOPLEX Z-GUARD PASTE 113GM TUBE (FROM STOREROOM PRODUCT) TOP SCH ×3 (09:31→20:25)
[2021-04-26] MEDS: VANICREAM MOISTURIZING SKIN CREAM 113GM TUBE TOP SCH ×2 (09:31→20:26)
[2021-04-26] MEDS: DIMETHICONE 2% OINTMENT(VANICREAM) 70GM TUBE TOP SCH ×2 (09:32→20:26)
[2021-04-26 10:56] VITALS: BP 153/79
[2021-04-26 14:00] VITALS: BP 168/77
[2021-04-26] MEDS: QUEtiapine FUMARATE 12.5 MG HALF-TAB PO SCH (17:13)
[2021-04-26 20:00] VITALS: BP 139/70
[2021-04-26] MEDS: AMITRIPTYLINE 50 MG TAB PO SCH (20:24)
[2021-04-26] MEDS: SENNA 8.6 MG TAB (SENOKOT) PO SCH (20:24)
[2021-04-27 05:57] VITALS: BP 141/67
[2021-04-27 08:15] LABS: BASO % 0.5 % (0.0-1.0); EOS # 0.2 10^3/uL (0.0-0.5); EOS % 2.8 % (0.0-3.0); HEMATOCRIT 33.2 % (36.0-47.0); HEMOGLOBIN 10.7 g/dl (12.0-15.5); LYMPH # 1.7 10^3/uL (1.5-5.0); LYMPH % 21.1 % (24.0-44.0); MEAN CORPUSCULAR HEMOGLOBIN 30.3 pg (27.0-33.0); MEAN CORPUSCULAR HGB CONC 32.2 g/dl (32.0-36.5); MEAN CORPUSCULAR VOLUME 94.1 fl (80.0-96.0); MONO # 0.5 10^3/uL (0.0-0.8); MONO % 5.9 % (2.0-8.0); NEUTROPHILS # 5.6 10^3/uL (1.5-8.5); NEUTROPHILS % 68.8 % (36.0-66.0); PLATELET COUNT, AUTOMATED 261 10^3/uL (150-450); RED BLOOD COUNT 3.53 10^6/uL (4.00-5.40); WHITE BLOOD COUNT 8.2 10^3/uL (4.0-10.0)
[2021-04-27 08:39] LABS: CALCIUM LEVEL 8.6 MG/DL (8.8-10.2); CREATININE FOR GFR 1.37 MG/DL (0.55-1.30); POTASSIUM SERUM 4.3 MEQ/L (3.5-5.1)
[2021-04-27] MEDS: LACTOBACILLUS ACIDOPHILUS CAP (BACID) PO SCH ×4 (09:01→20:46)
[2021-04-27] MEDS: HumaLOG INSULIN (NovoLOG) PER UNIT SC SCH ×4 (09:01→20:48)
[2021-04-27] MEDS: ESCITALOPRAM OXALATE 5MG TABLET (LEXAPRO) PO SCH (09:01)
[2021-04-27] MEDS: aMILoride 5 MG TAB PO SCH (09:01)
[2021-04-27] MEDS: SITagliptin 50 MG TAB (JANUVIA) PO SCH (09:02)
[2021-04-27] MEDS: DOCUSATE SODIUM 100MG CAPSULE PO SCH ×2 (09:02→20:47)
[2021-04-27] MEDS: CALCITRIOL 0.25 MCG CAP (S0169) PO SCH (09:02)
[2021-04-27] MEDS: **hydrALAZINE HCL** 25 MG TAB PO SCH ×3 (09:03→20:47)
[2021-04-27] MEDS: TORSEMIDE 20 MG TAB PO SCH (09:03)
[2021-04-27] MEDS: PANTOPRAZOLE 40MG TAB (PROTONIX) PO SCH (09:03)
[2021-04-27] MEDS: CARVedilol 3.125 MG TAB PO SCH ×2 (09:03→20:46)
[2021-04-27] MEDS: REMEDY PHYTOPLEX Z-GUARD PASTE 113GM TUBE (FROM STOREROOM PRODUCT) TOP SCH ×3 (09:04→20:49)
[2021-04-27] MEDS: HEPARIN SOD (PORCINE) 5000UNITS/ML 1ML VIAL/SYRINGE SC SCH ×2 (09:04→20:47)
[2021-04-27] MEDS: VANICREAM MOISTURIZING SKIN CREAM 113GM TUBE TOP SCH (09:05)
[2021-04-27] MEDS: DIMETHICONE 2% OINTMENT(VANICREAM) 70GM TUBE TOP SCH ×2 (09:05→20:50)
[2021-04-27] MEDS: SODIUM CHLORIDE NASAL 0.65% SPRAY BTL (OCEAN) SCH ×3 (12:07→20:48)
[2021-04-27] MEDS: FLUTICASONE PROP 0.05% NASAL SPRAY 16 GM (FLONASE) NARES SCH ×2 (12:07→20:48)
[2021-04-27 14:00] VITALS: BP 140/62
[2021-04-27] MEDS: ANASTROZOLE 1 MG PO SCH (15:25)
[2021-04-27] MEDS: QUEtiapine FUMARATE 12.5 MG HALF-TAB PO SCH (15:26)
[2021-04-27 20:00] VITALS: BP 129/71
[2021-04-27] MEDS: AMITRIPTYLINE 50 MG TAB PO SCH (20:46)
[2021-04-27] MEDS: SENNA 8.6 MG TAB (SENOKOT) PO SCH (20:47)
[2021-04-28 05:40] VITALS: BP 147/61
[2021-04-28] MEDS: HumaLOG INSULIN (NovoLOG) PER UNIT SC SCH (08:34)
[2021-04-28 09:00] VITALS: BP 131/94
[2021-04-28] MEDS: HEPARIN SOD (PORCINE) 5000UNITS/ML 1ML VIAL/SYRINGE SC SCH ×2 (09:10→21:18)
[2021-04-28] MEDS: ESCITALOPRAM OXALATE 5MG TABLET (LEXAPRO) PO SCH (09:11)
[2021-04-28] MEDS: SITagliptin 50 MG TAB (JANUVIA) PO SCH (09:11)
[2021-04-28] MEDS: DOCUSATE SODIUM 100MG CAPSULE PO SCH ×2 (09:11→21:17)
[2021-04-28] MEDS: MAGNESIUM OXIDE 400MG TAB (MAG-OX) PO SCH (09:11)
[2021-04-28] MEDS: LACTOBACILLUS ACIDOPHILUS CAP (BACID) PO SCH ×4 (09:12→21:17)
[2021-04-28] MEDS: aMILoride 5 MG TAB PO SCH (09:12)
[2021-04-28] MEDS: ANASTROZOLE 1 MG PO SCH (09:12)
[2021-04-28] MEDS: TORSEMIDE 20 MG TAB PO SCH (09:12)
[2021-04-28] MEDS: PANTOPRAZOLE 40MG TAB (PROTONIX) PO SCH (09:12)
[2021-04-28] MEDS: SODIUM CHLORIDE NASAL 0.65% SPRAY BTL (OCEAN) SCH ×3 (09:13→21:18)
[2021-04-28] MEDS: REMEDY PHYTOPLEX Z-GUARD PASTE 113GM TUBE (FROM STOREROOM PRODUCT) TOP SCH ×3 (09:13→21:19)
[2021-04-28] MEDS: DIMETHICONE 2% OINTMENT(VANICREAM) 70GM TUBE TOP SCH ×2 (09:13→21:19)
[2021-04-28] MEDS: FLUTICASONE PROP 0.05% NASAL SPRAY 16 GM (FLONASE) NARES SCH ×2 (09:13→21:18)
[2021-04-28] MEDS: **hydrALAZINE HCL** 25 MG TAB PO SCH ×3 (09:14→21:17)
[2021-04-28] MEDS: CARVedilol 3.125 MG TAB PO SCH ×2 (09:15→21:18)
[2021-04-28 14:00] VITALS: BP 133/75
[2021-04-28] MEDS: QUEtiapine FUMARATE 12.5 MG HALF-TAB PO SCH (16:51)
[2021-04-28 20:00] VITALS: BP 137/63
[2021-04-28] MEDS: AMITRIPTYLINE 50 MG TAB PO SCH (21:17)
[2021-04-28] MEDS: SENNA 8.6 MG TAB (SENOKOT) PO SCH (21:17)
[2021-04-29 06:00] VITALS: BP 142/74
[2021-04-29 06:57] LABS: CALCIUM LEVEL 8.9 MG/DL (8.8-10.2); CREATININE FOR GFR 1.3 MG/DL (0.55-1.30); GLOMERULAR FILTRATION RATE 42.5 (>39); POTASSIUM SERUM 4.1 MEQ/L (3.5-5.1)
[2021-04-29 08:14] LABS: BASO % 0.4 % (0.0-1.0); EOS # 0.3 10^3/uL (0.0-0.5); EOS % 2.7 % (0.0-3.0); HEMATOCRIT 35.4 % (36.0-47.0); HEMOGLOBIN 11.3 g/dl (12.0-15.5); LYMPH # 2.3 10^3/uL (1.5-5.0); LYMPH % 25.1 % (24.0-44.0); MEAN CORPUSCULAR HEMOGLOBIN 29.7 pg (27.0-33.0); MEAN CORPUSCULAR HGB CONC 31.9 g/dl (32.0-36.5); MEAN CORPUSCULAR VOLUME 93.2 fl (80.0-96.0); MONO # 0.4 10^3/uL (0.0-0.8); MONO % 4.7 % (2.0-8.0); NEUTROPHILS # 6.1 10^3/uL (1.5-8.5); NEUTROPHILS % 66.6 % (36.0-66.0); PLATELET COUNT, AUTOMATED 279 10^3/uL (150-450); WHITE BLOOD COUNT 9.2 10^3/uL (4.0-10.0)
[2021-04-29] MEDS: ANASTROZOLE 1 MG PO SCH (08:46)
[2021-04-29] MEDS: **hydrALAZINE HCL** 25 MG TAB PO SCH ×3 (08:47→21:35)
[2021-04-29] MEDS: LACTOBACILLUS ACIDOPHILUS CAP (BACID) PO SCH ×4 (08:47→21:34)
[2021-04-29] MEDS: DOCUSATE SODIUM 100MG CAPSULE PO SCH ×2 (08:47→21:35)
[2021-04-29] MEDS: PANTOPRAZOLE 40MG TAB (PROTONIX) PO SCH (08:47)
[2021-04-29] MEDS: TORSEMIDE 20 MG TAB PO SCH (08:47)
[2021-04-29] MEDS: aMILoride 5 MG TAB PO SCH (08:47)
[2021-04-29] MEDS: ESCITALOPRAM OXALATE 5MG TABLET (LEXAPRO) PO SCH (08:47)
[2021-04-29] MEDS: SITagliptin 50 MG TAB (JANUVIA) PO SCH (08:47)
[2021-04-29] MEDS: HEPARIN SOD (PORCINE) 5000UNITS/ML 1ML VIAL/SYRINGE SC SCH ×2 (08:48→21:35)
[2021-04-29] MEDS: FLUTICASONE PROP 0.05% NASAL SPRAY 16 GM (FLONASE) NARES SCH ×2 (08:48→21:36)
[2021-04-29] MEDS: SODIUM CHLORIDE NASAL 0.65% SPRAY BTL (OCEAN) SCH ×3 (08:48→21:36)
[2021-04-29] MEDS: CARVedilol 3.125 MG TAB PO SCH ×2 (08:48→21:35)
[2021-04-29] MEDS: REMEDY PHYTOPLEX Z-GUARD PASTE 113GM TUBE (FROM STOREROOM PRODUCT) TOP SCH ×3 (08:50→21:36)
[2021-04-29] MEDS: ACETAMINOPHEN TAB 650MG DOSE (2X325MG) PO PRN (08:50)
[2021-04-29] MEDS: DIMETHICONE 2% OINTMENT(VANICREAM) 70GM TUBE TOP SCH ×2 (08:50→21:36)
[2021-04-29 14:00] VITALS: BP 149/72
[2021-04-29] MEDS: QUEtiapine FUMARATE 12.5 MG HALF-TAB PO SCH (17:45)
[2021-04-29 20:00] VITALS: BP 152/85
[2021-04-29] MEDS: SENNA 8.6 MG TAB (SENOKOT) PO SCH (21:35)
[2021-04-29] MEDS: AMITRIPTYLINE 50 MG TAB PO SCH (21:35)
[2021-04-30 06:00] VITALS: BP 154/80
[2021-04-30] MEDS: **hydrALAZINE HCL** 25 MG TAB PO SCH ×3 (08:58→20:50)
[2021-04-30] MEDS: LACTOBACILLUS ACIDOPHILUS CAP (BACID) PO SCH ×4 (08:58→20:51)
[2021-04-30] MEDS: DOCUSATE SODIUM 100MG CAPSULE PO SCH ×2 (08:59→20:51)
[2021-04-30] MEDS: CARVedilol 3.125 MG TAB PO SCH ×2 (08:59→20:50)
[2021-04-30] MEDS: TORSEMIDE 20 MG TAB PO SCH (08:59)
[2021-04-30] MEDS: REMEDY PHYTOPLEX Z-GUARD PASTE 113GM TUBE (FROM STOREROOM PRODUCT) TOP SCH ×3 (09:00→20:52)
[2021-04-30] MEDS: aMILoride 5 MG TAB PO SCH (09:00)
[2021-04-30] MEDS: MAGNESIUM OXIDE 400MG TAB (MAG-OX) PO SCH (09:00)
[2021-04-30] MEDS: ESCITALOPRAM OXALATE 5MG TABLET (LEXAPRO) PO SCH (09:00)
[2021-04-30] MEDS: SITagliptin 50 MG TAB (JANUVIA) PO SCH (09:00)
[2021-04-30] MEDS: HEPARIN SOD (PORCINE) 5000UNITS/ML 1ML VIAL/SYRINGE SC SCH ×2 (09:01→20:51)
[2021-04-30] MEDS: PANTOPRAZOLE 40MG TAB (PROTONIX) PO SCH (09:01)
[2021-04-30] MEDS: ANASTROZOLE 1 MG PO SCH (09:01)
[2021-04-30] MEDS: SODIUM CHLORIDE NASAL 0.65% SPRAY BTL (OCEAN) SCH ×3 (09:02→20:51)
[2021-04-30] MEDS: FLUTICASONE PROP 0.05% NASAL SPRAY 16 GM (FLONASE) NARES SCH ×2 (09:02→20:51)
[2021-04-30] MEDS: DIMETHICONE 2% OINTMENT(VANICREAM) 70GM TUBE TOP SCH ×2 (09:03→20:53)
[2021-04-30 14:00] VITALS: BP 141/67
[2021-04-30] MEDS: QUEtiapine FUMARATE 12.5 MG HALF-TAB PO SCH (16:48)
[2021-04-30 20:00] VITALS: BP 133/75
[2021-04-30] MEDS: AMITRIPTYLINE 50 MG TAB PO SCH (20:51)
[2021-04-30] MEDS: SENNA 8.6 MG TAB (SENOKOT) PO SCH (20:51)
[2021-05-01 06:00] VITALS: BP 150/82
[2021-05-01] MEDS: LACTOBACILLUS ACIDOPHILUS CAP (BACID) PO SCH ×4 (07:49→21:58)
[2021-05-01] MEDS: **hydrALAZINE HCL** 25 MG TAB PO SCH ×3 (07:50→21:56)
[2021-05-01] MEDS: CARVedilol 3.125 MG TAB PO SCH ×2 (07:50→21:56)
[2021-05-01] MEDS: DOCUSATE SODIUM 100MG CAPSULE PO SCH ×2 (07:50→21:56)
[2021-05-01] MEDS: SITagliptin 50 MG TAB (JANUVIA) PO SCH (07:51)
[2021-05-01] MEDS: ESCITALOPRAM OXALATE 5MG TABLET (LEXAPRO) PO SCH (07:51)
[2021-05-01] MEDS: AMITRIPTYLINE 50 MG TAB PO SCH (07:51)
[2021-05-01] MEDS: TORSEMIDE 20 MG TAB PO SCH (07:51)
[2021-05-01] MEDS: PANTOPRAZOLE 40MG TAB (PROTONIX) PO SCH (07:52)
[2021-05-01] MEDS: HEPARIN SOD (PORCINE) 5000UNITS/ML 1ML VIAL/SYRINGE SC SCH ×2 (07:52→21:58)
[2021-05-01] MEDS: ANASTROZOLE 1 MG PO SCH (07:53)
[2021-05-01] MEDS: SODIUM CHLORIDE NASAL 0.65% SPRAY BTL (OCEAN) SCH ×3 (07:53→22:03)
[2021-05-01] MEDS: DIMETHICONE 2% OINTMENT(VANICREAM) 70GM TUBE TOP SCH ×2 (07:54→22:00)
[2021-05-01] MEDS: FLUTICASONE PROP 0.05% NASAL SPRAY 16 GM (FLONASE) NARES SCH ×2 (07:54→22:03)
[2021-05-01] MEDS: REMEDY PHYTOPLEX Z-GUARD PASTE 113GM TUBE (FROM STOREROOM PRODUCT) TOP SCH ×3 (07:55→21:00)
[2021-05-01] MEDS: aMILoride 5 MG TAB PO SCH (08:01)
[2021-05-01 14:00] VITALS: BP_SYST 131; BP_SYST 167; BP_DIAS 60; BP_DIAS 77
[2021-05-01] MEDS: QUEtiapine FUMARATE 12.5 MG HALF-TAB PO SCH (16:29)
[2021-05-01 19:42] VITALS: BP 132/73
[2021-05-01] MEDS: SENNA 8.6 MG TAB (SENOKOT) PO SCH (21:58)
[2021-05-02 06:59] VITALS: BP 164/76
[2021-05-02] MEDS: HEPARIN SOD (PORCINE) 5000UNITS/ML 1ML VIAL/SYRINGE SC SCH ×2 (08:09→20:07)
[2021-05-02] MEDS: DOCUSATE SODIUM 100MG CAPSULE PO SCH ×2 (08:10→20:07)
[2021-05-02] MEDS: ANASTROZOLE 1 MG PO SCH (08:10)
[2021-05-02] MEDS: aMILoride 5 MG TAB PO SCH (08:10)
[2021-05-02] MEDS: CALCITRIOL 0.25 MCG CAP (S0169) PO SCH (08:10)
[2021-05-02] MEDS: **hydrALAZINE HCL** 25 MG TAB PO SCH ×3 (08:10→20:07)
[2021-05-02] MEDS: PANTOPRAZOLE 40MG TAB (PROTONIX) PO SCH (08:10)
[2021-05-02] MEDS: LACTOBACILLUS ACIDOPHILUS CAP (BACID) PO SCH ×4 (08:10→20:07)
[2021-05-02] MEDS: TORSEMIDE 20 MG TAB PO SCH (08:11)
[2021-05-02] MEDS: SITagliptin 50 MG TAB (JANUVIA) PO SCH (08:11)
[2021-05-02] MEDS: CARVedilol 3.125 MG TAB PO SCH ×2 (08:11→20:07)
[2021-05-02] MEDS: ESCITALOPRAM OXALATE 5MG TABLET (LEXAPRO) PO SCH (08:11)
[2021-05-02] MEDS: MAGNESIUM OXIDE 400MG TAB (MAG-OX) PO SCH (08:11)
[2021-05-02] MEDS: REMEDY PHYTOPLEX Z-GUARD PASTE 113GM TUBE (FROM STOREROOM PRODUCT) TOP SCH ×3 (08:12→20:06)
[2021-05-02] MEDS: FLUTICASONE PROP 0.05% NASAL SPRAY 16 GM (FLONASE) NARES SCH ×2 (08:12→20:08)
[2021-05-02] MEDS: SODIUM CHLORIDE NASAL 0.65% SPRAY BTL (OCEAN) SCH ×3 (08:12→20:08)
[2021-05-02] MEDS: DIMETHICONE 2% OINTMENT(VANICREAM) 70GM TUBE TOP SCH ×2 (08:13→20:11)
[2021-05-02 11:50] LABS: BASO # 0.1 10^3/uL (0.0-0.2); BASO % 0.6 % (0.0-1.0); EOS # 0.2 10^3/uL (0.0-0.5); EOS % 2.3 % (0.0-3.0); HEMATOCRIT 38.9 % (36.0-47.0); HEMOGLOBIN 12.5 g/dl (12.0-15.5); LYMPH # 2.3 10^3/uL (1.5-5.0); LYMPH % 21.8 % (24.0-44.0); MEAN CORPUSCULAR HGB CONC 32.1 g/dl (32.0-36.5); MEAN CORPUSCULAR VOLUME 93.5 fl (80.0-96.0); MONO # 0.5 10^3/uL (0.0-0.8); MONO % 4.5 % (2.0-8.0); NEUTROPHILS # 7.4 10^3/uL (1.5-8.5); NEUTROPHILS % 70.4 % (36.0-66.0); PLATELET COUNT, AUTOMATED 334 10^3/uL (150-450); RED BLOOD COUNT 4.16 10^6/uL (4.00-5.40); WHITE BLOOD COUNT 10.5 10^3/uL (4.0-10.0)
[2021-05-02 12:14] LABS: CALCIUM LEVEL 9.4 MG/DL (8.8-10.2); CREATININE FOR GFR 1.59 MG/DL (0.55-1.30); GLOMERULAR FILTRATION RATE 33.7 (>39); POTASSIUM SERUM 4.5 MEQ/L (3.5-5.1)
[2021-05-02 14:00] VITALS: BP 134/94
[2021-05-02 15:01] VITALS: BP 153/72
[2021-05-02] MEDS: QUEtiapine FUMARATE 12.5 MG HALF-TAB PO SCH (15:05)
[2021-05-02 20:00] VITALS: BP 144/78
[2021-05-02] MEDS: SENNA 8.6 MG TAB (SENOKOT) PO SCH (20:06)
[2021-05-02] MEDS: AMITRIPTYLINE 50 MG TAB PO SCH (20:07)
[2021-05-03 06:00] VITALS: BP 145/70
[2021-05-03] MEDS: REMEDY PHYTOPLEX Z-GUARD PASTE 113GM TUBE (FROM STOREROOM PRODUCT) TOP SCH ×3 (09:00→22:03)
[2021-05-03] MEDS: HEPARIN SOD (PORCINE) 5000UNITS/ML 1ML VIAL/SYRINGE SC SCH ×2 (09:49→22:00)
[2021-05-03] MEDS: **hydrALAZINE HCL** 25 MG TAB PO SCH ×3 (09:52→22:00)
[2021-05-03] MEDS: CARVedilol 3.125 MG TAB PO SCH ×2 (09:53→22:01)
[2021-05-03] MEDS: SITagliptin 50 MG TAB (JANUVIA) PO SCH (09:53)
[2021-05-03] MEDS: PANTOPRAZOLE 40MG TAB (PROTONIX) PO SCH (09:53)
[2021-05-03] MEDS: ESCITALOPRAM OXALATE 5MG TABLET (LEXAPRO) PO SCH (09:53)
[2021-05-03] MEDS: DOCUSATE SODIUM 100MG CAPSULE PO SCH ×2 (09:53→22:00)
[2021-05-03] MEDS: aMILoride 5 MG TAB PO SCH (09:53)
[2021-05-03] MEDS: LACTOBACILLUS ACIDOPHILUS CAP (BACID) PO SCH ×4 (09:53→22:00)
[2021-05-03] MEDS: TORSEMIDE 20 MG TAB PO SCH (09:53)
[2021-05-03] MEDS: FLUTICASONE PROP 0.05% NASAL SPRAY 16 GM (FLONASE) NARES SCH ×2 (09:54→21:00)
[2021-05-03] MEDS: ANASTROZOLE 1 MG PO SCH (09:55)
[2021-05-03] MEDS: SODIUM CHLORIDE NASAL 0.65% SPRAY BTL (OCEAN) SCH ×3 (09:55→22:04)
[2021-05-03] MEDS: DIMETHICONE 2% OINTMENT(VANICREAM) 70GM TUBE TOP SCH ×2 (09:57→21:00)
[2021-05-03 14:00] VITALS: BP 168/93
[2021-05-03] MEDS ORDERED: JANU25TA PO (14:22)
[2021-05-03] MEDS ORDERED: QUET1TAB17 PO (14:22)
[2021-05-03] MEDS ORDERED: HYDR25TA PO (14:22)
[2021-05-03] MEDS: QUEtiapine FUMARATE 12.5 MG HALF-TAB PO SCH ×2 (16:28→22:00)
[2021-05-03 20:00] VITALS: BP 178/90
[2021-05-03] MEDS: AMITRIPTYLINE 50 MG TAB PO SCH (22:00)
[2021-05-03] MEDS: SENNA 8.6 MG TAB (SENOKOT) PO SCH (22:01)
[2021-05-04 05:13] VITALS: BP 177/79
[2021-05-04 06:25] LABS: BASO # 0.1 10^3/uL (0.0-0.2); BASO % 0.8 % (0.0-1.0); EOS # 0.2 10^3/uL (0.0-0.5); HEMOGLOBIN 10.7 g/dl (12.0-15.5); LYMPH # 2.6 10^3/uL (1.5-5.0); LYMPH % 32.2 % (24.0-44.0); MEAN CORPUSCULAR HEMOGLOBIN 29.9 pg (27.0-33.0); MEAN CORPUSCULAR HGB CONC 31.5 g/dl (32.0-36.5); MONO # 0.6 10^3/uL (0.0-0.8); NEUTROPHILS # 4.5 10^3/uL (1.5-8.5); NEUTROPHILS % 56.5 % (36.0-66.0); PLATELET COUNT, AUTOMATED 261 10^3/uL (150-450); RED BLOOD COUNT 3.58 10^6/uL (4.00-5.40); WHITE BLOOD COUNT 7.9 10^3/uL (4.0-10.0)
[2021-05-04 06:54] LABS: CALCIUM LEVEL 9.2 MG/DL (8.8-10.2); CREATININE FOR GFR 1.48 MG/DL (0.55-1.30); GLOMERULAR FILTRATION RATE 36.6 (>39); POTASSIUM SERUM 4.1 MEQ/L (3.5-5.1)
[2021-05-04] MEDS: ANASTROZOLE 1 MG PO SCH (08:49)
[2021-05-04 08:50] VITALS: BP 177/79
[2021-05-04] MEDS: DOCUSATE SODIUM 100MG CAPSULE PO SCH (08:50)
[2021-05-04] MEDS: LACTOBACILLUS ACIDOPHILUS CAP (BACID) PO SCH (08:50)
[2021-05-04] MEDS: **hydrALAZINE HCL** 25 MG TAB PO SCH (08:50)
[2021-05-04] MEDS: aMILoride 5 MG TAB PO SCH (08:50)
[2021-05-04] MEDS: CALCITRIOL 0.25 MCG CAP (S0169) PO SCH (08:50)
[2021-05-04] MEDS: ESCITALOPRAM OXALATE 5MG TABLET (LEXAPRO) PO SCH (08:50)
[2021-05-04] MEDS: PANTOPRAZOLE 40MG TAB (PROTONIX) PO SCH (08:50)
[2021-05-04] MEDS: CARVedilol 3.125 MG TAB PO SCH (08:50)
[2021-05-04] MEDS: SODIUM CHLORIDE NASAL 0.65% SPRAY BTL (OCEAN) SCH (08:51)
[2021-05-04] MEDS: REMEDY PHYTOPLEX Z-GUARD PASTE 113GM TUBE (FROM STOREROOM PRODUCT) TOP SCH (08:51)
[2021-05-04] MEDS: SITagliptin 50 MG TAB (JANUVIA) PO SCH (08:51)
[2021-05-04] MEDS: FLUTICASONE PROP 0.05% NASAL SPRAY 16 GM (FLONASE) NARES SCH (08:51)
[2021-05-04] MEDS: HEPARIN SOD (PORCINE) 5000UNITS/ML 1ML VIAL/SYRINGE SC SCH (08:51)
[2021-05-04] MEDS: MAGNESIUM OXIDE 400MG TAB (MAG-OX) PO SCH (08:51)
[2021-05-04] MEDS: TORSEMIDE 20 MG TAB PO SCH (08:51)
[2021-05-04] MEDS: DIMETHICONE 2% OINTMENT(VANICREAM) 70GM TUBE TOP SCH (08:53)
[2021-07-04] MEDS ORDERED: JANU25TA PO (15:23)
[2021-07-04] MEDS ORDERED: TORS20TA2 PO (15:23)
[2021-07-04] MEDS ORDERED: CALC600T86 PO (15:42)
== END 2021-05-04 10:05 | DRG 74 ==
LOC: M PM&R 18:40
PROVIDERS: ADMIT Physical Medicine & Rehabilitation; ATTEND Physical Medicine & Rehabilitation
DX: E11.42 Type 2 diabetes mellitus with diabetic polyneuropathy (principal); I50.32 Chronic diastolic (congestive) heart failure; N39.0 Urinary tract infection, site not specified; I13.0 Hypertensive heart and chronic kidney disease with heart failure and stage 1 through stage 4 chronic kidney disease, or unspecified chronic kidney disease; Z68.41 Body mass index [BMI] 40.0-44.9, adult; G47.33 Obstructive sleep apnea (adult) (pediatric); N18.30 Chronic kidney disease, stage 3 unspecified; E11.22 Type 2 diabetes mellitus with diabetic chronic kidney disease; G91.9 Hydrocephalus, unspecified; F41.1 Generalized anxiety disorder; R32 Unspecified urinary incontinence; E11.622 Type 2 diabetes mellitus with other skin ulcer; F31.9 Bipolar disorder, unspecified; Z66 Do not resuscitate; K59.00 Constipation, unspecified; Z85.3 Personal history of malignant neoplasm of breast; Z90.12 Acquired absence of left breast and nipple; Z74.09 Other reduced mobility; Z74.1 Need for assistance with personal care; Z79.4 Long term (current) use of insulin; Z79.899 Other long term (current) drug therapy; Z88.5 Allergy status to narcotic agent; Z88.8 Allergy status to other drugs, medicaments and biological substances; B96.20 Unspecified Escherichia coli [E. coli] as the cause of diseases classified elsewhere; E11.65 Type 2 diabetes mellitus with hyperglycemia; E66.01 Morbid (severe) obesity due to excess calories

== ENCOUNTER → 2021-07-12 | Outpatient (REF) | payer OTHER ==
[~2021-07-12] MED LIST changes: +CALC600T86 PO; +CYMB1CAP5 PO
== END ==
LOC: M LAB REF 12:44
PROVIDERS: ATTEND Internal Medicine Nephrology
DX: E83.42 Hypomagnesemia (principal)

== ENCOUNTER → 2022-02-17 | Outpatient (CLI) | payer OTHER, MEDICAID ==
[~2022-02-17] MED LIST changes: +LEVO1TAB40 PO; -LEVO750T13 PO
[2022-02-17 17:33] LABS: HEMOGLOBIN A1c 7.2 %
== END ==
LOC: M PLALAB 15:54
PROVIDERS: ATTEND Student in an Organized Health Care Education/Training Program
DX: E11.40 Type 2 diabetes mellitus with diabetic neuropathy, unspecified (principal)

== ENCOUNTER → 2022-03-09 | Outpatient (CLI) | payer OTHER, MEDICAID | LOC: M WHC 12:53 | PROVIDERS: ATTEND Nurse Practitioner Women's Health | DX: Z85.3 Personal history of malignant neoplasm of breast (principal); Z90.12 Acquired absence of left breast and nipple | CPT/HCPCS: 77065; G0279 ==

== ENCOUNTER → 2022-05-12 | Outpatient (CLI) | payer OTHER, MEDICAID ==
[2022-05-12 13:51] LABS: HEMOGLOBIN A1c 7.3 % (4.0-6.0)
[2022-05-12 13:56] LABS: MALB URINE SIEMENS < 3.0 MG/DL
[2022-05-12 13:59] LABS: CREATININE, URINE 101.4 MG/DL; MAU/CREAT RATIO 2.9 MCG/MG (0.0-30.0)
== END ==
LOC: M PLALAB 11:39
PROVIDERS: ATTEND Student in an Organized Health Care Education/Training Program
DX: E11.40 Type 2 diabetes mellitus with diabetic neuropathy, unspecified (principal)

== ENCOUNTER → 2022-06-12 | Outpatient (REF) | payer OTHER, MEDICAID | LOC: M SFHCPLAZ 13:54 | PROVIDERS: ATTEND Family Medicine | DX: Z53.9 Procedure and treatment not carried out, unspecified reason (principal) ==

== ENCOUNTER → 2022-06-14 | Outpatient (REF) | payer OTHER, MEDICAID | LOC: M SFHCWAGY 13:56 | PROVIDERS: ATTEND Surgery | DX: L98.7 Excessive and redundant skin and subcutaneous tissue (principal) ==

== ENCOUNTER → 2022-08-01 | Outpatient (CLI) | payer OTHER, MEDICAID ==
[~2022-08-01] MED LIST changes: +OMEP-173 PO; +OZEM2INJ
== END ==
LOC: M WHC 13:45
PROVIDERS: ATTEND Nurse Practitioner
DX: C50.919 Malignant neoplasm of unspecified site of unspecified female breast (principal); M85.89 Other specified disorders of bone density and structure, multiple sites

== ENCOUNTER → 2023-01-30 | Outpatient (CLI) | payer OTHER, MEDICAID ==
[~2023-01-30] MED LIST changes: -AMIT25TA17 PO; +AMIT25TA19 PO; +FINE10TA; +HYDR-3910
[2023-01-30 09:15] VITALS: TEMP 97.6
[2023-01-30 12:02] LABS: CSF TUBE# TP TUBE 1; TOTAL PROTEIN,CSF 99.9 MG/DL (15-45)
[2023-01-30 12:05] LABS: CSF TUBE# GLU TUBE 1
[2023-01-30 12:45] VITALS: BP 127/73; O2SAT 94
[2023-01-30 13:32] LABS: APPEARANCE, CSF CLEAR (CLEAR); COLOR, CSF COLORLESS (COLORLESS); CSF TUBE# CELL CNT TUBE 1
== END ==
LOC: M IRPRO 09:05
PROVIDERS: ATTEND Psychiatry & Neurology Neurology
DX: G93.2 Benign intracranial hypertension (principal); G35 Multiple sclerosis

== ENCOUNTER → 2023-03-09 | Outpatient (CLI) | payer OTHER, MEDICAID | LOC: M WHC 10:19 | PROVIDERS: ATTEND Nurse Practitioner Women's Health | DX: Z12.31 Encounter for screening mammogram for malignant neoplasm of breast (principal); C50.912 Malignant neoplasm of unspecified site of left female breast; Z90.12 Acquired absence of left breast and nipple; R92.321 Mammographic fibroglandular density, right breast; R92.1 Mammographic calcification found on diagnostic imaging of breast | CPT/HCPCS: 77067; G0279 ==

== ENCOUNTER 2023-06-10 13:26 | Inpatient (IN) | payer OTHER, MEDICAID ==
[~2023-06-10] VITALS: Ht 165.1 cm; Wt 96.9 kg
[~2023-06-10 13:26] MED LIST changes: -FINE10TA; +FINE10TA PO; -HYDR-3910; +HYDR-3910 PO; +OXYB5TAB11 PO; +SEMA2PEN SQ
[2023-06-10 14:02] LABS: BASO % 0.2 % (0.0-1.0); EOS % 0.1 % (0.0-3.0); HEMATOCRIT 41.7 % (36.0-47.0); HEMOGLOBIN 14.2 g/dl (12.0-15.5); LYMPH # 0.4 10^3/uL (1.5-5.0); LYMPH % 2.1 % (24.0-44.0); MEAN CORPUSCULAR HEMOGLOBIN 30.9 pg (27.0-33.0); MEAN CORPUSCULAR HGB CONC 34.1 g/dl (32.0-36.5); MEAN CORPUSCULAR VOLUME 90.7 fl (80.0-96.0); MONO # 0.7 10^3/uL (0.0-0.8); MONO % 3.5 % (2.0-8.0); NEUTROPHILS # 17.4 10^3/uL (1.5-8.5); NEUTROPHILS % 93.7 % (36.0-66.0); PLATELET COUNT, AUTOMATED 290 10^3/uL (150-450); WHITE BLOOD COUNT 18.5 10^3/uL (4.0-10.0)
[2023-06-10] MEDS ORDERED: NS 1,000 ML IV ONE (14:10)
[2023-06-10 14:31] LABS: BILIRUBIN,DIRECT 0.3 MG/DL (<0.4); BILIRUBIN,TOTAL 0.7 MG/DL (0.3-1.2); CALCIUM LEVEL 8.9 MG/DL (8.3-10.6); CREATININE FOR GFR 1.69 MG/DL (0.55-1.30); GLOMERULAR FILTRATION RATE 31.2 (>39); POTASSIUM SERUM 3.5 MMOL/L (3.5-5.1); TOTAL PROTEIN 7.5 G/DL (5.7-8.2)
[2023-06-10] MEDS ORDERED: cefTRIAXone SOD 2 GM in D5W MINI-BAG PLUS 50 ML IV ONE (15:35)
[2023-06-10] MEDS ORDERED: MAALOX 30 ML SUSP *UDC PO PRN (17:05)
[2023-06-10] MEDS ORDERED: GLUCAGON INJ 1MG VIAL SC PRN (17:05)
[2023-06-10] MEDS ORDERED: ACETAMINOPHEN TAB 650MG DOSE (2X325MG) PO PRN (17:05)
[2023-06-10] MEDS ORDERED: DEXTROSE 50% 50ML SYRINGE IV PRN (17:05)
[2023-06-10] MEDS ORDERED: GLUCOSE 4GM CHEW TABLET PO PRN (17:05)
[2023-06-10] MEDS ORDERED: MOM 30ML SUSPENSION UDC PO PRN ×2 (17:05→17:20)
[2023-06-10] MEDS ORDERED: MAGN200T PO (17:17)
[2023-06-10] MEDS ORDERED: DONE10TA90 PO (17:17)
[2023-06-10] MEDS ORDERED: OXYB5TAB11 PO (17:17)
[2023-06-10] MEDS ORDERED: D 101000 PO (17:17)
[2023-06-10] MEDS ORDERED: MIRALAX *UNIT DOSE* 17GM PACKET PO PRN (17:20)
[2023-06-10] MEDS ORDERED: HOME MED LIST COMPLETE! XX SCH (17:20)
[2023-06-10] MEDS ORDERED: BISACODYL 10MG SUPP PR ONE (17:20)
[2023-06-10] MEDS: NS 1,000 ML IV SCH (18:10)
[2023-06-10 18:37] LABS: PROCALCITONIN 2.35 ng/ml
[2023-06-10] MEDS: INSULIN LISPRO (NovoLOG) PER UNIT SC SCH ×2 (18:41→21:00)
[2023-06-10 20:40] VITALS: BP 152/64; TEMP 100.6; O2SAT 96
[2023-06-10] MEDS ORDERED: PROMETHAZINE 25MG/ML 1ML VIAL IV PRN (20:50)
[2023-06-10] MEDS ORDERED: DOCUSATE SODIUM 100MG CAPSULE PO SCH (21:00)
[2023-06-10] MEDS: HEPARIN SOD (PORCINE) 5000UNITS/ML 1ML VIAL/SYRINGE SC SCH (21:50)
[2023-06-10] MEDS: **hydrALAZINE HCL** 25 MG TAB PO SCH (21:54)
[2023-06-10] MEDS: CARVedilol 3.125 MG TAB PO SCH (21:55)
[2023-06-10] MEDS: QUEtiapine FUMARATE 25 MG TAB PO SCH (21:57)
[2023-06-10] MEDS: AMITRIPTYLINE 50 MG TAB PO SCH (21:58)
[2023-06-10] MEDS: oxyBUTYnin 5 MG TAB PO SCH (21:58)
[2023-06-10] MEDS: SENOKOT S TAB PO SCH (21:58)
[2023-06-10 23:46] VITALS: BP 104/65; TEMP 99.1; O2SAT 95
[2023-06-11] VITALS (7 sets, daily range): BP systolic 102–120; BP diastolic 52–78; TEMP 97–98.6; O2SAT 92–98
[2023-06-11 04:08] LABS: BASO % 0.1 % (0.0-1.0); HEMATOCRIT 34.4 % (36.0-47.0); LYMPH # 1.1 10^3/uL (1.5-5.0); LYMPH % 7.5 % (24.0-44.0); MEAN CORPUSCULAR HEMOGLOBIN 30.1 pg (27.0-33.0); MEAN CORPUSCULAR HGB CONC 33.1 g/dl (32.0-36.5); MEAN CORPUSCULAR VOLUME 90.8 fl (80.0-96.0); MONO # 1.3 10^3/uL (0.0-0.8); MONO % 8.6 % (2.0-8.0); NEUTROPHILS # 12.8 10^3/uL (1.5-8.5); NEUTROPHILS % 83.4 % (36.0-66.0); PLATELET COUNT, AUTOMATED 232 10^3/uL (150-450); RED BLOOD COUNT 3.79 10^6/uL (4.00-5.40); WHITE BLOOD COUNT 15.3 10^3/uL (4.0-10.0)
[2023-06-11 04:12] LABS: HEMOGLOBIN 11.4 g/dl (12.0-15.5)
[2023-06-11 04:37] LABS: CALCIUM LEVEL 7.7 MG/DL (8.3-10.6); CREATININE FOR GFR 1.7 MG/DL (0.55-1.30); MAGNESIUM LEVEL 2.1 MG/DL (1.8-2.4); POTASSIUM SERUM 3.4 MMOL/L (3.5-5.1)
[2023-06-11] MEDS: HEPARIN SOD (PORCINE) 5000UNITS/ML 1ML VIAL/SYRINGE SC SCH ×3 (05:18→22:04)
[2023-06-11] MEDS ORDERED: POTASSIUM CHLORIDE 10MEQ SR TABLET PO ONE (08:00)
[2023-06-11] MEDS: CARVedilol 3.125 MG TAB PO SCH ×2 (09:00→20:37)
[2023-06-11] MEDS: **hydrALAZINE HCL** 25 MG TAB PO SCH ×3 (09:00→20:38)
[2023-06-11] MEDS: NS 1,000 ML IV SCH ×2 (09:31→22:04)
[2023-06-11] MEDS: LACTOBACILLUS ACIDOPHILUS CAP (BACID) PO SCH (09:41)
[2023-06-11] MEDS: DULoxetine 30MG CAPSULE (CYMBALTA) PO SCH (09:41)
[2023-06-11] MEDS: DONEPEZIL 5 MG TAB PO SCH (09:41)
[2023-06-11] MEDS: OMEPRAZOLE 20MG CAP PO SCH (09:41)
[2023-06-11] MEDS: SENOKOT S TAB PO SCH ×2 (09:41→20:38)
[2023-06-11] MEDS: CALCITRIOL 0.25 MCG CAP (S0169) PO SCH (09:41)
[2023-06-11] MEDS: INSULIN LISPRO (NovoLOG) PER UNIT SC SCH ×4 (09:43→20:38)
[2023-06-11] MEDS ORDERED: ANAS1TAB2 PO (12:12)
[2023-06-11] MEDS ORDERED: cefTRIAXone SOD 1 GM in D5W MINI-BAG PLUS 50 ML IV SCH (16:00)
[2023-06-11] MEDS: AMITRIPTYLINE 50 MG TAB PO SCH (20:37)
[2023-06-11] MEDS: oxyBUTYnin 5 MG TAB PO SCH (20:38)
[2023-06-11] MEDS: QUEtiapine FUMARATE 25 MG TAB PO SCH (20:38)
[2023-06-12 04:26] VITALS: BP 120/58; TEMP 97.9; O2SAT 93
[2023-06-12] MEDS: HEPARIN SOD (PORCINE) 5000UNITS/ML 1ML VIAL/SYRINGE SC SCH ×3 (05:21→21:09)
[2023-06-12 05:36] LABS: BASO % 0.5 % (0.0-1.0); EOS # 0.1 10^3/uL (0.0-0.5); EOS % 1.4 % (0.0-3.0); HEMATOCRIT 31.9 % (36.0-47.0); HEMOGLOBIN 10.5 g/dl (12.0-15.5); LYMPH # 1.8 10^3/uL (1.5-5.0); LYMPH % 20.7 % (24.0-44.0); MEAN CORPUSCULAR HEMOGLOBIN 30.2 pg (27.0-33.0); MEAN CORPUSCULAR HGB CONC 32.9 g/dl (32.0-36.5); MEAN CORPUSCULAR VOLUME 91.7 fl (80.0-96.0); MONO % 11.6 % (2.0-8.0); NEUTROPHILS # 5.5 10^3/uL (1.5-8.5); NEUTROPHILS % 65.4 % (36.0-66.0); PLATELET COUNT, AUTOMATED 231 10^3/uL (150-450); RED BLOOD COUNT 3.48 10^6/uL (4.00-5.40); WHITE BLOOD COUNT 8.5 10^3/uL (4.0-10.0)
[2023-06-12 06:06] LABS: CALCIUM LEVEL 7.8 MG/DL (8.3-10.6); CREATININE FOR GFR 1.37 MG/DL (0.55-1.30); GLOMERULAR FILTRATION RATE 39.8 (>39); POTASSIUM SERUM 3.8 MMOL/L (3.5-5.1)
[2023-06-12] MEDS: INSULIN LISPRO (NovoLOG) PER UNIT SC SCH ×4 (07:30→20:37)
[2023-06-12 08:03] VITALS: BP 136/64; O2SAT 97
[2023-06-12] MEDS: ANASTROZOLE 1 MG PO SCH (09:00)
[2023-06-12 09:11] LABS: PROCALCITONIN 3.12 ng/ml
[2023-06-12] MEDS: DULoxetine 30MG CAPSULE (CYMBALTA) PO SCH (10:11)
[2023-06-12] MEDS: DONEPEZIL 5 MG TAB PO SCH (10:12)
[2023-06-12] MEDS: OMEPRAZOLE 20MG CAP PO SCH (10:12)
[2023-06-12] MEDS: LACTOBACILLUS ACIDOPHILUS CAP (BACID) PO SCH (10:12)
[2023-06-12] MEDS: CARVedilol 3.125 MG TAB PO SCH ×2 (10:14→21:08)
[2023-06-12] MEDS: SENOKOT S TAB PO SCH ×2 (10:15→21:08)
[2023-06-12] MEDS: **hydrALAZINE HCL** 25 MG TAB PO SCH ×3 (10:15→21:07)
[2023-06-12 11:52] VITALS: BP 107/56; TEMP 98; O2SAT 92
[2023-06-12] MEDS: NS 1,000 ML IV SCH (13:41)
[2023-06-12] MEDS ORDERED: ERTAPENEM SODIUM 1 GM in NS MINI-BAG PLUS 50 ML IV SCH (16:00)
[2023-06-12 20:33] VITALS: BP 130/58; TEMP 97.1; O2SAT 94
[2023-06-12] MEDS: AMITRIPTYLINE 50 MG TAB PO SCH (21:08)
[2023-06-12] MEDS: oxyBUTYnin 5 MG TAB PO SCH (21:08)
[2023-06-12] MEDS: QUEtiapine FUMARATE 25 MG TAB PO SCH (21:08)
[2023-06-12 23:07] VITALS: BP 127/62; TEMP 97.5; O2SAT 95
[2023-06-13 05:33] LABS: BASO # 0.1 10^3/uL (0.0-0.2); BASO % 0.7 % (0.0-1.0); EOS # 0.2 10^3/uL (0.0-0.5); EOS % 2.2 % (0.0-3.0); HEMATOCRIT 36.3 % (36.0-47.0); HEMOGLOBIN 11.1 g/dl (12.0-15.5); LYMPH # 1.8 10^3/uL (1.5-5.0); LYMPH % 25.6 % (24.0-44.0); MEAN CORPUSCULAR HEMOGLOBIN 29.9 pg (27.0-33.0); MEAN CORPUSCULAR HGB CONC 30.6 g/dl (32.0-36.5); MEAN CORPUSCULAR VOLUME 97.8 fl (80.0-96.0); MONO # 0.8 10^3/uL (0.0-0.8); MONO % 11.4 % (2.0-8.0); NEUTROPHILS # 4.3 10^3/uL (1.5-8.5); NEUTROPHILS % 59.8 % (36.0-66.0); PLATELET COUNT, AUTOMATED 200 10^3/uL (150-450); RED BLOOD COUNT 3.71 10^6/uL (4.00-5.40); WHITE BLOOD COUNT 7.1 10^3/uL (4.0-10.0)
[2023-06-13 05:37] VITALS: BP 141/63; TEMP 97.5; O2SAT 93
[2023-06-13] MEDS: HEPARIN SOD (PORCINE) 5000UNITS/ML 1ML VIAL/SYRINGE SC SCH ×3 (05:40→21:01)
[2023-06-13 05:50] LABS: CALCIUM LEVEL 7.7 MG/DL (8.3-10.6); CREATININE FOR GFR 1.34 MG/DL (0.55-1.30); GLOMERULAR FILTRATION RATE 40.8 (>39); POTASSIUM SERUM 4.2 MMOL/L (3.5-5.1)
[2023-06-13] MEDS: INSULIN LISPRO (NovoLOG) PER UNIT SC SCH ×4 (07:30→20:37)
[2023-06-13] MEDS: CALCITRIOL 0.25 MCG CAP (S0169) PO SCH (08:36)
[2023-06-13] MEDS: SENOKOT S TAB PO SCH ×2 (08:36→21:00)
[2023-06-13] MEDS: DONEPEZIL 5 MG TAB PO SCH (08:36)
[2023-06-13] MEDS: DULoxetine 30MG CAPSULE (CYMBALTA) PO SCH (08:36)
[2023-06-13] MEDS: LACTOBACILLUS ACIDOPHILUS CAP (BACID) PO SCH (08:36)
[2023-06-13] MEDS: OMEPRAZOLE 20MG CAP PO SCH (08:36)
[2023-06-13] MEDS: CARVedilol 3.125 MG TAB PO SCH ×2 (08:37→21:01)
[2023-06-13] MEDS: ANASTROZOLE 1 MG PO SCH (08:37)
[2023-06-13] MEDS: **hydrALAZINE HCL** 25 MG TAB PO SCH ×3 (08:38→21:00)
[2023-06-13] MEDS: LevoFLOXacin 750 MG TABLET PO SCH (12:54)
[2023-06-13 14:00] VITALS: BP 110/56; TEMP 97.2; O2SAT 93
[2023-06-13] MEDS: QUEtiapine FUMARATE 25 MG TAB PO SCH (21:00)
[2023-06-13] MEDS: AMITRIPTYLINE 50 MG TAB PO SCH (21:00)
[2023-06-14] MEDS: HEPARIN SOD (PORCINE) 5000UNITS/ML 1ML VIAL/SYRINGE SC SCH ×3 (05:48→20:42)
[2023-06-14 05:52] VITALS: BP 121/55; TEMP 97.7; O2SAT 96
[2023-06-14 06:20] LABS: BASO # 0.1 10^3/uL (0.0-0.2); BASO % 0.6 % (0.0-1.0); EOS # 0.2 10^3/uL (0.0-0.5); HEMATOCRIT 33.4 % (36.0-47.0); HEMOGLOBIN 10.7 g/dl (12.0-15.5); LYMPH # 2.2 10^3/uL (1.5-5.0); LYMPH % 27.6 % (24.0-44.0); MEAN CORPUSCULAR HEMOGLOBIN 29.7 pg (27.0-33.0); MEAN CORPUSCULAR VOLUME 92.8 fl (80.0-96.0); MONO # 0.8 10^3/uL (0.0-0.8); MONO % 10.1 % (2.0-8.0); NEUTROPHILS # 4.6 10^3/uL (1.5-8.5); NEUTROPHILS % 58.2 % (36.0-66.0); PLATELET COUNT, AUTOMATED 262 10^3/uL (150-450); WHITE BLOOD COUNT 7.9 10^3/uL (4.0-10.0)
[2023-06-14 06:50] LABS: CALCIUM LEVEL 8.5 MG/DL (8.3-10.6); CREATININE FOR GFR 1.36 MG/DL (0.55-1.30); GLOMERULAR FILTRATION RATE 40.1 (>39); MAGNESIUM LEVEL 1.9 MG/DL (1.8-2.4); POTASSIUM SERUM 4.3 MMOL/L (3.5-5.1)
[2023-06-14] MEDS: SENOKOT S TAB PO SCH ×2 (09:07→20:41)
[2023-06-14] MEDS: **hydrALAZINE HCL** 25 MG TAB PO SCH ×3 (09:11→20:42)
[2023-06-14] MEDS: DONEPEZIL 5 MG TAB PO SCH (09:11)
[2023-06-14] MEDS: DULoxetine 30MG CAPSULE (CYMBALTA) PO SCH (09:11)
[2023-06-14] MEDS: CARVedilol 3.125 MG TAB PO SCH ×2 (09:11→20:42)
[2023-06-14] MEDS: INSULIN LISPRO (NovoLOG) PER UNIT SC SCH ×4 (09:12→20:49)
[2023-06-14] MEDS: ANASTROZOLE 1 MG PO SCH (09:13)
[2023-06-14] MEDS: LACTOBACILLUS ACIDOPHILUS CAP (BACID) PO SCH (09:20)
[2023-06-14] MEDS: OMEPRAZOLE 20MG CAP PO SCH (09:20)
[2023-06-14] MEDS ORDERED: LEVO1TAB40 PO (17:18)
[2023-06-14 20:01] VITALS: BP 122/60
[2023-06-14] MEDS: AMITRIPTYLINE 50 MG TAB PO SCH (20:41)
[2023-06-14] MEDS: QUEtiapine FUMARATE 25 MG TAB PO SCH (20:41)
[2023-06-14] MEDS: DOCUSATE SODIUM 100MG CAPSULE PO SCH (20:42)
[2023-06-15] MEDS: HEPARIN SOD (PORCINE) 5000UNITS/ML 1ML VIAL/SYRINGE SC SCH (05:23)
[2023-06-15] MEDS: LevoFLOXacin 750 MG TABLET PO SCH (05:35)
[2023-06-15 06:00] VITALS: BP 121/60; TEMP 97.5; O2SAT 93
[2023-06-15] MEDS ORDERED: MIRA3350 PO (08:09)
[2023-06-15] MEDS ORDERED: SENN8.6T28 PO (08:09)
[2023-06-15] MEDS: ANASTROZOLE 1 MG PO SCH (08:44)
[2023-06-15] MEDS: DONEPEZIL 5 MG TAB PO SCH (08:45)
[2023-06-15] MEDS: OMEPRAZOLE 20MG CAP PO SCH (08:45)
[2023-06-15 08:46] VITALS: BP 121/60
[2023-06-15] MEDS: LACTOBACILLUS ACIDOPHILUS CAP (BACID) PO SCH (08:46)
[2023-06-15] MEDS: CALCITRIOL 0.25 MCG CAP (S0169) PO SCH (08:46)
[2023-06-15] MEDS: DULoxetine 30MG CAPSULE (CYMBALTA) PO SCH (08:46)
[2023-06-15] MEDS: SENOKOT S TAB PO SCH (08:46)
[2023-06-15] MEDS: DOCUSATE SODIUM 100MG CAPSULE PO SCH (08:46)
[2023-06-15] MEDS: CARVedilol 3.125 MG TAB PO SCH (08:46)
[2023-06-15] MEDS: INSULIN LISPRO (NovoLOG) PER UNIT SC SCH (08:47)
[2023-06-15] MEDS: **hydrALAZINE HCL** 25 MG TAB PO SCH (08:47)
[2023-06-15] MEDS ORDERED: MIRALAX *UNIT DOSE* 17GM PACKET PO SCH (09:00)
== END 2023-06-15 10:39 | disposition other institution (70) | DRG 690 ==
LOC: M ED 13:26 → EDBD 13:26 → M PCU 17:02 → M ED INP 17:02 → INTOOBSV 17:02 → OBSVTOIN 17:02 → ENRESERV 19:37 → M PCU 20:35 → M MSPAV 06-12 23:06
PROVIDERS: ADMIT Internal Medicine; ATTEND Internal Medicine
DX: N39.0 Urinary tract infection, site not specified (principal); I50.32 Chronic diastolic (congestive) heart failure; E87.20 Acidosis, unspecified; I13.0 Hypertensive heart and chronic kidney disease with heart failure and stage 1 through stage 4 chronic kidney disease, or unspecified chronic kidney disease; B96.20 Unspecified Escherichia coli [E. coli] as the cause of diseases classified elsewhere; E66.01 Morbid (severe) obesity due to excess calories; Z66 Do not resuscitate; N18.30 Chronic kidney disease, stage 3 unspecified; E11.42 Type 2 diabetes mellitus with diabetic polyneuropathy; J44.9 Chronic obstructive pulmonary disease, unspecified; F39 Unspecified mood [affective] disorder; K21.9 Gastro-esophageal reflux disease without esophagitis; E11.22 Type 2 diabetes mellitus with diabetic chronic kidney disease; E11.65 Type 2 diabetes mellitus with hyperglycemia; K59.00 Constipation, unspecified; R29.6 Repeated falls; N32.81 Overactive bladder; Z68.33 Body mass index [BMI] 33.0-33.9, adult; Z85.3 Personal history of malignant neoplasm of breast; Z90.12 Acquired absence of left breast and nipple; Z88.5 Allergy status to narcotic agent; Z88.8 Allergy status to other drugs, medicaments and biological substances; Z20.822 Contact with and (suspected) exposure to COVID-19

== ENCOUNTER 2023-08-23 17:06 | Inpatient (IN) | payer OTHER, MEDICAID ==
[~2023-08-23] VITALS: Ht 167.6 cm; Wt 83.2 kg
[~2023-08-23 17:06] MED LIST changes: +D 101000 PO; +DONE10TA90 PO; -HYDR-3910 PO; -HYDR25TA PO; +HYDR25TA87 PO; +HYDR25TA88 PO; +MAGN200T PO; +MIRA3350 PO; -OXYB5TAB11 PO; +OXYB5TAB14 PO; +SENN8.6T28 PO
[2023-08-23] MEDS: NS 500 ML IV ONE ×2 (19:56→21:36)
[2023-08-23 20:15] LABS: BASO % 0.2 % (0.0-1.0); EOS % 0.1 % (0.0-3.0); HEMATOCRIT 41.2 % (36.0-47.0); HEMOGLOBIN 14.4 g/dl (12.0-15.5); LYMPH # 1.4 10^3/uL (1.5-5.0); LYMPH % 7.9 % (24.0-44.0); MEAN CORPUSCULAR HEMOGLOBIN 30.9 pg (27.0-33.0); MEAN CORPUSCULAR VOLUME 88.4 fl (80.0-96.0); MONO # 1.1 10^3/uL (0.0-0.8); MONO % 6.2 % (2.0-8.0); NEUTROPHILS # 15.5 10^3/uL (1.5-8.5); PLATELET COUNT, AUTOMATED 392 10^3/uL (150-450); RED BLOOD COUNT 4.66 10^6/uL (4.00-5.40); WHITE BLOOD COUNT 18.2 10^3/uL (4.0-10.0)
[2023-08-23 20:49] LABS: ALBUMIN 3.3 G/DL (3.2-5.2); BILIRUBIN,DIRECT 0.3 MG/DL (<0.4); BILIRUBIN,TOTAL 0.8 MG/DL (0.3-1.2); CALCIUM LEVEL 10.5 MG/DL (8.3-10.6); CREATININE FOR GFR 2.22 MG/DL (0.55-1.30); GLOMERULAR FILTRATION RATE 22.8 (>39); TOTAL PROTEIN 7.1 G/DL (5.7-8.2)
[2023-08-23 21:44] LABS: APPEARANCE, URINE HAZY (CLEAR); BACTERIA, URINE AUTO NEGATIVE (NEGATIVE); BILIRUBIN, URINE AUTO NEGATIVE (NEGATIVE); BLOOD, URINE BLOOD NEGATIVE (NEGATIVE); COLOR, URINE YELLOW (YELLOW); GLUCOSE, URINE (UA) AUTO 3+ mg/dL (NEGATIVE); KETONE, URINE AUTO 1+ mg/dL (NEGATIVE); LEUKOCYTE ESTERASE, URINE AUTO NEGATIVE (NEGATIVE); MUCUS, URINE SMALL (NEGATIVE); NITRITE, URINE AUTO NEGATIVE (NEGATIVE); PROTEIN, URINE AUTO NEGATIVE (NEGATIVE); RBC, URINE AUTO 4 /HPF (0-3); SPECIFIC GRAVITY URINE AUTO 1.009 (1.002-1.035); SQUAMOUS EPITHELIAL CELL UR AU 3 /HPF (0-6); UROBILINOGEN, URINE AUTO 0.2 mg/dL (0.0-2.0); WBC, URINE AUTO 4 /HPF (0-3)
[2023-08-23] MEDS ORDERED: FARX1TAB5 PO (22:14)
[2023-08-23] MEDS ORDERED: HOME MED LIST COMPLETE! XX SCH (22:20)
[2023-08-24] MEDS ORDERED: BISACODYL 10MG SUPP PR PRN (01:50)
[2023-08-24] MEDS: NS 1,000 ML IV SCH (02:51)
[2023-08-24] MEDS: cefTRIAXone SOD 1 GM in D5W MINI-BAG PLUS 50 ML IV SCH (02:52)
[2023-08-24 03:29] LABS: HEMOGLOBIN 12.7 g/dl (12.0-15.5)
[2023-08-24] MEDS: HEPARIN SOD (PORCINE) 5000UNITS/ML 1ML VIAL/SYRINGE SC SCH (06:48)
[2023-08-24] MEDS: MOM 30ML SUSPENSION UDC PO SCH (09:00)
[2023-08-24 09:04] LABS: BASO # 0.1 10^3/uL (0.0-0.2); BASO % 0.5 % (0.0-1.0); EOS # 0.2 10^3/uL (0.0-0.5); EOS % 1.8 % (0.0-3.0); HEMATOCRIT 36.9 % (36.0-47.0); HEMOGLOBIN 12.3 g/dl (12.0-15.5); LYMPH # 2.5 10^3/uL (1.5-5.0); LYMPH % 20.9 % (24.0-44.0); MEAN CORPUSCULAR HEMOGLOBIN 29.6 pg (27.0-33.0); MEAN CORPUSCULAR HGB CONC 33.3 g/dl (32.0-36.5); MEAN CORPUSCULAR VOLUME 88.9 fl (80.0-96.0); MONO # 0.8 10^3/uL (0.0-0.8); NEUTROPHILS # 8.3 10^3/uL (1.5-8.5); NEUTROPHILS % 69.4 % (36.0-66.0); PLATELET COUNT, AUTOMATED 307 10^3/uL (150-450); RED BLOOD COUNT 4.15 10^6/uL (4.00-5.40); WHITE BLOOD COUNT 11.9 10^3/uL (4.0-10.0)
[2023-08-24 09:31] LABS: CALCIUM LEVEL 9.5 MG/DL (8.3-10.6); CREATININE FOR GFR 1.94 MG/DL (0.55-1.30); GLOMERULAR FILTRATION RATE 26.6 (>39); POTASSIUM SERUM 4.1 MMOL/L (3.5-5.1)
[2023-08-24 10:19] LABS: C REACTIVE PROTEIN QUANTITATIV 10.6 MG/DL (<1.0)
[2023-08-24] MEDS: DOCUSATE SODIUM 100MG CAPSULE PO SCH (10:53)
[2023-08-24] MEDS: DULoxetine 30MG CAPSULE (CYMBALTA) PO SCH (10:53)
[2023-08-24] MEDS: CARVedilol 3.125 MG TAB PO SCH (10:53)
[2023-08-24] MEDS: **hydrALAZINE HCL** 25 MG TAB PO SCH (10:53)
[2023-08-24] MEDS: MAGNESIUM OXIDE 400MG TAB (MAG-OX) PO SCH (10:54)
[2023-08-24] MEDS: OMEPRAZOLE 20MG CAP PO SCH (10:55)
[2023-08-24 13:38] VITALS: BP 132/63; TEMP 97.7; O2SAT 93
[2023-08-24] MEDS: METAMUCIL (PSYLLIUM) PACKET PO SCH (13:54)
[2023-08-24] MEDS: FOSFOMYCIN TROMETHAMINE 3 GM POWDER PACKET (MONUROL) PO ONE (14:19)
[2023-08-24 18:44] LABS: CREATININE,RANDOM URINE 73.5 MG/DL
[2023-08-24 19:51] VITALS: BP 102/78; TEMP 98.1; O2SAT 95
[2023-08-24] MEDS ORDERED: QUEtiapine FUMARATE 25 MG TAB PO SCH (21:00)
[2023-08-24] MEDS: AMITRIPTYLINE 50 MG TAB PO SCH (21:00)
[2023-08-24] MEDS ORDERED: AMITRIPTYLINE 25MG TABLET PO SCH (21:00)
[2023-08-24] MEDS: PANTOPRAZOLE 40MG VIAL IV SCH (22:59)
[2023-08-25] MEDS: QUEtiapine FUMARATE 25 MG TAB PO SCH (02:22)
[2023-08-25] MEDS: ACETAMINOPHEN TAB 650MG DOSE (2X325MG) PO PRN (02:23)
[2023-08-25 04:05] VITALS: BP 115/68; TEMP 97.3; O2SAT 99
[2023-08-25 05:28] LABS: HEMATOCRIT 32.7 % (36.0-47.0); HEMOGLOBIN 11.1 g/dl (12.0-15.5); MEAN CORPUSCULAR HEMOGLOBIN 30.4 pg (27.0-33.0); MEAN CORPUSCULAR HGB CONC 33.9 g/dl (32.0-36.5); MEAN CORPUSCULAR VOLUME 89.6 fl (80.0-96.0); PLATELET COUNT, AUTOMATED 288 10^3/uL (150-450); RED BLOOD COUNT 3.65 10^6/uL (4.00-5.40); WHITE BLOOD COUNT 9.8 10^3/uL (4.0-10.0)
[2023-08-25 05:52] LABS: CALCIUM LEVEL 8.5 MG/DL (8.3-10.6); CREATININE FOR GFR 1.71 MG/DL (0.55-1.30); GLOMERULAR FILTRATION RATE 30.8 (>39); POTASSIUM SERUM 3.7 MMOL/L (3.5-5.1)
[2023-08-25 06:04] LABS: PROCALCITONIN 0.53 ng/ml
[2023-08-25 08:37] LABS: C REACTIVE PROTEIN QUANTITATIV 7.6 MG/DL (<1.0)
[2023-08-25 10:06] VITALS: BP 103/63
[2023-08-25] MEDS: LACTULOSE 20GM/30ML SYRUP UDC PO SCH (10:07)
[2023-08-25] MEDS: PANTOPRAZOLE 40MG TAB (PROTONIX) PO ONE (12:22)
[2023-08-25] MEDS ORDERED: MIRA3350 PO (13:53)
== END 2023-08-25 14:49 | disposition home or self-care (01) | DRG 683 ==
LOC: M ED 17:06 → M ED INP 23:38 → ENRESERV 08-24 12:33 → M MSPAV 08-24 13:36
PROVIDERS: ADMIT Family Medicine; ATTEND Student in an Organized Health Care Education/Training Program
DX: N17.9 Acute kidney failure, unspecified (principal); I50.32 Chronic diastolic (congestive) heart failure; I13.0 Hypertensive heart and chronic kidney disease with heart failure and stage 1 through stage 4 chronic kidney disease, or unspecified chronic kidney disease; E87.1 Hypo-osmolality and hyponatremia; K62.5 Hemorrhage of anus and rectum; N39.0 Urinary tract infection, site not specified; T76.11XA Adult physical abuse, suspected, initial encounter; R32 Unspecified urinary incontinence; K59.00 Constipation, unspecified; K64.8 Other hemorrhoids; J44.9 Chronic obstructive pulmonary disease, unspecified; F39 Unspecified mood [affective] disorder; E66.9 Obesity, unspecified; G62.9 Polyneuropathy, unspecified; N18.30 Chronic kidney disease, stage 3 unspecified; E86.0 Dehydration; K21.9 Gastro-esophageal reflux disease without esophagitis; Z66 Do not resuscitate; Z85.3 Personal history of malignant neoplasm of breast; Z90.12 Acquired absence of left breast and nipple; Z79.899 Other long term (current) drug therapy; Z88.5 Allergy status to narcotic agent; Z88.8 Allergy status to other drugs, medicaments and biological substances

== ENCOUNTER → 2023-09-05 | Outpatient (CLI) | payer OTHER, MEDICAID ==
[~2023-09-05] MED LIST changes: +FARX1TAB5 PO; +SEMA1PEN2
[2023-09-05 13:33] LABS: BASO # 0.1 10^3/uL (0.0-0.2); BASO % 0.5 % (0.0-1.0); EOS # 0.2 10^3/uL (0.0-0.5); EOS % 1.6 % (0.0-3.0); HEMATOCRIT 34.7 % (36.0-47.0); HEMOGLOBIN 11.4 g/dl (12.0-15.5); LYMPH # 1.6 10^3/uL (1.5-5.0); LYMPH % 14.9 % (24.0-44.0); MEAN CORPUSCULAR HEMOGLOBIN 31.1 pg (27.0-33.0); MEAN CORPUSCULAR HGB CONC 32.9 g/dl (32.0-36.5); MEAN CORPUSCULAR VOLUME 94.6 fl (80.0-96.0); MONO # 0.6 10^3/uL (0.0-0.8); MONO % 5.9 % (2.0-8.0); NEUTROPHILS # 8.1 10^3/uL (1.5-8.5); NEUTROPHILS % 76.7 % (36.0-66.0); PLATELET COUNT, AUTOMATED 379 10^3/uL (150-450); RED BLOOD COUNT 3.67 10^6/uL (4.00-5.40); WHITE BLOOD COUNT 10.6 10^3/uL (4.0-10.0)
[2023-09-05 13:40] LABS: ERYTHROCYTE SEDIMENTATION RATE 91 mm/hr (0-30)
[2023-09-05 13:53] LABS: C REACTIVE PROTEIN QUANTITATIV 6.2 MG/DL (<1.0)
[2023-09-05 13:54] LABS: ALBUMIN 2.9 G/DL (3.2-5.2); BILIRUBIN,TOTAL 0.4 MG/DL (0.3-1.2); CALCIUM LEVEL 9.2 MG/DL (8.3-10.6); CREATININE FOR GFR 1.78 MG/DL (0.55-1.30); GLOMERULAR FILTRATION RATE 29.4 (>39); POTASSIUM SERUM 4.3 MMOL/L (3.5-5.1); TOTAL PROTEIN 6.2 G/DL (5.7-8.2)
[2023-09-05 14:26] LABS: PROCALCITONIN 0.15 ng/ml
== END ==
LOC: M PLALAB 11:18
PROVIDERS: ATTEND Student in an Organized Health Care Education/Training Program
DX: N17.9 Acute kidney failure, unspecified (principal); N39.0 Urinary tract infection, site not specified

== ENCOUNTER → 2023-10-16 | Outpatient (CLI) | payer OTHER, MEDICAID | LOC: M PLAIMG 12:04 | PROVIDERS: ATTEND Physician Assistant | DX: I35.8 Other nonrheumatic aortic valve disorders (principal) ==

== ENCOUNTER → 2023-10-30 | Outpatient (REF) | payer OTHER, MEDICAID ==
[2023-10-30 18:04] LABS: APPEARANCE, URINE CLOUDY (CLEAR); BACTERIA, URINE AUTO 1+ (NEGATIVE); BILIRUBIN, URINE AUTO NEGATIVE (NEGATIVE); BLOOD, URINE BLOOD NEGATIVE (NEGATIVE); COLOR, URINE YELLOW (YELLOW); GLUCOSE, URINE (UA) AUTO 3+ mg/dL (NEGATIVE); KETONE, URINE AUTO NEGATIVE (NEGATIVE); LEUKOCYTE ESTERASE, URINE AUTO 3+ (NEGATIVE); MUCUS, URINE SMALL (NEGATIVE); NITRITE, URINE AUTO NEGATIVE (NEGATIVE); PROTEIN, URINE AUTO NEGATIVE (NEGATIVE); RBC, URINE AUTO 1 /HPF (0-3); SPECIFIC GRAVITY URINE AUTO 1.006 (1.002-1.035); SQUAMOUS EPITHELIAL CELL UR AU 1 /HPF (0-6); UROBILINOGEN, URINE AUTO 0.2 mg/dL (0.0-2.0); WBC, URINE AUTO 108 /HPF (0-3)
== END ==
LOC: M SMT 16:53
PROVIDERS: ATTEND Physician Assistant
DX: R32 Unspecified urinary incontinence (principal)

== ENCOUNTER → 2023-11-19 | Outpatient (REF) | payer OTHER, MEDICAID | LOC: M SFHCPLAZ 18:16 | PROVIDERS: ATTEND Student in an Organized Health Care Education/Training Program | DX: I50.32 Chronic diastolic (congestive) heart failure (principal); E11.9 Type 2 diabetes mellitus without complications; N18.4 Chronic kidney disease, stage 4 (severe); G47.33 Obstructive sleep apnea (adult) (pediatric) ==

== ENCOUNTER 2023-12-06 14:57 | Emergency (ER) | payer OTHER, MEDICAID ==
[~2023-12-06] VITALS: Ht 167.6 cm; Wt 83.6 kg
[2023-12-06 19:02] VITALS: BP 146/72; TEMP 97.8; O2SAT 96
== END 2023-12-06 19:04 | disposition home or self-care (01) ==
LOC: M ED 14:57
DX: T74.91XA Unspecified adult maltreatment, confirmed, initial encounter (principal); Y07.59 Other non-family member, perpetrator of maltreatment and neglect; I11.9 Hypertensive heart disease without heart failure; J44.9 Chronic obstructive pulmonary disease, unspecified; N18.9 Chronic kidney disease, unspecified; F98.8 Other specified behavioral and emotional disorders with onset usually occurring in childhood and adolescence; R32 Unspecified urinary incontinence; Z79.4 Long term (current) use of insulin; Z79.899 Other long term (current) drug therapy; Z88.5 Allergy status to narcotic agent; Z88.8 Allergy status to other drugs, medicaments and biological substances

== ENCOUNTER 2023-12-08 11:12 | Emergency (ER) | payer OTHER, MEDICAID ==
[~2023-12-08] VITALS: Ht 165.1 cm; Wt 65.9 kg
[2023-12-08 13:34] VITALS: BP 131/72; TEMP 96.9; O2SAT 100
== END 2023-12-08 14:06 | disposition home or self-care (01) ==
LOC: M ED 11:12
DX: T83.091A Other mechanical complication of indwelling urethral catheter, initial encounter (principal); I11.0 Hypertensive heart disease with heart failure; E11.9 Type 2 diabetes mellitus without complications; J44.9 Chronic obstructive pulmonary disease, unspecified; N18.30 Chronic kidney disease, stage 3 unspecified; K21.9 Gastro-esophageal reflux disease without esophagitis; Z85.3 Personal history of malignant neoplasm of breast; Z79.899 Other long term (current) drug therapy; Z88.5 Allergy status to narcotic agent; Z88.8 Allergy status to other drugs, medicaments and biological substances

== ENCOUNTER → 2023-12-28 | Outpatient (REF) | payer OTHER, MEDICAID ==
[2023-12-28 14:27] LABS: APPEARANCE, URINE CLEAR (CLEAR); BACTERIA, URINE AUTO NEGATIVE (NEGATIVE); BILIRUBIN, URINE AUTO NEGATIVE (NEGATIVE); BLOOD, URINE BLOOD NEGATIVE (NEGATIVE); COLOR, URINE STRAW (YELLOW); GLUCOSE, URINE (UA) AUTO 3+ mg/dL (NEGATIVE); KETONE, URINE AUTO NEGATIVE (NEGATIVE); LEUKOCYTE ESTERASE, URINE AUTO NEGATIVE (NEGATIVE); MUCUS, URINE SMALL (NEGATIVE); NITRITE, URINE AUTO NEGATIVE (NEGATIVE); PROTEIN, URINE AUTO NEGATIVE (NEGATIVE); RBC, URINE AUTO 0 /HPF (0-3); SPECIFIC GRAVITY URINE AUTO 1.005 (1.002-1.035); SQUAMOUS EPITHELIAL CELL UR AU 0 /HPF (0-6); UROBILINOGEN, URINE AUTO 0.2 mg/dL (0.0-2.0); WBC, URINE AUTO 5 /HPF (0-3)
== END ==
LOC: M SMT 13:05
PROVIDERS: ATTEND Physician Assistant
DX: R32 Unspecified urinary incontinence (principal)

== ENCOUNTER → 2024-03-06 | Outpatient (CLI) | payer OTHER, MEDICAID ==
[2024-03-06 18:21] LABS: HEMATOCRIT 42.5 % (36.0-47.0); HEMOGLOBIN 13.9 g/dl (12.0-15.5); MEAN CORPUSCULAR HEMOGLOBIN 30.1 pg (27.0-33.0); MEAN CORPUSCULAR HGB CONC 32.7 g/dl (32.0-36.5); PLATELET COUNT, AUTOMATED 380 10^3/uL (150-450); RED BLOOD COUNT 4.62 10^6/uL (4.00-5.40); WHITE BLOOD COUNT 11.1 10^3/uL (4.0-10.0)
[2024-03-06 18:34] LABS: HEMOGLOBIN A1c 5.3 % (4.0-6.0)
[2024-03-06 18:51] LABS: ALBUMIN 3.8 G/DL (3.2-5.2); ALKALINE PHOSPHATASE 120 U/L (46-116); ALT/SGPT < 9 U/L (7.0-40); AST/SGOT < 8 U/L (<34); BILIRUBIN,TOTAL 0.4 MG/DL (0.3-1.2); BLOOD UREA NITROGEN 57 MG/DL (9-23); CALCIUM LEVEL 10.6 MG/DL (8.3-10.6); CARBON DIOXIDE LEVEL 26 MMOL/L (20-31); CHLORIDE LEVEL 99 MMOL/L (98-107); CREATININE FOR GFR 1.93 MG/DL (0.55-1.30); GLOMERULAR FILTRATION RATE 26.7 (>39); GLUCOSE, FASTING 124 MG/DL (74-106); MAGNESIUM LEVEL 2.7 MG/DL (1.8-2.4); POTASSIUM SERUM 4.2 MMOL/L (3.5-5.1); SODIUM LEVEL 133 MMOL/L (136-145); TOTAL PROTEIN 7.8 G/DL (5.7-8.2)
== END ==
LOC: M PLALAB 14:19
DX: I50.32 Chronic diastolic (congestive) heart failure (principal); N18.4 Chronic kidney disease, stage 4 (severe); E11.9 Type 2 diabetes mellitus without complications; G47.33 Obstructive sleep apnea (adult) (pediatric)

== ENCOUNTER → 2024-03-06 | Outpatient (CLI) | payer OTHER, MEDICAID | LOC: M PLAIMG 14:18 | DX: M75.41 Impingement syndrome of right shoulder (principal) ==

== ENCOUNTER → 2024-03-13 | Outpatient (CLI) | payer OTHER, MEDICAID | LOC: M WHC 08:48 | PROVIDERS: ATTEND Specialist | DX: C50.912 Malignant neoplasm of unspecified site of left female breast (principal); R92.8 Other abnormal and inconclusive findings on diagnostic imaging of breast | CPT/HCPCS: 77065; G0279 ==

== ENCOUNTER → 2024-08-04 | Outpatient (CLI) | payer OTHER, MEDICAID ==
[~2024-08-04] MED LIST changes: +METF-1156 PO; -METF-817 PO; +MIRT-11
== END ==
LOC: M WHC 08:45
PROVIDERS: ATTEND Specialist
DX: M85.89 Other specified disorders of bone density and structure, multiple sites (principal); C50.919 Malignant neoplasm of unspecified site of unspecified female breast

== ENCOUNTER 2024-11-17 09:34 | Outpatient (RCR) | payer OTHER, MEDICAID ==
[~2024-11-17 09:34] MED LIST changes: +AMLO-751 PO; -AMLO10TA PO
== END 2024-12-11 ==
LOC: M PT 09:34
DX: R53.81 Other malaise (principal)

== ENCOUNTER → 2025-03-28 | Outpatient (REF) | payer OTHER, MEDICAID | LOC: M SFHCPLAZ 19:13 | DX: N18.4 Chronic kidney disease, stage 4 (severe) (principal); Z13.220 Encounter for screening for lipoid disorders; E11.22 Type 2 diabetes mellitus with diabetic chronic kidney disease; Z53.9 Procedure and treatment not carried out, unspecified reason ==